=== PATIENT | female | born 1985 | race African-American/Black ===

== ENCOUNTER 2020-05-23 19:38 | Emergency (ER) | payer OTHER ==
[~2020-05-23] VITALS: Ht 170.2 cm; Wt 79.8 kg
--- OUTSIDE RECORDS SUMMARY | 2020-05-23 20:00 | XMS REPORT | Clinical Summary ---
Author Author FRANKIE [facility]Kyrib[facility] Corporation[facility] Address Unknown Phone Unavailable Care Team Providers Care It Sales Consultant Name Role Phone Pamella Carrasco PCP Unavailab le Allergies Comments Active Allergy Reactions Severity Noted Date Itchiness, rashes Folic Acid High 02/22/2019 Iodine And Iodide Itching, Rash Low 12/18/2016 Containing Products Latex 05/08/2016 Pt with severe itching after injection 09/06/2019 Morphine Hives, 09/11/2015 Itching Xenia Anaphylaxis High 02/17/2019 Ketorolac Itching 09/11/2015 Medications End Date Status Medication Sig Dispensed Refills Start Date Active ibuprofen (ADVIL,MOTRIN) Take 800 mg 0 800 MG tablet by mouth every 6 (six) hours as needed for Pain. Active ondansetron (ZOFRAN-ODT) 1 po q 6 -8 20 tablet 0 1 4 MG disintegrating hours, prn 9 tablet nausea.. Active predniSONE (DELTASONE) 10 Take 30 mg by 0 /11 19/202 MG tablet mouth daily. 0 Active triamcinolone (KENALOG) Apply 1 0 0.1 % topical ointment application topically 2 (two) times daily as needed. Active omeprazole (PRILOSEC) 40 Take 40 mg by 0 02/06 / MG capsule mouth daily. 0 Active montelukast (SINGULAIR) Take 1 tablet 0 10 mg tablet by mouth 8 nightly. Active fluticasone propionate 1 puff by 0 02/10/2 02 (XHANCE) 93 mcg/actuation Nasal route 2 0 AerB (two) times daily. Active fluticasone propionate Inhale 1 puff 0 (FLOVENT HFA) 110 by mouth via mcg/actuation inhaler inhaler 2 (two) times daily. Active ferrous sulfate 325 (65 Take 325 mg 0 FE) MG tablet by mouth daily. Active betamethasone, augmented, 1 application 0 02/10 (DIPROLENE) 0.05 % 2 (two) times 0 ointment daily as needed. Active albuterol HFA (PROAIR Inhale 2 0 02/25/20 1 HFA) 90 mcg/actuation puffs by 7 inhaler mouth via inhaler every 4 (four) hours as needed. 09/06/2019 Discontinued albuterol (PROVENTIL) 2.5 Take 2.5 mg 0 mg /3 mL (0.083 %) by nebulizer solution nebulization every 6 (six) hours as needed for Wheezing. 09/06/2019 Discontinued FERROUS FUMARATE (IRON Take by 0 ORAL) mouth. 03/14/2020 Discontinued docusate sodium (COLACE) Take 1 0 08/12 100 MG capsule capsule by 9 mouth 2 (two) times daily as needed. 03/14/2020 Discontinued predniSONE (DELTASONE) 5 Take 1 tablet 0 07/27 MG tablet by mouth. 9 03/14/2020 Discontinued oxyCODONE-acetaminophen Take 1 tablet 0 (PERCOCET) 10-325 mg per by mouth tablet every 4 (four) hours as needed for Pain. 03/14/2020 Discontinued potassium chloride 2 po bid x 1 10 tablet 0 (KLOR-CON) 10 MEQ CR day, then 1 9 tablet po daily x 6 days. Re-check Potassium level in 1 week.. Active Problems Not on file Encounters Care Team Description Date Type Specialty Maurice Oh MD Pleuritic chest pain (Primary Dx); Chest pain, unspecified type 03/14/2020 Emergency Emergency Medicine 03/14/2020 Travel Minnie Hooper MD Lower abdominal pain (Primary Dx); Hypokalemia; Nausea; Status post ; Iron deficiency anemia, unspecified iron deficiency anemia type 09/06/2019 Emergency Emergency Medicine 09/06/2019 Travel after 05/23/2019 Family History Medical History Relation Name Comments Hypertension Father Hypertension Mother Relation Name Status Comments Father Mother Social History Date Tobacco Use Types Packs/Day Years Used Never Smoker Smokeless Tobacco: Never Used Alcohol Use Drinks/Week oz/Week Comments Yes socially Alcohol Habits Answer Date Recorded How often do you have a drink containing alcohol? Never 09/06/2019 How many drinks containing alcohol do you have on No t asked a typical day when you are drinking? How often do you have six or more drinks on one Not asked occasion? Sex Assigned at Date Recorded Not on file Industry Job Start Date Occupation Not on file Not on file Not on file Travel End Travel History Travel Start No recent travel history available. Last Filed Vital Signs Time Taken Vital Sign Reading 03/14/2020 10:20 PM CDT Blood Pressure 157/82 03/14/2020 10:20 PM CDT Pulse 71 03/14/2020 10:20 PM CDT Temperature 37.2 C (99 F) 03/14/2020 10:20 PM CDT Respiratory Rate 18 03/14/2020 10:20 PM CDT Oxygen Saturation 100% - Inhaled Oxygen - Concentration 03/14/2020 6:52 PM CDT Weight 79.8 kg (176 lb) 03/14/2020 6:52 PM CDT Height 168.9 cm (5' 6.5") 03/14/2020 6:52 PM CDT Body Mass Index 27.98 Plan of Treatment Not on file Procedures Comments Procedure Name Priority Date/Time Associated Diag nosis REPORT OF PROCEDURE - 03/17/2020 ENDOSCOPY SCAN 2:20 PM CDT XR CHEST 2 VIEWS STAT 03/14/2020 9:43 PM CDT SCREEN, URINE STAT 03/14/2020 8:06 PM CDT B-TYPE NATRIURETIC FACTOR STAT 03/14/2020 (BNP) 7:51 PM CDT CBC W/PLT COUNT & AUTO STAT 03/14/2020 DIFFERENTIAL 7:50 PM CDT D-DIMER STAT 03/14/2020 7:50 PM CDT RAPID TROPONIN I STAT 03/14/2020 7:50 PM CDT RAPID MYOGLOBIN STAT 03/14/2020 7:50 PM CDT RAPID CK-MB STAT 03/14/2020 7:50 PM CDT PT/APTT STAT 03/14/2020 7:50 PM CDT CBC W/PLT COUNT & AUTO STAT 03/14/2020 DIFFERENTIAL 7:50 PM CDT MAGNESIUM STAT 03/14/2020 7:50 PM CDT BASIC METABOLIC PANEL (7) STAT 03/14/2020 7:50 PM CDT ED ECG INTERPRETATION Routine 03/14/2020 7:26 PM CDT ECG 12-LEAD STAT 03/14/2020 6:[address] ABDOMEN/PELVIS WITHOUT STAT 09/06/2019 IV CONTRAST 9:16 AM [employer] URINALYSIS W/ REFLEX STAT 09/06/2019 URINE CULTURE 8:51 AM [employer] URINE CULTURE STAT 09/06/2019 8:51 AM [employer] CBC W/PLT COUNT & AUTO STAT 09/06/2019 DIFFERENTIAL 8:45 AM [employer]IST BASIC METABOLIC PANEL (7) STAT 09/06/2019 8:45 AM [employer] HEPATIC FUNCTION PANEL STAT 09/06/2019 8:45 AM [employer]IST CBC W/PLT COUNT & AUTO STAT 09/06/2019 DIFFERENTIAL 8:45 AM [employer]IST after 05/23/2019 Results * EKG-SCANNED (03/17/2020 2:20 PM CDT) Narrative Performed At This result has an attachment that is n ot available. * XR chest 2 views (03/14/2020 9:43 PM CDT) Specimen Narrative Performed At FINAL REPORT [facility] Exam: Chest radiograph Clinical History: Chest pain COMPARISON: December 18, 2016 Findings: The cardiomediastinal silhouette and leidy ngs are normal. The regional skeleton and soft tissue are unremarkab le.There is no evidence of pleural effusion or pneumothorax. Impression: No radiographic evidence of acute cardi opulmonary disease. Signed: Rahul Roldan MD Report Verified Date/Time: 0 21:49:09 Reading Location: [address] Transiti onal Reading Room Procedure Note Interface, External Ris In - 03/14/2020 9:51 PM CDT FINAL REPORT Exam: Chest radiograph Clinical History: Chest pain COMPARISON: December 18, 2016 Findings: The cardiomediastinal silhouette and lungs are normal. The regional skeleton and soft tissue are unremarkable. There is no evidence of pleural effusion or pneumothorax. Impression: No radiographic evidence of acute cardiopulmonary disease. Signed: Rahul Roldan MD Report Verified Date/Time: 03/14/2020 21:49:09 Reading Location: [facility] [id number] Transitional Reading Room Performing Organization Address City/[facility] Ph one Number GE RIS * screen, urine (03/14/2020 8:06 PM CDT) Preg Test, Ur Negative [facility], [facility], [facility] Specimen Urine Performing Organization Address [facility] Ph one Number [address] [address] [phone] [place] [address] [facility] [place] * B-type Natriuretic Factor (BNP) (03/14/2020 7:51 PM CDT) BNP 26 0 - 100 pg/mL [facility], [facility], [facility] [place] Specimen Blood Performing Organization Address [facility] Ph one Number [id number] [place] [address] [phone] [place] [address] LABORATORY * Rapid Myoglobin (03/14/2020 7:50 PM CDT) Rapid Myoglobin 22 <107 ng/mL [facility] Specimen Blood Performing Organization Address [facility] one Number FRANKIE HAWKINS [address] [place] [address] [facility], [facility], [facility] * Rapid Troponin I ([facility] Only) (03/14/2020 7:50 PM CDT) Rapid Troponin I <0.05 <0.05 ng/mL [facility] Specimen Blood Performing Organization Address [facility] Ph one Number FRANKIE HAWKINS [address] [place] [address] [facility] * Rapid CK-MB (03/14/2020 7:50 PM CDT) Rapid CKMB <1.0 0.0 - 4.3 ng/mL [facility] Specimen Blood Performing Organization Address [facility] Ph one Number FRANKIE HAWKINS [address] [place] [address] [facility], [facility], [facility] * PT/PTT (03/14/2020 7:50 PM CDT) Protime 10.6 9.8 - 12.0 seconds [facility] INR 1.0 <=5.9 [facility], [facility], [facility] PTT 25.0 (L) 25.8 - 34.5 seconds [facility] Specimen Blood Narrative Performed At RECOMMENDED COUMADIN/WARFARIN INR THERAPY RANGES [facility] STANDARD DOSE: 2.0 - 3.0 Includes: PROPHYLAXIS fo r venous thrombosis, [facility] systemic embolization; TREATMENT for ve nous thrombosis and/or pulmonary embolus. [facility] HIGH RISK: Target INR is 2.5-3.5 for patients with me chanical heart valves. [facility], [facility] Performing Organization Address City/State/Zipcode Ph one Number [facility] [address] [place], [place] [id number] [facility] * CBC with platelet count + automated diff (03/14/2020 7:50 PM CDT) Only the most recent of 2 results within the time period is included. WBC 12.0 (H) 4.0 - 10.0 K/L [facility], [facility] RBC 4.11 4.00 - 5.00 M/L [facility] Hemoglobin 11.0 (L) 12.0 - 15.0 GM/DL [facility] Hematocrit 33.7 (L) 36.0 - 45.0 % [facility] MCV 82.0 82.0 - 99.0 fL [facility] MCH 26.8 (L) 27.0 - 33.0 pg [facility] MCHC 32.7 32.0 - 36.0 GM/DL [facility] RDW 17.0 (H) 10.3 - 14.2 % [facility] Platelets 247 150 - 430 K/CU MM [facility] MPV 10.5 6.5 - 10.5 fL [facility] % Neutros 53 % [facility] % Lymphs 37 % [facility] % Monos 7 % [facility] % Eos 2 % [facility] [place] % Baso 1 % [facility], [facility], [facility] [place], [facility] # Neutros 6.38 1.80 - 8.00 K/L [facility], [facility], [facility] [place], [facility] # Lymphs 4.47 1.48 - 4.50 K/L [facility], [facility], [facility] [place] # Monos 0.85 0.00 - 1.30 K/L [facility], [facility], [facility] [place], [facility] # Eos 0.23 0.00 - 0.50 K/L [facility], [facility], [facility] [place] # Baso 0.11 0.00 - 0.20 K/L [facility], [facility], [facility] Specimen Blood Performing Organization Address [facility] Ph one Number [phone] [place] [address], [facility], [facility] [place] * D-dimer, quantitative (03/14/2020 7:50 PM CDT) D-Dimer, Quant 0.34 <0.50 MG/L FEU [facility], [facility], [facility] Specimen Blood Narrative Performed At REGARDING D-DIMER RESULTS: Results of this D-Dimer te st should always be [facility] interpreted in conjunction with the patient's medical history, clinical [facility] presentation and other findings. DVT clinical diagnos is should not be based on CENTER, COMMUNITY the results of [place] D-Dimer alone. [facility] [place], [facility] Performing Organization Address [facility] one Number [phone] [place] [address], [facility], [facility] * Magnesium (03/14/2020 7:50 PM CDT) Magnesium 1.9 1.5 - 3.0 mg/dL [facility] Specimen Blood Performing Organization Address City/[facility] Ph one Number [facility] [address] [place] [address] [facility] * Basic Metabolic Panel (03/14/2020 7:50 PM CDT) Only the most recent of 2 results within the time period is included. Sodium 138 135 - 148 meq/L [facility] Potassium 3.6 3.6 - 5.5 meq/L [facility] Chloride 105 98 - 106 meq/L [facility] CO2 27 24 - 32 meq/L [facility] BUN 10 10 - 26 mg/dL [facility] Creatinine 0.46 (L) 0.50 - 1.20 mg/dL [facility] Glucose 95 70 - 110 mg/dL [facility] Calcium 9.2 8.5 - 10.5 mg/dL [facility] EGFR 187Comment: ESTIMATED GFR IS mL/min/1.73 sq m [facility] NOT ACCURATE CREATININE [facility] CLEARANCE IN [facility] GLOMERULAR FILTRATION RATE. EMERGENCY CENTER, ESTIMATED GFR IS NOT [facility] APPLICABLE FOR DIALYSIS PATIENTS. Specimen Blood Performing Organization Address City/[facility] Ph one Number [facility] [address] [place] [address] [facility], [facility], [facility] * ECG/EKG Interpretation (03/14/2020 7:26 PM CDT) Narrative Performed At Maurice Oh MD 03/15/20 12:11 AM ECG/EKG Interpretation Date/Time: 03/14/2020 7:29 PM Performed by: Maurice Oh MD Authorized by: Maurice Oh MD The ECG was interpreted by ED physician . This ECG was not compared with previous ECG(s).The ECG is interpreted as sinus rhythm. Rate is normal rate. Conduction: conduction normal. ST segments normal. T waves normal. Other findings: no other findings. Clin ical Impression: non-specific ECGECG reviewed and does not meet STEMI criteria. * ECG 12 lead (03/14/2020 6:55 PM CDT) Specimen Narrative Performed At Ventricular Rate 75 BPM [facility] Atrial Rate 75 BPM P-R Interval 148 ms QRS Duration 84 ms Q-T Interval 394 ms QTC Calculation(Bazett) 439 ms P [place] 33 degrees R [place] 20 degrees T [place] 16 degrees Normal sinus rhythm Nonspecific T wave abnormality Abnormal ECG 14 DEC 2016 Fusion complexes no longer seen Questionable change in the QRS axis QT has shortened Confirmed by MD DEJESUS YOCHAI ([id number] ) on 03/15/2020 8:37:07 AM Procedure Note Interface, External Ris In - 03/15/2020 8:37 AM CDT Ventricular Rate 75 BPM Atrial Rate 75 BPM P-R Interval 148 ms QRS Duration 84 ms Q-T Interval 394 ms QTC Calculation(Bazett) 439 ms P [place] 33 degrees R [place] 20 degrees T [place] 16 degrees Normal sinus rhythm Nonspecific T wave abnormality Abnormal ECG 14 DEC 2016 Fusion complexes no longer seen Questionable change in the QRS axis QT has shortened Confirmed by MD DEJESUS YOCHAI ([id number]) on 03/15/2020 8:37:07 AM Performing Organization Address City/State/[facility] Ph one Number [facility] * CT abdomen/pelvis without iv contrast (09/06/2019 9:16 AM [employer]IST) Specimen Narrative Performed At FINAL REPORT [employer] TECHNIQUE: CT of the abdomen and pelvis WITHOUT intravenous contrast and WITHOUT oral contrast. Dose modulat ion, iterative reconstruction, and/or weight-based adjustment of the m A/kV was utilized to reduce the radiation dose to as low as reasona chiquita achievable. INDICATION: RLQ abdominal pain, appendi citis suspected (Age > 14y) recent and salpingectomy, 6 w eeks ago. COMPARISON: CT from 09/11/2015. FINDINGS: ABSENCE OF INTRAVENOUS CONTRAST DECREAS ES SENSITIVITY FOR DETECTION OF FOCAL LESIONS AND VASCULAR PATHOLOGY . LOWER THORAX: Unremarkable. HEPATOBILIARY: No focal hepatic lesions . Gallbladder is unremarkable. No biliary ductal dilatation. SPLEEN: No splenomegaly. PANCREAS: No focal masses or ductal dil atation. ADRENALS: No adrenal nodules. KIDNEYS/URETERS: No hydronephrosis, sto sigifredo, or exophytic masses. PELVIC ORGANS/BLADDER: Prominent, postp artum uterus. PERITONEUM/RETROPERITONEUM: No free air or fluid. LYMPH NODES: No lymphadenopathy. VESSELS: Unremarkable. GI TRACT: No distention or wall thicken ing. Small, sliding hiatal hernia. The appendix is normal. BONES AND SOFT TISSUES: Recent lower ab dominal incision. Transitional lumbar vertebra with a left L5-S1 pseud oarthrosis. Mild leftward convex curvature of the lumbar spine. IMPRESSION: No definite explanation for the right l ower quadrant abdominal pain. Specifically, the appendix is normal. Signed: Jose Guadalupe Bazzi MD Report Verified Date/Time: 9 09:31:36 Reading Location: [facility] Reading Room - [place] [id number] Procedure Note Interface, External Ris In - 09/06/2019 9:33 AM [employer] SPECIALIST FINAL REPORT TECHNIQUE: CT of the abdomen and pelvis WITHOUT intravenous contrast and WITHOUT oral contrast. Dose modulation, iterative reconstruction, and/or weight-based adjustment of the mA/kV was utilized to reduce the radiation dose to as low as reasonably achievable. INDICATION: RLQ abdominal pain, appendicitis suspected (Age > 14y) recent and salpingectomy, 6 weeks ago. COMPARISON: CT from 09/11/2015. FINDINGS: ABSENCE OF INTRAVENOUS CONTRAST DECREASES SENSITIVITY FOR DETECTION OF FOCAL LESIONS AND VASCULAR PATHOLOGY. LOWER THORAX: Unremarkable. HEPATOBILIARY: No focal hepatic lesions. Gallbladder is unremarkable. No biliary ductal dilatation. SPLEEN: No splenomegaly. PANCREAS: No focal masses or ductal dilatation. ADRENALS: No adrenal nodules. KIDNEYS/URETERS: No hydronephrosis, stones, or exophytic masses. PELVIC ORGANS/BLADDER: Prominent, uterus. PERITONEUM/RETROPERITONEUM: No free air or fluid. LYMPH NODES: No lymphadenopathy. VESSELS: Unremarkable. GI TRACT: No distention or wall thickening. Small, sliding hiatal hernia. The appendix is normal. BONES AND SOFT TISSUES: Recent lower abdominal incision. 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 Mild leftward convex curvature of the lumbar spine. IMPRESSION: No definite explanation for the right lower quadrant abdominal pain. Specifically, the appendix is normal. Signed: Jose Guadalupe Bazzi MD Report Verified Date/Time: 09/06/2019 09:31:36 Reading Location: [facility] Diagnostic Imaging Reading Room - [place] [id number] Performing Organization Address City/State/Zipcode Ph one Number GE RIS * Urinalysis w/Microscopic + Reflex to Culture (09/06/2019 8:51 AM [employer]IST) Color, UA Yellow [facility] Clarity, UA Cloudy [facility] Specific [place], UA 1.025 1.001 - 1.035 [facility] pH, UA 6.0 5.0 - 8.0 [facility] Protein, UA 30 mg/dL (A) Negative [facility] Glucose, UA Negative Negative [facility] Ketones, UA Negative Negative [facility] Bilirubin, UA Negative Negative [facility] Blood, UA Moderate (A) Negative [facility] Nitrite, UA Negative Negative [facility] Leukocytes, UA Small (A) Negative [facility] Urobilinogen, UA 0.2 0.2 - 1.0 mg/dL [facility], [facility], [facility] Bacteria, UA Moderate [facility], [facility], [facility] [place], [facility] Mucus Moderate [facility] RBC, UA 10-20 /HPF [facility] WBC, UA 20-50 /HPF [facility], [facility], [facility] SQUAMOUS EPITHELIAL 20-50 /HPF [facility], [facility], [facility] Specimen Source [facility], [facility], [facility] Specimen Urine Performing Organization Address City/[facility]/Zipcode Ph one Number [facility] [address] [place] [address] [facility], [facility], [facility] * Urine culture (09/06/2019 8:51 AM [employer]IST) Result 90-99,000 col/mL skin leonard [facility] Specimen Urine Performing Organization Address City/[facility]/Zipcode Ph one Number [facility] [address] [place] [address] [facility] * Hepatic function panel (09/06/2019 8:45 AM [employer]IST) Protein, Total 7.3 6.0 - 8.5 gm/dL [facility], [facility], [facility] Albumin 3.9 3.5 - 5.0 g/dL [facility], [facility], [facility] Total Bilirubin 0.3 0.1 - 1.2 mg/dL [facility], [facility], [facility] Bilirubin, Direct 0.1 0.0 - 0.4 mg/dL [facility], [facility], [facility] Alkaline Phosphatase 104 30 - 115 U/L [facility] AST 14 5 - 40 U/L [facility] ALT 15 5 - 50 U/L [facility], [facility], [facility] [place], [facility] Specimen Blood Performing Organization Address City/State/Zipcode Ph one Number [facility] [address] [place] [address] [facility], [facility], [facility] [place], [facility] after 05/23/2019 Insurance Payer Benefit Subscriber ID Type Phone Address Plan / Group MEDICAID - MEDICAID [place] MEDICAID xxxxxxxxx Medica id CARE COMM Contracted HEALTH CHOICE CIGNA - [place] CARE CIGNA xxxxxxxxxxx HMO/POS HMO/POS/OP EN ACCESS [phone]
--- OUTSIDE RECORDS SUMMARY | 2020-05-23 20:00 | XMS REPORT ---
Author Author Marya Sweet [facility] Organization [employer] Address Unknown Phone Unavailable Care Team Providers Care Electrical Checkout Mechanic Name Role Phone Melinda Sweet CP Unavailable Allergies, Adverse Reactions, Alerts Substance Reaction Event Type Morphine Sulfate Info Not Available Drug Allergy Ketorolac Tromethamine Info Not Available Drug Allergy Problems Problem Type Condition Code Onset Dates Condition Statu s Assessment Well adult exam Z00.00 Active Problem Moderate persistent asthma, uncomplicated J45.40 Active Problem Sickle cell anemia D57.1 Active Problem Vitamin D deficiency E55.9 Active Problem Hyperlipemia E78.5 Active Problem Umbilical hernia K42.9 Active Problem Encounter to discuss test results Z71.89 Active Problem Well adult exam Z00.00 Active Problem Asthma J45.909 Active Problem Other hyperlipidemia E78.4 Active Assessment BMI 28.0-28.9,adult Z68.28 Active Assessment Insomnia, unspecified type G47.00 A ctive Assessment Moderate persistent asthma, uncomplicated J45.40 Active Medications Medication Code System Code Instructions Start Date End Date Status Dosage Advair Diskus [facility] [address]-60 500-50 MCG/DOSE Inhalation Twice a day Sep 27, 2016 Active 1 puff Montelukast Sodium [facility] [address]-19 10 MG Orally Once a d ay for asthma control May 01, 2018 Active 1 tablet in the even ing Vitamin D3 [facility] [address]383 UNIT Orally once a week February 24 7 Active as directed Trazodone HCl [facility] [address]-74 150 MG Orally on ce a day at bedtime for insomnia May 02, 2018 Active 1 tablet at bedt myron ProAir HFA [facility] [address]-24 Active not def ined ProAir HFA [facility] [address]-24 108 (90 Base) MCG/ACT Inhal ation every 4 hrs February 24, 2017 Active 2 puffs as needed Results No Known Results Summary Purpose [employer] Submission
--- OUTSIDE RECORDS SUMMARY | 2020-05-23 20:00 | XMS REPORT ---
Author Author Marya Kincaid Organization [employer] Address Unknown Phone Unavailable Care Team Providers Care Laborer Shipyard Name Role Phone Faiza Kincaid CP Unavailable Allergies, Adverse Reactions, Alerts Substance Reaction Event Type Morphine Sulfate Info Not Available Drug Allergy Ketorolac Tromethamine Info Not Available Drug Allergy Problems Problem Type Condition Code Onset Dates Condition Statu s Assessment Vitamin D deficiency E55.9 Active Problem Moderate persistent asthma, uncomplicated J45.40 Active Problem Sickle cell anemia D57.1 Active Problem Vitamin D deficiency E55.9 Active Problem Hyperlipemia E78.5 Active Problem Umbilical hernia K42.9 Active Problem Encounter to discuss test results Z71.89 Active Problem Well adult exam Z00.00 Active Problem Asthma J45.909 Active Problem Other hyperlipidemia E78.4 Active Assessment Umbilical hernia K42.9 Active Assessment Moderate persistent asthma, uncomplicated J45.40 Active Assessment Asthma J45.909 Active Assessment Hyperlipemia E78.5 Active Medications Medication Code System Code Instructions Start Date End Date Status Dosage Advair Diskus [facility] [address]-28 500-50 MCG/DOSE Inhalation Twice a day Sep 27, 2016 Active 1 puff ProAir HFA [facility] [address]-04 Active not def ined Vitamin D3 [facility] [address] UNIT Orally once a week February 24 7 Active as directed ProAir HFA [facility] [address]-97 108 (90 Base) MCG/ACT Inhal ation every 4 hrs February 24, 2017 Active 2 puffs as needed Results No Known Results Summary Purpose [employer] Submission
--- OUTSIDE RECORDS SUMMARY | 2020-05-23 20:00 | XMS REPORT | Clinical Summary ---
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 Active ondansetron (ZOFRAN) 4 MG Take 4 mg by 0 tablet mouth every 8 (eight) hours as needed for nausea or vomiting. Active albuterol (PROAIR HFA) 90 Inhale 2 0 mcg/actuation inhaler puffs every 6 (six) hours as needed for wheezing. 08/29/2019 Discontinued promethazine (PHENERGAN) Insert 25 mg 0 25 MG suppository into the rectum every 6 (six) hours as needed for nausea or vomiting. 08/29/2019 Discontinued promethazine (PHENERGAN) Take 25 mg by 0 25 MG tablet mouth every 6 (six) hours as needed for nausea or vomiting. 08/29/2019 Discontinued doxylamine succinate/vit Take by 0 B6 (DICLEGIS ORAL) mouth. 08/29/2019 Discontinued meclizine (ANTIVERT) 12.5 Take 12.5 mg 0 mg tablet by mouth 3 (three) times a day as needed for dizziness. 11/24/2019 Discontinued (Therapy comple mark) ibuprofen (ADVIL) 800 MG 0 tablet 9 09/05/2019 acetaminophen-codeine Take 1-2 20 tablet 0 08/13 (TYLENOL WITH CODEINE #3) tablets by 9 300-30 mg per mouth every 6 tabletIndications: acute (six) hours pain as needed for moderate pain or severe pain for up to 20 doses .Acute Pain. 10/14/2019 Discontinued albuterol (PROAIR HFA) 90 as needed for 0 mcg/actuation inhaler ASTHMA 10/24/2019 Discontinued oxyCODone-acetaminophen EVERY 4 HOURS 0 (PERCOCET) 7.5-325 mg per NEEDED. as 9 tablet needed for PAIN 10/20/2019 Discontinued (Formulary bocanegra ) fluticasone Inhale 1 puff 14 each 0 propion-salmeterol 2 (two) times 0 (ADVAIR DISKUS) 100-50 a day. mcg/dose DISKUSIndications: Moderate persistent asthma without complication 12/09/2019 Discontinued (Med List Clean up) albuterol (PROAIR HFA) 90 Inhale 2 18 g 2 mcg/actuation puffs every 6 0 inhalerIndications: (six) hours Moderate persistent as needed for asthma without wheezing. complication 12/09/2019 Discontinued (Med List Clean up) triamcinolone (KENALOG) Apply 30 g 0 0.1 % topically 2 0 ointmentIndications: (two) times a Flexural eczema day. 11/11/2019 Discontinued ibuprofen (ADVIL) 600 MG Take 1 tablet 30 tablet 0 tablet (600 mg 0 total) by mouth every 6 (six) hours as needed for moderate pain for up to 30 days. 10/20/2019 traMADol (ULTRAM) 50 mg Take 1 tablet 20 tablet 0 tabletIndications: acute (50 mg total) 0 pain by mouth every 6 (six) hours as needed for moderate pain for up to 5 days .acute pain. 12/09/2019 Discontinued (Med List Clean up) ergocalciferol (VITAMIN Take 1 12 capsule 0 D2) 50,000 unit capsule 0 capsuleIndications: (50,000 Units Vitamin D deficiency total) by mouth once a week for 84 days. 10/24/2019 Discontinued fluticasone Inhale 1 puff 14 each 3 propion-salmeterol 2 (two) times 0 (ADVAIR DISKUS) 100-50 a day. mcg/dose DISKUSIndications: Moderate persistent asthma without complication 11/21/2019 Discontinued (Reorder) fluticasone propionate Inhale 1 puff 0 (FLOVENT HFA) 110 2 (two) times mcg/actuation inhaler a day. 10/25/2019 Discontinued (Therapy comple mark) ondansetron (ZOFRAN) 4 MG Take 1 tablet 15 tablet 0 tablet (4 mg total) 0 by mouth every 8 (eight) hours as needed for nausea or vomiting for up to 10 days. 11/12/2019 Discontinued (Stop Taking at Discharge) oxyCODone-acetaminophen Take 1 tablet 20 tablet 0 (PERCOCET) 5-325 mg per by mouth 0 tabletIndications: acute every 4 pain (four) hours as needed for moderate pain for up to 7 days .acute pain. Max Daily Amount: 6 tablets 12/09/2019 Discontinued (Med List Clean up) ondansetron (ZOFRAN) 4 MG Take 1 tablet 20 tablet 0 tablet (4 mg total) 0 by mouth every 8 (eight) hours as needed for nausea or vomiting for up to 30 days. 11/13/2019 Discontinued (Reorder) oxyCODone-acetaminophen Take 1 tablet 20 tablet 0 (PERCOCET) 7.5-325 mg per by mouth 0 tabletIndications: acute every 4 pain (four) hours as needed for moderate pain for up to 20 days .acute pain. Max Daily Amount: 6 tablets 12/03/2019 oxyCODone-acetaminophen Take 1 tablet 20 tablet 0 (PERCOCET) 7.5-325 mg per by mouth 0 tabletIndications: acute every 4 pain (four) hours as needed for moderate pain for up to 20 days .acute pain. Max Daily Amount: 6 tablets 11/24/2019 Discontinued (Therapy comple mark) methocarbamol (ROBAXIN) Take 1 tablet 20 tablet 0 500 MG tablet (500 mg 0 total) by mouth 2 (two) times a day for 10 days. 11/24/2019 Discontinued (Alternate ther apy) promethazine (PHENERGAN) Take 1 tablet 30 tablet 0 25 MG tablet (25 mg total) 0 by mouth every 6 (six) hours as needed for nausea or vomiting for up to 30 days. 12/09/2019 Discontinued (Med List Clean up) fluticasone propionate Inhale 1 puff 12 g 0 0 (FLOVENT HFA) 110 2 (two) times 0 mcg/actuation a day. inhalerIndications: Moderate persistent asthma without complication 12/09/2019 Discontinued cyclobenzaprine Take 1 tablet 20 tablet 0 12/06/19 2 (FLEXERIL) 10 mg tablet (10 mg total) 0 by mouth 2 (two) times a day as needed for muscle spasms for up to 10 days. 12/09/2019 Discontinued celecoxib (CeleBREX) 200 Take 1 60 capsule 0 0 MG capsule capsule (200 0 mg total) by mouth 2 (two) times a day for 30 days. 12/09/2019 Discontinued (Med List Clean up) tranexamic acid (Lysteda) Take 2 30 tablet 2 650 mg tablet tablet tablets 0 (1,300 mg total) by mouth 3 (three) times a day for 5 days. Days 1 through 5 of menstrual flow. 04/16/2020 Discontinued ergocalciferol (VITAMIN Take 50,000 0 D2) 50,000 unit capsule Units by mouth once a week. On Friday04/16/2020 Discontinued fluticasone propionate Inhale 1 puff 0 (FLOVENT HFA) 110 2 (two) times mcg/actuation inhaler a day. 04/16/2020 Discontinued tranexamic acid (LYSTEDA) Take 2 0 650 mg tablet tablet tablets (1300mg) by mouth three times daily x 5 days. On days 1-5 of menstruation cycle. Patient HAS NOT started taking medication; this was recently prescribed and she intends on starting when her next menstruation cycle starts 04/16/2020 Discontinued triamcinolone (KENALOG) Apply 0 0.1 % ointment topically 2 (two) times a day. 12/23/2019 gabapentin (NEURONTIN) Take 1 42 capsule 0 100 mg capsule capsule (100 0 mg total) by mouth 3 (three) times a day for 14 days. 12/26/2019 fluconazole (DIFLUCAN) ONE BY MOUTH 2 tablet 0 150 MG tablet NOW AND 0 REPEAT DOSE IN 72 HOURS IF NEEDED. 04/16/2020 Discontinued dicyclomine (BENTYL) 10 1 CAPSULE 0 MG capsule ORAL EVERY 6 0 HOURS NEEDED FOR ABDOMINAL PAIN/CRAMPING 03/17/2020 fluconazole (Diflucan) Take 1 tablet 2 tablet 0 0 150 MG tablet (150 mg 0 total) by mouth once for 1 dose. Take 2nd dose after 72 hours if symptoms persist. 04/27/2020 fluconazole (DIFLUCAN) Take 1 tablet 1 tablet 0 0 150 MG tablet (150 mg 0 total) by mouth once for 1 dose. Active Problems Problem Noted Date Incisional hernia without obstruction or gangrene Abnormal TSH 10/20/2019 Asthma 01/14/2016 Epilepsy 01/14/2016 Pain in extremity 01/14/2016 Episodic paroxysmal anxiety disorder 01/14/2016 Upper respiratory infection 01/14/2016 Resolved Problems Problem Noted Date Resolved Date Hyperemesis gravidarum 02/05/2019 10/17/2019 Encounters Care Team Description Date Type Specialty Marquita Chong LVN 04/27/2020 Refill Obstetrics and Gyne cology Kaleb Forrest MD Dysmenorrhea (Primary Dx) 04/16/2020 Emergency Emergency Medicine 04/16/2020 Travel Kelechi Almendarez MD Chest pain, unspecified type (Primary Dx ) 03/28/2020 Emergency Emergency Medicine - 03/29/2020 03/28/2020 Travel Karlene Park LVN 03/17/2020 Orders Only Obstetrics and Gyne cology Anthony Rosen MD 03/14/2020 Telephone Obstetrics and Gyne cologAnthony Rowland MD 02/29/2020 Telephone Obstetrics and Gyne cology Anthony Rosen MD Abnormal uterine bleeding (AUB) (Primary Dx); Chronic pain syndrome 02/08/2020 Office Visit Obstetrics and Gyne cology 02/07/2020 Travel Leyda Galvan NP RE: E-Visit Submission: Control 02/07/2020 E-Visit Family Medicine Leyda Galvan NP RE: E-Visit Submission: Control 02/07/2020 E-Visit Family Medicine Dasia Kunz MA 02/03/2020 Telephone Gynecologic Oncolog y Juanpablo Lizarraga Jr., MD Chronic abdominal pain (Primary Dx) 01/28/2020 Emergency Emergency Medicine 01/28/2020 Travel Sondra Yoon MA S/P hernia repair (Primary Dx); Postoperative right lower quadrant abdominal pain; Abdominal pain, epigastric 01/20/2020 Orders Only General Surgery Ajit Miller MD Umbilical hernia without obstruction and without gangrene (Primary Dx) 01/03/2020 Telemedicine General Surgery Valencia Eller MD RE: E-Visit Submission: Sprain/Strain 12/30/2019 E-Visit Family Medicine Valencia Eller MD RE: E-Visit Submission: Sprain/Strain 12/29/2019 E-Visit Family Medicine 12/29/2019 Travel Leonor Zamorano PA 12/29/2019 Telephone General Surgery 12/23/2019 Travel 12/21/2019 Travel Anthony Rosen MD 12/21/2019 Telephone Gynecologic Oncolog y Sánchez Cat MD Lower abdominal pain (Primary Dx) 12/17/2019 Emergency Emergency Medicine - 12/18/2019 Leonor Zamorano PA 12/16/2019 Telephone General Surgery Mayra Yousif MD Boyareddigari, Prasanth R., MD Abdominal pain, unspecified abdominal lo cation (Primary Dx) 12/09/2019 Emergency Emergency Medicine Anthony Rosen MD Abnormal uterine bleeding (AUB) (Primary Dx) 12/06/2019 Office Visit Obstetrics and Gyne cology Leonor Zamorano PA 12/06/2019 Telephone General Surgery Leonor Zamorano PA S/P hernia repair (Primary Dx) 11/24/2019 Office Visit General Surgery Vilma Montero MD Moderate persistent asthma without compl ication (Primary Dx) 11/21/2019 Orders Only Internal Medicine Anthony Gallo MD Generalized abdominal pain (Primary Dx); Nausea and vomiting, intractability of vomiting not specified, unspecified vomiting type 11/19/2019 Emergency Emergency Medicine - 11/20/2019 Nayla Hauser MD Godfrey, Benjamin Robert, DO Post-op pain (Primary Dx); Constipation, unspecified constipation type 11/15/2019 Emergency Emergency Medicine Mario Fisher MD Robles Garcia, Elsa, NP 11/11/2019 Anesthesia General Surgery Event Ajit Miller MD laparoscopic incisional hernia removal o f mesh with Laparoscopic incisional hernia repair with mesh 11/11/2019 Surgery General Surgery Ajit Miller MD Tariq, Nabil, MD Incisional hernia without obstruction or gangrene; Recurrent umbilical hernia 11/11/2019 Hospital General Surgery - Encounter 11/12/2019 Sondra Yoon MA 11/05/2019 Prep for General Surgery Surgery Ajit Miller MD Preop examination (Primary Dx); Incisional hernia without obstruction or gangrene; Bariatric surgery status 11/03/2019 Pre-Admit Pre-Admission Testi ng Testing Appointment Sondra Yoon MA Incisional hernia without obstruction or gangrene (Primary Dx) 11/02/2019 Prep for General Surgery Surgery Tomasa Henriquez MA 11/02/2019 Telephone Internal Medicine Kelechi Almendarez MD Hernia of abdominal wall (Primary Dx); Inguinal hernia, right 10/27/2019 Emergency Emergency Medicine Tomasa Henriquez MA 10/26/2019 Telephone Internal Medicine Ajit Miller MD Incisional hernia without obstruction or gangrene 10/25/2019 Office Visit General Surgery Sondra Yoon MA Incisional hernia without obstruction or gangrene (Primary Dx); Bariatric surgery status 10/25/2019 Orders Only General Surgery Anthony Rosen MD 10/25/2019 Telephone Obstetrics and Gyne cology Violetta David MD Colitis (Primary Dx); Dehydration 10/24/2019 Emergency Emergency Medicine Tomasa Henriquez MA Incisional hernia without obstruction or gangrene (Primary Dx) 10/21/2019 Orders Only Internal Medicine Vilma Montero MD Incisional hernia, without obstruction o r gangrene (Primary Dx) 10/21/2019 Orders Only Internal Medicine Vilma Montero MD Moderate persistent asthma without compl ication (Primary Dx) 10/20/2019 Orders Only Internal Medicine Vilma Montero MD Abnormal TSH (Primary Dx); Vitamin D deficiency 10/20/2019 Orders Only Internal Medicine Anthony Rosen MD Abnormal uterine bleeding (AUB) (Primary Dx) 10/18/2019 Office Visit Obstetrics and Gyne cology Vilma Montero MD 10/17/2019 Orders Only Internal Medicine Sánchez Cat MD Dysfunctional uterine bleeding (Primary Dx); Pelvic pain 10/15/2019 Emergency Emergency Medicine Vilma Montero MD Routine general medical examination at a health care facility (Primary Dx); Sickle cell trait (HCC); Moderate persistent asthma without complication; History of pancreatitis; Screening for breast cancer; Family history of breast cancer; Flexural eczema; Incisional hernia, without obstruction or gangrene; Acute blood loss anemia; Insomnia, unspecified type 10/14/2019 Office Visit Internal Medicine Corby Balbuena LVN 10/14/2019 Telephone Obstetrics and Gyne cology José Alegria MD Acute post-operative pain (Primary Dx) 08/29/2019 Emergency Emergency Medicine Sondra Dutta MD 06/22/2019 Telephone Obstetrics and Gyne cology after 05/23/2019 Family History Medical History Relation Name Comments No Known Problems Brother Asthma Father Eczema Father Hypertension Father Sickle cell trait Father COPD Maternal Grandfather Emphysema Maternal Grandfather Breast cancer Maternal Grandmother Hypertension Maternal Grandmother Hyperlipidemia Mother Hypertension Mother Sickle cell trait Mother Diabetes Paternal Grandmother Hyperlipidemia Paternal Grandmother Hypertension Paternal Grandmother Fibroids Sister Relation Name Status Comments Brother Father Alive Maternal Grandfather Maternal Grandmother Mother Alive Paternal Grandfather Alive Paternal Grandmother Sister Social History Date Tobacco Use Types Packs/Day Years Used Never Smoker Smokeless Tobacco: Never Used Tobacco Cessation: Counseling Given: Yes Drinks/Week oz/Week Comments Alcohol Use occassionally Yes Sex Assigned at Date Recorded Not on file Industry Job Start Date Occupation Not on file Not on file Not on file Travel End Travel History Travel Start No recent travel history available. Last Filed Vital Signs Reading Time Taken Comments Vital Sign 133/71 04/16/2020 4:27 AM CDT Blood Pressure 74 04/16/2020 4:27 AM CDT Pulse 36.6 C (97.8 F) 04/16/2020 4:27 AM CDT Temperature 18 04/16/2020 4:27 AM CDT Respiratory Rate 98% 04/16/2020 4:27 AM CDT Oxygen Saturation - - Inhaled Oxygen Concentration 81.2 kg (179 lb) 04/16/2020 3:17 AM CDT Weight 152.4 cm (5') 04/16/2020 3:17 AM CDT Height 34.96 04/16/2020 3:17 AM CDT Body Mass Index Plan of Treatment Health Maintenance Due Date Last Done Comments CERVICAL CANCER SCREENING 2005 INFLUENZA VACCINE 05/13/2020 12/28/2019 Implants Device Identifier Shelf Expiration Date Model / Serial / L ot Implanted Type Area Manufactur er 06/12/2021 [id number] / / [id number] Device Fxtn Absrbl Strp 5mm Surgical N/A: N/A ET [employer] US Securestrap - [id number] Implants; ET Implanted: 11/11/2019 at [facility] Expanders; HOSPITAL (Quantity not on file) Extenders; Surgical Wires 07/10/2021 [id number] / / [id number] Mesh Hrnia Rpr Ventralight St 4.5in Surgical N/A: N/A [employer] [place] [employer] [employer] - [id number] Mesh or Implanted: 11/11/2019 at [facility] Tissue HOSPITAL (Quantity not on file) Bar[employer] Products Procedures Comments Procedure Name Priority Date/Time Associated Diag nosis ESTIMATED GFR STAT 04/16/2020 3:55 AM CDT COMPREHENSIVE METABOLIC STAT 04/16/2020 PANEL 3:55 AM CDT HC COMPLETE BLD COUNT STAT 04/16/2020 W/AUTO DIFF 3:55 AM CDT ED REFERRAL TO WHEELER Routine 03/29/2020 HOLINESS PHYSICIAN 1:[address] ANGIOGRAM PE CHEST STAT 03/29/2020 1:17 AM CDT RETICULOCYTE COUNT STAT 03/28/2020 11:31 PM CDT ESTIMATED GFR STAT 03/28/2020 10:50 PM CDT HC COMPLETE BLD COUNT STAT 03/28/2020 W/AUTO DIFF 10:50 PM CDT B NATRIURETIC PEP, I-STAT STAT 03/28/2020 10:50 PM CDT TROPONIN, I-STAT STAT 03/28/2020 10:50 PM CDT COMPREHENSIVE METABOLIC STAT 03/28/2020 PANEL 10:50 PM CDT HCG QUALITATIVE, URINE STAT 03/28/2020 SCREEN 10:23 PM CDT ECG 12-LEAD Routine 03/28/2020 9:[address] ABDOMEN PELVIS WO STAT 01/28/2020 CONTRAST 9:05 PM CDT HCG QUALITATIVE, URINE STAT 01/28/2020 SCREEN 8:38 PM CDT URINALYSIS STAT 01/28/2020 8:38 PM CDT SMEAR REVIEW STAT 01/28/2020 8:15 PM CDT ESTIMATED GFR STAT 01/28/2020 8:15 PM CDT LIPASE LEVEL STAT 01/28/2020 8:15 PM CDT AMYLASE LEVEL STAT 01/28/2020 8:15 PM CDT LACTIC ACID, I-STAT STAT 01/28/2020 8:15 PM CDT COMPREHENSIVE METABOLIC STAT 01/28/2020 PANEL 8:15 PM CDT HC COMPLETE BLD COUNT STAT 01/28/2020 W/AUTO DIFF 8:[address] ABDOMEN PELVIS WO STAT 12/17/2019 CONTRAST 10:20 PM HEARING IMPAIRED ITINERANT TEACHER URINALYSIS STAT 12/17/2019 8:45 PM HEARING IMPAIRED ITINERANT TEACHER CT ABDOMEN PELVIS WO STAT 12/09/2019 CONTRAST 3:28 AM HEARING IMPAIRED ITINERANT TEACHER URINALYSIS STAT 12/09/2019 2:58 AM HEARING IMPAIRED ITINERANT TEACHER HCG QUALITATIVE, URINE STAT 12/09/2019 SCREEN 2:58 AM HEARING IMPAIRED ITINERANT TEACHER MANUAL DIFFERENTIAL STAT 12/09/2019 2:03 AM HEARING IMPAIRED ITINERANT TEACHER ESTIMATED GFR STAT 12/09/2019 2:03 AM HEARING IMPAIRED ITINERANT TEACHER LACTIC ACID LEVEL, SEPSIS STAT 12/09/2019 - NOW AND REPEAT 2X EVERY 2:03 AM HEARING IMPAIRED ITINERANT TEACHER 3 HOURS LIPASE LEVEL STAT 12/09/2019 2:03 AM HEARING IMPAIRED ITINERANT TEACHER COMPREHENSIVE METABOLIC STAT 12/09/2019 PANEL 2:03 AM HEARING IMPAIRED ITINERANT TEACHER CBC WITH PLATELET AND STAT 12/09/2019 DIFFERENTIAL 2:03 AM HEARING IMPAIRED ITINERANT TEACHER CT ABDOMEN PELVIS WO STAT 11/20/2019 CONTRAST 1:15 AM HEARING IMPAIRED ITINERANT TEACHER HCG QUALITATIVE, URINE STAT 11/20/2019 SCREEN 1:00 AM HEARING IMPAIRED ITINERANT TEACHER URINALYSIS STAT 11/20/2019 1:00 AM HEARING IMPAIRED ITINERANT TEACHER SMEAR REVIEW STAT 11/19/2019 10:57 PM HEARING IMPAIRED ITINERANT TEACHER ESTIMATED GFR STAT 11/19/2019 10:57 PM HEARING IMPAIRED ITINERANT TEACHER LIPASE LEVEL STAT 11/19/2019 10:57 PM HEARING IMPAIRED ITINERANT TEACHER COMPREHENSIVE METABOLIC STAT 11/19/2019 PANEL 10:57 PM HEARING IMPAIRED ITINERANT TEACHER HC COMPLETE BLD COUNT STAT 11/19/2019 W/AUTO DIFF 10:57 PM HEARING IMPAIRED ITINERANT TEACHER CT ABDOMEN PELVIS WO STAT 11/15/2019 CONTRAST 1:55 AM HEARING IMPAIRED ITINERANT TEACHER MANUAL DIFFERENTIAL STAT 11/15/2019 1:20 AM HEARING IMPAIRED ITINERANT TEACHER ESTIMATED GFR STAT 11/15/2019 1:20 AM HEARING IMPAIRED ITINERANT TEACHER AMYLASE LEVEL STAT 11/15/2019 1:20 AM HEARING IMPAIRED ITINERANT TEACHER LACTIC ACID, I-STAT STAT 11/15/2019 1:20 AM HEARING IMPAIRED ITINERANT TEACHER COMPREHENSIVE METABOLIC STAT 11/15/2019 PANEL 1:20 AM HEARING IMPAIRED ITINERANT TEACHER CBC WITH PLATELET AND STAT 11/15/2019 DIFFERENTIAL 1:20 AM HEARING IMPAIRED ITINERANT TEACHER SURGICAL PATHOLOGY Routine 11/11/2019 REQUEST 2:55 PM HEARING IMPAIRED ITINERANT TEACHER FL AN ELECTIVE Routine 11/11/2019 ENDOTRACHEAL AIRWAY 1:19 PM HEARING IMPAIRED ITINERANT TEACHER REPAIR, HERNIA, 11/11/2019 Recurrent umbilical UMBILICAL, LAPAROSCOPIC 12:54 PM HEARING IMPAIRED ITINERANT TEACHER hernia POC , URINE Routine 11/11/2019 10:03 AM HEARING IMPAIRED ITINERANT TEACHER ECG 12-LEAD Routine 11/03/2019 Incisional [place] without 5:37 PM HEARING IMPAIRED ITINERANT TEACHER obstruction or gangrene Bariatric surgery status PROTHROMBIN TIME WITH INR Routine 11/03/2019 Inci sional hernia without 5:06 PM HEARING IMPAIRED ITINERANT TEACHER obstruction or gangrene Bariatric surgery status PARTIAL THROMBOPLASTIN Routine 11/03/2019 Incisio nal hernia without TIME (PTT) 5:06 PM HEARING IMPAIRED ITINERANT TEACHER obstruction or gang lynn Bariatric surgery status ESTIMATED GFR Routine 11/03/2019 5:05 PM HEARING IMPAIRED ITINERANT TEACHER COMPREHENSIVE METABOLIC Routine 11/03/2019 Preop examination PANEL 5:05 PM HEARING IMPAIRED ITINERANT TEACHER HC COMPLETE BLD COUNT Routine 11/03/2019 Preop ex amination W/AUTO DIFF 5:05 PM HEARING IMPAIRED ITINERANT TEACHER CT RENAL STONE PROTOCOL STAT 10/24/2019 1:23 PM HEARING IMPAIRED ITINERANT TEACHER HCG QUALITATIVE, URINE STAT 10/24/2019 SCREEN 12:01 PM HEARING IMPAIRED ITINERANT TEACHER URINALYSIS STAT 10/24/2019 12:01 PM HEARING IMPAIRED ITINERANT TEACHER GRAM STAIN STAT 10/24/2019 12:00 PM HEARING IMPAIRED ITINERANT TEACHER URINE CULTURE STAT 10/24/2019 12:00 PM HEARING IMPAIRED ITINERANT TEACHER SMEAR REVIEW STAT 10/24/2019 11:34 AM HEARING IMPAIRED ITINERANT TEACHER ESTIMATED GFR STAT 10/24/2019 11:34 AM HEARING IMPAIRED ITINERANT TEACHER AMYLASE LEVEL STAT 10/24/2019 11:34 AM HEARING IMPAIRED ITINERANT TEACHER COMPREHENSIVE METABOLIC STAT 10/24/2019 PANEL 11:34 AM HEARING IMPAIRED ITINERANT TEACHER HC COMPLETE BLD COUNT STAT 10/24/2019 W/AUTO DIFF 11:34 AM HEARING IMPAIRED ITINERANT TEACHER FERRITIN LEVEL Routine 10/18/2019 Sickle cell tra it (HCC) 12:41 PM HEARING IMPAIRED ITINERANT TEACHER TOTAL IRON BINDING Routine 10/18/2019 Sickle cell trait (HCC) CAPACITY 12:41 PM HEARING IMPAIRED ITINERANT TEACHER LIPASE LEVEL Routine 10/18/2019 History of panc reatitis 12:41 PM HEARING IMPAIRED ITINERANT TEACHER URINALYSIS, COMPLETE, Routine 10/18/2019 Routine general medical WITH REFLEX TO CULTURE 12:41 PM HEARING IMPAIRED ITINERANT TEACHER examination at a [facility] facility VITAMIN D 25 HYDROXY Routine 10/18/2019 Routine g eneral medical LEVEL 12:41 PM HEARING IMPAIRED ITINERANT TEACHER examination at a [facility] THYROID STIMULATING Routine 10/18/2019 Routine ge neral medical HORMONE 12:41 PM HEARING IMPAIRED ITINERANT TEACHER examination at a [facility] LIPID PANEL Routine 10/18/2019 Routine general medical 12:41 PM HEARING IMPAIRED ITINERANT TEACHER examination at a [facility] T4, FREE Routine 10/18/2019 Routine general medical 12:41 PM HEARING IMPAIRED ITINERANT TEACHER examination at a [facility] HEMOGLOBIN A1C Routine 10/18/2019 Routine general medical 12:41 PM HEARING IMPAIRED ITINERANT TEACHER examination at a [facility] facility COMPREHENSIVE METABOLIC Routine 10/18/2019 Routin e general medical PANEL 12:41 PM HEARING IMPAIRED ITINERANT TEACHER examination at a [facility] CBC WITH PLATELET AND Routine 10/18/2019 Routine general medical DIFFERENTIAL 12:41 PM HEARING IMPAIRED ITINERANT TEACHER examination at a [facility] US PELVIC TRANSVAGINAL STAT 10/15/2019 1:53 AM HEARING IMPAIRED ITINERANT TEACHER US PELVIC TRANSABDOMINAL STAT 10/15/2019 1:53 AM HEARING IMPAIRED ITINERANT TEACHER ESTIMATED GFR STAT 10/15/2019 1:02 AM HEARING IMPAIRED ITINERANT TEACHER HC COMPLETE BLD COUNT STAT 10/15/2019 W/AUTO DIFF 1:02 AM HEARING IMPAIRED ITINERANT TEACHER COMPREHENSIVE METABOLIC STAT 10/15/2019 PANEL 1:02 AM HEARING IMPAIRED ITINERANT TEACHER after 05/23/2019 Results * Estimated GFR (04/16/2020 3:55 AM CDT) Only the most recent of 9 results within the time period is included. [facility] Estimated GFR >=90 mL/min/1.73 m2 [place] Comment: HOLINESS Catergory Units [facility] EMERGENCY CARE G1 >=90 CENTER Normal or high G2 60-89 Mildly decreased G3a 45-59 Mildly to moderately decreased G3b 30-44 Moderately to severely decreased G4 15-29 Severely decreased G5 <15 Kidney failure The eGFR was calculated using the Chronic Kidney Disease Epidemiology Collaboration (CKD-EPI) equation. Interpretation is based on recommendations of the National Kidney Foundation-Kidney Disease Outcomes Quality Initiative (NKF-KDOQI) published in 2014. Specimen Performing Organization Address City/State/[facility] Ph one Number DEPARTMENT OF [address] [place] [address] PATHOLOGY AND GENOMIC MEDICINE, [address] * CBC with platelet and differential (04/16/2020 3:55 AM CDT) Only the most recent of 10 results within the time period is included. [facility] WBC 8.34 4.50 - 11.00 k/uL ST. [facility] RBC 3.60 (L) 4.20 - 5.50 m/uL [facility] HGB 9.8 (L) 12.0 - 16.0 g/dL [facility] HCT 27.8 (L) 37.0 - 47.0 % [facility] MCV 77.2 (L) 82.0 - 100.[address] [facility] MCH 27.2 27.0 - 34.[address] [facility] [facility] MCHC 35.3 31.0 - 37.0 g/dL [facility] RDW - SD 43.0 37.0 - 55.[address] [facility] MPV 12.5 8.8 - 13.[address] [facility] Platelet count 275 150 - 400 k/uL [facility] Neutrophils 45.3 39.0 - 69.0 % [facility] Lymphocytes 32.6 25.0 - 45.0 % [facility] Monocytes 7.2 0.0 - 10.0 % [facility] Eosinophils 14.3 (H) 0.0 - 5.0 % [facility] Basophils 0.6 0.0 - 1.0 % [facility] Specimen Blood Performing Organization Address City/State/[facility] [place] Ph one Number DEPARTMENT OF [address] [place] [address] PATHOLOGY AND GENOMIC MEDICINE, [address] * Comprehensive metabolic panel (04/16/2020 3:55 AM CDT) Only the most recent of 10 results within the time period is included. Sodium 140 128 - 145 mEq/L [facility] Potassium 3.4 (L) 3.6 - 5.1 mEq/L [facility] CO2 26 18 - 33 mEq/L [facility] Chloride 107 98 - 108 mEq/L [facility] Glucose 106 73 - 118 mg/dL [facility] Calcium 9.2 8.0 - 10.3 mg/dL [facility] BUN 11 7 - 22 mg/dL [facility] Creatinine 0.3 (L) 0.5 - 0.9 mg/dL [facility] Alkaline 78 42 - 141 U/L [place] phosphatase [facility] ALT 15 10 - 47 U/L [facility] AST 20 11 - 38 U/L [facility] Total bilirubin 0.4 0.2 - 1.6 mg/dL [facility] Albumin 3.5 3.3 - 5.5 g/dL [facility] Protein 6.7 6.4 - 8.1 g/dL [facility] Anion gap 7@ANIO 7 - 15 mEq/L [facility] A/G ratio 1.1 0.7 - 3.8 [facility] Specimen Blood Performing Organization Address City/State/Zipcode Ph one Number DEPARTMENT OF [address] [place] [address] PATHOLOGY AND GENOMIC MEDICINE, [id number] [place] [address] * CT Angiogram Pe Chest (03/29/2020 1:17 AM CDT) Specimen Narrative Performed At EXAMINATION: RADIANT CT ANGIOGRAM PE CHEST CLINICAL HISTORY:34 years Female PE misha pected intermediate prob neg D-dimer TECHNIQUE: CT angiographic images of the chest were obtained during intravenous administration of iodinated contrast. Computerized reformatted images and 3-D MIP images were also obt ained and archived (CT pulmonary embolus protocol). CT imaging was performed with iterative reconstruction techniques and/or automated exposure control to reduce radiation dose. COMPARISON: CTA chest 05/16/2017 FINDINGS: CHEST: Pulmonary arteries: No evidence of acut e pulmonary embolism through the segmental level. The main pulmonary gael nk is within normal limits in caliber. Lungs and airways: No acute airspace di sease or suspicious pulmonary nodules. The central airways are patent. Pleura: No pleural effusion or pneumoth orax. Mediastinum and lymph nodes: No lymphad enopathy. Cardiovascular: The heart size is mahendra l. No pericardial effusion. The thoracic aorta is normal in caliber. Upper abdomen: No suspicious abnormalit ies. Bones: No suspicious osseous lesions. Other: None. IMPRESSION: 1.No acute pulmonary embolus through th e segmental level. 2.No acute intrathoracic abnormality. [facility]-[id number] Procedure Note Interface, Radiology Results Incoming - 03/29/2020 1:31 AM CDT EXAMINATION: CT ANGIOGRAM PE CHEST CLINICAL HISTORY:34 years Female PE suspected intermediate prob neg D-dimer TECHNIQUE: CT angiographic images of the chest were obtained during intravenous administration of iodinated contrast. Computerized reformatted images and 3-D MIP images were also obtained and archived (CT pulmonary embolus protocol). CT imaging was performed with iterative reconstruction techniques and/or automated exposure control to reduce radiation dose. COMPARISON: CTA chest 05/16/2017 FINDINGS: CHEST: Pulmonary arteries: No evidence of acute pulmonary embolism through the segmental level. The main pulmonary trunk is within normal limits in caliber. Lungs and airways: No acute airspace disease or suspicious pulmonary nodules. The central airways are patent. Pleura: No pleural effusion or pneumothorax. Mediastinum and lymph nodes: No lymphadenopathy. Cardiovascular: The heart size is normal. No pericardial effusion. The thoracic aorta is normal in caliber. Upper abdomen: No suspicious abnormalities. Bones: No suspicious osseous lesions. Other: None. IMPRESSION: 1.No acute pulmonary embolus through the segmental level. 2.No acute intrathoracic abnormality. [facility]-[id number] Performing Organization Address City/[facility] Ph one Number [facility] [address] [place] [address] * Reticulocyte count (03/28/2020 11:31 PM CDT) Pathologist [facility] Retic %, auto 1.3 0.5 - 2.1 % [facility] Retic absolute, 0.0506 0.0210 - 0.1155 m/uL [facility] Specimen Blood Performing Organization Address City/[facility] Ph one Number [facility] DEPARTMENT OF [address] [place] [address] PATHOLOGY AND GENOMIC MEDICINE [address] * Troponin, I-Stat (03/28/2020 10:50 PM CDT) Pathologist [facility] Troponin, 0.00 0.00 - 0.08 ng/mL [place] I-Stat Comment: [place] 0.09 - 1.49 ng/ml [place] May indicate increased risk EMERGENCY CARE of acute CENTER coronary syndrome. >=1.5 ng/ml Consistent with acute myocardial infarction. The diagnostic value of a single normal or non-diagnostic result is questionable. Serial samples at 2-6 hour intervals are required to rule out acute myocardial injury. Specimen Blood Performing Organization Address City/[facility] Ph one Number DEPARTMENT OF [address] [place] [phone] PATHOLOGY AND GENOMIC MEDICINE, [address] * B natriuretic pep, I-Stat (03/28/2020 10:50 PM CDT) [facility] BNP, I-Stat <20 0 - 100 pg/mL [facility] Specimen Blood Performing Organization Address [facility] [place] [address] PATHOLOGY AND GENOMIC MEDICINE[address] * hCG qualitative, urine screen (03/28/2020 10:23 PM CDT) Only the most recent of 5 results within the time period is included. [facility] hCG Negative [place] qualitative, Comment: [place] urine Sensitivity of HCG test: 25 [place] mIU/mL EMERGENCY CARE Negative test results in CENTER patients suspected to be should be retested with a sample obtained 48-72 hours later, or by performing a quantitative assay. Specimen Urine Performing Organization Address [facility] [place] [address] PATHOLOGY AND GENOMIC MEDICINE[address] * ECG 12 lead (03/28/2020 9:29 PM CDT) Only the most recent of 2 results within the time period is included. [facility] Ventricular 90 [facility] MUSE rate Atrial rate 90 [facility] M[facility] FL interval 160 [facility] QRSD interval 78 [facility] QT interval 382 [facility] QTC interval 467 [facility] P axis 1 44 [facility] QRS axis 1 44 [facility] M[facility] T wave axis 37 [facility] EKG impression Normal sinus [facility] MUSE rhythm-Nonspecific T wave abnormality-Prolonged QT-Abnormal ECG-In automated comparison with ECG of 03-NOV-2019 17:37,-QT has lengthened- Specimen Narrative Performed At This result has an attachment that is n ot available. Performing Organization Address [facility] one Number [facility] [address] [place] [address] * CT Abdomen Pelvis Wo Contrast (01/28/2020 9:05 PM CDT) Only the most recent of 5 results within the time period is included. Specimen Narrative Performed At EXAMINATION: CT ABDOMEN PELVIS WO CONTRAST HM RADI ANT CLINICAL HISTORY:34 years Female abdomi nal pain TECHNIQUE: Multiple axial images of t he abdomen and pelvis were obtained without intravenous administration of i odinated contrast. Sagittal and coronal computerized reformatted images were al so obtained. The lack of intravenous contrast reduces the sensitivity of detecting solid organ di sease. CT imaging was performed with iterative reconstruction techniques and /or automated exposure control to reduce radiation dose. COMPARISON: Multiple prior CT abdomen pelvis examinations, most recently on 12/17/2019 IMPRESSION: LUNG BASES: The lung bases are free of acute diseas e. ABDOMEN: Liver: Mildly enlarged measuring up to 8.6 cm. No focal hepatic lesion although evaluation is limited due to lack of in travenous contrast. Gallbladder/Biliary: The gallbladder is normal. There is no evidence of intra or extrahepatic biliary ductal dilatation. Spleen: The spleen is not enlarged. Pancreas: The pancreas is unremarkable. Adrenal Glands: The adrenal glands are unremarkable. Kidneys: The kidneys are unremarkable. No mass, hydronephrosis or calculi. Vascular: The abdominal aorta is nonane urysmal. Nodes: No enlarged retroperitoneal or m esenteric lymphadenopathy. Bowel: No bowel obstruction or inflamma tory changes. The appendix appears normal. Small sliding hiatal hernia. Peritoneum: No free intraperitoneal air . Changes of umbilical hernia repair is redemonstrated with progressed decrease in size with trace fluid near the umbilicus (301B: 41) suggestive of a re solving seroma/hematoma. Changes of prior section noted. PELVIS: Urinary bladder is partially decompress ed without focal wall thickening or intraluminal stone. Uterus is mildly en larged. Ovaries are grossly normal. A tampon is noted within the vagina. MUSCULOSKELETAL: No suspicious osseous lesions. SUMMARY: 1.No acute intra-abdominal or pelvic ab normality. 2.Progressed decrease in size of perium bilical free fluid, now trace and likely representing resolving postsurgical ser sandip/hematoma. 3.Other findings as described above. [facility]-[id number] Procedure Note Interface, Radiology Results Incoming - 01/28/2020 9:25 PM CDT EXAMINATION: CT ABDOMEN PELVIS WO CONTRAST CLINICAL HISTORY:34 years Female abdominal pain TECHNIQUE: Multiple axial images of the abdomen and pelvis were obtained without intravenous administration of iodinated contrast. Sagittal and coronal computerized reformatted images were also obtained. The lack of intravenous contrast reduces the sensitivity of detecting solid organ disease. CT imaging was performed with iterative reconstruction techniques and/or automated exposure control to reduce radiation dose. COMPARISON: Multiple prior CT abdomen pelvis examinations, most recently on 12/17/2019 IMPRESSION: LUNG BASES: The lung bases are free of acute disease. ABDOMEN: Liver: Mildly enlarged measuring up to 8.6 cm. No focal hepatic lesion although evaluation is limited due to lack of intravenous contrast. Gallbladder/Biliary: The gallbladder is normal. There is no evidence of intra or extrahepatic biliary ductal dilatation. Spleen: The spleen is not enlarged. Pancreas: The pancreas is unremarkable. Adrenal Glands: The adrenal glands are unremarkable. Kidneys: The kidneys are unremarkable. No mass, hydronephrosis or calculi. Vascular: The abdominal aorta is nonaneurysmal. Nodes: No enlarged retroperitoneal or mesenteric lymphadenopathy. Bowel: No bowel obstruction or inflammatory changes. The appendix appears normal. Small sliding hiatal hernia. Peritoneum: No free intraperitoneal air. Changes of umbilical hernia repair is redemonstrated with progressed decrease in size with trace fluid near the umbilicus (301B: 41) suggestive of a resolving seroma/hematoma. Changes of prior section noted. PELVIS: Urinary bladder is partially decompressed without focal wall thickening or intraluminal stone. Uterus is mildly enlarged. Ovaries are grossly normal. A tampon is noted within the vagina. MUSCULOSKELETAL: No suspicious osseous lesions. SUMMARY: 1.No acute intra-abdominal or pelvic abn ormality. 2.Progressed decrease in size of periumb ilical free fluid, now trace and likely representing resolving postsurgical seroma/hematoma. 3.Other findings as described above. [facility]-[id number] Performing Organization Address City/State/[facility] Ph one Number [facility] [address] [place] [address] * Urinalysis (01/28/2020 8:38 PM CDT) Only the most recent of 5 results within the time period is included. Glucose, UA Negative Negative [facility] Bilirubin, UA Negative Negative [facility] Ketones, UA Negative Negative [facility] Specific 1.025 1.001 - 1.035 [place] gravity, UA [facility] Blood, UA Small (A) Negative [facility] pH, UA 7.0 5.0 - 8.5 [facility] Protein, UA Negative Negative [facility] Urobilinogen, <2.0 <2.0 [facility] Nitrite, UA Negative Negative [facility] Leukocyte Negative Negative [place] esterase, UA [facility] Color, UA Yellow [facility] Appearance, UA Sl Cloudy [facility] Specimen Urine Performing Organization Address City/[facility] [place] [address] PATHOLOGY AND GENOMIC MEDICINE, [address] * Smear review (01/28/2020 8:15 PM CDT) Only the most recent of 3 results within the time period is included. Platelet slide Cor[place] adequate [facility] Specimen Performing Organization Address [facility] one Number [facility] DEPARTMENT OF [address] [place] [address] PATHOLOGY AND GENOMIC MEDICINE [address] * Lactic acid, I-Stat (01/28/2020 8:15 PM CDT) Only the most recent of 2 results within the time period is included. Lactic acid, 1.1 0.5 - 2.2 mmol/L [place] I-Stat [facility] Specimen Blood Performing Organization Address City/[facility] Ph one Number DEPARTMENT OF [address] [place] [address] PATHOLOGY AND GENOMIC MEDICINE, [address] * Lipase level (01/28/2020 8:15 PM CDT) Only the most recent of 4 results within the time period is included. Lipase 49 13 - 60 U/L [facility] Specimen Blood Performing Organization Address City/[facility] Ph one Number [facility] DEPARTMENT OF [address] [place] [address] PATHOLOGY AND GENOMIC MEDICINE [address] * Amylase level (01/28/2020 8:15 PM CDT) Only the most recent of 3 results within the time period is included. Amylase 56 14 - 97 U/L [facility] Specimen Blood Performing Organization Address City/[facility] Ph one Number DEPARTMENT [id number] [place] [phone] PATHOLOGY AND GENOMIC MEDICINE, [facility] [address] [place], [place] [id number] [place] [address] * Lactic acid level, SEPSIS - Now and repeat 2x every 3 hours (12/09/2019 2:03 AM HEARING IMPAIRED ITINERANT TEACHER) [facility] Lactic acid 1.4 0.5 - 2.2 mmol/L [facility] Specimen Blood Performing Organization Address [facility] Ph one Number DEPARTMENT OF [address] [place] [address] PATHOLOGY AND GENOMIC [address] [facility] [address] [place] [address] EMERGENCY CARE CENTER * Manual differential (12/09/2019 2:03 AM HEARING IMPAIRED ITINERANT TEACHER) Only the most recent of 2 results within the time period is included. Pathologist [facility] Manual PERFORMED [place] differential [facility] Neutrophils 32.0 (L) 39.0 - 69.0 % [facility] Lymphocytes 37.0 25.0 - 45.0 % [facility] Monocytes 12.0 (H) 0.0 - 10.0 % [facility] Eosinophils 18.0 (H) 0.0 - 5.0 % [facility] Basophils 1.0 0.0 - 1.0 % [facility] Metamyelocytes 0 % [facility] Promyelocytes 0 % [facility] Platelet slide [place] adequate [facility] Anisocytosis Moderate [facility] Target cells Moderate (A) [facility] Ovalocytes Moderate [facility] Enlarged Moderate (A) [place] platelets [facility] Giant platelets Occasional [facility] Specimen Performing Organization Address City/[facility] Ph one Number [facility] DEPARTMENT OF [address] [place] [address] PATHOLOGY AND GENOMIC MEDICINE [address] * Surgical pathology request (11/11/2019 2:55 PM HEARING IMPAIRED ITINERANT TEACHER) [facility] DEPARTMENT OF PATHOLOGY AND GENOMIC MEDICINE Surgical See link below for PDF Lab [facility] DEPART [facility] pathology Report OF PATHOLOGY report AND GENOMIC MEDICINE Result status This is Final Report for [facility] DEPARTME NT [id number] OF PATHOLOGY AND GENOMIC MEDICINE Specimen Performing Organization Address City/State/Zipcode Ph one Number [facility] DEPARTMENT OF [address] [place] [address] PATHOLOGY AND GENOMIC MEDICINE * Airway (11/11/2019 1:19 PM HEARING IMPAIRED ITINERANT TEACHER) Narrative Performed At Deisi Donovan CRNA 1:21 PM Airway Date/Time: 11/11/2019 1:04 PM Performed by: Deisi Donovan CRNA Authorized by: Mario Fisher MD Location: OR Urgency: Elective Difficult Airway: No Anesthesiologist: Mario Fisher M D Resident/CONTINUOUS IMPROVEMENT MANAGER/AA: Manuel Donovan CRNA Performed by: resident/CONTINUOUS IMPROVEMENT MANAGER/AA Preoxygenated with 100% O2: Yes (x 2 mi ns in reverse trendelenburg ) C-spine Precautions Maintained Througho ut: Yes Mask Ventilation: Easy mask Final Airway Type: Endotracheal airwa y Final Endotracheal Airway: ETT Cuffed: Yes Technique Used: Direct laryngoscopy Insertion Site: Oral Blade Type: Pedroza Laryngoscope Blade/Videolaryngoscope Bl keely Size: 2 ETT Size (mm): 7.0 Cuff at minimum occlusion pressure: Yes Measured from: Teeth ETT to Teeth (cm): 21 Placement Verified by: CO2 detection, d irect visualization and equal breath sounds Laryngoscopic view: Grade I - full vi ew of glottis Rapid Sequence Induction (RSI): No Modified RSI: No Number of Attempts at Approach: 1 Eyes taped at LOC and prior to any airw ay manipulation. Cords clear, ETT passed easily. Lips and teeth intact as per pre-op, no changes. * POC , urine (11/11/2019 10:03 AM HEARING IMPAIRED ITINERANT TEACHER) [facility] test Negative urine, POC Internal QC QC acceptable Specimen Urine * Partial thromboplastin time, activated (11/03/2019 5:06 PM HEARING IMPAIRED ITINERANT TEACHER) [facility] PTT 26.6 23.0 - 36.0 sec [place] Comment: [place] PTT therapeutic range for HOSPITAL unfractionated heparin is 61.0-112.0 seconds which corresponds to Anti-Xa 0.3-0.7 U/ml. Specimen Blood Performing Organization Address City/[facility] Ph one Number [facility] DEPARTMENT OF [address] [place] [address] PATHOLOGY AND GENOMIC MEDICINE [address] * Prothrombin time with INR (11/03/2019 5:06 PM HEARING IMPAIRED ITINERANT TEACHER) Prothrombin 13.8 11.5 - 14.5 sec [facility] INR 1.1 [place] Comment: [place] The International Normalized HOSPITAL Ratio (INR) is a therapeutic monitoring tool for patients who are stable on oral anticoagulant therapy. An INR of 2.0-3.0 is suggested for deep vein thrombosis/pulmonary embolism. Specimen Blood Performing Organization Address [facility] one Number [facility] DEPARTMENT OF [address] [place] [address] PATHOLOGY AND GENOMIC MEDICINE [address] * CT Renal Stone Protocol (10/24/2019 1:23 PM HEARING IMPAIRED ITINERANT TEACHER) Specimen Narrative Performed At Examination: CT RENAL STONE PROTOCOL [facility] Clinical history: "abd flank pain" Comparison: 12/22/2017 Technique: Multiple axial CT images o f the abdomen and pelvis were obtained without the intravenous administration of iodinated contrast. Sagittal and coronal computerized, reformatted image s were obtained and archived. The lack of intravenous contrast reduces the sensitivity of det ecting solid organ and vascular disease. CT imaging was performed with iterati ve reconstruction technique and/or automated exposure control to reduce ra diation dose. IMPRESSION: CT ABDOMEN: Heart size is within normal limits. Lung bases are unremarkable. Moderate -sized hiatal hernia seen. Liver, gallbladder, pancreas, adrenals, and spleen, are within normal limits. Evaluation of the kidneys demonstrates an unremarkable appearance without evidence of calculi or cyst hydronephro sis. . CT PELVIS: Appendix is within normal limits. Bladd er shows no stones. No enlarged pelvic lymph node or mass is seen. A suspicious osseous lesion is not seen . [facility]-[id number] Procedure Note Interface, Radiology Results Incoming - 10/24/2019 1:30 PM HEARING IMPAIRED ITINERANT TEACHER Examination: CT RENAL STONE PROTOCOL Clinical history: "abd flank pain" Comparison: 12/22/2017 Technique: Multiple axial CT images of the abdomen and pelvis were obtained without the intravenous administration of iodinated contrast. Sagittal and coronal computerized, reformatted images were obtained and archived. The lack of intravenous contrast reduces the sensitivity of detecting solid organ and vascular disease. CT imaging was performed with iterative reconstruction technique and/or automated exposure control to reduce radiation dose. IMPRESSION: CT ABDOMEN: Heart size is within normal limits. Lung bases are unremarkable. Moderate-sized hiatal hernia seen. Liver, gallbladder, pancreas, adrenals, and spleen, are within normal limits. Evaluation of the kidneys demonstrates an unremarkable appearance without evidence of calculi or cyst hydronephrosis. . CT PELVIS: Appendix is within normal limits. Bladder shows no stones. No enlarged pelvic lymph node or mass is seen. A suspicious osseous lesion is not seen. [facility]-[id number] Performing Organization Address [facility] one Number [facility] [address] [place] [address] * Gram stain (10/24/2019 12:00 PM HEARING IMPAIRED ITINERANT TEACHER) [facility] Gram stain No WBC's [place] result Moderate Gram positive rods [place] Comment: HOSPITAL Specimen Information Specimen Source: Urine Specimen Site: Urine, clean catch Specimen Urine - Urine, clean catch Performing Organization Address [facility] one Number [facility] [facility] DEPARTMENT OF [address] [place] [address] PATHOLOGY AND GENOMIC MEDICINE [place] [address] HOSPITAL * Urine culture (10/24/2019 12:00 PM HEARING IMPAIRED ITINERANT TEACHER) [facility] Urine culture Mixed leonard <=10-3 col/cc [place] isolate Comment: [facility]OL[facility] Specimen Information HOSPITAL Specimen Source: Urine Specimen Site: Urine, clean catch Specimen Urine - Urine, clean catch Performing Organization Address [facility] one Number [facility] DEPARTMENT OF [address] [place] [address] PATHOLOGY AND GENOMIC MEDICINE [address] * URINALYSIS, COMPLETE, WITH REFLEX TO CULTURE (10/18/2019 12:41 PM HEARING IMPAIRED ITINERANT TEACHER) Color, UA YELLOW YELLOW [facility] [place] Appearance CLEAR CLEAR [facility] [place] Specific 1.008 1.001 - 1.035 [facility] gravity, urine DIAGNOSTICS [place] pH, urine 6.0 5.0 - 8.0 [facility] [place] Glucose, urine NEGATIVE NEGATIVE [facility] [place] Bilirubin, UA NEGATIVE NEGATIVE [facility] [place] Ketones, UA NEGATIVE NEGATIVE [facility] [place] Occult blood, NEGATIVE NEGATIVE [facility] urine [facility] [place] Protein, UA NEGATIVE NEGATIVE [facility] [place] Nitrite, UA NEGATIVE NEGATIVE [facility] [place] Leukocyte NEGATIVE NEGATIVE [facility] esterase, UA [facility] [place] WBC, UA NONE SEEN < OR = 5 /HPF [facility] [place] RBC, UA NONE SEEN < OR = 2 /HPF [facility] [place] Squamous NONE SEEN < OR = 5 /HPF [facility] epithelial DIAGNOSTICS cells, UA [place] Bacteria, UA NONE SEEN NONE SEEN /HPF [facility] [place] Hyaline casts, NONE SEEN NONE SEEN /LPF [facility] UA [facility] [place] Reflex NO CULTURE INDICATED [facility] [place] Specimen Narrative Performed At FASTING:NO [facility] FASTING: NO Resulting Agency Comment Performing Organization Information: Site ID: RGA Name: [facility] Address: [address] [place] [phone] Director: Kofi Lombardi Performing Organization Address [facility] one Number [facility] [employer] [place] [phone] * Total iron binding capacity (10/18/2019 12:41 PM HEARING IMPAIRED ITINERANT TEACHER) [facility] Iron level 36 (L) 40 - 190 mcg/dL [facility] [place] Iron binding 391 250 - 450 mcg/dL [facility] capacity (calc) [facility] [place] Iron saturation 9 (L) 16 - 45 % (calc) [facility] [place] Specimen Blood Narrative Performed At FASTING:NO [facility] FASTING: NO Resulting Agency Comment Performing Organization Information: Site ID: RGA Name: [facility] Address: [address] [place] [phone] Director: Kofi Lombardi Performing Organization Address [facility] one Number [employer] [place] [phone] * Vitamin D 25 hydroxy level (10/18/2019 12:41 PM HEARING IMPAIRED ITINERANT TEACHER) Pathologist [facility] Vitamin D, 7 (L) 30 - 100 ng/mL [facility] 25-hydroxy Comment: DIAGNOSTICS Vitamin D Status [place] 25-OH Vitamin D: Deficiency: <20 ng/mL Insufficiency: 20 - 29 ng/mL Optimal: > or = 30 ng/mL For 25-OH Vitamin D testing on patients on D2-supplementation and patients for whom quantitation of D2 and D3 fractions is required, the QuestAssureD(TM) 25-OH VIT D, (D2,D3), LC/MS/MS is recommended: order code 18780 (patients >2yrs). For more information on this test, go to: http://education.[employer]oc[employer].com.[employer]/faq/BFS584 (This link is being provided for informational/educational purposes only.) Specimen Blood Narrative Performed At FASTING:NO [facility] FASTING: NO Resulting Agency Comment Performing Organization Information: Site ID: A Name: [facility] Address: [address] [place] [phone] Director: Kofi Lombardi Performing Organization Address [facility] one Number [employer] [place] [phone] * Thyroid stimulating hormone (10/18/2019 12:41 PM HEARING IMPAIRED ITINERANT TEACHER) TSH 0.26 (L) mIU/L [facility] Comment: DIAGNOSTICS Reference Range [place] > or = 20 Years 0.40-4.50 Ranges First trimester 0.26-2.66 Second trimester 0.55-2.73 Third trimester 0.43-2.91 Specimen Blood Narrative Performed At FASTING:NO [facility] FASTING: NO Resulting Agency Comment Performing Organization Information: Site ID: A Name: [facility] Address: [address] [place] [phone] Director: Kofi Lombardi Performing Organization Address [facility] one Number [employer] [place] [phone] * T4, free (10/18/2019 12:41 PM HEARING 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 Ph one Number [employer] [address] [phone] * Hemoglobin A1c (10/18/2019 12:41 PM HEARING IMPAIRED ITINERANT TEACHER) Hemoglobin A1C 5.0 <5.7 % of total Hgb [facility] Comment: DIAGNOSTICS For the purpose of screening [place] for the presence of diabetes: <5.7% Consistent with the absence of diabetes 5.7-6.4% Consistent with increased risk for diabetes (prediabetes) > or =6.5% Consistent with diabetes This assay result is consistent with a decreased risk of diabetes. Currently, no consensus exists regarding use of hemoglobin A1c for diagnosis of diabetes in children. According to [place] Diabetes Association (ADA) guidelines, hemoglobin A1c <7.0% represents optimal control in non- diabetic patients. Different metrics may apply to specific patient populations. Standards of Medical Care in Diabetes(ADA). Specimen Blood Narrative Performed At FASTING:NO [facility] FASTING: NO Resulting Agency Comment Performing Organization Information: Site ID: RGA Name: [facility] Address: [address] [place] [phone] Director: Kofi Lombardi Performing Organization Address [facility] one Number [employer] [place] [phone] * Ferritin level (10/18/2019 12:41 PM HEARING IMPAIRED ITINERANT TEACHER) Ferritin level 32 16 - 154 ng/mL [employer] [place] Specimen Blood Narrative Performed At FASTING:NO [facility] FASTING: NO Resulting Agency Comment Performing Organization Information: Site ID: RGA Name: [facility] Address: [address] [place] [phone] Director: Kofi Lombardi Performing Organization Address [facility] Ph one Number [employer] [address] [phone] * Lipid panel (10/18/2019 12:41 PM HEARING IMPAIRED ITINERANT TEACHER) Cholesterol, 189 <200 mg/dL [facility] total [employer] [place] HDL cholesterol 73 >50 mg/dL [facility] [employer] [place] Triglycerides 76 <150 mg/dL [employer] [place] LDL cholesterol 99 mg/dL (calc) [facility] calculated Comment: DIAGNOSTICS Reference range: <100 [place] Desirable range <100 mg/dL for primary prevention; <70 mg/dL for patients with CHD or diabetic patients with > or = 2 CHD risk factors. LDL-C is now calculated using the Son calculation, which is a validated novel method providing better accuracy than the Friedewald equation in the estimation of LDL-C. Jose J DANIEL et al. ELIZABETH. 2013;310(19): 8840-7628 (http://education.[employer]/faq/NDU054) Cholesterol/HDL 2.6 <5.0 (calc) [facility] ratio DIAGNOSTICS [place] Non-HDL 116 <130 mg/dL (calc) [facility] cholesterol Comment: DIAGNOSTICS For patients with diabetes [place] plus 1 major ASCVD risk factor, treating to a non-HDL-C goal of <100 mg/dL (LDL-C of <70 mg/dL) is considered a therapeutic option. Specimen Blood Narrative Performed At FASTING:NO [facility] FASTING: NO Resulting Agency Comment Performing Organization Information: Site ID: RGA Name: [facility] Address: [address] [place] [phone] Director: Kofi Lombardi Performing Organization Address City/State/Zipcode Ph one Number [employer] [address] [phone] * US Pelvic Transabdominal (10/15/2019 1:53 AM HEARING IMPAIRED ITINERANT TEACHER) Specimen Narrative Performed At EXAMINATION: US PELVIC TRANSABDOMINAL, US PELVIC TR ANSVAGINAL [facility] CLINICAL HISTORY: Endometriosis COMPARISON: None. TECHNIQUE:Transabdominal and endovagina l sonographic images of the pelvis were obtained. Grayscale, color Doppler, and spectral waveform analysis of the ovarian vessels was performed. FINDINGS: The uterus is mildly enlarged and heter ogeneous without focal lesion, measures 10.2 x 5.5 x 6.4 cm. Mild asymmetric th ickening of anterior myometrium. No uterine masses. Cervix with nabothian c ysts, otherwise unremarkable. Endometrium is normal; endometrial stripe measures 0.4 cm. The right ovary is not visualized. The left ovary measures 3.5 x 1.7 x 2.6 cm. Normal Doppler flow was present. No adnexal masses. No visualized free pelvic fluid. IMPRESSION: 1. Enlarged heterogeneous uterus may be related to adenomyosis or multiparous state. 2. Nonvisualization of right ovary. [facility]-[id number] Procedure Note Interface, Radiology Results Incoming - 10/15/2019 2:00 AM HEARING IMPAIRED ITINERANT TEACHER EXAMINATION: US PELVIC TRANSABDOMINAL, US PELVIC TRANSVAGINAL CLINICAL HISTORY: Endometriosis COMPARISON: None. TECHNIQUE:Transabdominal and endovaginal sonographic images of the pelvis were obtained. Grayscale, color Doppler, and spectral waveform analysis of the ovarian vessels was performed. FINDINGS: The uterus is mildly enlarged and heterogeneous without focal lesion, measures 10.2 x 5.5 x 6.4 cm. Mild asymmetric thickening of anterior myometrium. No uterine masses. Cervix with nabothian cysts, otherwise unremarkable. Endometrium is normal; endometrial stripe measures 0.4 cm. The right ovary is not visualized. The left ovary measures 3.5 x 1.7 x 2.6 cm. Normal Doppler flow was present. No adnexal masses. No visualized free pelvic fluid. IMPRESSION: 1. Enlarged heterogeneous uterus may be related to adenomyosis or multiparous state. 2. Nonvisualization of right ovary. [facility]-[id number] Performing Organization Address City/State/[facility] Ph one Number [facility] [address] [place] [address] * US Pelvic Transvaginal (10/15/2019 1:53 AM HEARING IMPAIRED ITINERANT TEACHER) Specimen Narrative Performed At EXAMINATION: US PELVIC TRANSABDOMINAL, US PELVIC TR ANSVAGINAL [facility] CLINICAL HISTORY: Endometriosis COMPARISON: None. TECHNIQUE:Transabdominal and endovagina l sonographic images of the pelvis were obtained. Grayscale, color Doppler, and spectral waveform analysis of the ovarian vessels was performed. FINDINGS: The uterus is mildly enlarged and heter ogeneous without focal lesion, measures 10.2 x 5.5 x 6.4 cm. Mild asymmetric th ickening of anterior myometrium. No uterine masses. Cervix with nabothian c ysts, otherwise unremarkable. Endometrium is normal; endometrial stripe measures 0.4 cm. The right ovary is not visualized. The left ovary measures 3.5 x 1.7 x 2.6 cm. Normal Doppler flow was present. No adnexal masses. No visualized free pelvic fluid. IMPRESSION: 1. Enlarged heterogeneous uterus may be related to adenomyosis or multiparous state. 2. Nonvisualization of right ovary. [facility]-[id number] Procedure Note Hm Interface, Radiology Results Incoming - 10/15/2019 2:00 AM HEARING IMPAIRED ITINERANT TEACHER EXAMINATION: US PELVIC TRANSABDOMINAL, US PELVIC TRANSVAGINAL CLINICAL HISTORY: Endometriosis COMPARISON: None. TECHNIQUE:Transabdominal and endovaginal sonographic images of the pelvis were obtained. Grayscale, color Doppler, and spectral waveform analysis of the ovarian vessels was performed. FINDINGS: The uterus is mildly enlarged and heterogeneous without focal lesion, measures 10.2 x 5.5 x 6.4 cm. Mild asymmetric thickening of anterior myometrium. No uterine masses. Cervix with nabothian cysts, otherwise unremarkable. Endometrium is normal; endometrial stripe measures 0.4 cm. The right ovary is not visualized. The left ovary measures 3.5 x 1.7 x 2.6 cm. Normal Doppler flow was present. No adnexal masses. No visualized free pelvic fluid. IMPRESSION: 1. Enlarged heterogeneous uterus may be related to adenomyosis or multiparous state. 2. Nonvisualization of right ovary. 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
[2020-05-23] MEDS ORDERED: SODIUM CHLORIDE 0.9% 1000ML 1,000 ML IV STA (20:01)
[2020-05-23] MEDS ORDERED: ONDANSETRON HCL INJ 2MG/ML 2ML 2 MG/ML VIAL IV STA (20:01)
--- NOTE | 2020-05-23 20:01 | Emergency Department Note ---
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 Her hgb usually runs 6 to 9 . Historian: Patient Arrival Mode: Car [employer] Required: No Onset (how long ago): hour(s) Radiation: Reports non-radiation Severity: moderate Onset quality: gradual Duration (how long): day(s) Progression: unchanged Relieving factors: none Exacerbating factors: none Associated symptoms: Reports denies other symptoms Treatments prior to arrival: none Past Medical/Family History Physician Review I have reviewed the patient's past medical and family history. Any updates have been documented here. Past Medical History Recent Fever: No Clinical Suspicion of Infectio: No New/Unexplained Change in Ment: No Other Medical History: sickle Social History Smoking Cessation: Never Smoker Counseling Performed: No Alcohol Use: None Any Illegal Drug Use: No Other Any Pre-Existing Lines (PICC,: No Review of Systems Review of Systems Constitutional: Reports no symptoms EENTM: Reports no symptoms Cardiovascular: Reports as per HPI Respiratory: Reports no symptoms Gastrointestinal: Reports no symptoms Genitourinary: Reports no symptoms Musculoskeletal: Reports no symptoms Integumentary: Reports no symptoms Neurological: Reports no symptoms Psychological: Reports no symptoms Endocrine: Reports no symptoms Hematological/Lymphatic: Reports no symptoms Physical Exam Related Data Allergies: Coded Allergies: Iodinated Contrast Media (Verified Allergy, Unknown, 05/23/20) Iodine and Iodide Containing Produc (Verified Allergy, Unknown, 05/23/20) ketorolac (Verified Allergy, Unknown, 05/23/20) latex (Verified Allergy, Unknown, 05/23/20) Triage Vital Signs Vital Signs Date Time Temp Pulse Resp B/P (MAP) Pulse Ox O2 Delivery O2 Flow Rate FiO2 05/23/20 19:42 98.0 87 18 130/75 100 Room Air Physical Exam CONSTITUTIONAL Constitutional: Present well-developed, Present well-nourished, Present other (no acute distress) HENT HENT: Present normocephalic, Present atraumatic, Present oropharynx clear/moist, Present nose normal HENT L/R: Present left ext ear normal, Present right ext ear normal EYES Eyes: Reports PERRL, Reports conjunctivae normal NECK Neck: Present ROM normal PULMONARY Pulmonary: Present effort normal, Present breath sounds normal CARDIOVASCULAR Cardiovascular: Present regular rhythm, Present heart sounds normal, Present capillary refill normal, Present normal rate GASTROINTESTINAL Abdominal: Present soft, Present nontender, Present bowel sounds normal GENITOURINARY Genitourinary: Present exam deferred SKIN Skin: Present warm, Present dry MUSCULOSKELETAL Musculoskeletal: Present ROM normal NEUROLOGICAL Neurological: Present alert, Present oriented x 3, Present no gross motor or sensory deficits PSYCHOLOGICAL Psychological: Present mood/affect normal, Present judgement normal Results Laboratory Lab results reviewed: Yes Imaging Imaging results reviewed: Yes Procedures 12 Lead ECG Interpretation ECG Interpretation : ECG: ECG 1 [employer]ian Jail Officer: Interpreted by ED physician Date: May 23, 2020 Time: 19:45 Prior ECG tracings: reviewed Rhythm: sinus rhythm Rate: normal BPM: 82 QRS axis: normal T waves flattening: II Clinical Impression: abnormal ECG Assessment & Plan Medical Decision Making MDM sickle cell pain, not in crisis Reassessment Reassessment time: 21:03 Reassessment Patient looks comfortable, in NAD, declines oral Tramadol and oral norco, asking for IV narcotic. Her request declines as IV narcotic is not justifiable and carries more risk than benefit. Assessment & Plan Final Impression: (1) Chest pain Depart Disposition: HOME, SELF-CARE Last Vital Signs Date Time Temp Pulse Resp B/P (MAP) Pulse Ox O2 Delivery O2 Flow Rate FiO2 05/23/20 19:42 98.0 87 18 130/75 100 Room Air Medications in the ED IV phenargan, IV fluid Physician Attestation Provider Attestation patient has Tyl#3 fill 05/10/20 LILLIANA UGARTE MD May 23, 2020 20:01
--- OUTSIDE RECORDS SUMMARY | 2020-05-23 20:02 | XMS REPORT | Continuity of Care Document ---
Author Author [facility] t Organization [facility] [place], [place] Address [address] [place] [address] Phone Unavailable Care Team Providers Care Insurance Sales Associate Name Role Phone UNKNOWN, REFFERING PCP Unavailable Arlette PERRY, Marquita Attphys Unavailable Lon HERNANDEZ, Faisal Manuel Attphys Sara Godfrey MD Attphys [place] LVN Attphys Unavailable Adriano HERNANDEZ, Shane Richards Attphys SHANE [place] Attphys Unavailable Silas HERNANDEZ, Anthony Attphys Cole JAEN, Falguni Crabtree Attphys Joaquina PIKE, Dasia Attphys Unavailable Samantha HERNANDEZ, Kathrine Geronimo Attphys Car PIKE, Sondra Attphys Unavailable Paul HERNANDEZ, Ajit Attphys Bishop HERNANDEZ, Sara Birmingham Attphys Hayder Charles Attphys Emory HERNANDEZ, João Pozo Attphys [phone] Nica HERNANDEZ, Falguni Nunez Attphys Emelina HERNANDEZ, Brooke Harris Attphys [phone] Kylah HERNANDEZ, Vilma Attphys Sabino HERNANDEZ, Js Cruz Attphys [phone] Analisa HERNANDEZ, Nayla Attphys Juan NUNN, Kofi Thomson Attphys [phone] Pietro HERNANDEZ, Gayatri Attphys Phillip HERNANDEZ, Mario Attphys Mykel Julian OPERATIONAL RISK MANAGER, Dacia Attphys Florence PIKE, Tomasa Attphys Unavailable Joann HERNANDEZ, Reji Shipley Attphys Corby Balbuena LVN Attphys Unavailable ANNELIESE, DOV Attphys Unavailable Anneliese HERNANDEZ, Carlos Hartman Attphys Raji HERNANDEZ, Nash Kumar Attphys [phone] Luzmaria HERNANDEZ, Alireza Amaro Attphys DR NISHANT RYAN Attphys Unavailable RUBÉN, DR LEWIS Attphys Unavailable SASCHA, DR GRAJEDA Attphys Unavailable LILLIANA, DR Berto DAVILA Attphys Unavailable FE, DR SADLER Attphys Unavailable NANDO LOWRY Attphys Unavailable VIRAL ADEN Attphys Unavailable StaceySam Attphys BERKLEY CHOI Admphys Unavailable PIETRO, GAYATRI Admphys Unavailable SHELBY, DR DILLARD Admphys Unavailable BA, DR LEWIS Admphys Unavailable SASCHA, DR GRAJEDA Admphys Unavailable LILLIANA, DR Berto DAVILA Admphys Unavailable FE, DR SADLER Admphys Unavailable Payers Payer Name Policy Type Policy Number Effective Date Expiration Date Madeleine DAUGHERTY CIGNA HMOxxxxxxxxxxx2019-PresentHMO xxxxxxxxxxx 2020 00:00:00 Adarsh Ashby MEDICAID - [place] [facility] CHOIC[place]xxxxxxxxMedicaid Contracted xxxxxxxxx [facility] CIGNA - [place] [employer] HMO/POS/OPEN ACCESSxxxxxxxxxxxHMO/POS xxxxxxxxxxx [facility] Problems Condition Name Condition Details Condition Category Status Onset Date Resolution Date Last Treatment Date Treating Clinician Comments Source Incisional hernia without obstruction or gangrene Inci sional hernia without obstruction or gangrene Disease Active 2019-11-11 00:00:00 Adarsh Ashby Abnormal TSH Abnormal TSH Disease Active 2019-10-20 00:00:00 Adarsh Ashby Asthma Asthma Disease Active 2016-01-14 00:00:00 Adarsh Ashby Epilepsy Epilepsy Disease Active 2016-01-14 00:00:00 Adarsh Ashby Pain in extremity Pain in extremity Disease Active 2016-01-14 00:00:00 Adarsh Ashby Episodic paroxysmal anxiety disorder Episodic paroxysmal anx iety disorder Disease Active 2016-01-14 00:00:00 Adarsh Ashby Upper respiratory infection Upper respiratory infection Disease Active 2016-01-14 00:00:00 Adarsh Ashby ABSCESS ABSC ESS Active 12/03/2015 [facility] Diagnosis Active 2015-12-03 00:00:00 2015-12-09 06:43:00 [facility] Vitamin D deficiency Vitamin D deficiency Problem Active [facility] Moderate persistent asthma, uncomplicated Moderate per sistent asthma, uncomplicated Diagnosis Active [facility] Sickle cell anemia Sickle cell anemia Problem Active [facility] Hyperlipemia Hyperlipemia Problem Active [facility] Umbilical hernia Umbilical hernia Problem Active [facility] Encounter to discuss test results Encounter to discuss test resu lts Problem Active 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) Resolved Problem 12/06/2015 [facility] Problem Resolved 2015-12-06 01:39:58 Alexa Combs Sickle cell trait (disorder) S ickle cell trait (disorder) Resolved Problem 12/06/2015 [facility] Problem Resolved 2015-12-06 01:39:58 Mani Combs Umbilical hernia (disorder) Um bilical hernia (disorder) Resolved Problem 12/06/2015 [facility] Problem Resolved 2015-12-06 01:39:58 Mani Combs History of Past Illness Condition Name Condition Details Condition Category Status Onset Date Resolution Date Last Treatment Date Treating Clinician Comments Source Hyperemesis gravidarum Hyperemesis gravidarum Disease Resolved 2019-02-05 00:00:00 2019-10-17 00:00:00 2019-10-17 12:35:40 H wes Ashby Allergies, Adverse Reactions, Alerts Allergy Name Allergy Type Status Severity Reaction(s) Onset Date Inacti ve Date Treating Clinician Comments Source Morphine Propensity to adverse reactions to drug Active Itching, Other (See Comments) 2019-08-29 00:00:00 Body feels like its o n fire Adarsh Ashby folic acid DA Active SV 2019-08-26 00:00:00 [facility] latex DA Active SV 2019-08-26 00:00:00 [facility] folic acid DA Active CO 2019-08-10 00:00:00 [facility] Iodinated Contrast- Oral and IV Dye DA Active CO 8 00:00:00 [facility] Iodine and Iodide Containing Produc FA Active DC 8 00:00:00 [facility] Latex, Natural Rubber DA Active MO 2019-07-20 00:00:00 [facility] iodine DA Active CO 2019-07-20 00:00:00 [facility] folic acid DA Active SV 2019-07-20 00:00:00 [facility] morphine DA Active MO 2019-07-20 00:00:00 [facility] ketorolac DA Active MO 2019-07-20 00:00:00 [facility] latex DA Active MO 2019-06-16 00:00:00 [facility] iodine DA Active MO 2019-06-16 00:00:00 [facility] morphine DA Active MO 2019-06-16 00:00:00 [facility] ketorolac DA Active MO 2019-06-16 00:00:00 [facility] Iodine and Iodide Containing Produc FA Active U 2019-04-12 00:00:00 [facility] Iodine and Iodide Containing Produc DA Active U 2019-04-12 1 00:00:00 [facility] folic acid DA Active SV 2019-04-22 00:00:00 [facility] morphine DA Active U 2019-04-22 00:00:00 [facility] ketorolac DA Active U 2019-04-22 00:00:00 [facility] Latex, Natural Rubber DA Active MO 2019-04-06 00:00:00 [facility] morphine DA Active MO 2019-04-06 00:00:00 [facility] Folic Acid Propensity to adverse reactions Active Severe 2019-02-22 00:00:00 Itchiness, rashes [facility] Folic Acid Propensity to adverse reactions to drug Active Severe 2019-02-22 00:00:00 Itchiness, rashes [facility] [place] Propensity to adverse reactions Active Anaphyla xis 2019-02-17 00:00:[address] [facility] [place] Propensity to adverse reactions to drug Active 2019-02-17 00:00:00 [facility] iodine DA Active CO 2019-01-05 00:00:00 [facility] morphine DA Active CO 2019-01-05 00:00:00 [facility] ketorolac DA Active CO 2019-01-05 00:00:00 [facility] iodine DA Active CO 2019-01-01 00:00:00 [facility] morphine DA Active CO 2019-01-01 00:00:00 [facility] ketorolac DA Active CO 2019-01-01 00:00:00 [facility] Iodinated Contrast- Oral and IV Dye DA Active CO 2018-01-12 8 00:00:00 [facility] iodine DA Active CO 2018-02-07 00:00:00 [facility] morphine DA Active CO 2018-02-07 00:00:00 [facility] ketorolac DA Active CO 2018-02-07 00:00:00 [facility] Iodine and Iodide Containing Produc DA Active U 6 00:00:00 [facility] morphine DA Active U 2017-06-18 00:00:00 [facility] ketorolac DA Active U 2017-06-18 00:00:00 [facility] iodine DA Active SV 2017-02-03 00:00:00 [facility] ketorolac DA Active MO 2017-02-03 00:00:00 [facility] Iodine And Iodide Containing Products Propensity to adverse reactio ns Active Itching, Rash 2016-12-18 00:00:00 [facility] Iodine And Iodide Containing Products Propensity to adverse reactions to drug Active Itching, Rash 2016-12-18 00:00:00 Adarsh Ashby Latex Propensity to adverse reactions Active 2016-05-08 00 :00:00 [facility] Morphine Drug Allergy Active Hives, Itching 2015-09-11 00:00:00 Pt with severe itching after injection 09/06/2019 [facility] Ketorolac Drug Allergy Active Itching 2015-09-11 00:00:00 [facility] Ketorolac Propensity to adverse reactions to drug Active Itching, Rash, Other (See Comments) 2015-09-11 00:00:00 Body feels like its on file [facility] Latex Propensity to adverse reactions to drug Active 2015-05-10 00:00:00 Adarsh Ashby Morphine Sulfate Adverse Reaction Active Info Not Available [facility] Ketorolac Tromethamine Adverse Reaction Active Info Not Available [facility] contrast media (iodine-based) contrast media (iodine-based) Active [facility] Family Member Diagnosis Comments Start Date Stop Date Source Natural father Hypertension [facility] Natural father Asthma [facility] Natural father Eczema [facility] Natural father Hypertension [facility] Natural father Sickle cell trait Christina gerardo [facility] Natural mother Hypertension [facility] Natural mother Hyperlipidemia [place] [facility] Natural mother Hypertension [place] [facility] Natural mother Sickle cell trait [facility] Natural brother No Known Problems [place] [facility] Maternal grandfather COPD [place] [facility] Maternal grandfather Emphysema [place] [facility] Maternal grandmother Breast cancer [place] [facility] Maternal grandmother Hypertension [place] [facility] Paternal grandmother Diabetes [place] [facility] Paternal grandmother Hyperlipidemia [place] [facility] Paternal grandmother Hypertension [place] [facility] Natural sister Fibroids [facility] Social History Social Habit Start Date Stop Date Quantity Comments Source History SDOH Alcohol Std Drinks [facility] History SDOH Alcohol Binge [facility] Sex Assigned At Christina Ashby Alcohol intake 2020-04-16 00:00:00 2020-04-16 00:00:00 Current drinker of alcohol (finding) Adarsh Ashby Alcohol Comment 2019-10-24 00:00:00 2019-10-24 00:00:00 occassionally Adarsh Ashby History SDOH Alcohol Frequency 2019-09-06 00:00:00 2019-09-06 00:00:0 0 1 [facility] Smoking Status Start Date Stop Date Source Never smoker Adarsh rodas Medications Ordered Medication Name Filled Medication Name Start Date Stop Da te Current Medication? Ordering Clinician Indication Dosage Frequency Signature (SIG) Comments Components Source fluconazole (DIFLUCAN) 150 MG tablet 2020-04-27 00:00: 00 2020-04-27 23:59:00 No 150mg Take 1 tablet (150 mg total) by mouth on ce for 1 dose. Adarsh Ashby triamcinolone (KENALOG) 0.1 % ointment 5 03:20:27 2020-04-16 00:00:00 No Q.5D Apply topically 2 (two) times a day. Adarsh Ashby ferrous sulfate 325 (65 FE) MG tablet 2020-04-16 03:20:23 Yes 325mg Q.[id number] Take 325 mg by mouth 3 (three) times a day. Adarsh Ashby albuterol (PROAIR HFA) 90 mcg/actuation inhaler 2020-04-16 03:20 :23 Yes 2{puff} Q6H Inhale 2 puffs every 6 (six) hours as needed for wheez ing. Adarsh Ashby tranexamic acid (LYSTEDA) 650 mg tablet tablet 2 03:20:18 2020-04-16 00:00:00 No Take 2 tablets (1300mg) by mouth three times daily x 5 days. On days 1-5 of menstruation cycle. Patient HAS NOT started taking medication; this was recently prescribed and she intends on starting when her next menstruation cycle starts Adarsh noriega fluticasone propionate (FLOVENT HFA) 110 mcg/actuation inhal er 2020-04-16 03:20:03 2020-04-16 00:00:00 No 1{puff} Q.5D Inhale 1 puff 2 (two) times a day. Adarsh Ashby ergocalciferol (VITAMIN D2) 50,000 unit capsule 2020-04-16 03:19:51 2020-04-16 00:00:00 No 67252X Q7D Take 50,000 Units by mouth once a week. On Friday Adarsh Ashby fluconazole (Diflucan) 150 MG tablet 2020-03-17 00:00: 00 2020-03-17 23:59:00 No 150mg Take 1 tablet ( 150 mg total) by mouth once for 1 dose. Take 2nd dose after 72 hours if symptoms persist. Adarsh Ashby fluticasone propionate (FLOVENT HFA) 110 mcg/actuation inhal er 2020-03-14 19:10:21 Yes 1{puff} Q.5D Inhale 1 p uff by mouth via inhaler 2 (two) times daily. [facility] ferrous sulfate 325 (65 FE) MG tablet 2020-03-14 19:10:21 Y es 325mg QD Take 325 mg by mouth daily. [facility] triamcinolone (KENALOG) 0.1 % topical ointment 2020-03-14 19:10: 20 Yes 1{application} Apply 1 application topically 2 (two) times pedro y as needed. [facility] oxyCODONE-acetaminophen (PERCOCET) 10-325 mg per tablet 2020-03-14 19:10:20 2020-03-14 00:00:00 No 1{tbl} Take 1 tablet by mouth every 4 (four) hours as needed for Pain. [facility] predniSONE (DELTASONE) 10 MG tablet 2020-03-08 00:00:00 Yes 30mg QD Take 30 mg by mouth daily. [facility] betamethasone, augmented, (DIPROLENE) 0.05 % ointment 2020-02-29 00:00:00 Yes 1{application} 1 application 2 (two) times daily as needed. [facility] fluticasone propionate (XHANCE) 93 mcg/actuation AerB 2020-02-11 00:00:00 Yes 1{puff} Q.5D 1 puff by Nasal route 2 (two) times pedro y. [facility] omeprazole (PRILOSEC) 40 MG capsule 2020-02-07 00:00:00 Yes 40mg QD Take 40 mg by mouth daily. [facility] fluconazole (DIFLUCAN) 150 MG tablet 2019-12-22 00:00: 00 2019-12-26 23:59:00 No ONE BY MOUTH NOW AND REPEAT DOSE IN 72 H OURS IF NEEDED. Adarsh Ashby ondansetron (ZOFRAN) 4 MG tablet 2019-12-09 11:44:31 Yes 4mg Q8H Take 4 mg by mouth every 8 (eight) hours as needed for nausea or vomiting. Adarsh Ashby gabapentin (NEURONTIN) 100 mg capsule 2019-12-09 00:00 :00 2019-12-23 23:59:00 No 100mg Q.[id number] Take 1 capsule (100 mg total) by mouth 3 (three) times a day for 14 days. Adarsh Ashby cyclobenzaprine (FLEXERIL) 10 mg tablet 00:00:00 2019-12-09 00:00:00 No 10mg Q.5D Take 1 tablet (10 mg total) by mouth 2 (two) times a day as needed for muscle spasms for up to 10 days. Adarsh Ashby celecoxib (CeleBREX) 200 MG capsule 2019-12-06 00:00:0 0 2019-12-09 00:00:00 No 200mg Q.5D Take 1 capsule (200 mg total) by mouth 2 (two) times a day for 30 days. Adarsh Ashby tranexamic acid (Lysteda) 650 mg tablet tablet 2 00:00:00 2019-12-09 00:00:00 No 1300mg Q.[id number] Ta ke 2 tablets (1,300 mg total) by mouth 3 (three) times a day for 5 days. Days 1 through 5 of menstrual flow. Adarsh Ashby fluticasone propionate (FLOVENT HFA) 110 mcg/actuation inhal er 2019-11-21 15:16:36 2019-11-21 00:00:00 No 1{puff} Q.5D Inhale 1 puff 2 (two) times a day. Adarsh Ashby fluticasone propionate (FLOVENT HFA) 110 mcg/actuation inhal er 2019-11-21 00:00:00 2019-12-09 00:00:00 No Moderate per sistent asthma without complication 1{puff} Q.5D Inhale 1 puff 2 (two) times a day. Adarsh Ashby promethazine (PHENERGAN) 25 MG tablet 2019-11-20 00:00 :00 2019-11-24 00:00:00 No 25mg Q6H Take 1 tablet ( 25 mg total) by mouth every 6 (six) hours as needed for nausea or vomiting for up to 30 days. Adarsh Ashby methocarbamol (ROBAXIN) 500 MG tablet 2019-11-15 00:00 :00 2019-11-24 00:00:00 No 500mg Q.5D Take 1 tablet ( 500 mg total) by mouth 2 (two) times a day for 10 days. Adarsh Ashby oxyCODone-acetaminophen (PERCOCET) 7.5-325 mg per tablet 2019-11-13 00:00:00 2019-12-03 23:59:00 No acute pain 1{tbl} Q4H Take 1 tablet by mouth every 4 (four) hours as needed for moderate pain for up to 20 days .acute pain. Max Daily Amount: 6 tablets Adarsh rodas oxyCODone-acetaminophen (PERCOCET) 7.5-325 mg per tablet 2019-11-12 00:00:00 2019-11-13 00:00:00 No acute pain 1{tbl} Q4H Take 1 tablet by mouth every 4 (four) hours as needed for moderate pain for up to 20 days .acute pain. Max Daily Amount: 6 tablets Adarsh rodas ondansetron (ZOFRAN) 4 MG tablet 2019-11-11 00:00:00 2019-11 00:00:00 No 4mg Q8H Take 1 tablet (4 mg total) by mouth every 8 (eight) hours as needed for nausea or vomiting for up to 30 days. Jesús Ashby oxyCODone-acetaminophen (PERCOCET) 5-325 mg per tablet 2019-11-11 00:00:00 2019-11-12 00:00:00 No acute pain 1{tbl} Q4H Take 1 tablet by mouth every 4 (four) hours as needed for moderate pain for up to 7 days .acute pain. Max Daily Amount: 6 tablets Adarsh Ashby dicyclomine (BENTYL) 10 MG capsule 2019-11-05 00:00:00 202 007-05 00:00:00 No 1 CAPSULE ORAL EVERY 6 HOURS NEEDED F OR ABDOMINAL PAIN/CRAMPING Adarsh Ashby ondansetron (ZOFRAN) 4 MG tablet 2019-10-24 00:00:00 2019-10 00:00:00 No 4mg Q8H Take 1 tablet (4 mg total) by mouth every 8 (eight) hours as needed for nausea or vomiting for up to 10 days. Jesús Ashby ergocalciferol (VITAMIN D2) 50,000 unit capsule 2019-10-20 00:00:00 2019-12-09 00:00:00 No Vitamin D deficiency [id number] Q7D Take 1 capsule (50,000 Units total) by mouth once a week for 84 days. Adarsh Ashby fluticasone propion-salmeterol (ADVAIR DISKUS) 100-50 mcg/do se DISKUS 2019-10-20 00:00:00 2019-10-24 00:00:00 No Moderate persistent asthma without complication 1{puff} Q.5D Inhale 1 puff 2 (two) times a day. Adarsh Ashby ibuprofen (ADVIL) 600 MG tablet 2019-10-15 00:00:00 00:00:00 No 600mg Q6H Take 1 tablet (600 m g total) by mouth every 6 (six) hours as needed for moderate pain for up to 30 days. Christina Ashby traMADol (ULTRAM) 50 mg tablet 2019-10-15 00:00:00 8 23:59:00 No acute pain 50mg Q6H Take 1 tablet (50 mg total) by mouth every 6 (six) hours as needed for moderate pain for up to 5 days .acute pain. Adarsh Ashby albuterol (PROAIR HFA) 90 mcg/actuation inhaler 2019-10-14 16:43:34 2019-10-14 00:00:00 No as needed for ASTHMA Adarsh Ashby albuterol (PROAIR HFA) 90 mcg/actuation inhaler 2019-10-14 00:00:00 2019-12-09 00:00:00 No Moderate persistent asthma without complication 2{puff} Q6H Inhale 2 puffs every 6 (six) hours as needed for wheezing. Adarsh Ashby triamcinolone (KENALOG) 0.1 % ointment 2 00:00:00 2019-12-09 00:00:00 No Flexural eczema Q.5D Apply topically 2 (two) times a day. Adarsh Ashby fluticasone propion-salmeterol (ADVAIR DISKUS) 100-50 mcg/do se DISKUS 2019-10-14 00:00:00 2019-10-20 00:00:00 No Moderate persistent asthma without complication 1{puff} Q.5D Inhale 1 puff 2 (two) times a day. Adarsh Ashby oxyCODone-acetaminophen (PERCOCET) 7.5-325 mg per tablet 2019-09-21 00:00:00 2019-10-24 00:00:00 No EVERY 4 HOURS NEE DED. as needed for PAIN Adarsh Ashby albuterol (PROVENTIL) 2.5 mg /3 mL (0.083 %) nebulizer solut ion 2019-09-06 07:43:05 2019-09-06 00:00:00 No 2.5mg Take 2.5 mg by nebulization every 6 (six) hours as needed for Wheezing. [facility] FERROUS FUMARATE (IRON ORAL) 2019-09-06 07:42:49 2019-09-06 00:0 0:00 No Take by mouth. [facility] ondansetron (ZOFRAN-ODT) 4 MG disintegrating tablet 2018-10 00:00:00 Yes 1 po q 6 -8 hours, prn nausea.. [facility] potassium chloride (KLOR-CON) 10 MEQ CR tablet 2 00:00:00 2020-03-14 00:00:00 No 2 po bid x 1 d ay, then 1 po daily x 6 days. Re-check Potassium level in 1 week.. [facility] promethazine (PHENERGAN) 25 MG tablet 2019-08-29 03:08 :29 2019-08-29 00:00:00 No 25mg Q6H Take 25 mg by m outh every 6 (six) hours as needed for nausea or vomiting. Adarsh Ashby promethazine (PHENERGAN) 25 MG suppository 08-29 03:08:23 2019-08-29 00:00:00 No 25mg Q6H Insert 25 mg i nto the rectum every 6 (six) hours as needed for nausea or vomiting. Adarsh Santiago ethodi meclizine (ANTIVERT) 12.5 mg tablet 2019-08-29 03:08:1 7 2019-08-29 00:00:00 No 12.5mg Q.[id number] Take 12.5 mg by mouth 3 (three) times a day as needed for dizziness. Adarsh Ashby doxylamine succinate/vit B6 (DICLEGIS ORAL) 2018 03:08:11 2019-08-29 00:00:00 No Take by mouth. Adarsh Ashby acetaminophen-codeine (TYLENOL WITH CODEINE #3) 300-30 mg pe r tablet 2019-08-29 00:00:00 2019-09-05 23:59:00 No acute pain 1{tbl} Q6H Take 1-2 tablets by mouth every 6 (six) hours as needed for moderate pain or severe pain for up to 20 doses .Acute Pain. [facility] ibuprofen (ADVIL) 800 MG tablet 2019-08-27 00:00:00 00:00:00 No [facility] docusate sodium (COLACE) 100 MG capsule 00:00:00 2020-03-14 00:00:00 No 1{capsule} Take 1 capsule by mouth 2 (two) times daily as needed. [facility] predniSONE (DELTASONE) 5 MG tablet 2019-07-27 00:00:00 202 00:00:00 No 1{tbl} Take 1 tablet by mouth. [facility] Trazodone HCl Trazodone HCl 2018-05-02 00:00:00 Yes Melinda EnriquezRojas 1 tablet at bedtime [facility] Montelukast Sodium Montelukast Sodium 2018-05-01 00:00:00 Yes Melinda EnriquezRojas 1 tablet in the evening [facility] montelukast (SINGULAIR) 10 mg tablet 2018-05-01 00:00:00 Ye s 1{tbl} QD Take 1 tablet by mouth nightly. [facility] ProAir HFA ProAir HFA 2017-02-24 00:00:00 Yes Melinda EnriquezR ojas 2 puffs as needed [facility] Vitamin D3 Vitamin D3 2017-02-24 00:00:00 Yes Melinda EnriquezR ojas as directed [facility] albuterol HFA (PROAIR HFA) 90 mcg/actuation inhaler 02-24 00:00:00 Yes 2{puff} Inhale 2 puffs b y mouth via inhaler every 4 (four) hours as needed. [facility] Advair Diskus Advair Diskus 2016-09-27 00:00:00 Yes Melinda EnriquezRojas [address] [facility] Benadryl 2015-12-03 09:55:00 No 25 mg, Route: IVP, ONCE, Dosing Weight 70.909, kg, Priority: STAT, Start date: 12/03/15 3:55:00, Stop date: 12/03/15 3:55:00 [facility] Benadryl 2015-12-03 09:55:00 No 25 mg, Route: IVP, ONCE, Dosing Weight 70.909, kg, Priority: STAT, Start date: 12/03/15 3:55:00, Stop date: 12/03/15 3:55:00 [facility] Benadryl 2015-12-03 09:32:00 No 25 mg, Route: IVP, ONCE, Dosing Weight 70.909, kg, Priority: STAT, Start date: 12/03/15 3:32:00, Stop date: 12/03/15 3:32:00 [facility] Benadryl 2015-12-03 09:32:00 No 25 mg, Route: IVP, ONCE, Dosing Weight 70.909, kg, Priority: STAT, Start date: 12/03/15 3:32:00, Stop date: 12/03/15 3:32:00 [facility] Morphine 2015-12-03 08:09:00 No Not es: (Same as:MORPhine Sulfate) [facility] Ondansetron 2015-12-03 08:09:00 No Notes: (Same as: Andreas) MEDICATION WASTE Product Size: 4 mg Product Wasted: ___ mg [facility] Sodium Chloride 0.154 MEQ/ML Injectable Solution 2015-12-03 08:0 9:00 No 1,000 mL, 1,000 ml/hr, Infus e Over: 1 hr, Route: IV, 1,000, Drug form: INJ, ONCE, Priority: STAT, Dosing Weight 70.909 kg, Start date: 12/03/15 2:09:00, Duration: 1 doses or times, Stop date: 12/03/15 2:09:00 [facility] [place] Morphine 2015-12-03 08:09:00 No Not es: (Same as:MORPhine Sulfate) [facility] Ondansetron 2015-12-03 08:09:00 No Notes: (Same as: Zofrnabila) MEDICATION WASTE Product Size: 4 mg Product Wasted: ___ mg [facility] [place] Sodium Chloride 0.154 MEQ/ML Injectable Solution 2015-12-03 08:0 9:00 No 1,000 mL, 1,000 ml/hr, Infus e Over: 1 hr, Route: IV, 1,000, Drug form: INJ, ONCE, Priority: STAT, Dosing Weight 70.909 kg, Start date: 12/03/15 2:09:00, Duration: 1 doses or times, Stop date: 12/03/15 2:09:00 [facility] ibuprofen (ADVIL,MOTRIN) 800 MG tablet 2015-09-11 18:40:18 Yes 800mg Take 800 mg by mouth every 6 (six) hours as needed for Pain. [facility] Vital Signs Vital Name Observation Time Observation Value Comments Source Systolic blood pressure 2020-04-16 04:27:00 133 mm[Hg] [facility] Diastolic blood pressure 2020-04-16 04:27:00 71 mm[Hg] [facility] Heart rate 2020-04-16 04:27:00 74 /min [facility] Body temperature 2020-04-16 04:27:00 36.56 Shavonne [facility] ton Y[facility]dan[facility] Respiratory rate 2020-04-16 04:27:00 18 /min [facility] Oxygen saturation in Arterial blood by Pulse oximetry 04-16 04:27:00 98 /min [facility] Body height 2020-04-16 03:17:[address] [facility] Body weight 2020-04-16 03:17:[address] [facility] BMI 2020-04-16 03:17:00 34.96 kg/m2 [facility] Systolic blood pressure 2020-03-14 22:20:00 157 mm[Hg] [facility] Diastolic blood pressure 2020-03-14 22:20:00 82 mm[Hg] [facility] Heart rate 2020-03-14 22:20:00 71 /min [facility] Body temperature 2020-03-14 22:20:00 37.22 Shavonne [facility] Respiratory rate 2020-03-14 22:20:00 18 /min [facility] Oxygen saturation in Arterial blood by Pulse oximetry 03-14 22:20:00 100 /[facility] 2020-03-14 18:52:00 168.9 cm [facility] Body weight Measured 2020-03-14 18:52:00 79.833 kg [facility] BMI 2020-03-14 18:52:00 27.98 kg/m2 [facility] Systolic (mm Hg) 2015-12-03 07:48:00 Hawk Combs Diastolic (mm Hg) 2015-12-03 07:48:00 Yany Combs Heart Rate 2015-12-03 07:48:00 [facility] [place] Respitory Rate 2015-12-03 07:48:00 [facility] [place] Height 2015-12-03 07:48:00 [facility] Calculated 2015-12-03 07:48:00 Yanyori al [facility] Temperature Oral (F) 2015-12-03 07:48:00 98.3 F Mani Combs Weight 2015-12-03 07:48:00 [facility] Procedures Procedure Date / Time Performed Performing Clinician Sour e HC COMPLETE BLD COUNT W/AUTO DIFF 2020-04-16 03:55:00 TuKaleb COMPREHENSIVE METABOLIC PANEL 2020-04-16 03:55:00 Tu, Kaleb Chr istian Adarsh Ashby ESTIMATED GFR 2020-04-16 03:55:00 Kaleb Forrest ED REFERRAL TO ADARSH HAMEEDIST PHYSICIAN ORGANIZATION 2019 01:39:[address] ANGIOGRAM PE CHEST 2020-03-29 01:17:44 Kelechi Godfrey RETICULOCYTE COUNT 2020-03-28 23:31:00 Kelechi Godfrey on Yazdanism COMPREHENSIVE METABOLIC PANEL 2020-03-28 22:50:00 EricksonNathan bell TROPONIN, I-STAT 2020-03-28 22:50:00 EricksonKelechi bell B NATRIURETIC PEP, I-STAT 2020-03-28 22:50:00 EricksonKelechi gomez HC COMPLETE BLD COUNT W/AUTO DIFF 2020-03-28 22:50:00 EricksonDomi gomez ESTIMATED GFR 2020-03-28 22:50:00 EricksonKelechi gomez HCG QUALITATIVE, URINE SCREEN 2020-03-28 22:23:00 Nathan Godfrey ECG 12-LEAD 2020-03-28 21:29:46 Kaleb Forrest REPORT OF PROCEDURE - ENDOSCOPY SCAN 2020-03-17 14:20:22 Pro vider, Default Scanning [facility] XR CHEST 2 VIEWS 2020-03-14 21:43:00 Maurice Oh [facility] SCREEN, URINE 2020-03-14 20:06:00 Maurice Oh [facility] B-TYPE NATRIURETIC FACTOR (BNP) 2020-03-14 19:51:00 Danelle Oh [facility] BASIC METABOLIC PANEL (7) 2020-03-14 19:50:00 Maurice Oh [facility] MAGNESIUM 2020-03-14 19:50:00 Maurice Oh [facility] PT/APTT 2020-03-14 19:50:00 Maurice Oh [facility] RAPID CK-MB 2020-03-14 19:50:00 Maurice Oh [facility] RAPID MYOGLOBIN 2020-03-14 19:50:00 Maurice Oh [facility] RAPID TROPONIN I 2020-03-14 19:50:00 Maurice Oh [facility] D-DIMER 2020-03-14 19:50:00 Maurice Oh [facility] CBC W/PLT COUNT & AUTO DIFFERENTIAL 2020-03-14 19:50:00 Fawn Ohderob [facility] ED ECG INTERPRETATION 2020-03-14 19:26:39 Maurice Oh [facility] ECG 12-LEAD 2020-03-14 18:55:07 Maurice Oh [facility] CT ABDOMEN PELVIS WO CONTRAST 2020-01-28 21:05:30 Raegan Lizarraga URINALYSIS 2020-01-28 20:38:00 Juanpablo Lizarraga Adarsh Yazdanism HCG QUALITATIVE, URINE SCREEN 2020-01-28 20:38:00 Raegan Lizarraga Adarsh Yazdanism HC COMPLETE BLD COUNT W/AUTO DIFF 2020-01-28 20:15:00 Juanpablo Hou Adarsh Ashby COMPREHENSIVE METABOLIC PANEL 2020-01-28 20:15:00 Raegan Lizarraga Adarsh Ashby LACTIC ACID, I-STAT 2020-01-28 20:15:00 Juanpablo Lizarragaeka Adarsh Ashby AMYLASE LEVEL 2020-01-28 20:15:00 Juanpablo Lizarraga Reymundokimo lucila Ashby LIPASE LEVEL 2020-01-28 20:15:00 Juanpablo Lizarraga lucila [facility] ESTIMATED GFR 2020-01-28 20:15:00 Juanpablo Lizarraga lucila Ashby SMEAR REVIEW 2020-01-28 20:15:00 Juanpablo Lizarraga lucila [facility] CT ABDOMEN PELVIS WO CONTRAST 2019-12-17 22:20:11 Tarik Cat João Adarsh Yazdanism URINALYSIS 2019-12-17 20:45:00 Sánchez Cat João Christina carrillo Yaz[facility] CT ABDOMEN PELVIS WO CONTRAST 2019-12-09 03:28:59 Iban Yousif HCG QUALITATIVE, URINE SCREEN 2019-12-09 02:58:00 Iban Yousif URINALYSIS 2019-12-09 02:58:00 Viral Yousif CBC WITH PLATELET AND DIFFERENTIAL 2019-12-09 02:03:00 Vivian Yousif COMPREHENSIVE METABOLIC PANEL 2019-12-09 02:03:00 Iban Yousif LIPASE LEVEL 2019-12-09 02:03:00 Viral Yousif LACTIC ACID LEVEL, SEPSIS - NOW AND REPEAT 2X EVERY 3 HOURS 2019-12-09 02:03:00 Viral Yousif Yazdanism ESTIMATED GFR 2019-12-09 02:03:00 Viral Yousif Yazdanism MANUAL DIFFERENTIAL 2019-12-09 02:03:[address] ABDOMEN PELVIS WO CONTRAST 2019-11-20 01:15:02 Anthony Elliott Y[facility]ism URINALYSIS 2019-11-20 01:00:00 Anthony Elliott on Yazdanism HCG QUALITATIVE, URINE SCREEN 2019-11-20 01:00:00 Anthony Elliott Yazdanism HC COMPLETE BLD COUNT W/AUTO DIFF 2019-11-19 22:57:00 Briana Elliott se COMPREHENSIVE METABOLIC PANEL 2019-11-19 22:57:00 Anthony Elliott LIPASE LEVEL 2019-11-19 22:57:00 Anthony Elliott on Yazdanism ESTIMATED GFR 2019-11-19 22:57:00 Anthony Elliott on [facility] SMEAR REVIEW 2019-11-19 22:57:00 Anthony Elliott on Yazdanism CT ABDOMEN PELVIS WO CONTRAST 2019-11-15 01:55:32 Nayla Hauser CBC WITH PLATELET AND DIFFERENTIAL 2019-11-15 01:20:00 Dewayne Hauser COMPREHENSIVE METABOLIC PANEL 2019-11-15 01:20:00 Nayla Hauser LACTIC ACID, I-STAT 2019-11-15 01:20:00 Nayla Hauser AMYLASE LEVEL 2019-11-15 01:20:00 Nayla Hauser Meth odist ESTIMATED GFR 2019-11-15 01:20:00 Nayla Hauser Meth odist MANUAL DIFFERENTIAL 2019-11-15 01:20:00 Nayla Hauser SURGICAL PATHOLOGY REQUEST 2019-11-11 14:55:00 Ajit Menchaca NV AN ELECTIVE ENDOTRACHEAL AIRWAY 2019-11-11 13:19:34 Evan er, Deisi Ashby REPAIR, HERNIA, UMBILICAL, LAPAROSCOPIC 2019-11-11 12:54:00 Ajit Sen POC , URINE 2019-11-11 10:03:00 Damari Mcdaniel ECG 12-LEAD 2019-11-03 17:37:18 Ajit Menchaca Meth odhari PARTIAL THROMBOPLASTIN TIME (PTT) 2019-11-03 17:06:00 Nicola Menchaca PROTHROMBIN TIME WITH INR 2019-11-03 17:06:00 Ajit Menchaca usjose Ashby HC COMPLETE BLD COUNT W/AUTO DIFF 2019-11-03 17:05:00 Dacia Solano cia COMPREHENSIVE METABOLIC PANEL 2019-11-03 17:05:00 Dacia Sommer ESTIMATED GFR 2019-11-03 17:05:[address] RENAL STONE PROTOCOL 2019-10-24 13:23:07 Violteta David URINALYSIS 2019-10-24 12:01:00 Violetta David HCG QUALITATIVE, URINE SCREEN 2019-10-24 12:01:00 Violetta David URINE CULTURE 2019-10-24 12:00:00 Violetta David GRAM STAIN 2019-10-24 12:00:00 Violetta David HC COMPLETE BLD COUNT W/AUTO DIFF 2019-10-24 11:34:00 Peace David COMPREHENSIVE METABOLIC PANEL 2019-10-24 11:34:00 Violetta David AMYLASE LEVEL 2019-10-24 11:34:00 Violetta David ESTIMATED GFR 2019-10-24 11:34:00 Violetta David SMEAR REVIEW 2019-10-24 11:34:00 Violetta David CBC WITH PLATELET AND DIFFERENTIAL 2019-10-18 12:41:00 Vilma Montero COMPREHENSIVE METABOLIC PANEL 2019-10-18 12:41:00 Candy Montero HEMOGLOBIN A1C 2019-10-18 12:41:00 KylahVilma barrow Sd thodist T4, FREE 2019-10-18 12:41:00 Vilma Montero Me thodist LIPID PANEL 2019-10-18 12:41:00 Vilma Montero Sd thodist THYROID STIMULATING HORMONE 2019-10-18 12:41:00 KylahLuis barrow Yazdanism VITAMIN D 25 HYDROXY LEVEL 2019-10-18 12:41:00 KylahVilma barrow Y[facility]ism URINALYSIS, COMPLETE, WITH REFLEX TO CULTURE 2019-10-18 12:4 1:00 KylahVilma barrow Y[facility]danism LIPASE LEVEL 2019-10-18 12:41:00 KylahVilma barrow Me thodist TOTAL IRON BINDING CAPACITY 2019-10-18 12:41:00 KylahLuis barrow Yazdanism FERRITIN LEVEL 2019-10-18 12:41:00 KylahVilma barrow Sd thodist US PELVIC TRANSABDOMINAL 2019-10-15 01:53:41 Sánchez Cat US PELVIC TRANSVAGINAL 2019-10-15 01:53:41 Sánchez Cati nna Adarsh Ashby COMPREHENSIVE METABOLIC PANEL 2019-10-15 01:02:00 Tarik Cat HC COMPLETE BLD COUNT W/AUTO DIFF 2019-10-15 01:02:00 Domingo Cat ESTIMATED GFR 2019-10-15 01:02:00 Sánchez Cat Christina storosaura Ashby CT ABDOMEN/PELVIS WITHOUT IV CONTRAST 2019-09-06 09:16:00 Dov Ng [facility] URINE CULTURE 2019-09-06 08:51:00 Dov Hooper [facility] URINALYSIS W/ REFLEX URINE CULTURE 2019-09-06 08:51:00 Dov Hooper [facility] HEPATIC FUNCTION PANEL 2019-09-06 08:45:00 Dov Hooper [facility] BASIC METABOLIC PANEL (7) 2019-09-06 08:45:00 Dov Hooper [facility] CBC W/PLT COUNT & AUTO DIFFERENTIAL 2019-09-06 08:45:00 Dov Hooper [facility] Hernia repair [facility] Plan of Care Planned Activity Planned Date Details Comments Source Future Scheduled Test 2020-05-13 00:00:00 INFLUENZA VACCINE [code = INFLUENZA VACCINE] [facility] Future Scheduled Test 2005 00:00:00 Screening for kristen gnant neoplasm of cervix (procedure) [code = 105897541] [facility] Encounters Start Date/Time End Date/Time Encounter Type [facility] Type [facility] Care Department Encounter ID Source 2020-04-16 00:00:00 2020-04-16 00:00:00 Emergency KALEB FORREST [place] [id number] [facility] 2020-03-28 00:00:00 2020-03-29 00:00:00 Emergency NATHAN GODFREY [place] [address] [id number] [facility] 2020-02-08 00:00:00 2020-02-08 00:00:00 Outpatient CRISTOBAL LOPEZ [facility] [id number] [facility] [facility] 2020-01-28 00:00:00 2020-01-28 00:00:00 Emergency SAMANTHA, ERN PATRICIA [place] [address] [id number] [facility] 2020-01-03 00:00:00 2020-01-03 00:00:00 Outpatient MENCHACAMARCELINO [facility] [id number] [facility] 2019-12-17 00:00:00 2019-12-18 00:00:00 Emergency TARIK CAT JOSE [place] [address] [id number] [facility] 2019-12-09 00:00:00 2019-12-09 00:00:00 Emergency KAUSHIK YOUSIF [place] [address] [id number] [facility] 2019-11-19 00:00:00 2019-11-20 00:00:00 Emergency ANTHONY ELLIOTT [facility] [id number] [facility] 2019-11-15 00:00:00 2019-11-15 00:00:00 Emergency JOESPH CHOI [place] [address] [id number] [facility] 2019-11-11 00:00:00 2019-11-12 00:00:00 Outpatient MARCELINO MENCHACA [facility] [id number] [facility] 2019-10-27 00:00:00 2019-10-27 00:00:00 Emergency NATHAN GODFREY [facility] [id number] [facility] 2019-10-24 00:00:00 2019-10-24 00:00:00 Emergency VIOLETTA DAVID [facility] [id number] [facility] 2019-10-15 00:00:00 2019-10-15 00:00:00 Emergency TARIK CAT [facility] [id number] [facility] 2019-08-29 00:00:00 2019-08-29 00:00:00 Emergency ABHILASH RODRIGES ALISHA [place] [id number] [facility] 2018-05-01 08:20:00 2018-05-01 08:20:00 Outpatient [facility] [id number] [facility] 2018-01-08 22:24:00 2018-01-10 14:48:00 Outpatient NISHANT LEO [facility] [id number] [facility] 2017-12-10 14:20:00 2017-12-10 14:20:00 Outpatient [facility] [id number] [facility] 2017-11-21 00:48:00 2017-11-21 00:48:00 Emergency E [facility] [id number] [facility] 2017-11-09 19:23:00 2017-11-09 22:10:00 Emergency E DEBBIE MONTANA [facility] E[facility] [id number] [facility] 2016-10-28 07:30:00 2016-10-28 07:30:00 Outpatient NISHANT FREEMAN [facility] WWACU [id number] [facility] 2015-12-03 01:40:00 2015-12-03 07:23:00 Outpatient Chrissy Ibarra [facility] [id number] 2015-12-03 01:40:00 2015-12-03 07:23:00 Outpatient Chrissy Ibarra [facility] [id number] Results Test Description Test Time Test Comments Results Result Comments Source Comprehensive metabolic panel 2020-04-16 04:08:21 Test Item Sodium (test code = 2951-2) 140 128- 145 mEq/L Potassium (test code = 2823-3) 3.4 3.6- 5.1 mEq/L L CO2 (test code = 8-9) 26 18- 33 mEq/L Chloride (test code = 2075-0) 107 98- 108 mEq/L Glucose (test code = 2345-7) 106 mg/dL 73-118 Calcium (test code = 49003-9) 9.2 mg/dL 8-10.3 BUN (test code = 3094-0) 11 mg/dL 7-22 Creatinine (test code = 2160-0) 0.3 mg/dL 0.5-0.9 L Alkaline phosphatase (test code = 6768-6) 78 U/L 42-141 ALT (test code = 1742-6) 15 U/L 10-47 AST (test code = 1920-8) 20 U/L 11-38 Total bilirubin (test code = 1974-2) 0.4 mg/dL 0.2-1.6 Albumin (test code = 1751-7) 3.5 g/dL 3.3-5.5 Protein (test code = 2885-2) 6.7 g/dL 6.4-8.1 Anion gap (test code = 62436-1) 7@ANIO 7- 15 mEq/L A/G ratio (test code = 1759-0) 1.1 0.7-3.8 Lab Interpretation (test code = 27618-0) Abnormal [facility] [id number] 04:08:21* Test Item Value Reference Range Interpretation Comments Estimated GFR (test code = 5488) >=90 mL/min/1.73 m2 Catergory Units InterpretationG1 >=90 Normal or highG2 60-89 Mildly bihpsrfxmT8z 45-59 Mildly to moderately mcwifpckjT7x 30-44 Moderately to severely decreasedG4 15-29 Severely decreasedG5 <15 Kidney failureThe eGFR was calculated using the Chronic Kidney Disease Epidemiology Collaboration (CKD-EPI) equation. Interpretation is based on recommendations of the National Kidney Foundation-Kidney Disease Outcomes Quality Initiative (NKF-KDOQI) published in 2014. [facility] with platelet and [id number] 03:58:45* Test Item Value Reference Range Interpretation Comments WBC (test code = 96124-2) 8.34 4.50- 11.00 k/uL RBC (test code = 21402-8) 3.60 m/uL 4.2-5.5 L HGB (test code = 718-7) 9.8 g/dL 12-16 L HCT (test code = 4544-3) 27.8 % 37-47 L MCV (test code = 787-2) 77.2 fL 82-100 L MCH (test code = 785-6) 27.2 pg 27-34 MCHC (test code = 786-4) 35.3 g/dL 31-37 RDW - SD (test code = 52206-8) 43.0 fL 37-55 MPV (test code = 53365-2) 12.5 fL 8.8-13.2 Platelet count (test code = 27299-2) 275 150- 400 k/uL Neutrophils (test code = 62865-0) 45.3 % 39-69 Lymphocytes (test code = 04268-3) 32.6 % 25-45 Monocytes (test code = 55954-8) 7.2 % 0-10 Eosinophils (test code = 76829-3) 14.3 % 0-5 H Basophils (test code = 56586-3) 0.6 % 0-1 Lab Interpretation (test code = 63635-9) Abnormal [facility] 12 [id number] 18:57:43* Test Item Value Reference Range Interpretation Comments Ventricular rate (test code = 253) 90 Atrial rate (test code = 255) 90 NV interval (test code = 266) 160 QRSD interval (test code = 260) 78 QT interval (test code = 264) 382 QTC interval (test code = 265) 467 P axis 1 (test code = 267) 44 QRS axis 1 (test code = 268) 44 T wave axis (test code = 270) 37 EKG impression (test code = 273) Normal sinus rhythm-N onspecific T wave abnormality-Prolonged QT-Abnormal ECG-In automated comparison with ECG of 03-NOV-2019 17:37,-QT has lengthened- [facility] MethodistReticulocyte [id number] 01:50:19* Test Item Value Reference Range Interpretation Comments Retic %, auto (test code = 50366-9) 1.3 % 0.5-2.1 Retic absolute, auto (test code = 87751-3) 0.0506 m/uL 0.021-0.115 5 [facility]CT Angiogram Pe [id number] 01:28:02Hm Interface, Radiology Results - 03/29/2020 1:31 AM CDTEXAMINATION:CT ANGIOGRAM PE CHESTCLINICAL HISTORY:34 years Female PE suspected intermediate prob neg D- dimerTECHNIQUE: CT angiographic images of the chest were obtained during intravenous administration of iodinated contrast. Computerized reformatted images and 3-D MIP images were also obtained and archived (CT pulmonary embolus protocol). CT imaging was performed with iterative reconstruction techniques and /or automated exposure control to reduce radiation dose. COMPARISON:CTA chest 05/16/2017FINDINGS:CHEST:Pulmonary arteries: No evidence of acute pulmonary embolism through the segmental level. The main pulmonary trunk is within normal limits in caliber.Lungs and airways: No acute airspace disease or suspicious pulmonary n odules. The central airways are patent.Pleura: No pleural effusion or pneumothor ax.Mediastinum and lymph nodes: No lymphadenopathy. Cardiovascular: The heart si ze is normal. No pericardial effusion. The thoracic aorta is normal in caliber. Upper abdomen: No suspicious abnormalities.Bones: No suspicious osseous lesions. Other: None.IMPRESSION:1.No acute pulmonary embolus through the segmental level .2.No acute intrathoracic abnormality.[facility]-[id number] MethodistB natriuretic pep, [id number] 23:29:28* Test Item Value Reference Range Interpretation Comments BNP, I-Stat (test code = 37513-6) <20 0-100 [place] MethodistTroponin, [id number] 23:29:28* Test Item Value Reference Range Interpretation Comments Troponin, I-Stat (test code = 2359) 0.00 ng/mL 0-0.08 0.09 - 1.49 ng/ml May indicate increased risk of acute coronary syndrome. >=1.5 ng/ml Consistent with acute myocardial infarction. The diagnostic value of a single normal or non-diagnostic result is questionable. Serial samples at 2-6 hour intervalsare required to rule out acute myocardial injury. Adarsh Stein qualitative, urine [id number] 22:30:54* Test Item Value Reference Range Interpretation Comments hCG qualitative, urine (test code = 2106-3) Negative Sensitivity of HCG test: 25 mIU/mLNegative test results in patients suspected to be should be retested with a sample obtained 48-72 hours later, or by performing a quantitative assay. Adarsh MethodistECG 12 [id number] 08:37:11Interface, External Ris In - 03/15/2020 8:37 AM CDTVentricular Rate 75 BPMAtrial Rate 75 BPMP-R Interval 148 msQRS Duration 84 msQ-T Interval 394 msQTC Calculation(Bazett) 439 msP [place] 33 degreesR [place] 20 degreesT [place] 16 degreesNormal sinus rhythmNonspecific T wave abnormalityAbnormal ECG04 DEC 2016Fusion complexes no longer seenQuestionable change in the QRS axisQT has shortenedConfirmed by MD OLEG, SUZIE ([id number]) on 03/15/2020 8:37:07 [facility] 2 [id number] 21:49:00Reason for exam:->CHEST PAINIs the patient ?->NoShould this be performed at the bedside?->NoFINAL REPORT Exam: Chest radiograph Clinical History: Chest pain COMPARISON: December 18, 2016 Findings: The cardiomediastinal silhouette and lungs are normal. The regional skeleton and soft tissue are unremarkable. There is no evidence of pleural effusion or pneumothorax. Impression: No radiographic evidence of acute cardiopulmonary disease. Signed: Rahul Roldan MDReport Verified Date/Time: 03/14/2020 21:49:09 Reading Location: [address] Transitional Reading Room chest 2 [id number] 21:49:00Interface, External Ris In - 03/14/2020 9:51 PM CDTFINAL REPORT Exam: Chest radiograph Clinical History: Chest pain COMPARISON: December 18, 2016 Findings: The cardiomediastinal silhouette and lungs are normal. The regional skeleton and soft tissue are unremarkable. There is no evidence of pleural effusion or pneumothorax. Impression: No radiographic evidence of acute cardiopulmonary disease. Signed: Rahul Roldan MDReport Verified Date/Time: 03/14/2020 21:49:09 Reading Location: [address] Transitional Reading Room [facility], [id number] 20:53:00* Test Item Value Reference Range Interpretation Comments D-Dimer, Quant (test code = 31596-9) 0.34 <0.50 MG/L FEU CHERELLE (test code = CHERELLE) REGARDING D-DIMER RESULTS: R esults of this D-Dimer test should always be interpreted in conjunction with the patient's medical history, clinical presentation and other findings. DVT clinical diagnosis should not be based on the results of INNOVANCE D-Dimer alone. Lab Interpretation (test code = 77271-9) Normal [id number] 20:53:00* Test Item Value Reference Range Interpretation Comments D-DIMER QUANTITATIVE (BEAKER) (test code = 671) 0.34 MG/L FEU <0.50 REGARDING D-DIMER RESULTS: Results of this D-Dimer test should always be interpr eted in conjunction with the patient's medical history, clinical presentation an d other findings. DVT clinical diagnosis should not be based on the results of I NNOVANCE D-Dimer alone.CBC with platelet count + automated [id number] 20:28:00* Test Item Value Reference Range Interpretation Comments WBC (test code = 6690-2) 12.0 4.0- 10.0 K/L H RBC (test code = 789-8) 4.11 4.00- 5.00 M/L MCHC (test code = 786-4) 32.7 32.0- 36.0 GM/DL L Hematocrit (test code = 4544-3) 33.7 % 36-45 L MCV (test code = 787-2) 82.0 fL 82-99 MCH (test code = 785-6) 26.8 pg 27-33 L RDW (test code = 788-0) 17.0 % 10.3-14.2 H Platelets (test code = 777-3) 247 150- 430 K/CU MM MPV (test code = 74706-1) 10.5 fL 6.5-10.5 % Neutros (test code = 429) 53 % % Lymphs (test code = 430) 37 % % Monos (test code = 431) 7 % % Eos (test code = 432) 2 % % Baso (test code = 437) 1 % # Neutros (test code = 670) 6.38 1.80- 8.00 K/L # Lymphs (test code = 414) 4.47 1.48- 4.50 K/L # Monos (test code = 415) 0.85 0.00- 1.30 K/L # Eos (test code = 416) 0.23 0.00- 0.50 K/L # Baso (test code = 417) 0.11 0.00- 0.20 K/L Lab Interpretation (test code = 40052-5) Abnormal [facility] W/PLT COUNT & AUTO [id number] 20:28:00* Test Item Value Reference Range Interpretation Comments WHITE BLOOD CELL COUNT (BEAKER) (test code = 775) 12.0 K/ L 4.0- 10.0 H RED BLOOD CELL COUNT (BEAKER) (test code = 761) 4.11 M/ L 4.00-5 .00 HEMOGLOBIN (BEAKER) (test code = 410) 11.0 GM/DL 12.0-15.0 L HEMATOCRIT (BEAKER) (test code = 411) 33.7 % 36.0-45.0 L MEAN CORPUSCULAR VOLUME (BEAKER) (test code = 753) 82.0 fL 82. 0-99.0 MEAN CORPUSCULAR HEMOGLOBIN (BEAKER) (test code = 751) 26.8 pg 27.0-33.0 L MEAN CORPUSCULAR HEMOGLOBIN CONC (BEAKER) (test code = 752) 32.7 GM/DL 32.0-36.0 RED CELL DISTRIBUTION WIDTH (BEAKER) (test code = 412) 17.0 % 10.3-14.2 H PLATELET COUNT (BEAKER) (test code = 756) 247 K/CU MM 150-430 MEAN PLATELET VOLUME (BEAKER) (test code = 754) 10.5 fL 6.5-10 .5 NEUTROPHILS RELATIVE PERCENT (BEAKER) (test code = 429) 53 % LYMPHOCYTES RELATIVE PERCENT (BEAKER) (test code = 430) 37 % MONOCYTES RELATIVE PERCENT (BEAKER) (test code = 431) 7 % EOSINOPHILS RELATIVE PERCENT (BEAKER) (test code = 432) 2 % BASOPHILS RELATIVE PERCENT (BEAKER) (test code = 437) 1 % NEUTROPHILS ABSOLUTE COUNT (BEAKER) (test code = 670) 6.38 K/ L 1.80-8.00 LYMPHOCYTES ABSOLUTE COUNT (BEAKER) (test code = 414) 4.47 K/ L 1.48-4.50 MONOCYTES ABSOLUTE COUNT (BEAKER) (test code = 415) 0.85 K/ L 0. 00-1.30 EOSINOPHILS ABSOLUTE COUNT (BEAKER) (test code = 416) 0.23 K/ L 0.00-0.50 BASOPHILS ABSOLUTE COUNT (BEAKER) (test code = 417) 0.11 K/ L 0. 00-0.20 Rapid [id number] 20:23:00* Test Item Value Reference Range Interpretation Comments Rapid CKMB (test code = 1482) <1.0 0-4.3 Lab Interpretation (test code = 46449-1) [facility] 20:23:00* Test Item Value Reference Range Interpretation Comments Rapid Myoglobin (test code = 2237) 22 ng/mL <107 Lab Interpretation (test code = 13500-9) Normal [facility] [id number] 20:23:00* Test Item Value Reference Range Interpretation Comments RAPID CKMB (BEAKER) (test code = 1482) < ng/mL 0.0-4.3 RAPID [id number] 20:23:00* Test Item Value Reference Range Interpretation Comments RAPID MYOGLOBIN (BEAKER) (test code = 2237) 22 ng/mL <107 Rapid Troponin I ([facility] Only)2020-03-14 20:22:00* Test Item Value Reference Range Interpretation Comments Rapid Troponin I (test code = 1483) <0.05 <0.05 ng/mL Lab Interpretation (test code = 96521-5) Normal [facility] CampusRAPID TROPONIN [id number] 20:22:00* Test Item Value Reference Range Interpretation Comments RAPID TROPONIN I (BEAKER) (test code = 1483) < ng/mL <0.05 B-type Natriuretic Factor (BNP)2020-03-14 20:16:00* Test Item Value Reference Range Interpretation Comments BNP (test code = 38765-3) 26 pg/mL 0-100 Lab Interpretation (test code = 18672-6) Normal [facility]B-TYPE NATRIURETIC FACTOR (BNP)2020-03-14 20:16:00 * Test Item Value Reference Range Interpretation Comments B-TYPE NATRIURETIC PEPTIDE (BEAKER) (test code = 700) 26 pg/mL 0-100 PT/[id number] 20:15:00* Test Item Value Reference Range Interpretation Comments Protime (test code = 5902-2) 10.6 9.8- 12.0 seconds INR (test code = 6301-6) 1.0 <=5.9 PTT (test code = 51905-5) 25.0 25.8- 34.5 seconds L CHERELLE (test code = CHERELLE) RECOMMENDED COUMADIN/WARFARI N INR THERAPY RANGESSTANDARD DOSE: 2.0 - 3.0 Includes: PROPHYLAXIS for venous thrombosis, systemic embolization; TREATMENT for venous thrombosis and/or pulmonary embolus.HIGH RISK: Target INR is 2.5-3.5 for patients with mechanical heart valves. Lab Interpretation (test code = 39014-4) Abnormal [facility] CampusPT/[id number] 20:15:00* Test Item Value Reference Range Interpretation Comments PROTIME (BEAKER) (test code = 759) 10.6 seconds 9.8-12.0 INR (BEAKER) (test code = 370) 1.0 <=5.9 PARTIAL THROMBOPLASTIN TIME (BEAKER) (test code = 760) 25.0 seconds 25.8-34.5 L RECOMMENDED COUMADIN/WARFARIN INR THERAPY RANGESSTANDARD DOSE: 2.0 - 3.0 Inclu brandon: PROPHYLAXIS for venous thrombosis, systemic embolization; TREATMENT for elizabeth ous thrombosis and/or pulmonary embolus.HIGH RISK: Target INR is 2.5-3.5 for pat ients with mechanical heart valves. screen, [id number] 20:14:00* Test Item Value Reference Range Interpretation Comments Preg Test, Ur (test code = 2112-1) Negative [facility] CampusPREGNANCY SCREEN, [id number] 20:14:00* Test Item Value Reference Range Interpretation Comments TEST URINE (BEAKER) (test code = 583) Negative Basic Metabolic [id number] 20:11:00* Test Item Value Reference Range Interpretation Comments Sodium (test code = 2951-2) 138 meq/L 135-148 Potassium (test code = 2823-3) 3.6 meq/L 3.6-5.5 Chloride (test code = 2075-0) 105 meq/L 98-106 CO2 (test code = 8-9) 27 meq/L 24-32 BUN (test code = 3094-0) 10 mg/dL 10-26 Creatinine (test code = 2160-0) 0.46 mg/dL 0.5-1.2 L Glucose (test code = 2345-7) 95 mg/dL 70-110 Calcium (test code = 59646-1) 9.2 mg/dL 8.5-10.5 EGFR (test code = 87925-2) 187 mL/min/1.73 sq m ESTIMATED GFR IS NOT ACCURATE CREATININE CLEARANCE IN PREDICTING GLOMERULAR FILTRATION RATE. ESTIMATED GFR IS NOT APPLICABLE FOR DIALYSIS PATIENTS. Lab Interpretation (test code = 26353-2) Abnormal [facility] CampusMagnesium2020-06-02 20:11:00* Test Item Value Reference Range Interpretation Comments Magnesium (test code = 19750-6) 1.9 mg/dL 1.5-3 Lab Interpretation (test code = 06832-4) Normal [facility] CampusBASIC METABOLIC [id number] 20:11:00* Test Item Value Reference Range Interpretation Comments SODIUM (BEAKER) (test code = 381) 138 meq/L 135-148 POTASSIUM (BEAKER) (test code = 379) 3.6 meq/L 3.6-5.5 CHLORIDE (BEAKER) (test code = 382) 105 meq/L 98-106 CO2 (BEAKER) (test code = 355) 27 meq/L 24-32 BLOOD UREA NITROGEN (BEAKER) (test code = 354) 10 mg/dL 10-26 CREATININE (BEAKER) (test code = 358) 0.46 mg/dL 0.50-1.20 L GLUCOSE RANDOM (BEAKER) (test code = 652) 95 mg/dL 70-110 CALCIUM (BEAKER) (test code = 697) 9.2 mg/dL 8.5-10.5 EGFR (BEAKER) (test code = 1092) 187 mL/min/1.73 sq m ESTIMATED GFR IS NOT ACCURATE CREATININE CLEARANCE IN PREDICTING GLOMERULAR FILTRATION RATE. ESTIMATED GFR IS NOT APPLICABLE FOR DIALYSIS PATIENTS. [id number] 20:11:00* Test Item Value Reference Range Interpretation Comments MAGNESIUM (BEAKER) (test code = 627) 1.9 mg/dL 1.5-3.0 ECG/EKG Cfsqudeeiqysci0454-49-43 19:26:39Maurice Oh MD 03/15/2020 12:11 AMECG/EKG InterpretationDate/Time: 03/14/2020 7:29 PMPerformed by: Maurice Oh MDAuthorized by: Maurice Oh MD The ECG was interpreted by ED physician. This ECG was not compared with previous ECG(s).The ECG is interpreted as sinus rhythm. Rate is normal rate. Conduction: conduction normal. ST segments normal. T waves normal. Other findings: no other findings. Clinical Impression: non-specific ECGECG reviewed and does not meet STEMI criteria. [facility] yqeaju2146-47-51 01:29:06* Test Item Value Reference Range Interpretation Comments Platelet slide review (test code = 22160-8) Corby adequate [facility]Lipase pnakr4105-27-15 23:31:48* Test Item Value Reference Range Interpretation Comments Lipase (test code = 3040-3) 49 U/L 13-60 [facility] MethodistCT Abdomen Pelvis Wo Vpmqiryf1540-49-01 21:21:50 Interface, Radiology Results Incoming - 01/28/2020 9:25 PM CDTEXAMINATION: CT ABDOMEN PELVIS WO CONTRASTCLINICAL HISTORY:34 years Female abdominal painTECHNIQUE: Multiple axial images of the abdomen and pelvis were obtained without in travenous administration of iodinated contrast. Sagittal and coronal computerize d reformatted images were also obtained. The lack of intravenous contrast reduce s the sensitivity of detecting solid organ disease. CT imaging was performed wit h iterative reconstruction techniques and/or automated exposure control to reduc e radiation dose. COMPARISON: Multiple prior CT abdomen pelvis examinations, mo st recently on 12/17/2019IMPRESSION:LUNG BASES:The lung bases are free of acute di sease.ABDOMEN:Liver: Mildly enlarged measuring up to 8.6 cm. No focal hepatic le calista although evaluation is limited due to lack of intravenous contrast.Gallblad dave/Biliary: The gallbladder is normal. There is no evidence of intra or extrahe patic biliary ductal dilatation.Spleen: The spleen is not enlarged.Pancreas: The pancreas is unremarkable.Adrenal Glands: The adrenal glands are unremarkable.Ki dneys: The kidneys are unremarkable. No mass, hydronephrosis or calculi.Vascular : The abdominal aorta is nonaneurysmal.Nodes: No enlarged retroperitoneal or mes enteric lymphadenopathy.Bowel: No bowel obstruction or inflammatory changes. The appendix appears normal. Small sliding hiatal hernia.Peritoneum: No free intrap eritoneal air. Changes of umbilical hernia repair is redemonstrated with progres sed decrease in size with trace fluid near the umbilicus (301B: 41) suggestive o f a resolving seroma/hematoma. Changes of prior section noted.PELVIS:Ur inary bladder is partially decompressed without focal wall thickening or intralu aguila stone. Uterus is mildly enlarged. Ovaries are grossly normal. A tampon is noted within the vagina. MUSCULOSKELETAL: No suspicious osseous lesions. SUMMARY :1.No acute intra-abdominal or pelvic abnormality.2.Progressed decrease in size of periumbilical free fluid, now trace and likely representing resolving postsur gical seroma/hematoma.3.Other findings as described above.[facility]-[id number] ApwyyrfvdXcipupnonp9056-31-16 20:41:34* Test Item Value Reference Range Interpretation Comments Glucose, UA (test code = 94092-7) Negative Negative Bilirubin, UA (test code = 5770-3) Negative Negative Ketones, UA (test code = 2514-8) Negative Negative Specific gravity, UA (test code = 5811-5) 1.025 1.001-1.035 Blood, UA (test code = 5794-3) Small Negative A pH, UA (test code = 5803-2) 7.0 5.0-8.5 Protein, UA (test code = 46145-6) Negative Negative Urobilinogen, UA (test code = 38292-2) <2.0 <2.0 Nitrite, UA (test code = 5802-4) Negative Negative Leukocyte esterase, UA (test code = 5799-2) Negative Negative Color, UA (test code = 5778-6) Yellow Appearance, UA (test code = 5767-9) Sl Cloudy Lab Interpretation (test code = 51110-2) Abnormal [facility] MethodistAmylase gciyc5002-28-22 20:30:06* Test Item Value Reference Range Interpretation Comments Amylase (test code = 1798-8) 56 U/L 14-97 [facility] MethodistLactic acid, E-Gdhh8566-18Wbwm0898-96-10 20:27:33* Test Item Value Reference Range Interpretation Comments Lactic acid, I-Stat (test code = 05072-8) 1.1 mmol/L 0.5-2.2 [facility] ABD PELVIS W/[id number] 04:41:00 Name: EDWARD ESPANA [facility] : 1985 Age/S: 34 / F [address] [place] Unit #: [id number] Loc: [place] [address] Phys: Jami Caicedo MD Acct: [id number] Di s Date: Status: REG ER PHONE #: Exam Date: 12/11/2019 0428 FAX #: Reason: sp surgical hernia repair distended diffuse ttp EXAMS: CPT: [id number] CT ABD PELVIS W/CONT 16395 CT ABDOMEN AND PELVIS ( with intravenous contrast ) Location Code: B2 CLINIC AL INDICATIONS: Status post surgical hernia repair 12/02/2019, diffusely te nder to palpation. TECHNIQUE: Volumetric acquisition of abdomen fr om the level of the domes of the diaphragm through the symphysis pubis usi ng 5 mm collimation after the administration of intravenous and oral contr ast. Axial and coronal images were interpreted. Dose loweri ng technique with automatic exposure control utilized. COMPARISON: 11/05/2019. FINDINGS: Visualized lung bases demonstrate no consolidations or effusions. Liver, spleen, pancreas, adrenals and both kidneys are unremarkable. There is no evidence of intrahepatic bilia ry duct dilatation. No hydronephrosis seen. Small hiatal he rnia. Visualized loops of small bowel are within normal limits. Appendix i s not identified. Scattered calcific densities within the cecum noted. Lar ge bowel loops are otherwise within normal limits. There is induration within the ventral abdominal wall with a small umbilical hernia present. There is mild fluid along the abdominal wall musculature perhaps related to surgery. No rim-enhancing collections are seen. Tiny focus of free air within the left lower abdomen may be surgical. Aort a tapers normally without aneurysmal dilatation. No lymphadenopathy CT Pelvis: The urinary bladder is unremarkable. Uterus is within n ormal limits. Visualized osseous structures demonstrate no signifi cant abnormality. IMPRESSION: PAGE 1 Signed Report (CONTINUED) Name: LES ESPANA ALONSO [facility] : 1985 Age/S: 34 / F [id number] [place] Unit #: [id number] Loc: [place] [address] Phys: Kathy Caicedo MD Acct: [id number] Dis Date: Status: REG ER PHONE #: [phone] Exam Date: 12/11/2019 0428 FAX #: Reason: sp surgical hernia repair distended diffuse ttp EXAMS: CPT: [id number] CT ABD PELVIS W/CONT 70559 <Continued> 1. Induration within the ventral abdominal wall along with mild fluid/seroma along the abdominal wall musculature appears to be related to recent surgery. No rim-enhancing fluid collections to suggest an abscess seen. 2. No bowel obstruction or incarcerated bowel loops evident. 3. Small hiatal hernia. at 0441 Reported and signed by: Jg Diaz M.D. CC: Kathy Caicedo MD; Vilma Montero MD Technologist:Nishant Singleton RT(R)(CT) CTDI: DLP: Trnscb Date/Time: 12/11/2019 (0441) YelenaRK5 Orig Print D/T: S: 12/11/2019 (4) PAGE 2 Signed Report HCG SERUM [id number] 04:08:00 * Test Item Value Reference Range Interpretation Comments HCG SERUM QUAL (test code = HCGQL) SERUM NEGATIVE SCREEN NEGATIVE BASIC METABOLIC [id number] 02:53:00* Test Item Value Reference Range Interpretation Comments SODIUM (test code = NA) 136 mmol/L 134-147 N POTASSIUM (test code = K) 4.0 mmol/L 3.4-5.0 N CHLORIDE (test code = CL) 106 mmol/L 100-108 N CARBON DIOXIDE (test code = CO2) 26 mmol/L 21-32 N ANION GAP (test code = GAP) 4.0 GAP calc 4.0-15.0 N GLUCOSE (test code = GLU) 87 MG/DL 70-110 N BLOOD UREA NITROGEN (test code = BUN) 12 MG/DL 7-18 N GLOMERULAR FILTRATION RATE (test code = GFR) >=60 max estimate estG FR >60 CREATININE (test code = CREAT) 0.6 MG/DL 0.6-1.0 N CALCIUM (test code = CA) 8.9 MG/DL 8.5-10.1 N HEPATIC FUNCTION [id number] 02:53:00* Test Item Value Reference Range Interpretation Comments TOTAL PROTEIN (test code = PROT) 8.3 G/DL 6.4-8.2 H ALBUMIN (test code = ALB) 3.7 G/DL 3.4-5.0 N BILIRUBIN TOTAL (test code = BILT) 0.20 MG/DL 0.2-1.2 N BILIRUBIN DIRECT (test code = BILD) < 0.10 MG/DL 0.00-0.30 N BILIRUBIN INDIRECT (test code = BILIND) 0.10 MG/DL 0.2-1.2 L SGOT/AST (test code = AST) 22 Unit/L 15-37 N SGPT/ALT (test code = ALT) 16 Unit/L 12-78 N ALKALINE PHOSPHATASE TOTAL (test code = ALKP) 108 Unit/L 45-117 N [id number] 02:53:00* Test Item Value Reference Range Interpretation Comments LIPASE (test code = LIP) 170 Unit/L 114-286 N BASIC METABOLIC [id number] 02:48:00* Test Item Value Reference Range Interpretation Comments SODIUM (test code = NA) 136 mmol/L 134-147 N POTASSIUM (test code = K) 4.0 mmol/L 3.4-5.0 N CHLORIDE (test code = CL) 106 mmol/L 100-108 N CARBON DIOXIDE (test code = CO2) 26 mmol/L 21-32 N ANION GAP (test code = GAP) 4.0 GAP calc 4.0-15.0 N GLUCOSE (test code = GLU) 87 MG/DL 70-110 N BLOOD UREA NITROGEN (test code = BUN) 12 MG/DL 7-18 N GLOMERULAR FILTRATION RATE (test code = GFR) estGFR >60 CREATININE (test code = CREAT) MG/DL 0.6-1.0 CALCIUM (test code = CA) 8.9 MG/DL 8.5-10.1 N HEPATIC FUNCTION [id number] 02:48:00* Test Item Value Reference Range Interpretation Comments TOTAL PROTEIN (test code = PROT) G/DL 6.4-8.2 ALBUMIN (test code = ALB) G/DL 3.4-5.0 BILIRUBIN TOTAL (test code = BILT) MG/DL 0.2-1.2 BILIRUBIN DIRECT (test code = BILD) MG/DL 0.00-0.30 BILIRUBIN INDIRECT (test code = BILIND) MG/DL 0.2-1.2 SGOT/AST (test code = AST) Unit/L 15-37 SGPT/ALT (test code = ALT) Unit/L 12-78 ALKALINE PHOSPHATASE TOTAL (test code = ALKP) Unit/L 45-117 [id number] 02:48:00* Test Item Value Reference Range Interpretation Comments LIPASE (test code = LIP) 170 Unit/L 114-286 N CBC W/AUTO [id number] 02:35:00* Test Item Value Reference Range Interpretation Comments WHITE BLOOD CELL (test code = WBC) 7.3 K/mm3 3.5-11.0 N RED BLOOD CELL (test code = RBC) 4.03 M/mm3 4.70-6.10 L HEMOGLOBIN (test code = HGB) 10.7 G/DL 10.4-14.9 N HEMATOCRIT (test code = HCT) 30.3 % 31.5-44.1 L MEAN CELL VOLUME (test code = MCV) 75.2 Fl 84.5-98.6 L MEAN CELL HGB (test code = MCH) 26.6 pg 27.0-34.2 L MEAN CELL HGB CONCETRATION (test code = MCHC) 35.3 G/DL 31.5-34. 0 H RED CELL DISTRIBUTION WIDTH (test code = RDW) 17.7 SD 11.5-14. 5 H PLATELET COUNT (test code = PLT) 310.0 K/mm3 150-450 N MEAN PLATELET VOLUME (test code = MPV) 11.40 fL 7.0-10.5 H NEUTROPHIL % (test code = NT%) 41.3 % 40-76 N LYMPHOCYTE % (test code = LY%) 36.1 % 20.5-51.1 N MONOCYTE % (test code = MO%) 6.2 % 1.7-9.3 N EOSINOPHIL % (test code = EO%) 16.0 % 0.0-6.0 H BASOPHIL % (test code = BA%) 0.4 % 0.0-2.0 N NEUTROPHIL # (test code = NT#) 3.02 K/mm3 1.8-7.6 N LYMPHOCYTE # (test code = LY#) 2.6 K/mm3 0.6-3.2 N MONOCYTE # (test code = MO#) 0.5 K/mm3 0.3-1.1 N EOSINOPHIL # (test code = EO#) 1.2 K/mm3 0.0-0.4 H BASOPHIL # (test code = BA#) 0.0 K/mm3 0.0-0.1 N MANUAL DIFF REQUIRED (test code = MDIFF) NO DIFF/SCN CRITERIA Manual [id number] 14:27:23* Test Item Value Reference Range Interpretation Comments Manual differential (test code = 63737-5) PERFORMED Neutrophils (test code = 72590-2) 32.0 % 39-69 L Lymphocytes (test code = 36123-1) 37.0 % 25-45 Monocytes (test code = 51889-9) 12.0 % 0-10 H Eosinophils (test code = 97373-5) 18.0 % 0-5 H Basophils (test code = 79816-4) 1.0 % 0-1 Metamyelocytes (test code = 740-1) 0 % Promyelocytes (test code = 783-1) 0 % Platelet slide review (test code = 92481-3) Corby adequate Anisocytosis (test code = 702-1) Moderate Target cells (test code = 37044-8) Moderate A Ovalocytes (test code = 774-0) Moderate Enlarged platelets (test code = 54390-6) Moderate A Giant platelets (test code = 5908-9) Occasional Lab Interpretation (test code = 52938-3) Abnormal [facility] MethodistLactic acid level, SEPSIS - Now and repeat 2x every 3 hours 2019-12-09 02:37:01* Test Item Value Reference Range Interpretation Comments Lactic acid (test code = 44164-2) 1.4 mmol/L 0.5-2.2 [facility] MethodistSurgical pathology [id number] 18:07:12* Test Item Value Reference Range Interpretation Comments Case number (test code = 8285325) [id number] Surgical pathology report (test code = 2255) See link below for PDF Lab Report Result status (test code = 3719765) This is Final Report for [id number] [facility] OlbewxuqtPshcca2021-05-34 13:19:34Deisi Donovan CRNA 11/11/2019 1:21 PMAirwayDate/Time: 11/11/2019 1:04 PMPerformed by: Deisi Donovan CRNAAuthorized by: Mario Richard MD Location: ORUrgency: ElectiveDifficult Airway: No Anesthesiologist: Mario Richard MDResibernardot/MAGALY/AA: Deisi Donovan CRNAPerformed by: resident/MAGALY/AAPreoxygenated with 100% O2: Yes (x 2 mins in reverse trend [place] ) C-spine Precautions Maintained Throughout: Yes Mask Ventilation: E asy maskFinal Airway Type: Endotracheal airwayFinal Endotracheal Airway: ETTCu ffed: Yes Technique Used: Direct laryngoscopyInsertion Site: OralBlade Type: MillerLaryngoscope Blade/Videolaryngoscope Blade Size: 2ETT Size (mm): 7.0Cuff at minimum occlusion pressure: Yes Measured from: TeethETT to Teeth (cm): 2 1Placement Verified by: CO2 detection, direct visualization and equal breath francisco nds Laryngoscopic view: Grade I - full view of glottisRapid Sequence Induction (RSI): No Modified RSI: No Number of Attempts at Approach: 1 Eyes taped at L OC and prior to any airway manipulation. Cords clear, ETT passed easily. Lips and teeth intact as per pre-op, no changes.[facility] , urine 2019-11-11 10:03:00* Test Item Value Reference Range Interpretation Comments test urine, POC (test code = 1585966) Negative Internal QC (test code = 257) QC acceptable [facility]- CT ABD PELVIS W/[id number] 05:35:00 Name: EDWARD ESPANA [facility] : 1985 Age/S: 34 / F [address] [place] Unit #: [id number] Loc: [place] [address] Phys: Mitch Causey MD Acct: [id number] Di s Date: Status: REG ER PHONE #: Exam Date: 11/05/2019 0517 FAX #: Reason: diffuse abdominal pain, vomiting EXAMS: CPT: [id number] CT ABD PELVIS W/CONT 09223 EXAM: CT ABDOMEN AND PELV IS WITH IV CONTRAST DICTATION LOCATION: H48 HISTORY : Female, 34 years of age with diffuse abdominal pain, vomiting TECHNIQUE: Contrast: Nonionic IV contrast was given. No GI contrast was given. Portal venous phase: Abdomen and pelvis Delayed phase: None Reconstructions: Coronal and sagittal One or more of t he following dose reduction techniques were used: Automated exposure contr ol; adjustment of the mA and/or kV according to the patient size; and/or u se of iterative reconstruction technique. COMPARISON: Previous CT abdomen and pelvis with contrast 09/19/19: Right upper quadrant ultrasound 09/20/2019 FINDINGS: Statements: Exam quality is acceptable. Lower thorax: Unremarkable. Hepatobiliary: The liver is normal without focal lesion. The gallbladder is normal. No biliary dil ation. Pancreas: Normal. Spleen: Normal. Adrenals: Normal. Genitourinary: No solid renal mass, signifi cant cortical thinning, obvious renal stone or hydronephrosis. Ureters are unremarkable. Urinary bladder is unremarkable. The visualized reproductive organs are unremarkable. Gastrointestinal: No bowel wall thickening, bowel obstruction or perienteric inflammation. The appendix is not visualized but there are no pericecal inflammatory changes of appendi citis. There is a small retrocardiac hiatal hernia. Vascular : No aortic aneurysm or dissection. IVC is unremarkable. PAGE 1 Signed Report (CONTINUED) Name: SAEED ESPANA : 1985 Age/S: 34 / F [address] [place] Unit #: [id number] Loc: [place] [address] Phys: Parker Causey MD Acct: [id number] Dis Date: atus: REG ER PHONE #: [phone] Exam Martínez e: 11/05/2019 0517 FAX #: Reason: diffuse abdominal pain, vomiting EXAMS: CPT: [id number] CT ABD PELVIS W/CONT 21030 <Continued> Portal vein is patent. Lymphatics: No enlarged lymph nodes by CT size criteria. Bones/Soft Tissues: No acute osseous findings. Postoperative changes are seen in the anterior abdominal wall. No ventral hernias. Peritoneum/Other: No free intraperitoneal air. No free intraperitoneal fluid. IMPRESSION: 1. No acute findings in abdomen or pelvis. 2. Small retrocardiac hiatal hernia. at 0535 Reported and signed by: Obdulia Marie MD CC: Pamella Carrasco MD Technologist:Nishant Singleton, RT(R)(CT) CTDI: DLP: Trnscb Date/Time: 11/05/2019 (0535) t.SDR.CLW Orig Print D/T: S: 11/05/2019 (0539) PAGE 2 Signed Report UA RFLX MICR CULT IF [id number] 03:37:00* Test Item Value Reference Range Interpretation Comments UA COLOR (test code = COLU) YELLOW discript YEL/STRAW UA APPEARANCE (test code = APPU) CLEAR discript CLEAR UA GLUCOSE DIPSTICK (test code = DGLUU) NEGATIVE mg/dL NEG UA BILIRUBIN DIPSTICK (test code = BILU) NEGATIVE mg/dL NEG UA KETONE DIPSTICK (test code = KETU) NEGATIVE mg/dL NEG UA SPECIFIC GRAVITY (test code = SGU) <=1.005 SG 1.005-1.030 UA BLOOD DIPSTICK (test code = CALEB) TRACE mg/DL NEG A UA PH DIPSTICK (test code = VARGAS) 6.0 pH UNITS 5.0-7.0 UA PROTEIN DIPSTICK (test code = PROU) NEGATIVE mg/dL NEG UA UROBILINIOGEN DIPSTICK (test code = URO) 0.2 mg/dL <2.0 UA NITRITE DIPSTICK (test code = MARBIN) NEGATIVE SCREEN NEG UA LEUKOCYTE ESTERASE DIPSTICK (test code = LEUU) NEGATIVE Leuk/mcL NEGATIVE UA WBC (test code = WBCU) 1-3 #WBC/HPF 0-3 UA RBC (test code = RBCU) 3-5 #RBC/HPF 0-3 A UA BACTERIA (test code = BACU) 3+ /HPF NONE-TRACE A UA SQUAMOUS CELLS (test code = SQU) 3+ /HPF NONE A UA CULTURE NEEDED? (test code = UACULT) NO, WBC<10 Criteria Culture CHK SOURCE OF URINE: CLEAN CATCHIndication for culture: Suprapubic PainUA RFLX MICR CULT IF [id number] 03:18:00* Test Item Value Reference Range Interpretation Comments UA COLOR (test code = COLU) YELLOW discript YEL/STRAW UA APPEARANCE (test code = APPU) CLEAR discript CLEAR UA GLUCOSE DIPSTICK (test code = DGLUU) NEGATIVE mg/dL NEG UA BILIRUBIN DIPSTICK (test code = BILU) NEGATIVE mg/dL NEG UA KETONE DIPSTICK (test code = KETU) NEGATIVE mg/dL NEG UA SPECIFIC GRAVITY (test code = SGU) <=1.005 SG 1.005-1.030 UA BLOOD DIPSTICK (test code = CALEB) TRACE mg/DL NEG A UA PH DIPSTICK (test code = VARGAS) 6.0 pH UNITS 5.0-7.0 UA PROTEIN DIPSTICK (test code = PROU) NEGATIVE mg/dL NEG UA UROBILINIOGEN DIPSTICK (test code = URO) 0.2 mg/dL <2.0 UA NITRITE DIPSTICK (test code = MARBIN) NEGATIVE SCREEN NEG UA LEUKOCYTE ESTERASE DIPSTICK (test code = LEUU) NEGATIVE Leuk/mcL NEGATIVE UA CULTURE NEEDED? (test code = UACULT) Criteria Culture CHK SOURCE OF URINE: CLEAN CATCHIndication for culture: Suprapubic PainBASIC METABOLIC [id number] 03:01:00* Test Item Value Reference Range Interpretation Comments SODIUM (test code = NA) 139 mmol/L 134-147 N POTASSIUM (test code = K) 3.5 mmol/L 3.4-5.0 N CHLORIDE (test code = CL) 106 mmol/L 100-108 N CARBON DIOXIDE (test code = CO2) 26 mmol/L 21-32 N ANION GAP (test code = GAP) 7.0 GAP calc 4.0-15.0 N GLUCOSE (test code = GLU) 77 MG/DL 70-110 N BLOOD UREA NITROGEN (test code = BUN) 10 MG/DL 7-18 N GLOMERULAR FILTRATION RATE (test code = GFR) >=60 max estimate estG FR >60 CREATININE (test code = CREAT) 0.8 MG/DL 0.6-1.0 N CALCIUM (test code = CA) 8.8 MG/DL 8.5-10.1 N HEPATIC FUNCTION [id number] 03:01:00* Test Item Value Reference Range Interpretation Comments TOTAL PROTEIN (test code = PROT) 8.0 G/DL 6.4-8.2 N ALBUMIN (test code = ALB) 3.6 G/DL 3.4-5.0 N BILIRUBIN TOTAL (test code = BILT) 0.30 MG/DL 0.2-1.2 N BILIRUBIN DIRECT (test code = BILD) < 0.10 MG/DL 0.00-0.30 N BILIRUBIN INDIRECT (test code = BILIND) 0.20 MG/DL 0.2-1.2 N SGOT/AST (test code = AST) 10 Unit/L 15-37 L SGPT/ALT (test code = ALT) 16 Unit/L 12-78 N ALKALINE PHOSPHATASE TOTAL (test code = ALKP) 101 Unit/L 45-117 N [id number] 03:01:00* Test Item Value Reference Range Interpretation Comments LIPASE (test code = LIP) 206 Unit/L 114-286 N BASIC METABOLIC [id number] 02:55:00* Test Item Value Reference Range Interpretation Comments SODIUM (test code = NA) 139 mmol/L 134-147 N POTASSIUM (test code = K) 3.5 mmol/L 3.4-5.0 N CHLORIDE (test code = CL) 106 mmol/L 100-108 N CARBON DIOXIDE (test code = CO2) 26 mmol/L 21-32 N ANION GAP (test code = GAP) 7.0 GAP calc 4.0-15.0 N GLUCOSE (test code = GLU) 77 MG/DL 70-110 N BLOOD UREA NITROGEN (test code = BUN) 10 MG/DL 7-18 N GLOMERULAR FILTRATION RATE (test code = GFR) estGFR >60 CREATININE (test code = CREAT) MG/DL 0.6-1.0 CALCIUM (test code = CA) 8.8 MG/DL 8.5-10.1 N HEPATIC FUNCTION [id number] 02:55:00* Test Item Value Reference Range Interpretation Comments TOTAL PROTEIN (test code = PROT) G/DL 6.4-8.2 ALBUMIN (test code = ALB) G/DL 3.4-5.0 BILIRUBIN TOTAL (test code = BILT) MG/DL 0.2-1.2 BILIRUBIN DIRECT (test code = BILD) MG/DL 0.00-0.30 BILIRUBIN INDIRECT (test code = BILIND) MG/DL 0.2-1.2 SGOT/AST (test code = AST) Unit/L 15-37 SGPT/ALT (test code = ALT) Unit/L 12-78 ALKALINE PHOSPHATASE TOTAL (test code = ALKP) Unit/L 45-117 [id number] 02:55:00* Test Item Value Reference Range Interpretation Comments LIPASE (test code = LIP) 206 Unit/L 114-286 N CBC W/AUTO [id number] 02:41:00* Test Item Value Reference Range Interpretation Comments WHITE BLOOD CELL (test code = WBC) 8.2 K/mm3 3.5-11.0 N RED BLOOD CELL (test code = RBC) 4.08 M/mm3 4.70-6.10 L HEMOGLOBIN (test code = HGB) 11.5 G/DL 10.4-14.9 N HEMATOCRIT (test code = HCT) 31.7 % 31.5-44.1 N MEAN CELL VOLUME (test code = MCV) 77.7 Fl 84.5-98.6 L MEAN CELL HGB (test code = MCH) 28.2 pg 27.0-34.2 N MEAN CELL HGB CONCETRATION (test code = MCHC) 36.3 G/DL 31.5-34. 0 H RED CELL DISTRIBUTION WIDTH (test code = RDW) 18.7 SD 11.5-14. 5 H PLATELET COUNT (test code = PLT) 323.0 K/mm3 150-450 N MEAN PLATELET VOLUME (test code = MPV) 11.50 fL 7.0-10.5 H NEUTROPHIL % (test code = NT%) 44.3 % 40-76 N LYMPHOCYTE % (test code = LY%) 40.1 % 20.5-51.1 N MONOCYTE % (test code = MO%) 6.9 % 1.7-9.3 N EOSINOPHIL % (test code = EO%) 8.2 % 0.0-6.0 H BASOPHIL % (test code = BA%) 0.5 % 0.0-2.0 N NEUTROPHIL # (test code = NT#) 3.61 K/mm3 1.8-7.6 N LYMPHOCYTE # (test code = LY#) 3.3 K/mm3 0.6-3.2 H MONOCYTE # (test code = MO#) 0.6 K/mm3 0.3-1.1 N EOSINOPHIL # (test code = EO#) 0.7 K/mm3 0.0-0.4 H BASOPHIL # (test code = BA#) 0.0 K/mm3 0.0-0.1 N MANUAL DIFF REQUIRED (test code = MDIFF) NO DIFF/SCN CRITERIA Partial thromboplastin time, [id number] 18:34:13* Test Item Value Reference Range Interpretation Comments PTT (test code = 47927-9) 26.6 23.0- 36.0 sec PTT therapeutic range for unfractionated heparin is61.0-112.0 seconds which corresponds to Anti-Xa0.3-0.7 U/ml. Adarsh HameedistProthrombin time with [id number] 18:34:07* Test Item Value Reference Range Interpretation Comments Prothrombin time (test code = 5902-2) 13.8 11.5- 14.5 sec INR (test code = 42352-3) 1.1 Th e International Normalized Ratio (INR) is a therapeutic monitoring tool for patients who are stable on oral anticoagulant therapy. An INR of 2.0-3.0 is suggested for deep vein thrombosis/pulmonary embolism. Adarsh MethodistUrine [id number] 16:50:01* Test Item Value Reference Range Interpretation Comments Urine culture isolate (test code = 54445-1) Mixed leonard <=10-3 col/ cc Specimen InformationSpecimen Source: UrineSpecimen Site: Urine, clean catch [facility] [id number] 16:50:01Gram stain resultNo WBC'sModerate Gram positive rods Comment: Specimen InformationSpecimen Source: UrineSpecimen Site: Urine, clean catch [facility] MethodistCT Renal Stone [id number] 13:27:44Hm Interface, Radiology Results - 10/24/2019 1:30 PM CSTExamination: CT RENAL STONE PROTOCOLClinical history: "abd flank pain" Comparison: 12/22/2017Technique: Multiple axial CT images of the abdomen and pelvis were obtained without the intravenous administration of iodinated contrast. Sagittal and coronal computerized, reformatted images were obtained and archived. The lack of intravenous contrast reduces the sensitivity of detecting solid organ and vascular disease. CT imaging was performed with iterative reconstruction technique and/or automated exposure control to reduce radiation dose.IMPRESSION:CT ABDOMEN: Heart size is within normal limits.Lung bases are unremarkable. Moderate-sized hiatal hernia seen.Liver, gallbladder, pancreas, adrenals, and spleen, are within normal limits. Evaluation of the kidneys demonstrates an unremarkable appearance without evidence of calculi or cyst hydronephrosis. .CT PELVIS: Appendix is within normal limits. Bladder shows no stones. No enlarged pelvic lymph node or mass is seen.A suspicious osseous lesion is not seen. [facility]-[id number] MethodistLipid [id number] 16:33:00* Test Item Value Reference Range Interpretation Comments Cholesterol, total (test code = 2093-3) 189 mg/dL <200 HDL cholesterol (test code = 2085-9) 73 mg/dL >50 Triglycerides (test code = 2571-8) 76 mg/dL <150 LDL cholesterol calculated (test code = 52868-0) 99 mg/dL (calc) Reference range: <100 Desirable range <100 mg/dL for primary prevention; <70 mg/dL for patients with CHD or diabetic patients with > or = 2 CHD risk factors. LDL-C is now calculated using the Jose J-Madsen calculation, which is a validated novel method providing better accuracy than the Friedewald equation in the estimation of LDL-C. Jose J SS et al. ELIZABETH. 2013;310(19): 5360-7514 (http:/ /education.Nanalysis.Bijk.com/faq/EBS078) Cholesterol/HDL ratio (test code = 9830-1) 2.6 <5.0 (calc) Non-HDL cholesterol (test code = 46209-9) 116 <130 mg/dL ( calc) For patients with diabetes plus 1 major ASCVD risk factor, treating to a non-HDL-C goal of <100 mg/dL (LDL-C of <70 mg/dL) is considered a therapeutic option. CHERELLE (test code = CHERELLE) FASTING:NOFASTING: NO RAC (test code = RAC) Performing Organization Info rmation: Site ID: RGA Name: [facility] Address: [address] [place] [address] Director: Kofi Lombardi [facility] MethodistFerritin [id number] 16:33:00* Test Item Value Reference Range Interpretation Comments Ferritin level (test code = 2276-4) 32 ng/mL 16-154 CHERELLE (test code = CHERELLE) FASTING:NOFASTING: NO RAC (test code = RAC) Performing Organization Info rmation: Site ID: RGA Name: [facility] Address: [address] [place] [address] Director: Kofi Valleenridge [facility] MethodistHemoglobin [id number] 16:33:00* Test Item Value Reference Range Interpretation Comments Hemoglobin A1C (test code = 4548-4) 5.0 <5.7 % of total Hg b For the purpose of screening for the presence ofdiabetes: <5.7% Consistent with the absence of diabetes5.7-6.4% Consistent with increased risk for diabetes (prediabetes)> or =6.5% Consistent with diabetes This assay result is consistent with a decreased riskof diabetes. Currently, no consensus exists regarding use ofhemoglobin A1c for diagnosis of diabetes in children. According to [place] [employer] (ADA)guidelines, hemoglobin A1c <7.0% represents optimalcontrol in non- diabetic patients. Differentmetrics may apply to specific patient populations. Standards of Medical Care in Diabetes(ADA). CHERELLE (test code = CHERELLE) FASTING:NOFASTING: NO RAC (test code = RAC) Performing Organization Info rmation: Site ID: VINHA Name: [facility] Address: [address] [place] [address] Director: Kofi Lombardi [facility] ZariistT4, [id number] 16:33:00* Test Item Value Reference Range Interpretation Comments T4, free (test code = 3024-7) 1.3 ng/dL 0.8-1.8 CHERELLE (test code = CHERELLE) FASTING:NOFASTING: NO RAC (test code = RAC) Performing Organization Info rmation: Site ID: VINHA Name: [facility] Address: [address] [place] [phone] Director: Kofi Lombardi [facility] ZariistThyroid stimulating [id number] 16:33:00* Test Item Value Reference Range Interpretation Comments TSH (test code = 3016-3) 0.26 mIU/L L Reference Range > or = 20 Years 0.40-4.50 Ranges First trimester 0.26-2.66 Second trimester 0.55-2.73 Third trimester 0.43-2.91 CHERELLE (test code = CHERELLE) FASTING:NOFASTING: NO RAC (test code = RAC) Performing Organization Info rmation: Site ID: VINHA Name: [facility] Address: [address] [place] [address] Director: Kofi Lombardi Lab Interpretation (test code = 66759-4) Abnormal [facility] MethodistVitamin D 25 hydroxy [id number] 16:33:00* Test Item Value Reference Range Interpretation Comments Vitamin D, 25-hydroxy (test code = 1989-3) 7 ng/mL 30-100 L Vitamin D Status 25-OH Vitamin D: Deficiency: <20 ng/mLInsufficiency: 20 - 29 ng/mLOptimal: > or = 30 ng/mL For 25-OH Vitamin D testing on patients on D2-supplementation and patients for whom quantitation of D2 and D3 fractions is required, the QuestAssureD(TM)25-OH VIT D, (D2,D3), LC/MS/MS is recommended: order code 17686 (patients >2yrs). For more information on this test, go to:http://education.Lignol/faq/PBU111(This link is being provided for informational/educational purposes only.) CHERELLE (test code = CHERELLE) FASTING:NOFASTING: NO RAC (test code = RAC) Performing Organization Info rmation: Site ID: PIPPA Name: [facility] Address: [address] [place] [phone] Director: Kofi Lombardi Lab Interpretation (test code = 63766-2) Abnormal [facility] MethodistTotal iron binding [id number] 16:33:00* Test Item Value Reference Range Interpretation Comments Iron level (test code = 2498-4) 36 40- 190 mcg/dL L Iron binding capacity (test code = 2500-7) 391 250- 450 mc g/dL (calc) Iron saturation (test code = 2502-3) 9 16- 45 % (calc) L CHERELLE (test code = CHERELLE) FASTING:NOFASTING: NO RAC (test code = RAC) Performing Organization Info rmation: Site ID: PIPPA Name: [facility] Address: [address] [place] [phone] Director: Kofi Lombardi Lab Interpretation (test code = 12672-3) Abnormal [facility] MethodistURINALYSIS, COMPLETE, WITH REFLEX TO [id number] 16:33:00 * Test Item Value Reference Range Interpretation Comments Color, UA (test code = 5778-6) YELLOW YELLOW Appearance (test code = 5767-9) CLEAR CLEAR Specific gravity, urine (test code = 5811-5) 1.008 1.001-1.0 35 pH, urine (test code = 5803-2) 6.0 5.0-8.0 Glucose, urine (test code = 78002-2) NEGATIVE NEGATIVE Bilirubin, UA (test code = 5770-3) NEGATIVE NEGATIVE Ketones, UA (test code = 2514-8) NEGATIVE NEGATIVE Occult blood, urine (test code = 5794-3) NEGATIVE NEGATIVE Protein, UA (test code = 73311-6) NEGATIVE NEGATIVE Nitrite, UA (test code = 5802-4) NEGATIVE NEGATIVE Leukocyte esterase, UA (test code = 5799-2) NEGATIVE NEGATIVE WBC, UA (test code = 5821-4) NONE SEEN < OR = 5 /HPF RBC, UA (test code = 29061-9) NONE SEEN < OR = 2 /HPF Squamous epithelial cells, UA (test code = 08109-6) NONE SEEN < OR = 5 /HPF Bacteria, UA (test code = 5769-5) NONE SEEN NONE SEEN /HPF Hyaline casts, UA (test code = 5796-8) NONE SEEN NONE SEEN /LPF Reflex (test code = 630-4) NO CULTURE INDICATED CHERELLE (test code = CHERELLE) FASTING:NOFASTING: NO RAC (test code = RAC) Performing Organization Info rmation: Site ID: RGA Name: [facility] Address: [address] [place] [phone] Director: Kofi Lombardi [facility] MethodistTriviaPad Pelvic [id number] 01:57:26Hm Interface, Radiology Results Incoming - 10/15/2019 2:00 AM CSTEXAMINATION: US PELVIC TRANSABDOMINAL, US PELVIC TRANSVAGINALCLINICAL HISTORY: Endometriosis COMPARISON: None.TECHNIQUE:Transabdominal and endovaginal sonographic images of the pelvis were obtained. Grayscale, color Doppler, and spectral waveform anderson sis of the ovarian vessels was performed.FINDINGS:The uterus is mildly enlarged and heterogeneous without focal lesion, measures 10.2 x 5.5 x 6.4 cm. Mild asymm etric thickening of anterior myometrium. No uterine masses. Cervix with nabothia n cysts, otherwise unremarkable. Endometrium is normal; endometrial stripe measu res 0.4 cm. The right ovary is not visualized.The left ovary measures 3.5 x 1.7 x 2.6 cm. Normal Doppler flow was present.No adnexal masses.No visualized free p elvic fluid. IMPRESSION:1. Enlarged heterogeneous uterus may be related to adeno myosis or multiparous state.2. Nonvisualization of right ovary. [id number] [facility] MethodistUS Pelvic [id number] 01:57:26Hm Interface, Radiology Results Incoming - 10/15/2019 2:00 AM CSTEXAMINATION: US PELVIC TRANSABDOMINAL, US PELVIC TRANSVAGINALCLINICAL HISTORY: Endometriosis COMPARISON: None.TECHNIQUE:Transabdominal and endovaginal sonographic images of the pelvis were obtained. Grayscale, color Doppler, and spectral waveform anderson sis of the ovarian vessels was performed.FINDINGS:The uterus is mildly enlarged and heterogeneous without focal lesion, measures 10.2 x 5.5 x 6.4 cm. Mild asymm etric thickening of anterior myometrium. No uterine masses. Cervix with nabothia n cysts, otherwise unremarkable. Endometrium is normal; endometrial stripe measu res 0.4 cm. The right ovary is not visualized.The left ovary measures 3.5 x 1.7 x 2.6 cm. Normal Doppler flow was present.No adnexal masses.No visualized free p elvic fluid. IMPRESSION:1. Enlarged heterogeneous uterus may be related to adeno myosis or multiparous state.2. Nonvisualization of right ovary. [facility]-[id number] [facility] W/AUTO [id number] 10:44:00* Test Item Value Reference Range Interpretation Comments WHITE BLOOD CELL (test code = WBC) 7.7 K/mm3 3.5-11.0 N RED BLOOD CELL (test code = RBC) 3.91 M/mm3 4.70-6.10 L HEMOGLOBIN (test code = HGB) 10.0 G/DL 10.4-14.9 L HEMATOCRIT (test code = HCT) 29.0 % 31.5-44.1 L MEAN CELL VOLUME (test code = MCV) 74.2 Fl 84.5-98.6 L MEAN CELL HGB (test code = MCH) 25.6 pg 27.0-34.2 L MEAN CELL HGB CONCETRATION (test code = MCHC) 34.5 G/DL 31.5-34. 0 H RED CELL DISTRIBUTION WIDTH (test code = RDW) 20.7 SD 11.5-14. 5 H PLATELET COUNT (test code = PLT) 328.0 K/mm3 150-450 N NEUTROPHIL % (test code = NT%) 51.1 % 40-76 N LYMPHOCYTE % (test code = LY%) 32.6 % 20.5-51.1 N MONOCYTE % (test code = MO%) 6.4 % 1.7-9.3 N EOSINOPHIL % (test code = EO%) 9.6 % 0.0-6.0 H BASOPHIL % (test code = BA%) 0.3 % 0.0-2.0 N NEUTROPHIL # (test code = NT#) 3.93 K/mm3 1.8-7.6 N LYMPHOCYTE # (test code = LY#) 2.5 K/mm3 0.6-3.2 N MONOCYTE # (test code = MO#) 0.5 K/mm3 0.3-1.1 N EOSINOPHIL # (test code = EO#) 0.7 K/mm3 0.0-0.4 H BASOPHIL # (test code = BA#) 0.0 K/mm3 0.0-0.1 N MANUAL DIFF REQUIRED (test code = MDIFF) NO DIFF/SCN CRITERIA SLIDE REVIEW CONSISTANT WITH AUTO DIFFERENTIAL. CBC W/AUTO [id number] 10:44:00* Test Item Value Reference Range Interpretation Comments WHITE BLOOD CELL (test code = WBC) 7.7 K/mm3 3.5-11.0 N RED BLOOD CELL (test code = RBC) 3.91 M/mm3 4.70-6.10 L HEMOGLOBIN (test code = HGB) 10.0 G/DL 10.4-14.9 L HEMATOCRIT (test code = HCT) 29.0 % 31.5-44.1 L MEAN CELL VOLUME (test code = MCV) 74.2 Fl 84.5-98.6 L MEAN CELL HGB (test code = MCH) 25.6 pg 27.0-34.2 L MEAN CELL HGB CONCETRATION (test code = MCHC) 34.5 G/DL 31.5-34. 0 H RED CELL DISTRIBUTION WIDTH (test code = RDW) 20.7 SD 11.5-14. 5 H PLATELET COUNT (test code = PLT) 328.0 K/mm3 150-450 N NEUTROPHIL % (test code = NT%) 51.1 % 40-76 N LYMPHOCYTE % (test code = LY%) 32.6 % 20.5-51.1 N MONOCYTE % (test code = MO%) 6.4 % 1.7-9.3 N EOSINOPHIL % (test code = EO%) 9.6 % 0.0-6.0 H BASOPHIL % (test code = BA%) 0.3 % 0.0-2.0 N NEUTROPHIL # (test code = NT#) 3.93 K/mm3 1.8-7.6 N LYMPHOCYTE # (test code = LY#) 2.5 K/mm3 0.6-3.2 N MONOCYTE # (test code = MO#) 0.5 K/mm3 0.3-1.1 N EOSINOPHIL # (test code = EO#) 0.7 K/mm3 0.0-0.4 H BASOPHIL # (test code = BA#) 0.0 K/mm3 0.0-0.1 N MANUAL DIFF REQUIRED (test code = MDIFF) NO DIFF/SCN CRITERIA SLIDE REVIEW CONSISTANT WITH AUTO DIFFERENTIAL. RBC [id number] 10:44:00* Test Item Value Reference Range Interpretation Comments PLATELET ESTIMATE (test code = PLTEST) ADEQUATE THOUSAND ADEQUATE FEW LARGE PLATELETS PLATELET MORPHOLOGY (test code = PLTMORPH) NORMAL CBC W/AUTO [id number] 10:44:00* Test Item Value Reference Range Interpretation Comments WHITE BLOOD CELL (test code = WBC) 7.7 K/mm3 3.5-11.0 N RED BLOOD CELL (test code = RBC) 3.91 M/mm3 4.70-6.10 L HEMOGLOBIN (test code = HGB) 10.0 G/DL 10.4-14.9 L HEMATOCRIT (test code = HCT) 29.0 % 31.5-44.1 L MEAN CELL VOLUME (test code = MCV) 74.2 Fl 84.5-98.6 L MEAN CELL HGB (test code = MCH) 25.6 pg 27.0-34.2 L MEAN CELL HGB CONCETRATION (test code = MCHC) 34.5 G/DL 31.5-34. 0 H RED CELL DISTRIBUTION WIDTH (test code = RDW) 20.7 SD 11.5-14. 5 H PLATELET COUNT (test code = PLT) 328.0 K/mm3 150-450 N NEUTROPHIL % (test code = NT%) 51.1 % 40-76 N LYMPHOCYTE % (test code = LY%) 32.6 % 20.5-51.1 N MONOCYTE % (test code = MO%) 6.4 % 1.7-9.3 N EOSINOPHIL % (test code = EO%) 9.6 % 0.0-6.0 H BASOPHIL % (test code = BA%) 0.3 % 0.0-2.0 N NEUTROPHIL # (test code = NT#) 3.93 K/mm3 1.8-7.6 N LYMPHOCYTE # (test code = LY#) 2.5 K/mm3 0.6-3.2 N MONOCYTE # (test code = MO#) 0.5 K/mm3 0.3-1.1 N EOSINOPHIL # (test code = EO#) 0.7 K/mm3 0.0-0.4 H BASOPHIL # (test code = BA#) 0.0 K/mm3 0.0-0.1 N MANUAL DIFF REQUIRED (test code = MDIFF) NO DIFF/SCN CRITERIA SLIDE REVIEW CONSISTANT WITH AUTO DIFFERENTIAL. COMPREHENSIVE METABOLIC [id number] 08:32:00* Test Item Value Reference Range Interpretation Comments SODIUM (test code = NA) 139 mmol/L 134-147 N POTASSIUM (test code = K) 3.3 mmol/L 3.4-5.0 L CHLORIDE (test code = CL) 104 mmol/L 100-108 N CARBON DIOXIDE (test code = CO2) 31 mmol/L 21-32 N ANION GAP (test code = GAP) 4.0 GAP calc 4.0-15.0 N GLUCOSE (test code = GLU) 85 MG/DL 70-110 N BLOOD UREA NITROGEN (test code = BUN) 3 MG/DL 7-18 L GLOMERULAR FILTRATION RATE (test code = GFR) >=60 max estimate estG FR >60 CREATININE (test code = CREAT) 0.6 MG/DL 0.6-1.0 N TOTAL PROTEIN (test code = PROT) 7.2 G/DL 6.4-8.2 N ALBUMIN (test code = ALB) 3.2 G/DL 3.4-5.0 L GLOBULIN (test code = GLOB) 4.0 GM/dL ALBUMIN/GLOBULIN RATIO (test code = A/G) 0.8 RATIO 1.2-2.2 L CALCIUM (test code = CA) 8.8 MG/DL 8.5-10.1 N BILIRUBIN TOTAL (test code = BILT) 0.20 MG/DL 0.2-1.2 N SGOT/AST (test code = AST) 13 Unit/L 15-37 L SGPT/ALT (test code = ALT) 11 Unit/L 12-78 L ALKALINE PHOSPHATASE TOTAL (test code = ALKP) 116 Unit/L 45-117 N [id number] 08:32:00* Test Item Value Reference Range Interpretation Comments LIPASE (test code = LIP) 131 Unit/L 114-286 N CBC W/AUTO [id number] 08:20:00* Test Item Value Reference Range Interpretation Comments WHITE BLOOD CELL (test code = WBC) 7.7 K/mm3 3.5-11.0 N RED BLOOD CELL (test code = RBC) 3.91 M/mm3 4.70-6.10 L HEMOGLOBIN (test code = HGB) 10.0 G/DL 10.4-14.9 L HEMATOCRIT (test code = HCT) 29.0 % 31.5-44.1 L MEAN CELL VOLUME (test code = MCV) 74.2 Fl 84.5-98.6 L MEAN CELL HGB (test code = MCH) 25.6 pg 27.0-34.2 L MEAN CELL HGB CONCETRATION (test code = MCHC) 34.5 G/DL 31.5-34. 0 H RED CELL DISTRIBUTION WIDTH (test code = RDW) 20.7 SD 11.5-14. 5 H PLATELET COUNT (test code = PLT) 328.0 K/mm3 150-450 N NEUTROPHIL % (test code = NT%) % 40-76 N LYMPHOCYTE % (test code = LY%) % 20.5-51.1 N MONOCYTE % (test code = MO%) % 1.7-9.3 N EOSINOPHIL % (test code = EO%) % 0.0-6.0 H BASOPHIL % (test code = BA%) % 0.0-2.0 N NEUTROPHIL # (test code = NT#) K/mm3 1.8-7.6 N LYMPHOCYTE # (test code = LY#) K/mm3 0.6-3.2 N MONOCYTE # (test code = MO#) K/mm3 0.3-1.1 N EOSINOPHIL # (test code = EO#) K/mm3 0.0-0.4 H BASOPHIL # (test code = BA#) K/mm3 0.0-0.1 N MANUAL DIFF REQUIRED (test code = MDIFF) DIFF/SCN CRITERIA LIPID PROFILE (CORONARY RISK)2019-09-21 12:27:00* Test Item Value Reference Range Interpretation Comments TRIGLYCERIDES (test code = TRIG) 131 MG/DL 0-150 N CHOLESTEROL (test code = CHOL) 144 MG/DL 133-200 N CHOLESTEROL/HDL RATIO (test code = CHOLHDL) 2.77 RATIO >0 HDL CHOLESTEROL (test code = HDL) 52 MG/DL 40-59 N NON-HDL CHOLESTEROL (test code = NHDL) 92 mg/dL <130 LIPOPROTEIN LDL (test code = LDL) 67 MG/DL 0-129 N LDL/HDL (test code = LDL/HDL) 1.28 Ratio 1.48-3.22 Avg L CBC W/AUTO [id number] 10:11:00* Test Item Value Reference Range Interpretation Comments WHITE BLOOD CELL (test code = WBC) 7.3 K/mm3 3.5-11.0 N RED BLOOD CELL (test code = RBC) 3.88 M/mm3 4.70-6.10 L HEMOGLOBIN (test code = HGB) 10.0 G/DL 10.4-14.9 L HEMATOCRIT (test code = HCT) 29.0 % 31.5-44.1 L MEAN CELL VOLUME (test code = MCV) 74.7 Fl 84.5-98.6 L MEAN CELL HGB (test code = MCH) 25.8 pg 27.0-34.2 L MEAN CELL HGB CONCETRATION (test code = MCHC) 34.5 G/DL 31.5-34. 0 H RED CELL DISTRIBUTION WIDTH (test code = RDW) 20.8 SD 11.5-14. 5 H PLATELET COUNT (test code = PLT) 310.0 K/mm3 150-450 N MEAN PLATELET VOLUME (test code = MPV) 11.20 fL 7.0-10.5 H NEUTROPHIL % (test code = NT%) 51.5 % 40-76 LYMPHOCYTE % (test code = LY%) 34.6 % 20.5-51.1 N MONOCYTE % (test code = MO%) 7.0 % 1.7-9.3 N EOSINOPHIL % (test code = EO%) 6.8 % 0.0-6.0 H BASOPHIL % (test code = BA%) 0.1 % 0.0-2.0 N NEUTROPHIL # (test code = NT#) 3.77 K/mm3 1.8-7.6 N LYMPHOCYTE # (test code = LY#) 2.5 K/mm3 0.6-3.2 N MONOCYTE # (test code = MO#) 0.5 K/mm3 0.3-1.1 N EOSINOPHIL # (test code = EO#) 0.5 K/mm3 0.0-0.4 H BASOPHIL # (test code = BA#) 0.0 K/mm3 0.0-0.1 N MANUAL DIFF REQUIRED (test code = MDIFF) NO DIFF/SCN CRITERIA SLIDE REVIEW CONSISTANT WITH AUTO DIFFERENTIAL. RBC [id number] 10:11:00* Test Item Value Reference Range Interpretation Comments PLATELET ESTIMATE (test code = PLTEST) ADEQUATE THOUSAND ADEQUATE PLATELET COUNT REVIEWED AND VERIFIED. PLATELET MORPHOLOGY (test code = PLTMORPH) NORMAL FEW LARGE PLATELETS SEEN CBC W/AUTO [id number] 10:10:00* Test Item Value Reference Range Interpretation Comments WHITE BLOOD CELL (test code = WBC) 7.3 K/mm3 3.5-11.0 N RED BLOOD CELL (test code = RBC) 3.88 M/mm3 4.70-6.10 L HEMOGLOBIN (test code = HGB) 10.0 G/DL 10.4-14.9 L HEMATOCRIT (test code = HCT) 29.0 % 31.5-44.1 L MEAN CELL VOLUME (test code = MCV) 74.7 Fl 84.5-98.6 L MEAN CELL HGB (test code = MCH) 25.8 pg 27.0-34.2 L MEAN CELL HGB CONCETRATION (test code = MCHC) 34.5 G/DL 31.5-34. 0 H RED CELL DISTRIBUTION WIDTH (test code = RDW) 20.8 SD 11.5-14. 5 H PLATELET COUNT (test code = PLT) 310.0 K/mm3 150-450 N MEAN PLATELET VOLUME (test code = MPV) 11.20 fL 7.0-10.5 H NEUTROPHIL % (test code = NT%) 51.5 % 40-76 LYMPHOCYTE % (test code = LY%) 34.6 % 20.5-51.1 N MONOCYTE % (test code = MO%) 7.0 % 1.7-9.3 N EOSINOPHIL % (test code = EO%) 6.8 % 0.0-6.0 H BASOPHIL % (test code = BA%) 0.1 % 0.0-2.0 N NEUTROPHIL # (test code = NT#) 3.77 K/mm3 1.8-7.6 N LYMPHOCYTE # (test code = LY#) 2.5 K/mm3 0.6-3.2 N MONOCYTE # (test code = MO#) 0.5 K/mm3 0.3-1.1 N EOSINOPHIL # (test code = EO#) 0.5 K/mm3 0.0-0.4 H BASOPHIL # (test code = BA#) 0.0 K/mm3 0.0-0.1 N MANUAL DIFF REQUIRED (test code = MDIFF) NO DIFF/SCN CRITERIA SLIDE REVIEW CONSISTANT WITH AUTO DIFFERENTIAL. CBC W/AUTO [id number] 10:10:00* Test Item Value Reference Range Interpretation Comments WHITE BLOOD CELL (test code = WBC) 7.3 K/mm3 3.5-11.0 N RED BLOOD CELL (test code = RBC) 3.88 M/mm3 4.70-6.10 L HEMOGLOBIN (test code = HGB) 10.0 G/DL 10.4-14.9 L HEMATOCRIT (test code = HCT) 29.0 % 31.5-44.1 L MEAN CELL VOLUME (test code = MCV) 74.7 Fl 84.5-98.6 L MEAN CELL HGB (test code = MCH) 25.8 pg 27.0-34.2 L MEAN CELL HGB CONCETRATION (test code = MCHC) 34.5 G/DL 31.5-34. 0 H RED CELL DISTRIBUTION WIDTH (test code = RDW) 20.8 SD 11.5-14. 5 H PLATELET COUNT (test code = PLT) 310.0 K/mm3 150-450 N MEAN PLATELET VOLUME (test code = MPV) 11.20 fL 7.0-10.5 H NEUTROPHIL % (test code = NT%) 51.5 % 40-76 LYMPHOCYTE % (test code = LY%) 34.6 % 20.5-51.1 N MONOCYTE % (test code = MO%) 7.0 % 1.7-9.3 N EOSINOPHIL % (test code = EO%) 6.8 % 0.0-6.0 H BASOPHIL % (test code = BA%) 0.1 % 0.0-2.0 N NEUTROPHIL # (test code = NT#) 3.77 K/mm3 1.8-7.6 N LYMPHOCYTE # (test code = LY#) 2.5 K/mm3 0.6-3.2 N MONOCYTE # (test code = MO#) 0.5 K/mm3 0.3-1.1 N EOSINOPHIL # (test code = EO#) 0.5 K/mm3 0.0-0.4 H BASOPHIL # (test code = BA#) 0.0 K/mm3 0.0-0.1 N MANUAL DIFF REQUIRED (test code = MDIFF) NO DIFF/SCN CRITERIA SLIDE REVIEW CONSISTANT WITH AUTO DIFFERENTIAL. BASIC METABOLIC [id number] 08:12:00* Test Item Value Reference Range Interpretation Comments SODIUM (test code = NA) 139 mmol/L 134-147 N POTASSIUM (test code = K) 3.1 mmol/L 3.4-5.0 L CHLORIDE (test code = CL) 106 mmol/L 100-108 N CARBON DIOXIDE (test code = CO2) 29 mmol/L 21-32 N ANION GAP (test code = GAP) 4.0 GAP calc 4.0-15.0 N GLUCOSE (test code = GLU) 74 MG/DL 70-110 N BLOOD UREA NITROGEN (test code = BUN) 2 MG/DL 7-18 L GLOMERULAR FILTRATION RATE (test code = GFR) >=60 max estimate estG FR >60 CREATININE (test code = CREAT) 0.5 MG/DL 0.6-1.0 L CALCIUM (test code = CA) 8.4 MG/DL 8.5-10.1 L [id number] 08:12:00* Test Item Value Reference Range Interpretation Comments LIPASE (test code = LIP) 159 Unit/L 114-286 N CBC W/AUTO [id number] 07:53:00* Test Item Value Reference Range Interpretation Comments WHITE BLOOD CELL (test code = WBC) 7.3 K/mm3 3.5-11.0 N RED BLOOD CELL (test code = RBC) 3.88 M/mm3 4.70-6.10 L HEMOGLOBIN (test code = HGB) 10.0 G/DL 10.4-14.9 L HEMATOCRIT (test code = HCT) 29.0 % 31.5-44.1 L MEAN CELL VOLUME (test code = MCV) 74.7 Fl 84.5-98.6 L MEAN CELL HGB (test code = MCH) 25.8 pg 27.0-34.2 L MEAN CELL HGB CONCETRATION (test code = MCHC) 34.5 G/DL 31.5-34. 0 H RED CELL DISTRIBUTION WIDTH (test code = RDW) 20.8 SD 11.5-14. 5 H PLATELET COUNT (test code = PLT) 310.0 K/mm3 150-450 N MEAN PLATELET VOLUME (test code = MPV) 11.20 fL 7.0-10.5 H NEUTROPHIL % (test code = NT%) % 40-76 LYMPHOCYTE % (test code = LY%) % 20.5-51.1 N MONOCYTE % (test code = MO%) % 1.7-9.3 N EOSINOPHIL % (test code = EO%) % 0.0-6.0 H BASOPHIL % (test code = BA%) % 0.0-2.0 N NEUTROPHIL # (test code = NT#) K/mm3 1.8-7.6 N LYMPHOCYTE # (test code = LY#) K/mm3 0.6-3.2 N MONOCYTE # (test code = MO#) K/mm3 0.3-1.1 N EOSINOPHIL # (test code = EO#) K/mm3 0.0-0.4 H BASOPHIL # (test code = BA#) K/mm3 0.0-0.1 N MANUAL DIFF REQUIRED (test code = MDIFF) DIFF/SCN CRITERIA - US ABDOMEN [id number] 13:30:00 Name: EDWARD ESPANA [facility] : 1985 Age/S: 33 / F [address] [address] [place] Unit #: [id number] Loc: [place] [address] Phys: Kanwal Lopez MD Acct: [id number] Dis Date: Status: ADM IN PHONE #: [phone] Exam Date: 09/20/2019 1250 FAX #: Reason: abd pain EXAMS: CPT: [id number] US ABDOMEN [facility] [id number] Examination: Right upper quadrant ultrasound Location code: S17 Comparison: Abdomen and pelvic CT September 19, 2019 Discussion: Clinical history is remarkable for abdominal pain. Grayscale and color Doppler evaluation of the right upper quadrant of the abdomen is performed. The aorta and inferior vena cava are normal. The pancreatic head and body are normal. Liver is enlarged measuring 18 cm, appropriate echotexture. Common bile duct measures 4 mm. Gallbladder is free of calculus, wall thickening, no obvious pericholecystic fluid though there is a small amount of fluid near the proximal gallbladder. Right kidney is 11.4 cm x 3.9 cm x 4.8 cm, sonographically normal. Main portal vein is patent. Impression: 1. Hepatomegaly. 2. Small amount of fluid is noted close to the christina hepatis adjacent to the gallbladder. at 1330 Reported and signed by: Zhen Sanchez M.D. CC: Pamella Carrasco MD; Kanwal Lopez MD Technologist: Arielle Veliz, RT(R),RDMS(AB) Trnscb Date/Time: 09/20/2019 (1330) [id number] PAGE 1 Signed Report Name: EDWARD ESPANA : 1985 Age/S: 33 / F [address] [address] [place] Unit #: [id number] Loc: [place] [address] Phys: Kanwal Lopez MD Acct: [id number] Dis Date: Status: ADM IN PHONE #: [phone] Exam Date: 09/20/2019 1255 FAX #: Reason: abd pain EXAMS: CPT: [id number] ABDOMEN LTD [address] < Continued> Orig Print D/T: S: 09/20/2019 (4871) Probe: PAGE 2 Signed Report COMPREHENSIVE METABOLIC [id number] 11:51:00* Test Item Value Reference Range Interpretation Comments SODIUM (test code = NA) 140 mmol/L 134-147 N POTASSIUM (test code = K) 3.1 mmol/L 3.4-5.0 L CHLORIDE (test code = CL) 109 mmol/L 100-108 H CARBON DIOXIDE (test code = CO2) 25 mmol/L 21-32 N ANION GAP (test code = GAP) 6.0 GAP calc 4.0-15.0 N GLUCOSE (test code = GLU) 83 MG/DL 70-110 N BLOOD UREA NITROGEN (test code = BUN) 4 MG/DL 7-18 L GLOMERULAR FILTRATION RATE (test code = GFR) >=60 max estimate estG FR >60 CREATININE (test code = CREAT) 0.5 MG/DL 0.6-1.0 L TOTAL PROTEIN (test code = PROT) 6.4 G/DL 6.4-8.2 ALBUMIN (test code = ALB) 2.8 G/DL 3.4-5.0 L GLOBULIN (test code = GLOB) 3.6 GM/dL ALBUMIN/GLOBULIN RATIO (test code = A/G) 0.8 RATIO 1.2-2.2 L CALCIUM (test code = CA) 8.1 MG/DL 8.5-10.1 L BILIRUBIN TOTAL (test code = BILT) 0.30 MG/DL 0.2-1.2 N SGOT/AST (test code = AST) 10 Unit/L 15-37 L SGPT/ALT (test code = ALT) 11 Unit/L 12-78 L ALKALINE PHOSPHATASE TOTAL (test code = ALKP) 105 Unit/L 45-117 N [id number] 11:51:00* Test Item Value Reference Range Interpretation Comments TRIGLYCERIDES (test code = TRIG) 122 MG/DL 0-150 N [id number] 11:51:00* Test Item Value Reference Range Interpretation Comments LIPASE (test code = LIP) 280 Unit/L 114-286 N COMPREHENSIVE METABOLIC [id number] 11:36:00* Test Item Value Reference Range Interpretation Comments SODIUM (test code = NA) 138 mmol/L 134-147 N POTASSIUM (test code = K) 5.9 mmol/L 3.4-5.0 HH CHLORIDE (test code = CL) 106 mmol/L 100-108 N CARBON DIOXIDE (test code = CO2) 24 mmol/L 21-32 N ANION GAP (test code = GAP) 8.0 GAP calc 4.0-15.0 N GLUCOSE (test code = GLU) 71 MG/DL 70-110 N BLOOD UREA NITROGEN (test code = BUN) 5 MG/DL 7-18 L GLOMERULAR FILTRATION RATE (test code = GFR) >=60 max estimate estG FR >60 CREATININE (test code = CREAT) 0.6 MG/DL 0.6-1.0 N TOTAL PROTEIN (test code = PROT) 8.4 G/DL 6.4-8.2 H ALBUMIN (test code = ALB) 3.8 G/DL 3.4-5.0 N GLOBULIN (test code = GLOB) 4.6 GM/dL ALBUMIN/GLOBULIN RATIO (test code = A/G) 0.8 RATIO 1.2-2.2 L CALCIUM (test code = CA) TEST NOT PERFORMED MG/DL 8.5-10.1 BILIRUBIN TOTAL (test code = BILT) 0.40 MG/DL 0.2-1.2 N SGOT/AST (test code = AST) 17 Unit/L 15-37 N SGPT/ALT (test code = ALT) 14 Unit/L 12-78 N ALKALINE PHOSPHATASE TOTAL (test code = ALKP) 129 Unit/L 45-117 H [id number] 11:36:00* Test Item Value Reference Range Interpretation Comments TRIGLYCERIDES (test code = TRIG) 120 MG/DL 0-150 N [id number] 11:36:00* Test Item Value Reference Range Interpretation Comments LIPASE (test code = LIP) 543 Unit/L 114-286 H CBC W/AUTO [id number] 06:15:00* Test Item Value Reference Range Interpretation Comments WHITE BLOOD CELL (test code = WBC) 10.2 K/mm3 3.5-11.0 N RED BLOOD CELL (test code = RBC) 4.64 M/mm3 4.70-6.10 L HEMOGLOBIN (test code = HGB) 12.1 G/DL 10.4-14.9 N HEMATOCRIT (test code = HCT) 35.3 % 31.5-44.1 N MEAN CELL VOLUME (test code = MCV) 76.1 Fl 84.5-98.6 L MEAN CELL HGB (test code = MCH) 26.1 pg 27.0-34.2 L MEAN CELL HGB CONCETRATION (test code = MCHC) 34.3 G/DL 31.5-34. 0 H RED CELL DISTRIBUTION WIDTH (test code = RDW) 21.7 SD 11.5-14. 5 H PLATELET COUNT (test code = PLT) 280.0 K/mm3 150-450 N NEUTROPHIL % (test code = NT%) 65.9 % 40-76 LYMPHOCYTE % (test code = LY%) 25.5 % 20.5-51.1 N MONOCYTE % (test code = MO%) 4.6 % 1.7-9.3 N EOSINOPHIL % (test code = EO%) 3.8 % 0.0-6.0 N BASOPHIL % (test code = BA%) 0.2 % 0.0-2.0 N NEUTROPHIL # (test code = NT#) 6.70 K/mm3 1.8-7.6 N LYMPHOCYTE # (test code = LY#) 2.6 K/mm3 0.6-3.2 N MONOCYTE # (test code = MO#) 0.5 K/mm3 0.3-1.1 N EOSINOPHIL # (test code = EO#) 0.4 K/mm3 0.0-0.4 N BASOPHIL # (test code = BA#) 0.0 K/mm3 0.0-0.1 N MANUAL DIFF REQUIRED (test code = MDIFF) NO DIFF/SCN CRITERIA CBC W/AUTO [id number] 06:15:00* Test Item Value Reference Range Interpretation Comments WHITE BLOOD CELL (test code = WBC) 10.2 K/mm3 3.5-11.0 N RED BLOOD CELL (test code = RBC) 4.64 M/mm3 4.70-6.10 L HEMOGLOBIN (test code = HGB) 12.1 G/DL 10.4-14.9 N HEMATOCRIT (test code = HCT) 35.3 % 31.5-44.1 N MEAN CELL VOLUME (test code = MCV) 76.1 Fl 84.5-98.6 L MEAN CELL HGB (test code = MCH) 26.1 pg 27.0-34.2 L MEAN CELL HGB CONCETRATION (test code = MCHC) 34.3 G/DL 31.5-34. 0 H RED CELL DISTRIBUTION WIDTH (test code = RDW) 21.7 SD 11.5-14. 5 H PLATELET COUNT (test code = PLT) 280.0 K/mm3 150-450 N NEUTROPHIL % (test code = NT%) 65.9 % 40-76 LYMPHOCYTE % (test code = LY%) 25.5 % 20.5-51.1 N MONOCYTE % (test code = MO%) 4.6 % 1.7-9.3 N EOSINOPHIL % (test code = EO%) 3.8 % 0.0-6.0 N BASOPHIL % (test code = BA%) 0.2 % 0.0-2.0 N NEUTROPHIL # (test code = NT#) 6.70 K/mm3 1.8-7.6 N LYMPHOCYTE # (test code = LY#) 2.6 K/mm3 0.6-3.2 N MONOCYTE # (test code = MO#) 0.5 K/mm3 0.3-1.1 N EOSINOPHIL # (test code = EO#) 0.4 K/mm3 0.0-0.4 N BASOPHIL # (test code = BA#) 0.0 K/mm3 0.0-0.1 N MANUAL DIFF REQUIRED (test code = MDIFF) NO DIFF/SCN CRITERIA RBC [id number] 06:15:00* Test Item Value Reference Range Interpretation Comments PLATELET ESTIMATE (test code = PLTEST) ADEQUATE THOUSAND ADEQUATE PLATELET MORPHOLOGY (test code = PLTMORPH) NORMAL CBC W/AUTO [id number] 06:15:00* Test Item Value Reference Range Interpretation Comments WHITE BLOOD CELL (test code = WBC) 10.2 K/mm3 3.5-11.0 N RED BLOOD CELL (test code = RBC) 4.64 M/mm3 4.70-6.10 L HEMOGLOBIN (test code = HGB) 12.1 G/DL 10.4-14.9 N HEMATOCRIT (test code = HCT) 35.3 % 31.5-44.1 N MEAN CELL VOLUME (test code = MCV) 76.1 Fl 84.5-98.6 L MEAN CELL HGB (test code = MCH) 26.1 pg 27.0-34.2 L MEAN CELL HGB CONCETRATION (test code = MCHC) 34.3 G/DL 31.5-34. 0 H RED CELL DISTRIBUTION WIDTH (test code = RDW) 21.7 SD 11.5-14. 5 H PLATELET COUNT (test code = PLT) 280.0 K/mm3 150-450 N NEUTROPHIL % (test code = NT%) 65.9 % 40-76 LYMPHOCYTE % (test code = LY%) 25.5 % 20.5-51.1 N MONOCYTE % (test code = MO%) 4.6 % 1.7-9.3 N EOSINOPHIL % (test code = EO%) 3.8 % 0.0-6.0 N BASOPHIL % (test code = BA%) 0.2 % 0.0-2.0 N NEUTROPHIL # (test code = NT#) 6.70 K/mm3 1.8-7.6 N LYMPHOCYTE # (test code = LY#) 2.6 K/mm3 0.6-3.2 N MONOCYTE # (test code = MO#) 0.5 K/mm3 0.3-1.1 N EOSINOPHIL # (test code = EO#) 0.4 K/mm3 0.0-0.4 N BASOPHIL # (test code = BA#) 0.0 K/mm3 0.0-0.1 N MANUAL DIFF REQUIRED (test code = MDIFF) NO DIFF/SCN CRITERIA COMPREHENSIVE METABOLIC [id number] 06:13:00* Test Item Value Reference Range Interpretation Comments SODIUM (test code = NA) 138 mmol/L 134-147 N POTASSIUM (test code = K) 5.9 mmol/L 3.4-5.0 HH CHLORIDE (test code = CL) 106 mmol/L 100-108 N CARBON DIOXIDE (test code = CO2) 24 mmol/L 21-32 N ANION GAP (test code = GAP) 8.0 GAP calc 4.0-15.0 N GLUCOSE (test code = GLU) 71 MG/DL 70-110 N BLOOD UREA NITROGEN (test code = BUN) 5 MG/DL 7-18 L GLOMERULAR FILTRATION RATE (test code = GFR) >=60 max estimate estG FR >60 CREATININE (test code = CREAT) 0.6 MG/DL 0.6-1.0 N TOTAL PROTEIN (test code = PROT) 8.4 G/DL 6.4-8.2 H ALBUMIN (test code = ALB) 3.8 G/DL 3.4-5.0 N GLOBULIN (test code = GLOB) 4.6 GM/dL ALBUMIN/GLOBULIN RATIO (test code = A/G) 0.8 RATIO 1.2-2.2 L CALCIUM (test code = CA) MG/DL 8.5-10.1 BILIRUBIN TOTAL (test code = BILT) 0.40 MG/DL 0.2-1.2 N SGOT/AST (test code = AST) 17 Unit/L 15-37 N SGPT/ALT (test code = ALT) 14 Unit/L 12-78 N ALKALINE PHOSPHATASE TOTAL (test code = ALKP) 129 Unit/L 45-117 H [id number] 06:13:00* Test Item Value Reference Range Interpretation Comments TRIGLYCERIDES (test code = TRIG) 120 MG/DL 0-150 N [id number] 06:13:00* Test Item Value Reference Range Interpretation Comments LIPASE (test code = LIP) 543 Unit/L 114-286 H CBC W/AUTO [id number] 05:47:00* Test Item Value Reference Range Interpretation Comments WHITE BLOOD CELL (test code = WBC) 10.2 K/mm3 3.5-11.0 N RED BLOOD CELL (test code = RBC) 4.64 M/mm3 4.70-6.10 L HEMOGLOBIN (test code = HGB) 12.1 G/DL 10.4-14.9 N HEMATOCRIT (test code = HCT) 35.3 % 31.5-44.1 N MEAN CELL VOLUME (test code = MCV) 76.1 Fl 84.5-98.6 L MEAN CELL HGB (test code = MCH) 26.1 pg 27.0-34.2 L MEAN CELL HGB CONCETRATION (test code = MCHC) 34.3 G/DL 31.5-34. 0 H RED CELL DISTRIBUTION WIDTH (test code = RDW) 21.7 SD 11.5-14. 5 H PLATELET COUNT (test code = PLT) 280.0 K/mm3 150-450 N NEUTROPHIL % (test code = NT%) % 40-76 LYMPHOCYTE % (test code = LY%) % 20.5-51.1 N MONOCYTE % (test code = MO%) % 1.7-9.3 N EOSINOPHIL % (test code = EO%) % 0.0-6.0 N BASOPHIL % (test code = BA%) % 0.0-2.0 N NEUTROPHIL # (test code = NT#) K/mm3 1.8-7.6 N LYMPHOCYTE # (test code = LY#) K/mm3 0.6-3.2 N MONOCYTE # (test code = MO#) K/mm3 0.3-1.1 N EOSINOPHIL # (test code = EO#) K/mm3 0.0-0.4 N BASOPHIL # (test code = BA#) K/mm3 0.0-0.1 N MANUAL DIFF REQUIRED (test code = MDIFF) DIFF/SCN CRITERIA UA RFLX MICR CULT IF [id number] 19:33:00* Test Item Value Reference Range Interpretation Comments UA COLOR (test code = COLU) YELLOW discript YEL/STRAW UA APPEARANCE (test code = APPU) CLEAR discript CLEAR UA GLUCOSE DIPSTICK (test code = DGLUU) NEGATIVE mg/dL NEG UA BILIRUBIN DIPSTICK (test code = BILU) NEGATIVE mg/dL NEG UA KETONE DIPSTICK (test code = KETU) NEGATIVE mg/dL NEG UA SPECIFIC GRAVITY (test code = SGU) <=1.005 SG 1.005-1.030 UA BLOOD DIPSTICK (test code = CALEB) NEGATIVE mg/DL NEG UA PH DIPSTICK (test code = VARGAS) 6.5 pH UNITS 5.0-7.0 UA PROTEIN DIPSTICK (test code = PROU) NEGATIVE mg/dL NEG UA UROBILINIOGEN DIPSTICK (test code = URO) 0.2 mg/dL <2.0 UA NITRITE DIPSTICK (test code = MARBIN) NEGATIVE SCREEN NEG UA LEUKOCYTE ESTERASE DIPSTICK (test code = LEUU) NEGATIVE Leuk/mcL NEGATIVE UA CULTURE NEEDED? (test code = UACULT) Criteria Culture CHK SOURCE OF URINE: CLEAN CATCHIndication for culture: Suprapubic PainUA RFLX MICR CULT IF [id number] 19:33:00* Test Item Value Reference Range Interpretation Comments UA COLOR (test code = COLU) YELLOW discript YEL/STRAW UA APPEARANCE (test code = APPU) CLEAR discript CLEAR UA GLUCOSE DIPSTICK (test code = DGLUU) NEGATIVE mg/dL NEG UA BILIRUBIN DIPSTICK (test code = BILU) NEGATIVE mg/dL NEG UA KETONE DIPSTICK (test code = KETU) NEGATIVE mg/dL NEG UA SPECIFIC GRAVITY (test code = SGU) <=1.005 SG 1.005-1.030 UA BLOOD DIPSTICK (test code = CALEB) NEGATIVE mg/DL NEG UA PH DIPSTICK (test code = VARGAS) 6.5 pH UNITS 5.0-7.0 UA PROTEIN DIPSTICK (test code = PROU) NEGATIVE mg/dL NEG UA UROBILINIOGEN DIPSTICK (test code = URO) 0.2 mg/dL <2.0 UA NITRITE DIPSTICK (test code = MARBIN) NEGATIVE SCREEN NEG UA LEUKOCYTE ESTERASE DIPSTICK (test code = LEUU) NEGATIVE Leuk/mcL NEGATIVE SOURCE OF URINE: CLEAN CATCHIndication for culture: Suprapubic Pain- US PELVIC [id number] 18:56:00 Name: EDWARD ESPANA : 1985 Age/S: 33 / F [address] [address] [place] Unit #: [id number] Loc: [place] [address] Phys: Philippe Worthy MD Acct: [id number] Dis Date: Status: REG ER PHONE #: [phone] Exam Date: 09/19/20191834 FAX #: Reason: pelvic pain EXAMS: CPT: [id number] US PELVIC COMPLETE [id number] EXAM: Transabdominal pelvic ultrasound LOCATION: C3 HISTORY: pelvic pain COMPARISON: None TECHNIQUE: Transabdominal scan was performed. Spectral Doppler and color Doppler sonographic analysis of the adnexa was performed. FINDINGS: The uterus measures 4.5 x 6.2 x 7.9 cm. Endometrial stripe measures 1.3 cm. No myometrial masses are seen. The right ovary measures 4.4 x 2.4 x 4.2 cm. The left ovary measures 4.6 x 3.6 x 5.1 cm. Bilateral ovarian blood flow is documented by pulse wave Doppler. 4.2 x 3.6 x 3.5 cm simple left ovarian cyst noted. Small amount free pelvic fluid is present. IMPRESSION: No acute findings. 4.2 cm simple left ovarian cyst. Small amount of free pelvic fluid is likely physiologic. at 1856 Reported and signed by: GIA FOSTER M.D. CC: Philippe Worthy MD; Cindy GASTON; Pamella Carrasco MD Technologist: Babita Townsend Trnscb Date/Time: 09/19/2019 (1855) [email or web address] PAGE 1 Signed Report Name: SARA ESPANAALIS DIEGO [place] : 1 12/02/1984 Age/S: 33 / F [address] [facility] Unit #: [id number] Loc: [place] [address] Phys: Philippe Worthy MD Acct: [id number] Dis D ate: Status: REG ER PHONE #: [phone] Exam Date: 09/19/2019 183 FAX #: Reason: pelvic pain EXAMS: CPT: [id number] US PELVIC COMPLETE [id number] <Continued> Orig Print D/T: S: 09/19/2019 (185) Probe: PAGE 2 Signed Report - CT ABD PELVIS [id number] 17:28:00 Name: EDWARD ESPANA [facility] : 1985 Age/S: 33 / F [address] [address] Unit #: [id number] Loc: [place] [address] Phys: Philippe Worthy MD Acct: [id number] Dis Date: Status: REG ER PHONE #: [phone] Exam Date: 09/19/20191714 FAX #: Reason: RLQ pain EXAMS: CPT: [id number] CT ABD PELVIS W/CONT 95186 C3 TIME OF STUDY: 09/19/2019 3:01 PM REASON FOR EXAM: RLQ pain COMPARISON: August 21, 2019 TECHNIQUE: Helical post contrast enhanced images were obtained through the abdomen and pelvis. Sagittal and coronal reformats were obtained and reviewed. One or more of the following radiation dose reduction techniques was used: automated exposure control, adjustment of mA and/or KV according to patient size, and/or utilization of iterative reconstruction technique. FINDINGS: CT Abdomen: The included lung bases are clear. There is a moderate hiatal hernia. No radiopaque calculi are seen in the gallbladder. The liver, pancreas, kidneys, adrenal glands and spleen all have normal appearance. There is no mesenteric or retroperitoneal adenopathy. The bowel loops are nondilated. A normal appendix is v isualized. There is no free fluid or free air. The osseous structures ar e age-appropriate. CT Pelvis: The ureters and bladder are grossly normal. There is subcutaneous fat stranding in the lower abdomen. There is a 3.5 cm cystic structure in the left adnexa, likely ovarian. Small a mount of free fluid is present in the pelvis. IMPRESSION: 1. Subcutaneous fat stranding in the lower abdomen. Correla te with recent surgery. 2. 3.5 cm cystic structure in the left a dnexa, likely ovarian. Recommend further evaluation with a pelvic ultra sound. 3. Small amount of free fluid is present in the pelvis which may be due to ruptured cyst or follicle. PAGE 1 Signed Report (CONTINUED) Name: EDWARD ESPANA : 1985 Age/S: 33 / F [place] Unit #: [id number] Loc: [place] [address] Phys: Philippe Worthy MD Acct: [id number] Dis Date: Status: REG ER PHONE #: [phone] Exam Date: 019 1715 FAX #: Reason: RLQ pain EXAMS: CPT: [id number] CT ABD PELVIS W/CONT 50620 <Continued> at 1728 Reported and signed by: Rony Cheema M.D. CC: Philippe Worthy MD; Cindy GASTON; Pamella Carrasco MD Technologist:Va Neely, RT(R)(CT) CTDI: DLP: Trnscb Date/Time: 09/19/2019 (1728) [email or web address] Orig Print D/T: S: 09/19/2019 (3482) PAGE 2 Signed Report BASIC METABOLIC [id number] 16:58:00* Test Item Value Reference Range Interpretation Comments SODIUM (test code = NA) 140 mmol/L 134-147 N POTASSIUM (test code = K) 4.1 mmol/L 3.4-5.0 N CHLORIDE (test code = CL) 107 mmol/L 100-108 N CARBON DIOXIDE (test code = CO2) 24 mmol/L 21-32 N ANION GAP (test code = GAP) 9.0 GAP calc 4.0-15.0 N GLUCOSE (test code = GLU) 98 MG/DL 70-110 N BLOOD UREA NITROGEN (test code = BUN) 9 MG/DL 7-18 N GLOMERULAR FILTRATION RATE (test code = GFR) >=60 max estimate estG FR >60 CREATININE (test code = CREAT) 0.5 MG/DL 0.6-1.0 L CALCIUM (test code = CA) 8.9 MG/DL 8.5-10.1 N HEPATIC FUNCTION [id number] 16:58:00* Test Item Value Reference Range Interpretation Comments TOTAL PROTEIN (test code = PROT) 7.3 G/DL 6.4-8.2 N ALBUMIN (test code = ALB) 3.6 G/DL 3.4-5.0 N BILIRUBIN TOTAL (test code = BILT) 0.30 MG/DL 0.2-1.2 N BILIRUBIN DIRECT (test code = BILD) 0.10 MG/DL 0.00-0.30 N BILIRUBIN INDIRECT (test code = BILIND) 0.20 MG/DL 0.2-1.2 N SGOT/AST (test code = AST) 12 Unit/L 15-37 L SGPT/ALT (test code = ALT) 11 Unit/L 12-78 L ALKALINE PHOSPHATASE TOTAL (test code = ALKP) 115 Unit/L 45-117 N [id number] 16:58:00* Test Item Value Reference Range Interpretation Comments LIPASE (test code = LIP) 1837 Unit/L 114-286 H HCG [id number] 16:36:00* Test Item Value Reference Range Interpretation Comments HCG POC (test code = HCGPOC) <5 IU/L <5.0 N <5.0 IU/L NEGATIVE5.0 - 25.0 IU/L INDETERMINATE>25.0 POSITIVE Detection of low levels of hCG does not rule out .Because hCG values double approximately every 48 hours in anormal , patients with low levels of hCG should beresampled and retested after 48 hours CBC W/AUTO [id number] 16:24:00* Test Item Value Reference Range Interpretation Comments WHITE BLOOD CELL (test code = WBC) 18.2 K/mm3 3.5-11.0 H RED BLOOD CELL (test code = RBC) 4.52 M/mm3 4.70-6.10 L HEMOGLOBIN (test code = HGB) 11.6 G/DL 10.4-14.9 N HEMATOCRIT (test code = HCT) 33.9 % 31.5-44.1 N MEAN CELL VOLUME (test code = MCV) 75.0 Fl 84.5-98.6 L MEAN CELL HGB (test code = MCH) 25.7 pg 27.0-34.2 L MEAN CELL HGB CONCETRATION (test code = MCHC) 34.2 G/DL 31.5-34. 0 H RED CELL DISTRIBUTION WIDTH (test code = RDW) 21.3 SD 11.5-14. 5 H PLATELET COUNT (test code = PLT) 324.0 K/mm3 150-450 N NEUTROPHIL % (test code = NT%) 82.6 % 40-76 H LYMPHOCYTE % (test code = LY%) 11.9 % 20.5-51.1 L MONOCYTE % (test code = MO%) 4.8 % 1.7-9.3 N EOSINOPHIL % (test code = EO%) 0.5 % 0.0-6.0 N BASOPHIL % (test code = BA%) 0.2 % 0.0-2.0 N NEUTROPHIL # (test code = NT#) 15.05 K/mm3 1.8-7.6 H LYMPHOCYTE # (test code = LY#) 2.2 K/mm3 0.6-3.2 N MONOCYTE # (test code = MO#) 0.9 K/mm3 0.3-1.1 N EOSINOPHIL # (test code = EO#) 0.1 K/mm3 0.0-0.4 N BASOPHIL # (test code = BA#) 0.0 K/mm3 0.0-0.1 N MANUAL DIFF REQUIRED (test code = MDIFF) NO DIFF/SCN CRITERIA Urine [id number] 07:54:00* Test Item Value Reference Range Interpretation Comments Result (test code = 6463-4) 90-99,000 col/mL [facility] [id number] 09:31:00FINAL REPORT TECHNIQUE: CT of the abdomen and pelvis WITHOUT intravenous contrast and WITHOUT oral contrast. Dose modulation, iterative reconstruction, and/or weight-based adjustment of the mA/kV was utilized to reduce the radiation dose to as low as reasonably achievable. INDICATION: RLQ abdominal pain, appendicitis suspected (Age > 14y)recent and salpingectomy, 6 weeks ago. COMPARISON: CT from 09/11/2015. FINDINGS: ABSENCE OF INTRAVENOUS CONTRAST DECREASES SENSITIVITY FOR DETECTION OF FOCAL LESIONS AND VASCULAR PATHOLOGY. LOWER THORAX: Unremarkable. HEPATOBILIARY: No focal hepatic lesions. Gallbladder is unremarkable. No biliary ductal dilatation.SPLEEN: No splenomegaly.PANCREAS: No focal masses or ductal dilatation. ADRENALS: No adrenal nodules.KIDNEYS/URETERS: No hydronephrosis, stones, or exophytic masses.PELVIC ORGANS/BLADDER: Prominent, uterus. PERITONEUM/RETROPERITONEUM: No free air or fluid.LYMPH NODES: No lymphadenopathy.VESSELS: Unremarkable. GI TRACT: No distention or wall thickening. Small, sliding hiatal hernia. The appendix is normal. BONES AND SOFT TISSUES: Recent lower abdominal incision. 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 Mild leftward convex curvature of the lumbar spine. IMPRESSION: No definite explanation for the right lower quadrant abdominal pain. Specifically, the appendix is normal. Signed: Jose Guadalupe Gunn MDReport Verified Date/Time: 09/06/2019 09:31:36 Reading Location: [facility] Diagnostic Imaging Reading Room - [place] [id number] Electroni zuri signed by: JOSE GUADALUPE GUNN MD on 09/06/2019 09:[address] abdomen/pelvis without iv [id number] 09:31:00Interface, External Ris In - 09/06/2019 9:33 AM CSTFINAL REPORT TECHNIQUE: CT of the abdomen and pelvis WITHOUT intravenous contrast and WITHOUT oral contrast. Dose modulation, iterative reconstruction, and/or weight-based adjustment of the mA/kV was utilized to reduce the radiation dose to as low as reasonably achievable. INDICATION: RLQ abdominal pain, appendicitis suspected (Age > 14y)recent c- section and salpingectomy, 6 weeks ago. COMPARISON: CT from 09/11/2015. FINDINGS: ABSENCE OF INTRAVENOUS CONTRAST DECREASES SENSITIVITY FOR DETECTION OF FOCAL LESIONS AND VASCULAR PATHOLOGY. LOWER THORAX: Unremarkable. HEPATOBILIARY: No focal hepatic lesions. Gallbladder is unremarkable. No biliary ductal dilatation.SPLEEN: No splenomegaly.PANCREAS: No focal masses or ductal dilatat ion. ADRENALS: No adrenal nodules.KIDNEYS/URETERS: No hydronephrosis, stones, or exophytic masses.PELVIC ORGANS/BLADDER: Prominent, uterus. PERITONEU M/RETROPERITONEUM: No free air or fluid.LYMPH NODES: No lymphadenopathy.VESSELS: Unremarkable. GI TRACT: No distention or wall thickening. Small, sliding hiatal hernia. The appendix is normal. BONES AND SOFT TISSUES: Recent lower abdominal incision. 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 Mild l eftward convex curvature of the lumbar spine. IMPRESSION: No definite explanati on for the right lower quadrant abdominal pain. Specifically, the appendix is no rmal. Signed: Jose Guadalupe Gunn MDReport Verified Date/Time: 09/06/2019 09:31:36 Readi ng Location: [facility] Diagnostic Imaging Reading Room - [place] [address] 1129 Electroni zuri signed by: JOSE GUADALUPE GUNN MD on 09/06/2019 09:31 AM [facility]sc[facility] + Reflex to [id number] 09:17:00* Test Item Value Reference Range Interpretation Comments Color, UA (test code = 5778-6) Yellow Clarity, UA (test code = 5767-9) Cloudy Specific [place], UA (test code = 5811-5) 1.025 1.001-1.035 pH, UA (test code = 5803-2) 6.0 5.0-8.0 Protein, UA (test code = 20898-4) 30 mg/dL Negative A Glucose, UA (test code = 365) Negative Negative Ketones, UA (test code = 2514-8) Negative Negative Bilirubin, UA (test code = 34277-6) Negative Negative Blood, UA (test code = 73396-3) Moderate Negative A Nitrite, UA (test code = 5802-4) Negative Negative Leukocytes, UA (test code = 5799-2) Small Negative A Urobilinogen, UA (test code = 06709-1) 0.2 mg/dL 0.2-1 Bacteria, UA (test code = 49988-2) Moderate Mucus (test code = 8247-9) Moderate RBC, UA (test code = 799-7) 10-20 /HPF WBC, UA (test code = 40217-6) 20-50 /HPF SQUAMOUS EPITHELIAL (test code = 52558-0) 20-50 /HPF Specimen Source (test code = 2795) Lab Interpretation (test code = 30034-5) [facility] UR[facility] [id number] 09:17:00* Test Item Value Reference Range Interpretation Comments COLOR (BEAKER) (test code = 470) Yellow CLARITY (BEAKER) (test code = 469) Cloudy SPECIFIC GRAVITY UA (BEAKER) (test code = 468) 1.025 1.001-1 .035 PH UA (BEAKER) (test code = 467) 6.0 5.0-8.0 PROTEIN UA (BEAKER) (test code = 464) 30 mg/dL Negative A GLUCOSE UA (BEAKER) (test code = 365) Negative Negative KETONES UA (BEAKER) (test code = 371) Negative Negative BILIRUBIN UA (BEAKER) (test code = 462) Negative Negative BLOOD UA (BEAKER) (test code = 461) Moderate Negative A NITRITE UA (BEAKER) (test code = 465) Negative Negative LEUKOCYTE ESTERASE UA (BEAKER) (test code = 466) Small Negat silviano A UROBILINOGEN UA (BEAKER) (test code = 463) 0.2 mg/dL 0.2-1.0 BACTERIA (BEAKER) (test code = 517) Moderate MUCUS (BEAKER) (test code = 1574) Moderate RBC UA-MANUAL (BEAKER) (test code = 1659) 10-20 /HPF WBC UA-MANUAL (BEAKER) (test code = 1661) 20-50 /HPF SQUAMOUS EPITHELIAL MANUAL (BEAKER) (test code = 1663) 20-50 /HPF SOURCE(BEAKER) (test code = 2795) Hepatic function [id number] 09:05:00* Test Item Value Reference Range Interpretation Comments Protein, Total (test code = 2885-2) 7.3 6.0- 8.5 gm/dL Albumin (test code = 30099-5) 3.9 g/dL 3.5-5 Total Bilirubin (test code = 1975-2) 0.3 mg/dL 0.1-1.2 Bilirubin, Direct (test code = 1968-7) 0.1 mg/dL 0-0.4 Alkaline Phosphatase (test code = 6768-6) 104 U/L 30-115 AST (test code = 1920-8) 14 U/L 5-40 ALT (test code = 1742-6) 15 U/L 5-50 Lab Interpretation (test code = 09185-0) Normal [facility]AT[facility] FUNCTION [id number] 09:05:00* Test Item Value Reference Range Interpretation Comments TOTAL PROTEIN (BEAKER) (test code = 770) 7.3 gm/dL 6.0-8.5 ALBUMIN (BEAKER) (test code = 1145) 3.9 g/dL 3.5-5.0 BILIRUBIN TOTAL (BEAKER) (test code = 377) 0.3 mg/dL 0.1-1.2 BILIRUBIN DIRECT (BEAKER) (test code = 706) 0.1 mg/dL 0.0-0.4 ALKALINE PHOSPHATASE (BEAKER) (test code = 346) 104 U/L 30-115 AST (SGOT) (BEAKER) (test code = 353) 14 U/L 5-40 ALT (SGPT) (BEAKER) (test code = 347) 15 U/L 5-50 BASIC METABOLIC [id number] 09:04:00* Test Item Value Reference Range Interpretation Comments SODIUM (BEAKER) (test code = 381) 140 meq/L 135-148 POTASSIUM (BEAKER) (test code = 379) 3.1 meq/L 3.6-5.5 L CHLORIDE (BEAKER) (test code = 382) 105 meq/L 98-106 CO2 (BEAKER) (test code = 355) 25 meq/L 24-32 BLOOD UREA NITROGEN (BEAKER) (test code = 354) 4 mg/dL 10-26 L CREATININE (BEAKER) (test code = 358) 0.45 mg/dL 0.50-1.20 L GLUCOSE RANDOM (BEAKER) (test code = 652) 112 mg/dL 70-110 H CALCIUM (BEAKER) (test code = 697) 8.9 mg/dL 8.5-10.5 EGFR (BEAKER) (test code = 1092) 193 mL/min/1.73 sq m ESTIMATED GFR IS NOT ACCURATE CREATININE CLEARANCE IN PREDICTING GLOMERULAR FILTRATION RATE. ESTIMATED GFR IS NOT APPLICABLE FOR DIALYSIS PATIENTS. CBC W/PLT COUNT & AUTO [id number] 09:00:00* Test Item Value Reference Range Interpretation Comments WHITE BLOOD CELL COUNT (BEAKER) (test code = 775) 9.9 K/ L 4.0- 10.0 RED BLOOD CELL COUNT (BEAKER) (test code = 761) 4.03 M/ L 4.00-5 .00 HEMOGLOBIN (BEAKER) (test code = 410) 10.4 GM/DL 12.0-15.0 L HEMATOCRIT (BEAKER) (test code = 411) 32.1 % 36.0-45.0 L MEAN CORPUSCULAR VOLUME (BEAKER) (test code = 753) 79.8 fL 82. 0-99.0 L MEAN CORPUSCULAR HEMOGLOBIN (BEAKER) (test code = 751) 25.9 pg 27.0-33.0 L MEAN CORPUSCULAR HEMOGLOBIN CONC (BEAKER) (test code = 752) 32.5 GM/DL 32.0-36.0 RED CELL DISTRIBUTION WIDTH (BEAKER) (test code = 412) 20.0 % 10.3-14.2 H PLATELET COUNT (BEAKER) (test code = 756) 268 K/CU MM 150-430 MEAN PLATELET VOLUME (BEAKER) (test code = 754) 10.4 fL 6.5-10 .5 NEUTROPHILS RELATIVE PERCENT (BEAKER) (test code = 429) 52 % LYMPHOCYTES RELATIVE PERCENT (BEAKER) (test code = 430) 33 % MONOCYTES RELATIVE PERCENT (BEAKER) (test code = 431) 8 % EOSINOPHILS RELATIVE PERCENT (BEAKER) (test code = 432) 7 % BASOPHILS RELATIVE PERCENT (BEAKER) (test code = 437) 1 % NEUTROPHILS ABSOLUTE COUNT (BEAKER) (test code = 670) 5.19 K/ L 1.80-8.00 LYMPHOCYTES ABSOLUTE COUNT (BEAKER) (test code = 414) 3.23 K/ L 1.48-4.50 MONOCYTES ABSOLUTE COUNT (BEAKER) (test code = 415) 0.79 K/ L 0. 00-1.30 EOSINOPHILS ABSOLUTE COUNT (BEAKER) (test code = 416) 0.68 K/ L 0.00-0.50 H BASOPHILS ABSOLUTE COUNT (BEAKER) (test code = 417) 0.05 K/ L 0. 00-0.20 UA RFLX MICR CULT IF [id number] 23:17:00* Test Item Value Reference Range Interpretation Comments UA COLOR (test code = COLU) YELLOW YELLOW UA APPEARANCE (test code = APPU) HAZY CLEAR UA GLUCOSE DIPSTICK (test code = DGLUU) NEGATIVE NEGATIVE UA BILIRUBIN DIPSTICK (test code = BILU) NEGATIVE NEGATIVE UA KETONE DIPSTICK (test code = KETU) NEGATIVE NEGATIVE UA SPECIFIC GRAVITY (test code = SGU) 1.010 1.001-1.035 N UA BLOOD DIPSTICK (test code = CALEB) 3+ NEGATIVE A UA PH DIPSTICK (test code = VARGAS) 7.0 5-9 UA PROTEIN DIPSTICK (test code = PROU) TRACE NEGATIVE A UA UROBILINIOGEN DIPSTICK (test code = URO) 0.2 EU/dL <=1.0 UA NITRITE DIPSTICK (test code = MARBIN) NEGATIVE NEGATIVE UA LEUKOCYTE ESTERASE DIPSTICK (test code = LEUU) 1+ NEGA TIVE A UA WBC (test code = WBCU) 5-10 #/hpf NONE SEEN A UA RBC (test code = RBCU) 5-10 #/hpf NONE SEEN A UA EPITHELIAL CELLS (test code = EPIU) FEW #/hpf NONE SEEN UA BACTERIA (test code = BACU) FEW #/hpf NONE SEEN A Indication for culture: Dysuria/Frequency- CT ABD PELVIS [id number] 22:50:00 Patient Name: EDWARD ESPANA Unit No: [id number] EXAMS: CPT CODE: [id number] CT ABD PELVIS W/CONT 79915 CT SCAN OF THE ABDOMEN AND PELVIS WITH CONTRAST: HISTORY: Acute pelvic pain with urinary retention. Recent on 08/10/2019. COMPARISON EXAM(S): None available TECHNIQUE: Axial images were obtained of the abdomen and pelvis from the domes of the diaphragm to the symphysis pubis following intravenous injection of 100 ml's Isovue and oral administration of 10 ml's Gastrografin diluted with water. Coronal and sagittal reconstructions were generated. DOSE: CT imaging performed at this location utilizes radiation dose optimization technique which includes one or more of the followin) Automated exposure control; 2) Adjustment of the mA and/or kV according to patient's size; 3) Use of iterative reconstruction techniques. DLP (mGy-cm): 284 FINDINGS: Expected postoperative changes of are identified with edema in the inferior anterior suprapubic abdominal wall. No abnormal subcutaneous or intramuscular fluid collections identified to suggest hematoma or abscess. There is expected, residual uterine enlargement. No abnormal pelvic fluid collections identified. The urinary bladder has a normal appearance. The lung bases and pleural spaces are clear. The liver, spleen, adrenal glands, pancreas and kidneys have a normal appearance. No nephrolithiasis or hydronephrosis. The gallbladder is normal in size. The bowel pattern is within normal limits without dominant inflammatory changes identified in either lower quadrant. There is no evidence of free fluid or free air. The appendix is well seen and normal. SKELETAL: Bone windows show no suspicious blastic or lytic lesions. No acute bony abnormalities. IM PRESSION: 1. Postoperative changes of recent with expected posts urgical changes in the suprapubic abdominal wall. 2. No abnormal fluid collec tions in the pelvis. [facility] Rad[facility] Department PHYS: JOMAR - Vinod Dempsey [address] : 1985 AGE: 33 SEX: F [place], [place] [address] LOC: LarryERS PHONE #: [phone] EXAM DATE: 08/26/2019 STATUS: REG ER FAX #: [phone] RAD NO: Page 1 Signed Report 1 Patient Name: LES ESPANA Unit No: [id number] EXAMS: CPT CODE: [id number] CT ABD PELVIS W/CONT 07319 <Continued> 3. Expected, residual uterine enlargement. 4. Normal bladder without evidence of bladder distention. 5. Normal appendix. SL:01 at 2250 Reported and signed by: Jordy Kennedy MD CC: Nayeli Mijares MD Technologist: RT Maria Fernanda CTDI: DLP: Trnscrbd D/ ([id number]) PollyJ [facility] NAME[facility] Rad[facility] Department PHYS: JOMAR - Vinod Richter [address] : 1985 AGE: 33 SEX: F [place] [address] LOC: LarryERS PHONE #: [phone] EXAM DATE: 08/26/2019 STATUS: REG ER FAX #: [phone] RAD NO: Page 2 Signed Report 1 Patient Name: EDWARD ESPANA Unit No: [id number] EXAMS: CPT CODE: [id number] CT ABD PELVIS W/CONT 81050 <Continued> Orig Print D/T: S: 08/26/2019 (929) [facility] NAME: [facility] Rad[facility] Department PHYS: NITINIsaiah - Vinod Richter [address] : 1985 AGE: 33 SEX: F [place] [address] LOC: LarryERS PHONE #: [phone] EXAM DATE: 08/26/2019 STATUS: REG ER FAX #: [phone] RAD NO: Page 3 Si gned Report 1 CBC W/AUTO [id number] 21:15:00* Test Item Value Reference Range Interpretation Comments WHITE BLOOD CELL (test code = WBC) 8.1 K/mm3 6.6-12.1 N RED BLOOD CELL (test code = RBC) 4.28 M/mm3 3.45-5.01 N HEMOGLOBIN (test code = HGB) 11.0 g/dL 10.7-13.9 N HEMATOCRIT (test code = HCT) 33.5 % 32.1-42.1 N MEAN CELL VOLUME (test code = MCV) 78 fL 84.1-94.8 L MEAN CELL HGB (test code = MCH) 25.7 pg 27-35 L MEAN CELL HGB CONCETRATION (test code = MCHC) 32.8 gm/dL 32.2-34. 1 N RED CELL DISTRIBUTION WIDTH (test code = RDW) 21.9 % 12.4-16. 5 H PLATELET COUNT (test code = PLT) 233 K/mm3 133-385 N IMMATURE PLATELET FRACTION (test code = IPF) 9.2 % 0.0-10.8 N NEUTROPHIL % (test code = NT%) 60.3 % 56.5-79.4 N LYMPHOCYTE % (test code = LY%) 27.0 % 14.3-34.3 N MONOCYTE % (test code = MO%) 6.1 % 5.1-10.4 N EOSINOPHIL % (test code = EO%) 5.7 % 0.1-3.0 H BASOPHIL % (test code = BA%) 0.7 % 0.1-1.0 N NEUTROPHIL # (test code = NT#) 4.9 K/mm3 LYMPHOCYTE # (test code = LY#) 2.2 K/mm3 MONOCYTE # (test code = MO#) 0.5 K/mm3 EOSINOPHIL # (test code = EO#) 0.46 K/mm3 BASOPHIL # (test code = BA#) 0.1 K/mm3 RBC MORPHOLOGY REQUIRED (test code = RBCM) ABNORMAL NORMAL 1+ ANISO PLATELET MORPHOLOGY REQUIRED (test code = PLTMR) NORMAL MAHENDRA L COMPREHENSIVE METABOLIC [id number] 20:58:00* Test Item Value Reference Range Interpretation Comments SODIUM (test code = NA) 140 mEq/L 135-145 N POTASSIUM (test code = K) 3.8 mEq/L 3.5-5.0 N CHLORIDE (test code = CL) 103 mEq/L 100-115 N CARBON DIOXIDE (test code = CO2) 27 mEq/L 22-31 N ANION GAP (test code = GAP) 13.80 10-20 N GLUCOSE (test code = GLU) 68 mg/dL 65-110 N BLOOD UREA NITROGEN (test code = BUN) 8 mg/dL 7-18 N GLOMERULAR FILTRATION RATE (test code = GFR) 158 ml/min >60 N CREATININE (test code = CREAT) 0.5 mg/dL 0.5-1.0 N TOTAL PROTEIN (test code = PROT) 7.7 gm/dL 6.3-8.2 N ALBUMIN (test code = ALB) 3.3 gm/dL 3.4-4.8 L CALCIUM (test code = CA) 8.8 mg/dL 8.4-10.2 N BILIRUBIN TOTAL (test code = BILT) 0.4 mg/dL 0.2-1.0 N SGOT/AST (test code = AST) 29 units/L 15-37 N SGPT/ALT (test code = ALT) 20 units/L 12-78 N ALKALINE PHOSPHATASE TOTAL (test code = ALKP) 146 units/L 46-116 H [id number] 20:58:00* Test Item Value Reference Range Interpretation Comments LIPASE (test code = LIP) 213 units/L 73-393 N CBC W/AUTO [id number] 20:38:00* Test Item Value Reference Range Interpretation Comments WHITE BLOOD CELL (test code = WBC) 8.1 K/mm3 6.6-12.1 N RED BLOOD CELL (test code = RBC) 4.28 M/mm3 3.45-5.01 N HEMOGLOBIN (test code = HGB) 11.0 g/dL 10.7-13.9 N HEMATOCRIT (test code = HCT) 33.5 % 32.1-42.1 N MEAN CELL VOLUME (test code = MCV) 78 fL 84.1-94.8 L MEAN CELL HGB (test code = MCH) 25.7 pg 27-35 L MEAN CELL HGB CONCETRATION (test code = MCHC) 32.8 gm/dL 32.2-34. 1 N RED CELL DISTRIBUTION WIDTH (test code = RDW) 21.9 % 12.4-16. 5 H PLATELET COUNT (test code = PLT) 233 K/mm3 133-385 N IMMATURE PLATELET FRACTION (test code = IPF) 9.2 % 0.0-10.8 N NEUTROPHIL % (test code = NT%) 60.3 % 56.5-79.4 N LYMPHOCYTE % (test code = LY%) 27.0 % 14.3-34.3 N MONOCYTE % (test code = MO%) 6.1 % 5.1-10.4 N EOSINOPHIL % (test code = EO%) 5.7 % 0.1-3.0 H BASOPHIL % (test code = BA%) 0.7 % 0.1-1.0 N NEUTROPHIL # (test code = NT#) 4.9 K/mm3 LYMPHOCYTE # (test code = LY#) 2.2 K/mm3 MONOCYTE # (test code = MO#) 0.5 K/mm3 EOSINOPHIL # (test code = EO#) 0.46 K/mm3 BASOPHIL # (test code = BA#) 0.1 K/mm3 RBC MORPHOLOGY REQUIRED (test code = RBCM) NORMAL PLATELET MORPHOLOGY REQUIRED (test code = PLTMR) MAHENDRA L COMPREHENSIVE METABOLIC [id number] 15:46:00* Test Item Value Reference Range Interpretation Comments SODIUM (test code = NA) 140 mmol/L 134-147 N POTASSIUM (test code = K) 4.1 mmol/L 3.4-5.0 N CHLORIDE (test code = CL) 109 mmol/L 100-108 H CARBON DIOXIDE (test code = CO2) 25 mmol/L 21-32 N ANION GAP (test code = GAP) 6.0 GAP calc 4.0-15.0 N GLUCOSE (test code = GLU) 86 MG/DL 70-110 N BLOOD UREA NITROGEN (test code = BUN) 13 MG/DL 7-18 N GLOMERULAR FILTRATION RATE (test code = GFR) >=60 max estimate estG FR >60 CREATININE (test code = CREAT) 0.4 MG/DL 0.6-1.0 L TOTAL PROTEIN (test code = PROT) 6.7 G/DL 6.4-8.2 N ALBUMIN (test code = ALB) 2.9 G/DL 3.4-5.0 L GLOBULIN (test code = GLOB) 3.8 GM/dL ALBUMIN/GLOBULIN RATIO (test code = A/G) 0.8 RATIO 1.2-2.2 L CALCIUM (test code = CA) 8.2 MG/DL 8.5-10.1 L BILIRUBIN TOTAL (test code = BILT) 0.20 MG/DL 0.2-1.2 N SGOT/AST (test code = AST) 24 Unit/L 15-37 N SGPT/ALT (test code = ALT) 16 Unit/L 12-78 N ALKALINE PHOSPHATASE TOTAL (test code = ALKP) 127 Unit/L 45-117 H CBC W/AUTO [id number] 15:45:00* Test Item Value Reference Range Interpretation Comments WHITE BLOOD CELL (test code = WBC) 5.9 K/mm3 3.5-11.0 N RED BLOOD CELL (test code = RBC) 3.97 M/mm3 4.70-6.10 L HEMOGLOBIN (test code = HGB) 10.4 G/DL 10.4-14.9 N HEMATOCRIT (test code = HCT) 30.5 % 31.5-44.1 L MEAN CELL VOLUME (test code = MCV) 76.8 Fl 84.5-98.6 L MEAN CELL HGB (test code = MCH) 26.2 pg 27.0-34.2 L MEAN CELL HGB CONCETRATION (test code = MCHC) 34.1 G/DL 31.5-34. 0 H RED CELL DISTRIBUTION WIDTH (test code = RDW) 22.8 SD 11.5-14. 5 H PLATELET COUNT (test code = PLT) 305.0 K/mm3 150-450 N MEAN PLATELET VOLUME (test code = MPV) 10.30 fL 7.0-10.5 N NEUTROPHIL % (test code = NT%) 56.1 % 40-76 N LYMPHOCYTE % (test code = LY%) 27.7 % 20.5-51.1 N MONOCYTE % (test code = MO%) 12.0 % 1.7-9.3 H EOSINOPHIL % (test code = EO%) 3.9 % 0.0-6.0 N BASOPHIL % (test code = BA%) 0.3 % 0.0-2.0 N NEUTROPHIL # (test code = NT#) 3.32 K/mm3 1.8-7.6 N LYMPHOCYTE # (test code = LY#) 1.6 K/mm3 0.6-3.2 N MONOCYTE # (test code = MO#) 0.7 K/mm3 0.3-1.1 N EOSINOPHIL # (test code = EO#) 0.2 K/mm3 0.0-0.4 N BASOPHIL # (test code = BA#) 0.0 K/mm3 0.0-0.1 N MANUAL DIFF REQUIRED (test code = MDIFF) NO DIFF/SCN CRITERIA CBC W/AUTO [id number] 15:45:00* Test Item Value Reference Range Interpretation Comments WHITE BLOOD CELL (test code = WBC) 5.9 K/mm3 3.5-11.0 N RED BLOOD CELL (test code = RBC) 3.97 M/mm3 4.70-6.10 L HEMOGLOBIN (test code = HGB) 10.4 G/DL 10.4-14.9 N HEMATOCRIT (test code = HCT) 30.5 % 31.5-44.1 L MEAN CELL VOLUME (test code = MCV) 76.8 Fl 84.5-98.6 L MEAN CELL HGB (test code = MCH) 26.2 pg 27.0-34.2 L MEAN CELL HGB CONCETRATION (test code = MCHC) 34.1 G/DL 31.5-34. 0 H RED CELL DISTRIBUTION WIDTH (test code = RDW) 22.8 SD 11.5-14. 5 H PLATELET COUNT (test code = PLT) 305.0 K/mm3 150-450 N MEAN PLATELET VOLUME (test code = MPV) 10.30 fL 7.0-10.5 N NEUTROPHIL % (test code = NT%) 56.1 % 40-76 N LYMPHOCYTE % (test code = LY%) 27.7 % 20.5-51.1 N MONOCYTE % (test code = MO%) 12.0 % 1.7-9.3 H EOSINOPHIL % (test code = EO%) 3.9 % 0.0-6.0 N BASOPHIL % (test code = BA%) 0.3 % 0.0-2.0 N NEUTROPHIL # (test code = NT#) 3.32 K/mm3 1.8-7.6 N LYMPHOCYTE # (test code = LY#) 1.6 K/mm3 0.6-3.2 N MONOCYTE # (test code = MO#) 0.7 K/mm3 0.3-1.1 N EOSINOPHIL # (test code = EO#) 0.2 K/mm3 0.0-0.4 N BASOPHIL # (test code = BA#) 0.0 K/mm3 0.0-0.1 N MANUAL DIFF REQUIRED (test code = MDIFF) NO DIFF/SCN CRITERIA RBC [id number] 15:45:00* Test Item Value Reference Range Interpretation Comments ANISOCYTOSIS (test code = ANISO) 1+ NONE CBC W/AUTO [id number] 15:45:00* Test Item Value Reference Range Interpretation Comments WHITE BLOOD CELL (test code = WBC) 5.9 K/mm3 3.5-11.0 N RED BLOOD CELL (test code = RBC) 3.97 M/mm3 4.70-6.10 L HEMOGLOBIN (test code = HGB) 10.4 G/DL 10.4-14.9 N HEMATOCRIT (test code = HCT) 30.5 % 31.5-44.1 L MEAN CELL VOLUME (test code = MCV) 76.8 Fl 84.5-98.6 L MEAN CELL HGB (test code = MCH) 26.2 pg 27.0-34.2 L MEAN CELL HGB CONCETRATION (test code = MCHC) 34.1 G/DL 31.5-34. 0 H RED CELL DISTRIBUTION WIDTH (test code = RDW) 22.8 SD 11.5-14. 5 H PLATELET COUNT (test code = PLT) 305.0 K/mm3 150-450 N MEAN PLATELET VOLUME (test code = MPV) 10.30 fL 7.0-10.5 N NEUTROPHIL % (test code = NT%) 56.1 % 40-76 N LYMPHOCYTE % (test code = LY%) 27.7 % 20.5-51.1 N MONOCYTE % (test code = MO%) 12.0 % 1.7-9.3 H EOSINOPHIL % (test code = EO%) 3.9 % 0.0-6.0 N BASOPHIL % (test code = BA%) 0.3 % 0.0-2.0 N NEUTROPHIL # (test code = NT#) 3.32 K/mm3 1.8-7.6 N LYMPHOCYTE # (test code = LY#) 1.6 K/mm3 0.6-3.2 N MONOCYTE # (test code = MO#) 0.7 K/mm3 0.3-1.1 N EOSINOPHIL # (test code = EO#) 0.2 K/mm3 0.0-0.4 N BASOPHIL # (test code = BA#) 0.0 K/mm3 0.0-0.1 N MANUAL DIFF REQUIRED (test code = MDIFF) NO DIFF/SCN CRITERIA CBC W/AUTO [id number] 15:26:00* Test Item Value Reference Range Interpretation Comments WHITE BLOOD CELL (test code = WBC) 5.9 K/mm3 3.5-11.0 N RED BLOOD CELL (test code = RBC) 3.97 M/mm3 4.70-6.10 L HEMOGLOBIN (test code = HGB) 10.4 G/DL 10.4-14.9 N HEMATOCRIT (test code = HCT) 30.5 % 31.5-44.1 L MEAN CELL VOLUME (test code = MCV) 76.8 Fl 84.5-98.6 L MEAN CELL HGB (test code = MCH) 26.2 pg 27.0-34.2 L MEAN CELL HGB CONCETRATION (test code = MCHC) 34.1 G/DL 31.5-34. 0 H RED CELL DISTRIBUTION WIDTH (test code = RDW) 22.8 SD 11.5-14. 5 H PLATELET COUNT (test code = PLT) 305.0 K/mm3 150-450 N MEAN PLATELET VOLUME (test code = MPV) 10.30 fL 7.0-10.5 N NEUTROPHIL % (test code = NT%) % 40-76 N LYMPHOCYTE % (test code = LY%) % 20.5-51.1 N MONOCYTE % (test code = MO%) % 1.7-9.3 H EOSINOPHIL % (test code = EO%) % 0.0-6.0 N BASOPHIL % (test code = BA%) % 0.0-2.0 N NEUTROPHIL # (test code = NT#) K/mm3 1.8-7.6 N LYMPHOCYTE # (test code = LY#) K/mm3 0.6-3.2 N MONOCYTE # (test code = MO#) K/mm3 0.3-1.1 N EOSINOPHIL # (test code = EO#) K/mm3 0.0-0.4 N BASOPHIL # (test code = BA#) K/mm3 0.0-0.1 N MANUAL DIFF REQUIRED (test code = MDIFF) DIFF/SCN CRITERIA - CT ABD PELVIS W/O [id number] 14:37:00 Name: [facility] Ryan : 1985 Age/S: 33 / F [address] [address] [place] Unit #: [id number] Loc: [place] [address] Phys: Darrick Mosqueda MD Acct: [id number] Dis Date: Status: REG ER PHONE #: [phone] Exam Date: 08/21/2019 1420 FAX #: Reason: abdominal pain post c section 11 days prior EXAMS: CPT: [id number] CT ABD PELVIS W/O CONT [id number] EXAM: CT ABDOMEN AND PELVIS WITHOUT CONTRAST. INDICATION: Abdominal pain, status post COMPARISON: None available TECHNIQUE: Axial CT imaging of the abdomen and pelvis was obtained without administration of intravenous contrast. Coronal and sagittal reformatted images were submitted for review. IV contrast: None DLP: 488.58 mGy-cm FINDINGS: The heart size is normal. The lung bases are clear. No pericardial or pleural effusion is identified. There is a small hiatal hernia. The noncontrast appearance of the liver, spleen, gallbladder, pancreas, and adrenal glands is unremarkable. No focal liver lesions are identified. No intrahepatic biliary duct dilatation. The kidneys are normal in size and appearance. No hydronephrosis or nephrolithiasis is identified. The urinary bladder is normal. The stomach, small bowel, large bowel, and appendix are normal in appearance. No bowel obst ruction is identified. No lymphadenopathy is identified in the abd omen or pelvis. No free fluid or free air. The IVC is normal. The abdom inal aorta is normal in course and caliber. The uterus is en larged consistent with state. There are postsurgical changes o f prior section. No uterine dehiscence is identified. No intra- abdominal abscess or fluid collections are identified. No adnexal mass is identified. No acute osseous abnormality is identified. IMPRESSION: No acute abnormality in the abdomen or pelvis. Enlarged uterus consistent with state. There are postsur gical changes of prior section. No uterine dehiscence is ident ified. No intra-abdominal abscess or fluid collections are identified. LOCATION: B2 PAGE 1 Signed Report (CONTINUED) Name: EDWARD ESPANA [facility] ehsan : 1985 Age/S: 33 / F [id number] [address] [place] Unit #: [id number] Loc: [place] [address] Phys: Darrick Mosqueda MD Acct: [id number] Dis Date: Status: REG ER PHONE #: [phone] Exam Date: 08/21/2019 1425 FAX #: Reason: abdominal pain post c section 11 days prior EXAMS: CPT: [id number] CT ABD PELVIS W/O CONT [id number] < Continued> This CT exam was performed according to our departmental dose optimization program, which includes automated exposure control, adjustment of the mA and or kV according to patient size and/or use of iterative reconstruction technique. at 1437 Reported and signed by: Christelle Ta M.D. CC: Darrick Mosqueda MD Technologist:Patrick Teresa RT(R)(CT) CTDI: DLP: Trnscb Date/Time: 08/21/2019 (9068) [email or web address] Orig Print D/T: S: 08/21/2019 (0001) PAGE 2 Signed Report PLACENTA THIRD [id number] 15:44:00 RUN DATE: 08/16/19 [facility] PAGE 1 RUN TIME: 713 Specimen Inqui ry RUN USER: INTERFACE PATIENT: EDWARD ESPANA ACCT #: [id number] LOC: SE[facility]STIAN U #: [id number] AGE/SX: 33/F ROOM: [facility] RE08/10/19REG DR: Nayeli Mijares MD : [id number] BED: A DIS: 08/14/19 STATUS: DIS IN TLOC: SPEC #: [id number] RECD: 08/10/19 STATUS: TRINA SHABAZZ #: [id number] JESSIKA: 08/10/19- SUBM DR: Nayeli Mijares MD ENTERED: 08/11/19 SP TYPE: PLACIII OTHR DR: ORDERED: LEVEL V SURGICA/3 CODES: [id number] - FALLOPIAN TUBE [id number] - PLACENTA, NOS PROCEDURES: LEVEL V SURGICA (Incomplete) TISSUES: TERESA CENTA, NOS - PLACENTA FALLOPIAN TUBE, NOS - BILATERAL FALLOPIAN TUBES CLINICAL HISTORY 33 year old, IUP @ 37.3 weeks, [id number], repeat Cesa rean section, gestational diabetes - insulin (wpd) FINAL DIAGNOSIS Right fallopian tube, salpingectomy: - fallopian tube with complete surg ical transection, no pathologic alteration Left fallopian tube, salpingect ursula: - fallopian tube with complete surgical transection, no pathologic a lteration Placenta, section: - placenta with 3rd trimester morphology (430 gm), mean placental weight at 37 weeks - 478 gm - intervillous fibrin thrombus, central, occupying less than 5% of the total placental parenchyma - accelerated villous maturation with multif ocal increase in the syncytial knots, suggestive of hypoperfusion - trivascular umbilical cord and membranes - free of inflammation COMMENT: The presence of accelerated villous maturation and multifocal increas e in the syncytial knots are nonspecific findings, but together suggest a comp onent of maternal vascular malperfusion. Pathologic features of uteropl acental malperfusion can be seen in maternal conditions with a component of va scular disease (preeclampsia, hypertension, diabetes mellitus, and autoimmunit y). There can be an increased risk for recurrence in future pregnancies. CPT code(s): 08888 x2, 59078 CONTINUED ON N EXT PAGE RUN DATE: 08/16/19 [facility] PAGE 2 RUN TIME: 713 micheline Inquiry RUN USER: INTERFACE SPEC #: [id number] PATIENT: Noemi JACKEDWARD #[id number] (Continued) CONSUELO SALAZAR DIAGNOSIS (Continued) sybil/diane dt: 08/13/19 GROSS DESCRIPTI ON ANATOMIC SOURCE OF TISSUE (per Requisition): Bilateral fallopian tubes ( 2 containers) Placenta Each specimen is labeled with the patient's name and medical record number. Specimen #1 is designated "right fallopian tube " and consists of a 7.0 cm in length and 0.8 cm in diameter fimbriated fallop ruth ann tubes. The serosa is pink-purple and hyperemic segment of fallopian tube. The lumen is pinpoint. Animated Cartoons Painter sections are submitted labeled A1. Specimen #2 is designated "left fallopian tube" and consists of a 7.5 cm in length and 0.8 cm in diameter fimbriated fallopian tube. The serosa is pink-p urple and hyperemic segment of fallopian tube. The lumen is pinpoint. Repres entative sections are submitted labeled B1. Specimen #3 was received in a container, labeled with the patient's name, unit number and designated "plac enta". The following attributes are observed: Cord insertion: 5 cm from margin Cord length: 50 cm Number of vessels: 3 Cord color: Flynn-yellow Oth er cord findings: Edematous and Less than 12 twists/10 cm surface findings: Steel blue, wrinkled, glistening with focal subchorionic fibrin deposition Vasculature: Displays unremarkable blood vasculature Membranes rupture si te: Marginal Membrane color: Flynn Other membran e findings: Thickened The trimmed placental weight: 430 gm Di sk measurement: 16.0 x 15.0 x 3.5 cm in greatest dimension Ac cessory lobes: None Maternal surface: Lobul ated and intact Parenchyma: Red, beefy, and spongy with peripheral fibrosis Parenchyma lesions: There is a 0.6 cm flynn- yellow, firm, central focus, which grossly involves less than 5% of the placental pare [facility] Cassettes: C1 through C4 carlin/diane 08/11/19 @ 113 6 CONTINUED ON NEXT PAGE RU N DATE: 08/16/19 [facility] PAGE 3 RUN TIME: 713 Specimen Inquiry RUN USER: INTERFACE SPEC #: [id number] PATIENT: EDWARD ESPANA #[id number] (Continued) MICROSCOPIC DESCRIPTION Speci men #1 - the fallopian tube architecture is intact. The lumen is not dilated. A completely transected segment of fallopian tube is present. Specimen #2 - the fallopian tube architecture is intact. The lumen is not dilated. A completely transected segment of fallopian tube is present. Specimen #3 - the placenta is composed of small vascular villi, which are smaller and more mature than expected for the given gestation age. A central intervillous fibr in thrombus is present, which occupies less than 5% of the total placental par enchyma. Multifocal increase in the syncytial knots is present. The trivascula r umbilical cord and membranes are free of inflammation. jovana dt: Signed Amber James 08/13/19 1544 END OF REPORT CBC W/AUTO [id number] 06:50:00* Test Item Value Reference Range Interpretation Comments WHITE BLOOD CELL (test code = WBC) 19.4 K/mm3 6.6-12.1 H Results verified by repeat analysis RED BLOOD CELL (test code = RBC) 3.38 M/mm3 3.45-5.01 L HEMOGLOBIN (test code = HGB) 8.8 g/dL 10.7-13.9 L HEMATOCRIT (test code = HCT) 26.0 % 32.1-42.1 L MEAN CELL VOLUME (test code = MCV) 77 fL 84.1-94.8 L MEAN CELL HGB (test code = MCH) 26.0 pg 27-35 L MEAN CELL HGB CONCETRATION (test code = MCHC) 33.8 gm/dL 32.2-34. 1 N RED CELL DISTRIBUTION WIDTH (test code = RDW) 22.2 % 12.4-16. 5 H PLATELET COUNT (test code = PLT) 227 K/mm3 133-385 N IMMATURE PLATELET FRACTION (test code = IPF) 0.0 % 0.0-10.8 N MEAN PLATELET VOLUME (test code = MPV) 11.7 fl 9.1-12.7 N NEUTROPHIL % (test code = NT%) 91.5 % 56.5-79.4 H LYMPHOCYTE % (test code = LY%) 6.6 % 14.3-34.3 L MONOCYTE % (test code = MO%) 1.1 % 5.1-10.4 L EOSINOPHIL % (test code = EO%) 0.0 % 0.1-3.0 L BASOPHIL % (test code = BA%) 0.1 % 0.1-1.0 N NEUTROPHIL # (test code = NT#) 17.8 K/mm3 LYMPHOCYTE # (test code = LY#) 1.3 K/mm3 MONOCYTE # (test code = MO#) 0.2 K/mm3 EOSINOPHIL # (test code = EO#) 0 K/mm3 BASOPHIL # (test code = BA#) 0.0 K/mm3 RBC MORPHOLOGY REQUIRED (test code = RBCM) NORMAL NORMAL PLATELET MORPHOLOGY REQUIRED (test code = PLTMR) ABNORMAL MAHENDRA L VARIABLE PLATLET SIZE COMPREHENSIVE METABOLIC [id number] 06:16:00* Test Item Value Reference Range Interpretation Comments SODIUM (test code = NA) 136 mEq/L 135-145 N POTASSIUM (test code = K) 3.9 mEq/L 3.5-5.0 N CHLORIDE (test code = CL) 101 mEq/L 100-115 N CARBON DIOXIDE (test code = CO2) 23 mEq/L 22-31 N ANION GAP (test code = GAP) 15.90 10-20 N GLUCOSE (test code = GLU) 129 mg/dL 65-110 H BLOOD UREA NITROGEN (test code = BUN) 5 mg/dL 7-18 L GLOMERULAR FILTRATION RATE (test code = GFR) 158 ml/min >60 N CREATININE (test code = CREAT) 0.5 mg/dL 0.5-1.0 N TOTAL PROTEIN (test code = PROT) 5.6 gm/dL 6.3-8.2 L ALBUMIN (test code = ALB) 2.4 gm/dL 3.4-4.8 L CALCIUM (test code = CA) 8.4 mg/dL 8.4-10.2 N BILIRUBIN TOTAL (test code = BILT) 0.3 mg/dL 0.2-1.0 N SGOT/AST (test code = AST) 26 units/L 15-37 N SGPT/ALT (test code = ALT) 16 units/L 12-78 N ALKALINE PHOSPHATASE TOTAL (test code = ALKP) 160 units/L 46-116 H CBC W/AUTO [id number] 05:55:00* Test Item Value Reference Range Interpretation Comments WHITE BLOOD CELL (test code = WBC) 19.4 K/mm3 6.6-12.1 H Results verified by repeat analysis RED BLOOD CELL (test code = RBC) 3.38 M/mm3 3.45-5.01 L HEMOGLOBIN (test code = HGB) 8.8 g/dL 10.7-13.9 L HEMATOCRIT (test code = HCT) 26.0 % 32.1-42.1 L MEAN CELL VOLUME (test code = MCV) 77 fL 84.1-94.8 L MEAN CELL HGB (test code = MCH) 26.0 pg 27-35 L MEAN CELL HGB CONCETRATION (test code = MCHC) 33.8 gm/dL 32.2-34. 1 N RED CELL DISTRIBUTION WIDTH (test code = RDW) 22.2 % 12.4-16. 5 H PLATELET COUNT (test code = PLT) 227 K/mm3 133-385 N IMMATURE PLATELET FRACTION (test code = IPF) 0.0 % 0.0-10.8 N MEAN PLATELET VOLUME (test code = MPV) 11.7 fl 9.1-12.7 N NEUTROPHIL % (test code = NT%) 91.5 % 56.5-79.4 H LYMPHOCYTE % (test code = LY%) 6.6 % 14.3-34.3 L MONOCYTE % (test code = MO%) 1.1 % 5.1-10.4 L EOSINOPHIL % (test code = EO%) 0.0 % 0.1-3.0 L BASOPHIL % (test code = BA%) 0.1 % 0.1-1.0 N NEUTROPHIL # (test code = NT#) 17.8 K/mm3 LYMPHOCYTE # (test code = LY#) 1.3 K/mm3 MONOCYTE # (test code = MO#) 0.2 K/mm3 EOSINOPHIL # (test code = EO#) 0 K/mm3 BASOPHIL # (test code = BA#) 0.0 K/mm3 RBC MORPHOLOGY REQUIRED (test code = RBCM) NORMAL PLATELET MORPHOLOGY REQUIRED (test code = PLTMR) MAHENDRA L [id number] 14:09:00* Test Item Value Reference Range Interpretation Comments GLUBED (test code = GLUBED) 72 mg/dL 65-110 N [id number] 11:18:00* Test Item Value Reference Range Interpretation Comments GLUCOSE (test code = GLU) 83 mg/dL 65-110 N CBC W/AUTO [id number] 11:13:00* Test Item Value Reference Range Interpretation Comments WHITE BLOOD CELL (test code = WBC) 9.3 K/mm3 6.6-12.1 N RED BLOOD CELL (test code = RBC) 3.88 M/mm3 3.45-5.01 N HEMOGLOBIN (test code = HGB) 10.0 g/dL 10.7-13.9 L HEMATOCRIT (test code = HCT) 30.4 % 32.1-42.1 L MEAN CELL VOLUME (test code = MCV) 78 fL 84.1-94.8 L MEAN CELL HGB (test code = MCH) 25.8 pg 27-35 L MEAN CELL HGB CONCETRATION (test code = MCHC) 32.9 gm/dL 32.2-34. 1 N RED CELL DISTRIBUTION WIDTH (test code = RDW) 22.4 % 12.4-16. 5 H PLATELET COUNT (test code = PLT) 196 K/mm3 133-385 N IMMATURE PLATELET FRACTION (test code = IPF) 0.0 % 0.0-10.8 N MEAN PLATELET VOLUME (test code = MPV) 11.2 fl 9.1-12.7 N NEUTROPHIL % (test code = NT%) 67.4 % 56.5-79.4 N LYMPHOCYTE % (test code = LY%) 22.6 % 14.3-34.3 N MONOCYTE % (test code = MO%) 6.4 % 5.1-10.4 N EOSINOPHIL % (test code = EO%) 2.9 % 0.1-3.0 N BASOPHIL % (test code = BA%) 0.3 % 0.1-1.0 N NEUTROPHIL # (test code = NT#) 6.3 K/mm3 LYMPHOCYTE # (test code = LY#) 2.1 K/mm3 MONOCYTE # (test code = MO#) 0.6 K/mm3 EOSINOPHIL # (test code = EO#) 0.27 K/mm3 BASOPHIL # (test code = BA#) 0.0 K/mm3 RBC MORPHOLOGY REQUIRED (test code = RBCM) ABNORMAL NORMAL ANISO=1+ PLATELET MORPHOLOGY REQUIRED (test code = PLTMR) NORMAL MAHENDRA L AG HEPATITIS B [id number] 13:50:00* Test Item Value Reference Range Interpretation Comments AG HEPATITIS B SURFACE (test code = HBSAG) NONREACTIVE NONREACTIVE : *IS CONSENT FORM SIGNED FOR HIV TESTING? B HEPATITIS C [id number] 13:50:00* Test Item Value Reference Range Interpretation Comments AB HEPATITIS C (test code = HCVAB) NONREACTIVE NONREACTIVE SIGNAL TO CUTOFF (test code = CUTOFF) 0.10 <0.80 N : *IS CONSENT FORM SIGNED FOR HIV TESTING? YAB [id number] 13:50:00* Test Item Value Reference Range Interpretation Comments AB TREPONEMA (test code = TREPAB) NONREACTIVE NONREACTIVE : *IS CONSENT FORM SIGNED FOR HIV TESTING? B HIV 1 13:50:00* Test Item Value Reference Range Interpretation Comments AB HIV 1 2 (test code = OYL70UP) NONREACTIVE NONREACTIVE Done by [employer] HIV Ag/Ab Combo Screen : *IS CONSENT FORM SIGNED FOR HIV TESTING? YAG HEPATITIS B [id number] 13:25:00* Test Item Value Reference Range Interpretation Comments AG HEPATITIS B SURFACE (test code = HBSAG) NONREACTIVE NONREACTIVE : *IS CONSENT FORM SIGNED FOR HIV TESTING? YAB HEPATITIS C [id number] 13:25:00* Test Item Value Reference Range Interpretation Comments AB HEPATITIS C (test code = HCVAB) NONREACTIVE SIGNAL TO CUTOFF (test code = CUTOFF) <0.80 : *IS CONSENT FORM SIGNED FOR HIV TESTING? YAB [id number] 13:25:00* Test Item Value Reference Range Interpretation Comments AB TREPONEMA (test code = TREPAB) NONREACTIVE NONREACTIVE : *IS CONSENT FORM SIGNED FOR HIV TESTING? YAB HIV 1 13:25:00* Test Item Value Reference Range Interpretation Comments AB HIV 1 2 (test code = ZOQ10AC) NONREACTIVE : *IS CONSENT FORM SIGNED FOR HIV TESTING? YCBC W/AUTO [id number] 12:31:00* Test Item Value Reference Range Interpretation Comments WHITE BLOOD CELL (test code = WBC) 9.1 K/mm3 6.6-12.1 N RED BLOOD CELL (test code = RBC) 3.95 M/mm3 3.45-5.01 N HEMOGLOBIN (test code = HGB) 10.3 g/dL 10.7-13.9 L HEMATOCRIT (test code = HCT) 31.4 % 32.1-42.1 L MEAN CELL VOLUME (test code = MCV) 80 fL 84.1-94.8 L MEAN CELL HGB (test code = MCH) 26.1 pg 27-35 L MEAN CELL HGB CONCETRATION (test code = MCHC) 32.8 gm/dL 32.2-34. 1 N RED CELL DISTRIBUTION WIDTH (test code = RDW) 22.5 % 12.4-16. 5 H PLATELET COUNT (test code = PLT) 218 K/mm3 133-385 N IMMATURE PLATELET FRACTION (test code = IPF) 8.9 % 0.0-10.8 N MEAN PLATELET VOLUME (test code = MPV) 11.3 fl 9.1-12.7 N NEUTROPHIL % (test code = NT%) 67.0 % 56.5-79.4 N LYMPHOCYTE % (test code = LY%) 25.4 % 14.3-34.3 N MONOCYTE % (test code = MO%) 4.0 % 5.1-10.4 L EOSINOPHIL % (test code = EO%) 3.0 % 0.1-3.0 N BASOPHIL % (test code = BA%) 0.2 % 0.1-1.0 N NEUTROPHIL # (test code = NT#) 6.1 K/mm3 LYMPHOCYTE # (test code = LY#) 2.3 K/mm3 MONOCYTE # (test code = MO#) 0.4 K/mm3 EOSINOPHIL # (test code = EO#) 0.27 K/mm3 BASOPHIL # (test code = BA#) 0.0 K/mm3 RBC MORPHOLOGY REQUIRED (test code = RBCM) ABNORMAL NORMAL ANISO=1+ PLATELET MORPHOLOGY REQUIRED (test code = PLTMR) NORMAL MAHENDRA L [id number] 08:42:00* Test Item Value Reference Range Interpretation Comments GLUBED (test code = GLUBED) 105 mg/dL 65-110 N AG HEPATITIS B [id number] 08:18:00* Test Item Value Reference Range Interpretation Comments AG HEPATITIS B SURFACE (test code = HBSAG) NONREACTIVE NONREACTIVE AB HEPATITIS C [id number] 08:18:00* Test Item Value Reference Range Interpretation Comments AB HEPATITIS C (test code = HCVAB) NONREACTIVE NONREACTIVE SIGNAL TO CUTOFF (test code = CUTOFF) 0.14 <0.80 N AB [id number] 08:18:00* Test Item Value Reference Range Interpretation Comments AB TREPONEMA (test code = TREPAB) NONREACTIVE NONREACTIVE AG HEPATITIS B [id number] 07:49:00* Test Item Value Reference Range Interpretation Comments AG HEPATITIS B SURFACE (test code = HBSAG) NONREACTIVE NONREACTIVE AB HEPATITIS C [id number] 07:49:00* Test Item Value Reference Range Interpretation Comments AB HEPATITIS C (test code = HCVAB) NONREACTIVE SIGNAL TO CUTOFF (test code = CUTOFF) <0.80 AB [id number] 07:49:00* Test Item Value Reference Range Interpretation Comments AB TREPONEMA (test code = TREPAB) NONREACTIVE NONREACTIVE [id number] 04:56:00* Test Item Value Reference Range Interpretation Comments GLUBED (test code = GLUBED) 113 mg/dL 65-110 H [id number] 02:07:00* Test Item Value Reference Range Interpretation Comments GLUBED (test code = GLUBED) 82 mg/dL 65-110 N [id number] 01:17:00* Test Item Value Reference Range Interpretation Comments GLUCOSE (test code = GLU) 83 mg/dL 65-110 N CBC W/AUTO [id number] 00:45:00* Test Item Value Reference Range Interpretation Comments WHITE BLOOD CELL (test code = WBC) 13.5 K/mm3 6.6-12.1 H RED BLOOD CELL (test code = RBC) 4.07 M/mm3 3.45-5.01 N HEMOGLOBIN (test code = HGB) 10.3 g/dL 10.7-13.9 L HEMATOCRIT (test code = HCT) 31.5 % 32.1-42.1 L Results verified by repeat analysisResults verified by repeat analysis MEAN CELL VOLUME (test code = MCV) 77 fL 84.1-94.8 L MEAN CELL HGB (test code = MCH) 25.3 pg 27-35 L MEAN CELL HGB CONCETRATION (test code = MCHC) 32.7 gm/dL 32.2-34. 1 N RED CELL DISTRIBUTION WIDTH (test code = RDW) 21.7 % 12.4-16. 5 H PLATELET COUNT (test code = PLT) 252 K/mm3 133-385 N IMMATURE PLATELET FRACTION (test code = IPF) 6.9 % 0.0-10.8 N MEAN PLATELET VOLUME (test code = MPV) 11.1 fl 9.1-12.7 N NEUTROPHIL % (test code = NT%) 74.9 % 56.5-79.4 N LYMPHOCYTE % (test code = LY%) 15.1 % 14.3-34.3 N MONOCYTE % (test code = MO%) 6.9 % 5.1-10.4 N EOSINOPHIL % (test code = EO%) 1.8 % 0.1-3.0 N BASOPHIL % (test code = BA%) 0.1 % 0.1-1.0 N NEUTROPHIL # (test code = NT#) 10.2 K/mm3 LYMPHOCYTE # (test code = LY#) 2.0 K/mm3 MONOCYTE # (test code = MO#) 0.9 K/mm3 EOSINOPHIL # (test code = EO#) 0.24 K/mm3 BASOPHIL # (test code = BA#) 0.0 K/mm3 RBC MORPHOLOGY REQUIRED (test code = RBCM) NORMAL NORMAL 1+ ANISOCYTOSIS PLATELET MORPHOLOGY REQUIRED (test code = PLTMR) NORMAL MAHENDRA L CBC W/AUTO [id number] 23:44:00* Test Item Value Reference Range Interpretation Comments WHITE BLOOD CELL (test code = WBC) 13.5 K/mm3 6.6-12.1 H RED BLOOD CELL (test code = RBC) 4.07 M/mm3 3.45-5.01 N HEMOGLOBIN (test code = HGB) 10.3 g/dL 10.7-13.9 L HEMATOCRIT (test code = HCT) 31.5 % 32.1-42.1 L Results verified by repeat analysisResults verified by repeat analysis MEAN CELL VOLUME (test code = MCV) 77 fL 84.1-94.8 L MEAN CELL HGB (test code = MCH) 25.3 pg 27-35 L MEAN CELL HGB CONCETRATION (test code = MCHC) 32.7 gm/dL 32.2-34. 1 N RED CELL DISTRIBUTION WIDTH (test code = RDW) 21.7 % 12.4-16. 5 H PLATELET COUNT (test code = PLT) 252 K/mm3 133-385 N IMMATURE PLATELET FRACTION (test code = IPF) 6.9 % 0.0-10.8 N MEAN PLATELET VOLUME (test code = MPV) 11.1 fl 9.1-12.7 N NEUTROPHIL % (test code = NT%) 74.9 % 56.5-79.4 N LYMPHOCYTE % (test code = LY%) 15.1 % 14.3-34.3 N MONOCYTE % (test code = MO%) 6.9 % 5.1-10.4 N EOSINOPHIL % (test code = EO%) 1.8 % 0.1-3.0 N BASOPHIL % (test code = BA%) 0.1 % 0.1-1.0 N NEUTROPHIL # (test code = NT#) 10.2 K/mm3 LYMPHOCYTE # (test code = LY#) 2.0 K/mm3 MONOCYTE # (test code = MO#) 0.9 K/mm3 EOSINOPHIL # (test code = EO#) 0.24 K/mm3 BASOPHIL # (test code = BA#) 0.0 K/mm3 RBC MORPHOLOGY REQUIRED (test code = RBCM) NORMAL PLATELET MORPHOLOGY REQUIRED (test code = PLTMR) MAHENDRA L [id number] 14:59:00* Test Item Value Reference Range Interpretation Comments GLUBED (test code = GLUBED) 93 mg/dL 65-110 N [id number] 10:59:00* Test Item Value Reference Range Interpretation Comments GLUBED (test code = GLUBED) 95 mg/dL 65-110 N [id number] 09:04:00* Test Item Value Reference Range Interpretation Comments SGOT/AST (test code = AST) 21 units/L 15-37 N [id number] 09:04:00* Test Item Value Reference Range Interpretation Comments SGPT/ALT (test code = ALT) 16 units/L 12-78 N CBC W/AUTO [id number] 08:41:00* Test Item Value Reference Range Interpretation Comments WHITE BLOOD CELL (test code = WBC) 16.0 K/mm3 6.6-12.1 H RED BLOOD CELL (test code = RBC) 3.33 M/mm3 3.45-5.01 L HEMOGLOBIN (test code = HGB) 8.4 g/dL 10.7-13.9 L HEMATOCRIT (test code = HCT) 25.2 % 32.1-42.1 L MEAN CELL VOLUME (test code = MCV) 76 fL 84.1-94.8 L MEAN CELL HGB (test code = MCH) 25.2 pg 27-35 L MEAN CELL HGB CONCETRATION (test code = MCHC) 33.3 gm/dL 32.2-34. 1 N RED CELL DISTRIBUTION WIDTH (test code = RDW) 20.3 % 12.4-16. 5 H PLATELET COUNT (test code = PLT) 230 K/mm3 133-385 N IMMATURE PLATELET FRACTION (test code = IPF) 0.0 % 0.0-10.8 N MEAN PLATELET VOLUME (test code = MPV) 11.3 fl 9.1-12.7 N NEUTROPHIL % (test code = NT%) 77.5 % 56.5-79.4 N LYMPHOCYTE % (test code = LY%) 12.5 % 14.3-34.3 L MONOCYTE % (test code = MO%) 7.8 % 5.1-10.4 N EOSINOPHIL % (test code = EO%) 0.1 % 0.1-3.0 N BASOPHIL % (test code = BA%) 0.1 % 0.1-1.0 N NEUTROPHIL # (test code = NT#) 12.4 K/mm3 LYMPHOCYTE # (test code = LY#) 2.0 K/mm3 MONOCYTE # (test code = MO#) 1.2 K/mm3 EOSINOPHIL # (test code = EO#) 0.01 K/mm3 BASOPHIL # (test code = BA#) 0.0 K/mm3 RBC MORPHOLOGY REQUIRED (test code = RBCM) ABNORMAL NORMAL ANISO=1+ PLATELET MORPHOLOGY REQUIRED (test code = PLTMR) NORMAL MAHENDRA L [id number] 05:48:00* Test Item Value Reference Range Interpretation Comments GLUBED (test code = GLUBED) 114 mg/dL 65-110 H [id number] 00:23:00* Test Item Value Reference Range Interpretation Comments GLUBED (test code = GLUBED) 113 mg/dL 65-110 H [id number] 18:13:00* Test Item Value Reference Range Interpretation Comments GLUBED (test code = GLUBED) 97 mg/dL 65-110 N - US PREG UT [id number] 17:46:00 Patient Name: SARA ESPANAQUELINE Unit No: [id number] EXAMS: CPT CODE: [id number] US PREG UT TRANSVAGINAL [address] [facility] [address] [address] BIOPHYSICAL PROFILE ULTRASOUND REPORT Pat. Name: MALORIELUIS CARLOS. No: [id number] Study Date: 07/23/2019 5:02pm , Age: 11, 33 Pregnancies: 6, Para 2 LMP: 11/21/2018 GA by LM P: 34w6d GA by 1st: 34w6d GA Selected: 34w6d (From First S) FINA: 08/28/2019 Referring MD: Nayeli Mijares Sales And Production Manager: Annmarie Stevenson RDMS CPT4: USPRUTTRVG Hist/Ind: SCAN 2 NON-REACTIVE NST Cervical Length: 3.7 cm Heart Rate: 140 bpm Amniotic Fluid Index: 17.8cm (07.9- 24.9) Q1: 7.6cm Q2: 4.9cm Q3: 3.1cm Q4: 2.3cm Biophysical Profile: 05/20 Breathin Tone: 2 Movement: 2 AFV: 2 CLINICAL SUMMARY Type of Gesta tion: Roach Intrauterine in vertex presentation. motio n and organs seen: heart motion seen body and limb movem ents observed tone noted breathing movements observed Placental location: Anterior Placental maturity : Grade 2 - 3 There is no evidence of placenta previa. Amniotic fluid volume is normal. Uterus and adnexa: No significant abnormality is seen. Biophysical Profile Movement score is 2. Breathing score is 2. Tone score is 2. Amniotic Fluid score is 2. Total Scores 8/8. Thank you for allowing us to participate in the care of this patient. Breanne Apple M.D. Electronic Signature 05:46pm [facility] NAME: PUNEET ESPANA Radiology Department PHYS: Jose Yuan MD [address] : 1985 AGE: 33 SEX: [place] [address] LOC: Aravind8 A PHONE #: [phone] EXAM DATE: 07/23/2019 STATUS: DIS IN FAX #: [phone] RAD NO: [id number] Page 1 Signed Report (CONTINUED) Patient Name: EDWARD ESPANA Unit No: [id number] EXAMS: CPT CODE: [id number] US PREG UT TRANSVAGINAL 85425 <Continued> at 1746 Reported and signed by: Breanne Apple MD CC: Nayeli Mijares MD Technologist: Annmarie Stevenson, [facility] Probe: [id number] Trnscrbd D/ (4876) t.SDR.WSC Orig Print D/T: S: 07/26/2019 (1401) [facility] NAME: MALORIEEDWARD Radiology Department PHYS: Nayeli Yuan MD [address] : 1985 AGE: 33 SEX: [place] [address] LOC: Aravind8 A PHONE #: [phone] EXAM DATE: 07/23/2019 STATUS: DIS IN FAX #: [phone] RAD NO: [id number] Page 2 Signed Report Patient Name: EDWARD ESPANA Unit No: [id number] EXAMS: CPT CODE: [id number] US PREG UT TRANSVAGINAL 32927 <Continued> [facility] NAME: MALORIEEDWARD Radiology Department PHYS: Nayeli Yuan MD [address] : 1985 AGE: 33 SEX: [place] [address] LOC: Golden.3028 A PHONE #: [phone] EXAM DATE: 07/23/2019 STATUS: DIS IN FAX #: [phone] RAD NO: [id number] Page 3 Signed Report - US FET BIO PH NV W/O [id number] 17:46:00 Patient Name: EDWARD ESPANA Unit No: [id number] EXAMS: CPT CODE: [id number] US FET BIO PH NV W/O NST [address]69[address] [facility] [address], [place] [address] BIOPHYSICAL PROFILE ULTRASOUND REPORT Pat. Name: LUIS CARLOS ESPANA Pat. No: [id number] Study Date: 07/23/2019 5:02pm , Age: 11, 33 Pregnancies: 6, Para 2 LMP: 11/21/2018 GA by LM P: 34w6d GA by 1st: 34w6d GA Selected: 34w6d (From First S) FINA: 08/28/2019 Referring MD: Nayeli Mijares MD Sales And Production Manager: Kwaku Reyes CPT4: [id number] Hist/Ind: SCAN 2 NON-REACTIVE NST Cer vical Length: 3.7 cm Heart Rate: 140 bpm Amniotic Fluid Index: 17.8cm ( 07.9-24.9) Q1: 7.6cm Q2: 4.9cm Q3: 3.1cm Q4: 2.3cm Biophysical Profile: Breathin Tone: 2 Movement: 2 AFV: 2 CLINICAL SUMMARY Type of Ge station: [place] Intrauterine in vertex presentation. mo tion and organs seen: heart motion seen body and limb mo vements observed tone noted breathing movements observed Placental location: Anterior Placental maturity : Grade 2 - 3 Th ere is no evidence of placenta previa. Amniotic fluid volume is normal. Ut erus and adnexa: No significant abnormality is seen. Biophysical Profil e Movement score is 2. Breathing score is 2. Tone score is 2. Amniotic Fluid score is 2. Total Scores 8/8. Thank you for allowing us to participate in the care of this patient . Breanne Apple M.D. Electronic Signature 07/23/2019 05:46pm [facility] NAME: Shane ESPANA Radiology Department PHYS: Nayeli Yuan MD [address] : 1985 AGE: 33 SEX: F [place] [address] LOC: Larry3028 A PHONE #: [phone] EXAM DATE: 07/23/2019 STATUS: ADM IN FAX #: [phone] RAD NO: [id number] Page 1 Signed Report (CONTINUED) Patient Name: EDWARD ESPANA Unit No: [id number] EXAMS: CPT CODE: [id number] US FET BIO PH NV W/O NST 59527 <Continued> at 1746 Reported and signed by: Breanne Apple MD CC: Nayeli Mijares MD Technologist: Annmarie Stevenson RDMS Probe: Trnscrbd D/ (1745) t.KARYN Orig Print D/T: S: 07/23/2019 (1745) [facility] NAME: EDWARD ESPANA Radiology Department PHYS: Nayeli Yuan MD [address] : 1985 AGE: 33 SEX: [place], [place] [address] LOC: Larry3028 A PHONE #: [phone] EXAM DATE: 07/23/2019 STATUS: ADM IN FAX #: [phone] RAD NO: [id number] Page 2 Signed Report Patient Name: EDWARD ESPANA Unit No: [id number] EXAMS: CPT CODE: [id number] US FET BIO PH NV W/O NST 96266 <Continued> [facility] NAME: EDWARD ESPANA Radiology Department PHYS: Nayeli Yuan MD [address] : 1985 AGE: 33 SEX: F [place], [place] [address] LOC: F.3028 A PHONE #: [phone] EXAM DATE: 07/23/2019 STATUS: ADM IN FAX #: [phone] RAD NO: [id number] Page 3 Signed Report CBC W/AUTO [id number] 10:17:00* Test Item Value Reference Range Interpretation Comments WHITE BLOOD CELL (test code = WBC) 16.6 K/mm3 6.6-12.1 H RED BLOOD CELL (test code = RBC) 3.11 M/mm3 3.45-5.01 L HEMOGLOBIN (test code = HGB) 7.9 g/dL 10.7-13.9 L HEMATOCRIT (test code = HCT) 23.5 % 32.1-42.1 L MEAN CELL VOLUME (test code = MCV) 76 fL 84.1-94.8 L MEAN CELL HGB (test code = MCH) 25.4 pg 27-35 L MEAN CELL HGB CONCETRATION (test code = MCHC) 33.6 gm/dL 32.2-34. 1 N RED CELL DISTRIBUTION WIDTH (test code = RDW) 19.6 % 12.4-16. 5 H PLATELET COUNT (test code = PLT) 219 K/mm3 133-385 N IMMATURE PLATELET FRACTION (test code = IPF) 0.0 % 0.0-10.8 N MEAN PLATELET VOLUME (test code = MPV) 11.9 fl 9.1-12.7 N NEUTROPHIL % (test code = NT%) 84.5 % 56.5-79.4 H LYMPHOCYTE % (test code = LY%) 8.3 % 14.3-34.3 L MONOCYTE % (test code = MO%) 4.6 % 5.1-10.4 L EOSINOPHIL % (test code = EO%) 0.0 % 0.1-3.0 L BASOPHIL % (test code = BA%) 0.1 % 0.1-1.0 N NEUTROPHIL # (test code = NT#) 14.0 K/mm3 LYMPHOCYTE # (test code = LY#) 1.4 K/mm3 MONOCYTE # (test code = MO#) 0.8 K/mm3 EOSINOPHIL # (test code = EO#) 0 K/mm3 BASOPHIL # (test code = BA#) 0.0 K/mm3 RBC MORPHOLOGY REQUIRED (test code = RBCM) NORMAL NORMAL PLATELET MORPHOLOGY REQUIRED (test code = PLTMR) NORMAL MAHENDRA L [id number] 09:58:00* Test Item Value Reference Range Interpretation Comments GLUBED (test code = GLUBED) 133 mg/dL 65-110 H [id number] 06:35:00* Test Item Value Reference Range Interpretation Comments GLUBED (test code = GLUBED) 111 mg/dL 65-110 H [id number] 22:42:00* Test Item Value Reference Range Interpretation Comments GLUBED (test code = GLUBED) 117 mg/dL 65-110 H CBC W/AUTO [id number] 14:27:00* Test Item Value Reference Range Interpretation Comments WHITE BLOOD CELL (test code = WBC) 18.7 K/mm3 6.6-12.1 H RED BLOOD CELL (test code = RBC) 2.75 M/mm3 3.45-5.01 L HEMOGLOBIN (test code = HGB) 6.6 g/dL 10.7-13.9 LL RESULTS CALLED TO sumit.READ BACK & CONFIRMED? y.BY FRadhaLAB.[facility] 07/22/19 3257. HEMATOCRIT (test code = HCT) 20.0 % 32.1-42.1 L MEAN CELL VOLUME (test code = MCV) 73 fL 84.1-94.8 L MEAN CELL HGB (test code = MCH) 24.0 pg 27-35 L MEAN CELL HGB CONCETRATION (test code = MCHC) 33.0 gm/dL 32.2-34. 1 N RED CELL DISTRIBUTION WIDTH (test code = RDW) 19.5 % 12.4-16. 5 H PLATELET COUNT (test code = PLT) 214 K/mm3 133-385 N IMMATURE PLATELET FRACTION (test code = IPF) 0.0 % 0.0-10.8 N MEAN PLATELET VOLUME (test code = MPV) 10.6 fl 9.1-12.7 N NEUTROPHIL % (test code = NT%) 85.7 % 56.5-79.4 H LYMPHOCYTE % (test code = LY%) 7.8 % 14.3-34.3 L MONOCYTE % (test code = MO%) 4.2 % 5.1-10.4 L EOSINOPHIL % (test code = EO%) 0.0 % 0.1-3.0 L BASOPHIL % (test code = BA%) 0.1 % 0.1-1.0 N NEUTROPHIL # (test code = NT#) 16.0 K/mm3 LYMPHOCYTE # (test code = LY#) 1.5 K/mm3 MONOCYTE # (test code = MO#) 0.8 K/mm3 EOSINOPHIL # (test code = EO#) 0 K/mm3 BASOPHIL # (test code = BA#) 0.0 K/mm3 RBC MORPHOLOGY REQUIRED (test code = RBCM) NORMAL NORMAL PLATELET MORPHOLOGY REQUIRED (test code = PLTMR) NORMAL MAHENDRA L [id number] 13:03:00* Test Item Value Reference Range Interpretation Comments GLUBED (test code = GLUBED) 140 mg/dL 65-110 H CBC W/AUTO [id number] 07:20:00* Test Item Value Reference Range Interpretation Comments WHITE BLOOD CELL (test code = WBC) 19.7 K/mm3 6.6-12.1 H Results verified by repeat analysis RED BLOOD CELL (test code = RBC) 2.68 M/mm3 3.45-5.01 L HEMOGLOBIN (test code = HGB) 6.6 g/dL 10.7-13.9 LL RESULTS CALLED TO NANDO MCCRAYREAD BACK & CONFIRMED? YES.BY F.LAB. 07/22/197[address].Results verified by repeat analysis HEMATOCRIT (test code = HCT) 19.4 % 32.1-42.1 LL RESULTS CALLED TO .READ BACK & CONFIRMED? .BY F.LAB. 07/22/197[address].Results verified by repeat analysis MEAN CELL VOLUME (test code = MCV) 72 fL 84.1-94.8 L MEAN CELL HGB (test code = MCH) 24.6 pg 27-35 L MEAN CELL HGB CONCETRATION (test code = MCHC) 34.0 gm/dL 32.2-34. 1 N RED CELL DISTRIBUTION WIDTH (test code = RDW) 19.7 % 12.4-16. 5 H PLATELET COUNT (test code = PLT) 218 K/mm3 133-385 N IMMATURE PLATELET FRACTION (test code = IPF) 6.9 % 0.0-10.8 N MEAN PLATELET VOLUME (test code = MPV) 11.8 fl 9.1-12.7 N NEUTROPHIL % (test code = NT%) 87.9 % 56.5-79.4 H LYMPHOCYTE % (test code = LY%) 6.1 % 14.3-34.3 L MONOCYTE % (test code = MO%) 3.9 % 5.1-10.4 L EOSINOPHIL % (test code = EO%) 0.0 % 0.1-3.0 L BASOPHIL % (test code = BA%) 0.1 % 0.1-1.0 N NEUTROPHIL # (test code = NT#) 17.3 K/mm3 LYMPHOCYTE # (test code = LY#) 1.2 K/mm3 MONOCYTE # (test code = MO#) 0.8 K/mm3 EOSINOPHIL # (test code = EO#) 0 K/mm3 BASOPHIL # (test code = BA#) 0.0 K/mm3 RBC MORPHOLOGY REQUIRED (test code = RBCM) NORMAL NORMAL PLATELET MORPHOLOGY REQUIRED (test code = PLTMR) NORMAL MAHENDRA L PATIENT HARD STICK PER RN [id number] 06:58:00* Test Item Value Reference Range Interpretation Comments GLUBED (test code = GLUBED) 130 mg/dL 65-110 H [id number] 20:55:00* Test Item Value Reference Range Interpretation Comments GLUBED (test code = GLUBED) 125 mg/dL 65-110 H [id number] 10:28:00* Test Item Value Reference Range Interpretation Comments GLUBED (test code = GLUBED) 164 mg/dL 65-110 H [id number] 06:18:00* Test Item Value Reference Range Interpretation Comments GLUBED (test code = GLUBED) 129 mg/dL 65-110 H [id number] 22:03:00* Test Item Value Reference Range Interpretation Comments GLUBED (test code = GLUBED) 145 mg/dL 65-110 H [id number] 13:47:00* Test Item Value Reference Range Interpretation Comments GLUBED (test code = GLUBED) 146 mg/dL 65-110 H [id number] 12:27:00* Test Item Value Reference Range Interpretation Comments GLUBED (test code = GLUBED) 158 mg/dL 65-110 H [id number] 08:05:00* Test Item Value Reference Range Interpretation Comments GLUBED (test code = GLUBED) 167 mg/dL 65-110 H PROCALCITONIN (PCT)2019-07-20 04:12:00* Test Item Value Reference Range Interpretation Comments PROCALCITONIN (PCT) (test code = PROCAL) <0.05 ng/mL 0.00-0.05 N PROCALCITONIN (PCT) NORMAL RANGE (ADULT):<0.05 NG/ML.RISK ASSESSMENT:PCT < 0.5 ng/mL represents a low risk of severe sepsis and/or septic shock.PCT > 2 ng/mL represents a high risk of severe sepsisand/or septic shock.CAUTION: Concentrations < 0.5 ng/mL do not exclude an infection.Use PCT results in conjunction with the patient's otherfindings. INFLUENZA A B [id number] 04:08:00* Test Item Value Reference Range Interpretation Comments INFLUENZA A PCR (test code = FLUAPCR) NEGATIVE NEGATIVE INFLUENZA B PCR (test code = FLUBPCR) NEGATIVE NEGATIVE COMPREHENSIVE METABOLIC [id number] 03:57:00* Test Item Value Reference Range Interpretation Comments SODIUM (test code = NA) 137 mEq/L 135-145 N POTASSIUM (test code = K) 3.2 mEq/L 3.5-5.0 L CHLORIDE (test code = CL) 104 mEq/L 100-115 N CARBON DIOXIDE (test code = CO2) 24 mEq/L 22-31 N ANION GAP (test code = GAP) 12.10 10-20 N GLUCOSE (test code = GLU) 121 mg/dL 65-110 H BLOOD UREA NITROGEN (test code = BUN) 8 mg/dL 7-18 N GLOMERULAR FILTRATION RATE (test code = GFR) 158 ml/min >60 N CREATININE (test code = CREAT) 0.5 mg/dL 0.5-1.0 N TOTAL PROTEIN (test code = PROT) 6.7 gm/dL 6.3-8.2 N ALBUMIN (test code = ALB) 2.6 gm/dL 3.4-4.8 L CALCIUM (test code = CA) 8.2 mg/dL 8.4-10.2 L BILIRUBIN TOTAL (test code = BILT) 0.2 mg/dL 0.2-1.0 N SGOT/AST (test code = AST) 18 units/L 15-37 N SGPT/ALT (test code = ALT) 9 units/L 12-78 L ALKALINE PHOSPHATASE TOTAL (test code = ALKP) 167 units/L 46-116 H - XR CHEST 2 [id number] 03:51:00 Patient Name: EDWARD ESPANA Unit No: [id number] EXAMS: CPT CODE: [id number] XR CHEST 2 V 95680 EXAM: CR, XR chest 2 views: 07/20/2019, 0333 hours HISTORY: shortness of breath TECHNIQUE: Frontal and lateral chest radiographs are submitted COMPARISON: 05/19/2019. FINDINGS: Trachea is in midline. Heart is normal in size. Pulmonary vascularity is not congested. No airspace consolidation, pneumothorax or pleural effusion is seen. Osseous structures are unremarkable. IMPRESSION: No acute cardiopulmonary disease seen. SL:[JSYED-H] at 0351 Reported and signed by: Ambrocio Huston M.D. CC: Nayeli Mijares MD; Prosper Richard MD Technologist: RT Jaleesa Trnscrbd D/ (0351) [email or web address] Orig Print D/T: S: 07/20/2019 (0354) [facility] NAME: MALORIEEDWARD Radiology Department PHYS: Prosper Marie MD [address] : 1985 AGE: 33 SEX: F [place], [place] [address] LOC: LarryERS PHONE #: [phone] EXAM DATE: 07/20/2019 STATUS: REG ER FAX #: [phone] RAD NO: [id number] Page 1 Signed Report CBC W/AUTO [id number] 03:11:00* Test Item Value Reference Range Interpretation Comments WHITE BLOOD CELL (test code = WBC) 13.6 K/mm3 6.6-12.1 H RED BLOOD CELL (test code = RBC) 3.24 M/mm3 3.45-5.01 L HEMOGLOBIN (test code = HGB) 7.9 g/dL 10.7-13.9 L HEMATOCRIT (test code = HCT) 24.0 % 32.1-42.1 L MEAN CELL VOLUME (test code = MCV) 74 fL 84.1-94.8 L MEAN CELL HGB (test code = MCH) 24.4 pg 27-35 L MEAN CELL HGB CONCETRATION (test code = MCHC) 32.9 gm/dL 32.2-34. 1 N RED CELL DISTRIBUTION WIDTH (test code = RDW) 19.5 % 12.4-16. 5 H PLATELET COUNT (test code = PLT) 231 K/mm3 133-385 N IMMATURE PLATELET FRACTION (test code = IPF) 0.0 % 0.0-10.8 N NEUTROPHIL % (test code = NT%) 73.7 % 56.5-79.4 N LYMPHOCYTE % (test code = LY%) 13.3 % 14.3-34.3 L MONOCYTE % (test code = MO%) 9.0 % 5.1-10.4 N EOSINOPHIL % (test code = EO%) 3.2 % 0.1-3.0 H BASOPHIL % (test code = BA%) 0.4 % 0.1-1.0 N NEUTROPHIL # (test code = NT#) 10.0 K/mm3 LYMPHOCYTE # (test code = LY#) 1.8 K/mm3 MONOCYTE # (test code = MO#) 1.2 K/mm3 EOSINOPHIL # (test code = EO#) 0.43 K/mm3 BASOPHIL # (test code = BA#) 0.1 K/mm3 MANUAL DIFF REQUIRED (test code = MDIFF) NO RBC MORPHOLOGY REQUIRED (test code = RBCM) NORMAL NORMAL PLATELET MORPHOLOGY REQUIRED (test code = PLTMR) NORMAL MAHENDRA L DRUGS OF ABUSE [id number] 00:11:00* Test Item Value Reference Range Interpretation Comments UR COCAINE (test code = COCAU) NEGATIVE NEGATIVE DETECTION CUT OFF: 150 ng/mL UR CANNABINOIDS (test code = CANU) NEGATIVE NEGATIVE DETECTION CUT OFF: 50 ng/mL UR AMPHETAMINE (test code = AMPHU) NEGATIVE NEGATIVE DETECTION CUT OFF: 500 ng/mL UR BARBITURATE QUAL (test code = BARBQLU) NEGATIVE NEGATIVE DETECTION CUT OFF: 200 ng/mL UR BENZODIAZEPINE (test code = BENZU) NEGATIVE NEGATIVE DETECTION CUT OFF: 150 ng/mL UR OPIATES QUAL (test code = OPIAQLU) NEGATIVE NEGATIVE DETECTION CUT OFF: 100 ng/mL UR PHENCYCLIDINE (PCP) (test code = PHENCU) NEGATIVE NEGATIVE DETECTION CUT OFF: 25 ng/mL UA RFLX MICR CULT IF [id number] 23:30:00* Test Item Value Reference Range Interpretation Comments UA COLOR (test code = COLU) YELLOW YELLOW UA APPEARANCE (test code = APPU) CLEAR CLEAR UA GLUCOSE DIPSTICK (test code = DGLUU) NEGATIVE NEGATIVE UA BILIRUBIN DIPSTICK (test code = BILU) NEGATIVE NEGATIVE UA KETONE DIPSTICK (test code = KETU) NEGATIVE NEGATIVE UA SPECIFIC GRAVITY (test code = SGU) 1.020 1.001-1.035 N UA BLOOD DIPSTICK (test code = CALEB) NEG NEGATIVE UA PH DIPSTICK (test code = VARGAS) 6.5 5-9 UA PROTEIN DIPSTICK (test code = PROU) 1+ NEGATIVE UA UROBILINIOGEN DIPSTICK (test code = URO) 0.2 EU/dL <=1.0 UA NITRITE DIPSTICK (test code = MARBIN) NEGATIVE NEGATIVE UA LEUKOCYTE ESTERASE DIPSTICK (test code = LEUU) NEG NEGA TIVE UA WBC (test code = WBCU) 0-2 #/hpf NONE SEEN UA RBC (test code = RBCU) 0-2 #/hpf NONE SEEN UA EPITHELIAL CELLS (test code = EPIU) MODERATE #/hpf NONE SEEN A UA BACTERIA (test code = BACU) MODERATE #/hpf NONE SEEN A UA MUCUS (test code = MUCU) 1+ NONE SEEN Indication for culture: Dysuria/FrequencyCHEMISTRY 7 [id number] 22:34:00* Test Item Value Reference Range Interpretation Comments SODIUM (test code = NA) 138 mEq/L 135-145 N POTASSIUM (test code = K) 3.3 mEq/L 3.5-5.0 L CHLORIDE (test code = CL) 106 mEq/L 100-115 N CARBON DIOXIDE (test code = CO2) 26 mEq/L 22-31 N ANION GAP (test code = GAP) 8.90 10-20 L GLUCOSE (test code = GLU) 92 mg/dL 65-110 N BLOOD UREA NITROGEN (test code = BUN) 8 mg/dL 7-18 N GLOMERULAR FILTRATION RATE (test code = GFR) 205 ml/min >60 N CREATININE (test code = CREAT) 0.4 mg/dL 0.5-1.0 L CALCIUM (test code = CA) 8.4 mg/dL 8.4-10.2 N CBC W/AUTO [id number] 21:58:00* Test Item Value Reference Range Interpretation Comments WHITE BLOOD CELL (test code = WBC) 11.3 K/mm3 6.6-12.1 N RED BLOOD CELL (test code = RBC) 3.44 M/mm3 3.45-5.01 L HEMOGLOBIN (test code = HGB) 8.7 g/dL 10.7-13.9 L HEMATOCRIT (test code = HCT) 26.1 % 32.1-42.1 L MEAN CELL VOLUME (test code = MCV) 76 fL 84.1-94.8 L MEAN CELL HGB (test code = MCH) 25.3 pg 27-35 L MEAN CELL HGB CONCETRATION (test code = MCHC) 33.3 gm/dL 32.2-34. 1 N RED CELL DISTRIBUTION WIDTH (test code = RDW) 19.2 % 12.4-16. 5 H PLATELET COUNT (test code = PLT) 269 K/mm3 133-385 N IMMATURE PLATELET FRACTION (test code = IPF) 0.0 % 0.0-10.8 N MEAN PLATELET VOLUME (test code = MPV) 11.7 fl 9.1-12.7 N NEUTROPHIL % (test code = NT%) 68.0 % 56.5-79.4 N LYMPHOCYTE % (test code = LY%) 16.8 % 14.3-34.3 N MONOCYTE % (test code = MO%) 6.4 % 5.1-10.4 N EOSINOPHIL % (test code = EO%) 8.0 % 0.1-3.0 H BASOPHIL % (test code = BA%) 0.4 % 0.1-1.0 N NEUTROPHIL # (test code = NT#) 7.7 K/mm3 LYMPHOCYTE # (test code = LY#) 1.9 K/mm3 MONOCYTE # (test code = MO#) 0.7 K/mm3 EOSINOPHIL # (test code = EO#) 0.91 K/mm3 BASOPHIL # (test code = BA#) 0.1 K/mm3 RBC MORPHOLOGY REQUIRED (test code = RBCM) NORMAL NORMAL PLATELET MORPHOLOGY REQUIRED (test code = PLTMR) NORMAL MAHENDRA L BILE ACIDS [id number] 08:43:00* Test Item Value Reference Range Interpretation Comments BILE ACIDS TOTAL (test code = BILEACT) 5.0 umol/L 0.0-10.0 Please note reference interval changePerformed At: [facility] [id number] Sanjai MD Ph:[phone] - NM PULM PERF [id number] 20:51:00 Patient Name: BJ ESPANALINE Unit No: [id number] EXAMS: CPT CODE: [id number] NM PULM PERF PARTIC 15078 Pulmonary ventilation and perfusion scan. Indication: 25 weeks with acute chest pains. Comparison: Today's chest radiograph. Technique: No inhalation images obtained due to state. Following the intravenous administration of 3.7 mCi of Tc-99m MAA via the left arm IV, multiprojectional scintiphotos of the lungs were obtained. Findings: Perfusion study shows a small perfusion defect in the posterior left upper lung and possibly posterior right lower lung. No segmental perfusion defects are seen otherwise. Impression: Low probability for acute pulmonary embolus. SL: SG-H at 2050 Reported and signed by: Steven White MD CC: Kathy Caicedo MD; Nayeli Mijares MD Technologist: Azam Day Trnscrbd D/ (2050) [id number] Orig Print D/T: S: 05/19/2019 (2053) [facility] NAME: EDWARD ESPANA Radiology Department PHYS: CANAL.Glen - Kathy Caicedo MD [address] : 1985 AGE: 33 SEX: F [place], [place] [address] [facility] [id number] LOC: ROSA PHONE #: [phone] EXAM DATE: 05/19/2019 STATUS: GI ER FAX #: [phone] [facility] NO: [id number] Page 1 Signed Report B-TYPE NATRIURETIC [id number] 18:26:00* Test Item Value Reference Range Interpretation Comments B-TYPE NATRIURETIC PEPTIDE (test code = BNP) 1.73 pg/mL 0-100 N CHEMISTRY 7 [id number] 18:02:00* Test Item Value Reference Range Interpretation Comments SODIUM (test code = NA) 136 mEq/L 135-145 N POTASSIUM (test code = K) 3.7 mEq/L 3.5-5.0 N CHLORIDE (test code = CL) 102 mEq/L 100-115 N CARBON DIOXIDE (test code = CO2) 24 mEq/L 22-31 N ANION GAP (test code = GAP) 14.10 10-20 N GLUCOSE (test code = GLU) 76 mg/dL 65-110 N BLOOD UREA NITROGEN (test code = BUN) 10 mg/dL 7-18 N GLOMERULAR FILTRATION RATE (test code = GFR) 205 ml/min >60 N CREATININE (test code = CREAT) 0.4 mg/dL 0.5-1.0 L CALCIUM (test code = CA) 9.1 mg/dL 8.4-10.2 N CREATINE KINASE (CK)2019-05-19 18:02:00* Test Item Value Reference Range Interpretation Comments CREATINE KINASE (CK) (test code = CK) 38 Units/L 26-192 N [id number] 18:02:00* Test Item Value Reference Range Interpretation Comments TROPONIN-I (test code = TROPI) <0.017 ng/mL <0.056 N D-DIMER [id number] 17:58:00* Test Item Value Reference Range Interpretation Comments D-DIMER QUANT (test code = DDIMER) 604 ng/mLDDU <255 H Reference Range in : <570 ng/mlA positive test does not provide a definitive diagnosis ofDVT and indicates the need for follow up clinical studies. The predictive value of a negative test is 98% for rulingout DVT. CBC W/AUTO [id number] 17:43:00* Test Item Value Reference Range Interpretation Comments WHITE BLOOD CELL (test code = WBC) 13.1 K/mm3 6.6-12.1 H RED BLOOD CELL (test code = RBC) 3.51 M/mm3 3.45-5.01 N HEMOGLOBIN (test code = HGB) 8.8 g/dL 10.7-13.9 L HEMATOCRIT (test code = HCT) 26.7 % 32.1-42.1 L MEAN CELL VOLUME (test code = MCV) 76 fL 84.1-94.8 L MEAN CELL HGB (test code = MCH) 25.1 pg 27-35 L MEAN CELL HGB CONCETRATION (test code = MCHC) 33.0 gm/dL 32.2-34. 1 N RED CELL DISTRIBUTION WIDTH (test code = RDW) 19.0 % 12.4-16. 5 H PLATELET COUNT (test code = PLT) 161 K/mm3 133-385 N IMMATURE PLATELET FRACTION (test code = IPF) 10.6 % 0.0-10.8 N NEUTROPHIL % (test code = NT%) 72.3 % 56.5-79.4 N LYMPHOCYTE % (test code = LY%) 11.9 % 14.3-34.3 L MONOCYTE % (test code = MO%) 6.3 % 5.1-10.4 N EOSINOPHIL % (test code = EO%) 8.5 % 0.1-3.0 H BASOPHIL % (test code = BA%) 0.4 % 0.1-1.0 N NEUTROPHIL # (test code = NT#) 9.5 K/mm3 LYMPHOCYTE # (test code = LY#) 1.6 K/mm3 MONOCYTE # (test code = MO#) 0.8 K/mm3 EOSINOPHIL # (test code = EO#) 1.11 K/mm3 BASOPHIL # (test code = BA#) 0.1 K/mm3 RBC MORPHOLOGY REQUIRED (test code = RBCM) NORMAL NORMAL PLATELET MORPHOLOGY REQUIRED (test code = PLTMR) NORMAL MAHENDRA L - XR CHEST 1 [id number] 16:23:00 Patient Name: EDWARD ESPANA Unit No: [id number] EXAMS: CPT CODE: [id number] XR CHEST 1 V 57433 CLINICAL HISTORY:PICC line placement COMPARISON:May 13, 2019 at 1726. Frontal film of the chest performed at 1612 on May 19, 2019 demonstrates PICC line via left upper extremity approach with its tip in superior vena cava. Heart size is normal and lung sierra are clear. There is no evidence of pneumothorax or pleural effusion. at 1623 Reported and signed by: Kong Nichole MD CC: Kathy Caicedo MD; Nayeli Mijares MD Technologist: René Amezcua, Rt; Cindy Hedrick, RT Trnscrbd D/ (1622) [id number] Orig Print D/T: S: 05/19/2019 (1625) [facility] NAME: BJ ESPANALINE Radiology Department PHYS: CANALIsaiah Kathy Caicedo MD [address] : 1985 AGE: 33 SEX: F [place], [place] [address] LOC: ROSA PHONE #: [phone] EXAM DATE: 05/19/2019 STATUS: REG ER FAX #: [phone] RAD NO: [id number] Page 1 Signed Report COMPREHENSIVE METABOLIC [id number] 09:14:00* Test Item Value Reference Range Interpretation Comments SODIUM (test code = NA) 138 mEq/L 135-145 N POTASSIUM (test code = K) 3.7 mEq/L 3.5-5.0 N CHLORIDE (test code = CL) 105 mEq/L 100-115 N CARBON DIOXIDE (test code = CO2) 23 mEq/L 22-31 N ANION GAP (test code = GAP) 14.00 10-20 N GLUCOSE (test code = GLU) 122 mg/dL 65-110 H BLOOD UREA NITROGEN (test code = BUN) 7 mg/dL 7-18 N GLOMERULAR FILTRATION RATE (test code = GFR) 205 ml/min >60 N CREATININE (test code = CREAT) 0.4 mg/dL 0.5-1.0 L TOTAL PROTEIN (test code = PROT) 5.3 gm/dL 6.3-8.2 L ALBUMIN (test code = ALB) 2.1 gm/dL 3.4-4.8 L CALCIUM (test code = CA) 7.8 mg/dL 8.4-10.2 L BILIRUBIN TOTAL (test code = BILT) 0.1 mg/dL 0.2-1.0 L SGOT/AST (test code = AST) 14 units/L 15-37 L SGPT/ALT (test code = ALT) 10 units/L 12-78 L ALKALINE PHOSPHATASE TOTAL (test code = ALKP) 94 units/L 46-116 N CBC W/AUTO [id number] 08:55:00* Test Item Value Reference Range Interpretation Comments WHITE BLOOD CELL (test code = WBC) 11.3 K/mm3 6.6-12.1 N RED BLOOD CELL (test code = RBC) 2.98 M/mm3 3.45-5.01 L HEMOGLOBIN (test code = HGB) 7.5 g/dL 10.7-13.9 L HEMATOCRIT (test code = HCT) 22.4 % 32.1-42.1 L MEAN CELL VOLUME (test code = MCV) 75 fL 84.1-94.8 L MEAN CELL HGB (test code = MCH) 25.2 pg 27-35 L MEAN CELL HGB CONCETRATION (test code = MCHC) 33.5 gm/dL 32.2-34. 1 N RED CELL DISTRIBUTION WIDTH (test code = RDW) 18.6 % 12.4-16. 5 H PLATELET COUNT (test code = PLT) 174 K/mm3 133-385 N IMMATURE PLATELET FRACTION (test code = IPF) 0.0 % 0.0-10.8 N MEAN PLATELET VOLUME (test code = MPV) 13.3 fl 9.1-12.7 H NEUTROPHIL % (test code = NT%) 69.1 % 56.5-79.4 N LYMPHOCYTE % (test code = LY%) 14.6 % 14.3-34.3 N MONOCYTE % (test code = MO%) 6.8 % 5.1-10.4 N EOSINOPHIL % (test code = EO%) 8.4 % 0.1-3.0 H BASOPHIL % (test code = BA%) 0.3 % 0.1-1.0 N NEUTROPHIL # (test code = NT#) 7.8 K/mm3 LYMPHOCYTE # (test code = LY#) 1.7 K/mm3 MONOCYTE # (test code = MO#) 0.8 K/mm3 EOSINOPHIL # (test code = EO#) 0.95 K/mm3 BASOPHIL # (test code = BA#) 0.0 K/mm3 RBC MORPHOLOGY REQUIRED (test code = RBCM) NORMAL NORMAL PLATELET MORPHOLOGY REQUIRED (test code = PLTMR) NORMAL MAHENDRA L CBC W/AUTO [id number] 07:40:00* Test Item Value Reference Range Interpretation Comments WHITE BLOOD CELL (test code = WBC) 13.8 K/mm3 6.6-12.1 H RED BLOOD CELL (test code = RBC) 3.40 M/mm3 3.45-5.01 L HEMOGLOBIN (test code = HGB) 8.6 g/dL 10.7-13.9 L HEMATOCRIT (test code = HCT) 25.4 % 32.1-42.1 L MEAN CELL VOLUME (test code = MCV) 75 fL 84.1-94.8 L MEAN CELL HGB (test code = MCH) 25.3 pg 27-35 L MEAN CELL HGB CONCETRATION (test code = MCHC) 33.9 gm/dL 32.2-34. 1 N RED CELL DISTRIBUTION WIDTH (test code = RDW) 18.1 % 12.4-16. 5 H PLATELET COUNT (test code = PLT) 202 K/mm3 133-385 N IMMATURE PLATELET FRACTION (test code = IPF) 0.0 % 0.0-10.8 N MEAN PLATELET VOLUME (test code = MPV) 12.9 fl 9.1-12.7 H NEUTROPHIL % (test code = NT%) 68.2 % 56.5-79.4 N LYMPHOCYTE % (test code = LY%) 14.8 % 14.3-34.3 N MONOCYTE % (test code = MO%) 8.3 % 5.1-10.4 N EOSINOPHIL % (test code = EO%) 7.7 % 0.1-3.0 H BASOPHIL % (test code = BA%) 0.4 % 0.1-1.0 N NEUTROPHIL # (test code = NT#) 9.4 K/mm3 LYMPHOCYTE # (test code = LY#) 2.1 K/mm3 MONOCYTE # (test code = MO#) 1.2 K/mm3 EOSINOPHIL # (test code = EO#) 1.07 K/mm3 BASOPHIL # (test code = BA#) 0.1 K/mm3 RBC MORPHOLOGY REQUIRED (test code = RBCM) NORMAL NORMAL PLATELET MORPHOLOGY REQUIRED (test code = PLTMR) NORMAL MAHENDRA L COMPREHENSIVE METABOLIC [id number] 06:45:00* Test Item Value Reference Range Interpretation Comments SODIUM (test code = NA) 137 mEq/L 135-145 N POTASSIUM (test code = K) 4.0 mEq/L 3.5-5.0 N CHLORIDE (test code = CL) 103 mEq/L 100-115 N CARBON DIOXIDE (test code = CO2) 25 mEq/L 22-31 N ANION GAP (test code = GAP) 13.50 10-20 N GLUCOSE (test code = GLU) 88 mg/dL 65-110 N BLOOD UREA NITROGEN (test code = BUN) 6 mg/dL 7-18 L GLOMERULAR FILTRATION RATE (test code = GFR) 205 ml/min >60 N CREATININE (test code = CREAT) 0.4 mg/dL 0.5-1.0 L TOTAL PROTEIN (test code = PROT) 6.0 gm/dL 6.3-8.2 L ALBUMIN (test code = ALB) 2.5 gm/dL 3.4-4.8 L CALCIUM (test code = CA) 8.4 mg/dL 8.4-10.2 N BILIRUBIN TOTAL (test code = BILT) 0.2 mg/dL 0.2-1.0 N SGOT/AST (test code = AST) 14 units/L 15-37 L SGPT/ALT (test code = ALT) 10 units/L 12-78 L ALKALINE PHOSPHATASE TOTAL (test code = ALKP) 104 units/L 46-116 N CBC W/AUTO [id number] 07:06:00* Test Item Value Reference Range Interpretation Comments WHITE BLOOD CELL (test code = WBC) 13.1 K/mm3 6.6-12.1 H RED BLOOD CELL (test code = RBC) 3.27 M/mm3 3.45-5.01 L HEMOGLOBIN (test code = HGB) 8.3 g/dL 10.7-13.9 L HEMATOCRIT (test code = HCT) 24.3 % 32.1-42.1 L MEAN CELL VOLUME (test code = MCV) 74 fL 84.1-94.8 L MEAN CELL HGB (test code = MCH) 25.4 pg 27-35 L MEAN CELL HGB CONCETRATION (test code = MCHC) 34.2 gm/dL 32.2-34. 1 H RED CELL DISTRIBUTION WIDTH (test code = RDW) 17.4 % 12.4-16. 5 H PLATELET COUNT (test code = PLT) 216 K/mm3 133-385 N IMMATURE PLATELET FRACTION (test code = IPF) 0.0 % 0.0-10.8 N MEAN PLATELET VOLUME (test code = MPV) 12.8 fl 9.1-12.7 H NEUTROPHIL % (test code = NT%) 72.4 % 56.5-79.4 N LYMPHOCYTE % (test code = LY%) 14.0 % 14.3-34.3 L MONOCYTE % (test code = MO%) 7.4 % 5.1-10.4 N EOSINOPHIL % (test code = EO%) 5.5 % 0.1-3.0 H BASOPHIL % (test code = BA%) 0.2 % 0.1-1.0 N NEUTROPHIL # (test code = NT#) 9.5 K/mm3 LYMPHOCYTE # (test code = LY#) 1.8 K/mm3 MONOCYTE # (test code = MO#) 1.0 K/mm3 EOSINOPHIL # (test code = EO#) 0.72 K/mm3 BASOPHIL # (test code = BA#) 0.0 K/mm3 RBC MORPHOLOGY REQUIRED (test code = RBCM) NORMAL NORMAL PLATELET MORPHOLOGY REQUIRED (test code = PLTMR) NORMAL MAHENDRA L - XR CHEST 1 [id number] 17:43:00 Patient Name: EDWARD ESPANA Unit No: [id number] EXAMS: CPT CODE: [id number] XR CHEST 1 V 67945 EXAMINATION: Chest x-ray one view 05/13/2019. CLINICAL HISTORY: PICC line placement. COMPARISON: Chest x-ray 10/29/2018. FINDINGS: The left upper extremity PICC line terminates projected over the superior vena cava. The cardiac silhouette is within normal limits in size. The lungs are clear. There is minimal nonspecific elevation of the left hemidiaphragm which is stable from prior examination. The visualized osseous structures are within normal limits. IMPRESSION: Left upper extremity PICC line in place. at 1743 Reported and signed by: Breanne Apple MD CC: Nayeli Mijares MD Technologist: Unique Wetzel, RT; Юлия De La O RT Trnscrbd D/ (1743) Thelma Orig Print D/T: S: 05/13/2019 (1746) [facility] NAME: EDWARD ESPANA Radiology Department PHYS: Nayeli Yuan MD [address] : 1985 AGE: 33 SEX: F [place], [place] [address] LOC: F.3048 A PHONE #: [phone] EXAM DATE: 05/13/2019 STATUS: ADM IN FAX #: [phone] RAD NO: [id number] Page 1 Signed Report TOTAL IRON BINDING [id number] 11:36:00* Test Item Value Reference Range Interpretation Comments SERUM IRON (test code = IRON) 36 MCG/DL 37-170 L TOTAL IRON BINDING CAPACITY (test code = TIBC) 525 MCG/DL 265-497 H IRON SATURATION (test code = FESAT) 7 % 12-57 L (Hit ENTER to Con't) . PLEASE RECOLLECT;PROCESS ERROR(Hit ENTER to Con't) .(Hit ENTER to Con't) .FE W/TOTAL IRON BINDING CAP.2019-05-13 11:35:00* Test Item Value Reference Range Interpretation Comments SERUM IRON (test code = IRON) 36 MCG/DL 37-170 L TOTAL IRON BINDING CAPACITY (test code = TIBC) 525 MCG/DL 265-497 H IRON SATURATION (test code = FESAT) 7 % 12-57 L (Hit ENTER to Con't) .TOTAL IRON BINDING [id number] 11:33:00* Test Item Value Reference Range Interpretation Comments SERUM IRON (test code = IRON) 36 MCG/DL 37-170 L TOTAL IRON BINDING CAPACITY (test code = TIBC) IRON SATURATION (test code = FESAT) (Hit ENTER to Con't) . PLEASE RECOLLECT;PROCESS ERROR(Hit ENTER to Con't) .FE W/TOTAL IRON BINDING CAP.2019-05-13 11:32:00* Test Item Value Reference Range Interpretation Comments SERUM IRON (test code = IRON) 36 MCG/DL 37-170 L TOTAL IRON BINDING CAPACITY (test code = TIBC) MCG/DL 265-497 IRON SATURATION (test code = FESAT) % 12-57 (Hit ENTER to Con't) .COMPREHENSIVE METABOLIC [id number] 01:22:00* Test Item Value Reference Range Interpretation Comments SODIUM (test code = NA) 136 mEq/L 135-145 N POTASSIUM (test code = K) 4.1 mEq/L 3.5-5.0 N CHLORIDE (test code = CL) 102 mEq/L 100-115 N CARBON DIOXIDE (test code = CO2) 27 mEq/L 22-31 N ANION GAP (test code = GAP) 11.00 10-20 N GLUCOSE (test code = GLU) 91 mg/dL 65-110 N BLOOD UREA NITROGEN (test code = BUN) 8 mg/dL 7-18 N GLOMERULAR FILTRATION RATE (test code = GFR) 205 ml/min >60 N CREATININE (test code = CREAT) 0.4 mg/dL 0.5-1.0 L TOTAL PROTEIN (test code = PROT) 6.4 gm/dL 6.3-8.2 N ALBUMIN (test code = ALB) 2.7 gm/dL 3.4-4.8 L CALCIUM (test code = CA) 8.5 mg/dL 8.4-10.2 N BILIRUBIN TOTAL (test code = BILT) 0.2 mg/dL 0.2-1.0 N SGOT/AST (test code = AST) 13 units/L 15-37 L SGPT/ALT (test code = ALT) 10 units/L 12-78 L ALKALINE PHOSPHATASE TOTAL (test code = ALKP) 100 units/L 46-116 N CBC W/AUTO [id number] 01:03:00* Test Item Value Reference Range Interpretation Comments WHITE BLOOD CELL (test code = WBC) 13.0 K/mm3 6.6-12.1 H RED BLOOD CELL (test code = RBC) 3.05 M/mm3 3.45-5.01 L HEMOGLOBIN (test code = HGB) 7.4 g/dL 10.7-13.9 L HEMATOCRIT (test code = HCT) 22.6 % 32.1-42.1 L MEAN CELL VOLUME (test code = MCV) 74 fL 84.1-94.8 L MEAN CELL HGB (test code = MCH) 24.3 pg 27-35 L MEAN CELL HGB CONCETRATION (test code = MCHC) 32.7 gm/dL 32.2-34. 1 N RED CELL DISTRIBUTION WIDTH (test code = RDW) 16.9 % 12.4-16. 5 H PLATELET COUNT (test code = PLT) 247 K/mm3 133-385 N IMMATURE PLATELET FRACTION (test code = IPF) 9.7 % 0.0-10.8 N MEAN PLATELET VOLUME (test code = MPV) 13.1 fl 9.1-12.7 H NEUTROPHIL % (test code = NT%) 67.3 % 56.5-79.4 N LYMPHOCYTE % (test code = LY%) 18.2 % 14.3-34.3 N MONOCYTE % (test code = MO%) 7.6 % 5.1-10.4 N EOSINOPHIL % (test code = EO%) 5.9 % 0.1-3.0 H BASOPHIL % (test code = BA%) 0.5 % 0.1-1.0 N NEUTROPHIL # (test code = NT#) 8.7 K/mm3 LYMPHOCYTE # (test code = LY#) 2.4 K/mm3 MONOCYTE # (test code = MO#) 1.0 K/mm3 EOSINOPHIL # (test code = EO#) 0.76 K/mm3 BASOPHIL # (test code = BA#) 0.1 K/mm3 RBC MORPHOLOGY REQUIRED (test code = RBCM) NORMAL NORMAL PLATELET MORPHOLOGY REQUIRED (test code = PLTMR) NORMAL MAHENDRA L DRUGS OF ABUSE [id number] 00:36:00* Test Item Value Reference Range Interpretation Comments UR COCAINE (test code = COCAU) NEGATIVE NEGATIVE DETECTION CUT OFF: 150 ng/mL UR CANNABINOIDS (test code = CANU) NEGATIVE NEGATIVE DETECTION CUT OFF: 50 ng/mL UR AMPHETAMINE (test code = AMPHU) NEGATIVE NEGATIVE DETECTION CUT OFF: 500 ng/mL UR BARBITURATE QUAL (test code = BARBQLU) NEGATIVE NEGATIVE DETECTION CUT OFF: 200 ng/mL UR BENZODIAZEPINE (test code = BENZU) NEGATIVE NEGATIVE DETECTION CUT OFF: 150 ng/mL UR OPIATES QUAL (test code = OPIAQLU) NEGATIVE NEGATIVE DETECTION CUT OFF: 100 ng/mL UR PHENCYCLIDINE (PCP) (test code = PHENCU) NEGATIVE NEGATIVE DETECTION CUT OFF: 25 ng/mL URINALYSIS [id number] 00:36:00* Test Item Value Reference Range Interpretation Comments UA COLOR (test code = COLU) YELLOW YELLOW UA APPEARANCE (test code = APPU) CLEAR CLEAR UA GLUCOSE DIPSTICK (test code = DGLUU) NEGATIVE NEG UA BILIRUBIN DIPSTICK (test code = BILU) NEGATIVE NEG UA KETONE DIPSTICK (test code = KETU) NEGATIVE NEG UA SPECIFIC GRAVITY (test code = SGU) 1.024 1.001-1.035 N UA BLOOD DIPSTICK (test code = CALEB) NEG NEG UA PH DIPSTICK (test code = VARGAS) 6.0 5-9 UA PROTEIN DIPSTICK (test code = PROU) NEGATIVE NEG UA UROBILINIOGEN DIPSTICK (test code = URO) NEGATIVE mg/dL NEG UA NITRITE DIPSTICK (test code = MARBIN) NEG NEG UA LEUKOCYTE ESTERASE DIPSTICK (test code = LEUU) NEG NEG UA WBC (test code = WBCU) 3-5 #/hpf NONE SEEN A UA RBC (test code = RBCU) 0-2 #/hpf NONE SEEN UA EPITHELIAL CELLS (test code = EPIU) RARE #/HPF RARE-FEW UA BACTERIA (test code = BACU) FEW /HPF RARE-FEW UA MUCUS (test code = MUCU) 1+ NONE SEEN Specimen Comment: OMER CUELLAR SAMPLE: CLEAN CATCHUA RFLX MICR CULT IF INDICATED 2019-04-29 20:12:00* Test Item Value Reference Range Interpretation Comments UA COLOR (test code = COLU) YELLOW YELLOW UA APPEARANCE (test code = APPU) Slightly-Cloudy CLEAR UA GLUCOSE DIPSTICK (test code = DGLUU) NEGATIVE NEG UA BILIRUBIN DIPSTICK (test code = BILU) NEGATIVE NEG UA KETONE DIPSTICK (test code = KETU) NEGATIVE NEG UA SPECIFIC GRAVITY (test code = SGU) 1.030 1.001-1.035 N UA BLOOD DIPSTICK (test code = CALEB) NEG NEG UA PH DIPSTICK (test code = VARGAS) 5.0 5-9 UA PROTEIN DIPSTICK (test code = PROU) NEGATIVE NEG UA UROBILINIOGEN DIPSTICK (test code = URO) NEGATIVE mg/dL NEG UA NITRITE DIPSTICK (test code = MARBIN) NEG NEG UA LEUKOCYTE ESTERASE DIPSTICK (test code = LEUU) NEG NEG UA WBC (test code = WBCU) 0-2 #/hpf NONE SEEN UA RBC (test code = RBCU) NONE SEEN #/hpf NONE SEEN UA EPITHELIAL CELLS (test code = EPIU) FEW #/HPF RARE-FEW UA BACTERIA (test code = BACU) NEGATIVE /HPF RARE-FEW UA MUCUS (test code = MUCU) 1+ NONE SEEN Indication for culture: Suprapubic Pain- US PREG UT [id number] 19:01:00 Patient Name: EDWARD ESPANA Unit No: [id number] EXAMS: CPT CODE: [id number] US PREG UT TRANSVAGINAL [address] [facility] [address], [place] [address] LIMITED OBSTETRICAL ULTRASOUND REPORT Pat. Name: EDWARD ESPANA Pat. No: [id number] Study Date: 0 04/29/2019 6:25pm , Age: 11 1985, 33 Pregnancies: 6, Para 2 LMP: 11/21/2018 GA by LMP: 22w5d GA Selected: 22w5d (From Known E) FINA: 08/28/2019 Referring MD: Prosper Richard Sales And Production Manager: Skip Quispe RDMS, RVT CPT4: USPRUTTRVG Hist/Ind: S/P FALL SCAN 1 ---- Cervical Length: 4.1 cm Heart Rate: 154 bpm MATERNAL ANATOMY Ovaries LxHxW (cm) Right 3.0 x 2.0 x 3.2 Vol: 10.1cc Left 2.6 x 2.2 x 2.2 Vol: 6.6cc --------- CLINICAL SUMMARY Typ e of Gestation: Roach Intrauterine in breech presentation. F etal motion and organs seen: heart motion seen Placental location : Anterior Right lateral Placental maturity : Grade 1 There is no evidence of placenta previa. NO RETROPLACENTAL BLEED IS SEEN. Amniotic fluid volume is normal. Uterus and adnexa: No significant abnormality is seen. Thank you for allowing us to participate in the care of this pat ient. Eitan Ovalle M.D. Electronic Signature 04/29/2019 07:01pm Revised [facility] NAME: EDWARD ESPANA Radiology Department PHYS: SUKHDEV - Prosper Jane MD [address] : 1985 AGE: 33 SEX: F [place], [place] [address] LOC: LarryEMMA PHONE #: [phone] EXAM DATE: 04/29/2019 STATUS: DEP ER FAX #: [phone] RAD NO: [id number] Page 1 Signed Report (CONTINUED) Patient Name: EDWARD ESPANA Unit No: [id number] EXAMS: CPT CODE: [id number] US PREG UT TRANSVAGINAL [address] <Continued> " Manually signed by Eitan Ovalle MD Reported and signed by: Eitan Ovalle MD CC: Nayeli Mijares MD; Prosper Richard MD Technologist: Jackelyn Quispe RDMS, RVT Probe: [id number] Trnscrbd D/ (1901) [email or web address] Advanced To Signed Dt/Tm/User: 05/03/19 (1547) [email or web address] [facility] NAME: EDWARD ESPANA Radiology Department PHYS: Prosper Marie MD [address] : 1985 AGE: 33 SEX: F [place] [address] LOC: Golden.ERS PHONE #: [phone] EXAM DATE: 04/29/2019 STATUS: [facility] ER FAX #: [phone] RAD NO: [id number] Page 2 Signed Report Patient Name: EDWARD ESPANA Unit No: [id number] EXAMS: CPT CODE: [id number] US PREG UT TRANSVAGINAL 24182 <Continued> [facility] NAME: EDWARD ESPANA Radiology Department PHYS: Prosper Marie MD [address] : 1985 AGE: 33 SEX: F [place] [address] ACCT NO: [id number] LOC: Golden.ERS PHONE #: [phone] EXAM DATE: 04/12 STATUS: [facility] ER FAX #: [phone] RAD NO: [id number] P age 2 Signed Report - US [id number] 19:01:00 Patient Name: EDWARD ESPANA Unit No: [id number] EXAMS: CPT CODE: [id number] [place] LTD [address] [facility] [address], [place] [address] LIMITED OBSTETRICAL ULTRASOUND REPORT Alesia. Name: EDWARD ESPANA. No: [id number] Study Date: 04/29/2019 6:25pm , Age: 11 1985, 33 Pregnancies: 6, Para 2 LMP: 11/21/2018 GA by LMP: 22w5d GA Selected: 22w5d (From Known E) FINA: 08/28/2019 Referring MD: PROSPER RICHARD Sales And Production Manager: Skip Quispe, KYE, RVT CPT4: USPREGLTD Admitting MD: PROSPER RICHARD Ga st/Ind: S/P FALL SCAN 1 Cervical Length: 4.1 cm Heart Rate: 154 bpm MATERNAL ANATOMY --------- Ovaries LxHxW (cm) Right 3.0 x 2.0 x 3.2 Vol: 10.1cc Left 2.6 x 2. 2 x 2.2 Vol: 6.6cc --- CLINICAL SUMMARY Type of Gestation: Roach Intrauterine pregnanc y in breech presentation. motion and organs seen: heart mot ion seen Placental location: Anterior Right lateral Placental maturity : Grade 1 There is no evidence of placenta previa. NO RETROPLACEN TOBIN BLEED IS SEEN. Amniotic fluid volume is normal. Uterus and adnexa: No significant abnormality is seen. Thank you for allowing us to participa te in the care of this patient. Eitan Ovalle M.D. Electronic Signature 04/29/2019 07:01pm [facility] NAME: EDWARD ESPANA Radiology Department PHYS: SUKHDEV - Prosper Richard MD [address] : 1985 AGE: 33 SEX: F [place], [place] [address] ACCT N O: [id number] LOC: ROSA PHONE #: [phone] EXAM DATE: 04/29/2019 STATUS: [facility] FAX #: [phone] RAD NO: [id number] Page 1 Signed Report (CONTINUED) Samantha ent Name: EDWARD ESPANA Unit No: [id number] EXAMS: CPT CODE: [id number] [place] LTD [address] <Continued> at 1901 Reported and signed by: Eitan Ovalle MD CC: Nayeli Mijares MD; Prosper Richard MD Technologist: Jackelyn Quispe RDMS, RVT Probe: Trnscrbd D / (1900) [email or web address] Orig Print D/T: S: (1901) [facility] NAME: SARA ESPANAJOJO MURRY Radiology Department PHYS: Zonia Marie MD [address] : 1985 AGE: 33 SE X: [place] [address] LOC: LarryERS PHONE #: [phone] EXAM DATE: 04/29/2019 STATUS: DEP ER FAX #: [phone] RAD NO: [id number] Page 2 Signed Report Patient Name: EDWARD ESPANA Unit No: [id number] EXAMS: CPT CODE: [id number] [place] LTD [address] <Continued> [facility] NAME: MALORIEEDWARD Radiology Department PHYS: Prosper Marie MD [address] : 1985 AGE: 33 SEX: F [place] [address] LOC: LarryERS PHONE #: [phone] EXAM DATE: 04/29/2019 STATUS: DEP ER FAX #: [phone] RAD NO: [id number] Page 3 Signed Report - US [id number] 19:01:00 Patient Name: EDWARD ESPANA Unit No: [id number] EXAMS: CPT CODE: [id number] [place] LTD [address] [facility] [address], [place] [address] LIMITED OBSTETRICAL ULTRASOUND REPORT Alesia. Name: BJ ESPANALINE Pat. No: [id number] Study Date: 04/29/2019 6:25pm , Age: 11 1985, 33 Pregnancies: 6, Para 2 LMP: 11/21/2018 GA by LMP: 22w5d GA Selected: 22w5d (From Known E) FINA: 08/28/2019 Referring MD: PROSPER RICHARD Sales And Production Manager: Skip Quispe, KYE, RVT CPT4: USPREGLTD Admitting MD: PROSPER RICHARD Ga st/Ind: S/P FALL SCAN 1 Cervical Length: 4.1 cm Heart Rate: 154 bpm MATERNAL ANATOMY --------- Ovaries LxHxW (cm) Right 3.0 x 2.0 x 3.2 Vol: 10.1cc Left 2.6 x 2. 2 x 2.2 Vol: 6.6cc --- CLINICAL SUMMARY Type of Gestation: Roach Intrauterine pregnanc y in breech presentation. motion and organs seen: heart mot ion seen Placental location: Anterior Right lateral Placental maturity : Grade 1 There is no evidence of placenta previa. NO RETROPLACEN TOBIN BLEED IS SEEN. Amniotic fluid volume is normal. Uterus and adnexa: No significant abnormality is seen. Thank you for allowing us to participa loretta in the care of this patient. Eitan Ovalle M.D. Electronic Signature 04/29/2019 07:01pm [facility] NAME: EDWARD ESPANA Radiology Department PHYS: Prosper Marie MD [address] : 1985 AGE: 33 SEX: F [place] [address] ACCT N O: [id number] LOC: LarryERS PHONE #: [phone] EXAM DATE: 04/29/2019 STATUS: REG ER FAX #: [phone] RAD NO: Page 1 Signed Report (CONTINUED) Samantha ent Name: SARA ESPANAQUELINE Unit No: [id number] EXAMS: CPT CODE: [id number] [place] LTD [address] <Continued> at 1901 Reported and signed by: Eitan Ovalle MD CC: Nayeli Mijares MD; Prosper Richard MD Technologist: Jackelyn Quispe RDMS, RVT Probe: Trnscrbd D / (1900) [email or web address] Orig Print D/T: S: (1900) [facility] NAME: BJ ESPANA Radiology Department PHYS: Zonia Marie MD [address] : 1985 AGE: 33 SE X: F [place], [place] [address] LOC: LarryERS PHONE #: [phone] EXAM DATE: 04/29/2019 STATUS: REG ER FAX #: [phone] RAD NO: Page 2 Signed Report Patient Name: SARA ESPANAQUELINE Unit No: [id number] EXAMS: CPT CODE: [id number] [place] LTD [address] <Continued> [facility] NAME: BJ ESPANALINE Radiology Department PHYS: SUKHDEV - Prosper Richard MD [address] : 1985 AGE: 33 SEX: F [place], [place] [address] LOC: ROSA PHONE #: [phone] EXAM DATE: 04/29/2019 STATUS: REG ER FAX #: [phone] RAD NO: Page 3 Signed Report COMPREHENSIVE METABOLIC [id number] 18:52:00* Test Item Value Reference Range Interpretation Comments SODIUM (test code = NA) 135 mEq/L 135-145 N POTASSIUM (test code = K) 3.6 mEq/L 3.5-5.0 N CHLORIDE (test code = CL) 100 mEq/L 100-115 N CARBON DIOXIDE (test code = CO2) 24 mEq/L 22-31 N ANION GAP (test code = GAP) 14.40 10-20 N GLUCOSE (test code = GLU) 78 mg/dL 65-110 N BLOOD UREA NITROGEN (test code = BUN) 11 mg/dL 7-18 N GLOMERULAR FILTRATION RATE (test code = GFR) 205 ml/min >60 N CREATININE (test code = CREAT) 0.4 mg/dL 0.5-1.0 L TOTAL PROTEIN (test code = PROT) 7.5 gm/dL 6.3-8.2 N ALBUMIN (test code = ALB) 3.0 gm/dL 3.4-4.8 L CALCIUM (test code = CA) 9.2 mg/dL 8.4-10.2 N BILIRUBIN TOTAL (test code = BILT) 0.2 mg/dL 0.2-1.0 N SGOT/AST (test code = AST) 15 units/L 15-37 N SGPT/ALT (test code = ALT) 13 units/L 12-78 N ALKALINE PHOSPHATASE TOTAL (test code = ALKP) 96 units/L 46-116 N CBC W/AUTO [id number] 18:35:00* Test Item Value Reference Range Interpretation Comments WHITE BLOOD CELL (test code = WBC) 11.6 K/mm3 6.6-12.1 N RED BLOOD CELL (test code = RBC) 2.84 M/mm3 3.45-5.01 L HEMOGLOBIN (test code = HGB) 7.1 g/dL 10.7-13.9 L HEMATOCRIT (test code = HCT) 21.0 % 32.1-42.1 L MEAN CELL VOLUME (test code = MCV) 74 fL 84.1-94.8 L MEAN CELL HGB (test code = MCH) 25.0 pg 27-35 L MEAN CELL HGB CONCETRATION (test code = MCHC) 33.8 gm/dL 32.2-34. 1 N RED CELL DISTRIBUTION WIDTH (test code = RDW) 16.4 % 12.4-16. 5 N PLATELET COUNT (test code = PLT) 146 K/mm3 133-385 N IMMATURE PLATELET FRACTION (test code = IPF) 0.0 % 0.0-10.8 N MEAN PLATELET VOLUME (test code = MPV) 11.7 fl 9.1-12.7 N NEUTROPHIL % (test code = NT%) 71.7 % 56.5-79.4 N LYMPHOCYTE % (test code = LY%) 16.4 % 14.3-34.3 N MONOCYTE % (test code = MO%) 6.1 % 5.1-10.4 N EOSINOPHIL % (test code = EO%) 4.9 % 0.1-3.0 H BASOPHIL % (test code = BA%) 0.3 % 0.1-1.0 N NEUTROPHIL # (test code = NT#) 8.3 K/mm3 LYMPHOCYTE # (test code = LY#) 1.9 K/mm3 MONOCYTE # (test code = MO#) 0.7 K/mm3 EOSINOPHIL # (test code = EO#) 0.57 K/mm3 BASOPHIL # (test code = BA#) 0.0 K/mm3 RBC MORPHOLOGY REQUIRED (test code = RBCM) NORMAL NORMAL PLATELET MORPHOLOGY REQUIRED (test code = PLTMR) NORMAL MAHENDRA L UA RFLX MICR CULT IF [id number] 22:04:00* Test Item Value Reference Range Interpretation Comments UA COLOR (test code = COLU) YELLOW YELLOW UA APPEARANCE (test code = APPU) Slightly-Cloudy CLEAR UA GLUCOSE DIPSTICK (test code = DGLUU) NEGATIVE NEG UA BILIRUBIN DIPSTICK (test code = BILU) NEGATIVE NEG UA KETONE DIPSTICK (test code = KETU) NEGATIVE NEG UA SPECIFIC GRAVITY (test code = SGU) 1.029 1.001-1.035 N UA BLOOD DIPSTICK (test code = CALEB) NEG NEG UA PH DIPSTICK (test code = VARGAS) 6.0 5-9 UA PROTEIN DIPSTICK (test code = PROU) 1+ NEG A UA UROBILINIOGEN DIPSTICK (test code = URO) NEGATIVE mg/dL NEG UA NITRITE DIPSTICK (test code = MARBIN) NEG NEG UA LEUKOCYTE ESTERASE DIPSTICK (test code = LEUU) NEG NEG UA WBC (test code = WBCU) 0-2 #/hpf NONE SEEN UA RBC (test code = RBCU) NONE SEEN #/hpf NONE SEEN UA EPITHELIAL CELLS (test code = EPIU) MODERATE #/HPF RARE-FEW A UA BACTERIA (test code = BACU) FEW /HPF RARE-FEW Indication for culture: Suprapubic PainCOMPREHENSIVE METABOLIC PANEL 2019-04-06 18:41:00* Test Item Value Reference Range Interpretation Comments SODIUM (test code = NA) 135 mEq/L 135-145 N POTASSIUM (test code = K) 3.2 mEq/L 3.5-5.0 L CHLORIDE (test code = CL) 101 mEq/L 100-115 N CARBON DIOXIDE (test code = CO2) 24 mEq/L 22-31 N ANION GAP (test code = GAP) 12.80 10-20 N GLUCOSE (test code = GLU) 128 mg/dL 65-110 H BLOOD UREA NITROGEN (test code = BUN) 8 mg/dL 7-18 N GLOMERULAR FILTRATION RATE (test code = GFR) 158 ml/min >60 N CREATININE (test code = CREAT) 0.5 mg/dL 0.5-1.0 N TOTAL PROTEIN (test code = PROT) 7.2 gm/dL 6.3-8.2 N ALBUMIN (test code = ALB) 2.9 gm/dL 3.4-4.8 L CALCIUM (test code = CA) 8.5 mg/dL 8.4-10.2 N BILIRUBIN TOTAL (test code = BILT) 0.1 mg/dL 0.2-1.0 L SGOT/AST (test code = AST) 14 units/L 15-37 L SGPT/ALT (test code = ALT) 13 units/L 12-78 N ALKALINE PHOSPHATASE TOTAL (test code = ALKP) 95 units/L 46-116 N UA RFLX MICR CULT IF [id number] 18:31:00* Test Item Value Reference Range Interpretation Comments UA COLOR (test code = COLU) YELLOW YELLOW UA APPEARANCE (test code = APPU) Slightly-Cloudy CLEAR UA GLUCOSE DIPSTICK (test code = DGLUU) NEGATIVE NEG UA BILIRUBIN DIPSTICK (test code = BILU) NEGATIVE NEG UA KETONE DIPSTICK (test code = KETU) NEGATIVE NEG UA SPECIFIC GRAVITY (test code = SGU) 1.024 1.001-1.035 N UA BLOOD DIPSTICK (test code = CALEB) NEG NEG UA PH DIPSTICK (test code = VARGAS) 6.0 5-9 UA PROTEIN DIPSTICK (test code = PROU) NEGATIVE NEG UA UROBILINIOGEN DIPSTICK (test code = URO) NEGATIVE mg/dL NEG UA NITRITE DIPSTICK (test code = MARBIN) NEG NEG UA LEUKOCYTE ESTERASE DIPSTICK (test code = LEUU) NEG NEG UA WBC (test code = WBCU) 6-10 #/hpf NONE SEEN A UA RBC (test code = RBCU) 3-5 #/hpf NONE SEEN A UA EPITHELIAL CELLS (test code = EPIU) RARE #/HPF RARE-FEW UA BACTERIA (test code = BACU) MODERATE /HPF RARE-FEW A UA MUCUS (test code = MUCU) 2+ NONE SEEN Specimen Comment: 5Indication for culture: Suprapubic PainCBC W/AUTO DIFF 2019-04-06 18:19:00* Test Item Value Reference Range Interpretation Comments WHITE BLOOD CELL (test code = WBC) 11.7 K/mm3 6.6-12.1 N RED BLOOD CELL (test code = RBC) 3.32 M/mm3 3.45-5.01 L HEMOGLOBIN (test code = HGB) 8.4 g/dL 10.7-13.9 L HEMATOCRIT (test code = HCT) 25.2 % 32.1-42.1 L MEAN CELL VOLUME (test code = MCV) 76 fL 84.1-94.8 L MEAN CELL HGB (test code = MCH) 25.3 pg 27-35 L MEAN CELL HGB CONCETRATION (test code = MCHC) 33.3 gm/dL 32.2-34. 1 N RED CELL DISTRIBUTION WIDTH (test code = RDW) 16.3 % 12.4-16. 5 N PLATELET COUNT (test code = PLT) 273 K/mm3 133-385 N IMMATURE PLATELET FRACTION (test code = IPF) 0.0 % 0.0-10.8 N MEAN PLATELET VOLUME (test code = MPV) 12.8 fl 9.1-12.7 H NEUTROPHIL % (test code = NT%) 71.3 % 56.5-79.4 N LYMPHOCYTE % (test code = LY%) 16.9 % 14.3-34.3 N MONOCYTE % (test code = MO%) 4.1 % 5.1-10.4 L EOSINOPHIL % (test code = EO%) 6.9 % 0.1-3.0 H BASOPHIL % (test code = BA%) 0.3 % 0.1-1.0 N NEUTROPHIL # (test code = NT#) 8.4 K/mm3 LYMPHOCYTE # (test code = LY#) 2.0 K/mm3 MONOCYTE # (test code = MO#) 0.5 K/mm3 EOSINOPHIL # (test code = EO#) 0.81 K/mm3 BASOPHIL # (test code = BA#) 0.0 K/mm3 RBC MORPHOLOGY REQUIRED (test code = RBCM) NORMAL NORMAL PLATELET MORPHOLOGY REQUIRED (test code = PLTMR) NORMAL MAHENDRA L URINALYSIS [id number] 21:49:00* Test Item Value Reference Range Interpretation Comments UA COLOR (test code = COLU) YELLOW discript YEL/STRAW UA APPEARANCE (test code = APPU) HAZY discript CLEAR A UA GLUCOSE DIPSTICK (test code = DGLUU) NEGATIVE mg/dL NEG UA BILIRUBIN DIPSTICK (test code = BILU) NEGATIVE mg/DL (NEG) 0 UA KETONE DIPSTICK (test code = KETU) NEGATIVE mg/DL (NEG) 0 UA SPECIFIC GRAVITY (test code = SGU) 1.015 SG 1.005-1.030 UA BLOOD DIPSTICK (test code = CALEB) 10-25 Axel/mcL (NEG) 0 A UA PH DIPSTICK (test code = VARGAS) 6.0 pH UNITS 5.0-7.0 UA PROTEIN DIPSTICK (test code = PROU) NEGATIVE mg/DL <30 UA UROBILINIOGEN DIPSTICK (test code = URO) 0.2 mg/DL (NORM) <2. 0 UA NITRITE DIPSTICK (test code = MARBIN) NEGATIVE SCREEN NEG UA LEUKOCYTE ESTERASE DIPSTICK (test code = LEUU) NEGATIVE Leuk/mcL (NEG) 0 UA WBC (test code = WBCU) 1-3 #WBC/HPF 0-3 UA RBC (test code = RBCU) 3-5 #RBC/HPF 0-3 A UA BACTERIA (test code = BACU) TRACE /HPF NONE-TRACE UA SQUAMOUS CELLS (test code = SQU) 2+ /HPF NONE A - US PREG UT [id number] 20:40:00 Name: JOSE CARLOS ESPANA [facility] : 1985 Age/S: 33 / F [id number] [place] Unit #: [id number] Loc: [place] [address] Phys: Parker Causey MD Acct: [id number] Dis Date: Status: REG ER PHONE #: [phone] Exam Date: 01/05/20192001 FAX #: Reason: pelvic pain EXAMS: CPT: [id number] US PREG UT TRANSVAGINAL 97717 DICTATION LOCATION B2 PELVIC TRANSABDOMINAL AND TRANSVAGINAL ULTRASOUND CLINICAL HISTORY: at 6wks by lmp pelvic pain, nausea and vomiting TECHNIQUE: Multiple high resolution images were obtained through the pelvis, using a multifrequency curved transducer, followed by a transvaginal probe. COMPARISON: 01/01/2019 FINDINGS: The uterus is gravid, with a single intrauterine gestational sac. Mean sac diameter of 1.1 cm corresponds to 5 weeks and 5 days with FINA of . A yolk sac is identified but no embryo or heartbeat seen. Ther e is no hemorrhage. The cervix is closed. Both ovaries remain unr emarkable with right corpus luteum. No adnexal mass or free fluid seen. IMPRESSION: 1. Compared to 4 days prior, there is slight growth of early intrauterine with visualization of a yolk sac but no embryo. Continued follow-up recommended. 2. No high ri sk findings for ectopic . at 2039 Reported and signed by: Jose L Martinez M.D. CC: Technologist: Veronika aMc Trnscb Date/Time: 01/05/2019 (2039) [place] PAGE 1 Signed Report Name: LES ESPANA [facility] : 1985 Age/S: 33 / F [address] [address] [place] Unit #: [id number] Loc: [place] [address] Phys: Parker Causey MD Acct: [id number] Dis Date: Status: REG ER PHONE #: [phone] Exam Date: 01/05/20192001 FAX #: Reason: pe lvic pain EXAMS: CPT: [id number] US PREG UT TRANSVAGINAL 53864 <Continued> Orig Print D/T: S: 01/05/2019 (2042) Probe: [id number] PAGE 2 Signed Report - US PREG 1ST [id number] 20:40:00 Name: JOSE CARLOS ESPANA [facility] : 1985 Age/S: 33 / F [address] [address] [place] Unit #: [id number] Loc: [place] [address] Phys: Parker Causey MD Acct: [id number] Dis Date: Status: REG ER PHONE #: [phone] Exam Date: 01/05/20192001 FAX #: Reason: at 6wks by lmp pelvic pain EXAMS: CPT: [id number] US PREG 1ST TRIMTR 34193 DICTATION LOCATION B2 PELVIC TRANSABDOMINAL AND TRANSVAGINAL ULTRASOUND CLINICAL HISTORY: at 6wks by lmp pelvic pain, nausea and vomiting TECHNIQUE: Multiple high resolution images were obtained through the pelvis, using a multifrequency curved transducer, followed by a transvaginal probe. COMPARISON: 01/01/2019 FINDINGS: The uterus is gravid, with a single intrauterine gestational sac. Mean sac diameter of 1.1 cm corresponds to 5 weeks and 5 days with FINA of 09/02/2019. A yolk sac is identified but no embryo or heartbeat seen. There is no hemorrhage. The cervix is closed. Both ovaries remain unremarkable with right corpus luteum. No adnexal mass or free fluid seen. IMPRESSION: 1. Compared to 4 days prior, there is slight growth of early intrauterine with visualization of a yolk sac but no embryo. Continued follow-up recommended. 2. No high risk findings for ectopic . at 2039 Reported and signed by: Elina Martinez M.D. CC: Technologist: Veronika Mac Trnscb Date/Time: 01/05/2019 (2039) YelenaPX PAGE 1 Signed Report Name: LES ESPANA [facility] : 1985 Age/S: 33 / F [address] [address] [place] Unit #: [id number] Loc: [place] [address] Phys: Parker Causey MD Acct: [id number] Dis Date: Status: REG ER PHONE #: [phone] Exam Date: 01/05/20192001 FAX #: Reason: at 6wks by lmp pelvic pain EXAMS: CPT: [id number] US PREG 1ST TRIMTR 58974 <Continued> Orig Print D/T: S: 01/05/2019 (2042) Probe: PAGE 2 Signed Report HCG SERUM 2019-01-05 20:23:00* Test Item Value Reference Range Interpretation Comments HCG SERUM (test code = HCG) 36771 mi-IU/ML 0-6 H 0 - 6 NOT > 6 SUGGESTIVE OF EARLY RISES TWO FOLD EVERY 2 DAYS; SUGGEST RECONFIRMING AFTER 2 DAYS. 150,000-200,[address] TRIME[address] 10,000 - 50,000 2ND & 3RD TRIMESTER CBC W/AUTO [id number] 20:03:00* Test Item Value Reference Range Interpretation Comments WHITE BLOOD CELL (test code = WBC) 6.7 K/mm3 3.5-11.0 N RED BLOOD CELL (test code = RBC) 3.70 M/mm3 4.70-6.10 L HEMOGLOBIN (test code = HGB) 9.2 G/DL 10.4-14.9 L HEMATOCRIT (test code = HCT) 26.7 % 31.5-44.1 L MEAN CELL VOLUME (test code = MCV) 72.2 Fl 84.5-98.6 L MEAN CELL HGB (test code = MCH) 24.9 pg 27.0-34.2 L MEAN CELL HGB CONCETRATION (test code = MCHC) 34.5 G/DL 31.5-34. 0 H RED CELL DISTRIBUTION WIDTH (test code = RDW) 18.0 SD 11.5-14. 5 H PLATELET COUNT (test code = PLT) 120.0 K/mm3 150-450 L NEUTROPHIL % (test code = NT%) 47.8 % 40-76 N LYMPHOCYTE % (test code = LY%) 35.1 % 20.5-51.1 N MONOCYTE % (test code = MO%) 6.0 % 1.7-9.3 N EOSINOPHIL % (test code = EO%) 10.7 % 0.0-6.0 H BASOPHIL % (test code = BA%) 0.4 % 0.0-2.0 N NEUTROPHIL # (test code = NT#) 3.20 K/mm3 1.8-7.6 N LYMPHOCYTE # (test code = LY#) 2.4 K/mm3 0.6-3.2 N MONOCYTE # (test code = MO#) 0.4 K/mm3 0.3-1.1 N EOSINOPHIL # (test code = EO#) 0.7 K/mm3 0.0-0.4 H BASOPHIL # (test code = BA#) 0.0 K/mm3 0.0-0.1 N MANUAL DIFF REQUIRED (test code = MDIFF) NO DIFF/SCN CRITERIA RBC [id number] 20:03:00* Test Item Value Reference Range Interpretation Comments PLATELET ESTIMATE (test code = PLTEST) ADEQUATE THOUSAND ADEQUATE PLATELET MORPHOLOGY (test code = PLTMORPH) NORMAL COMPREHENSIVE METABOLIC [id number] 20:03:00* Test Item Value Reference Range Interpretation Comments SODIUM (test code = NA) 139 mmol/L 134-147 N POTASSIUM (test code = K) 3.9 mmol/L 3.4-5.0 N CHLORIDE (test code = CL) 107 mmol/L 100-108 N CARBON DIOXIDE (test code = CO2) 22 mmol/L 21-32 N ANION GAP (test code = GAP) 10.0 GAP calc 4.0-15.0 N GLUCOSE (test code = GLU) 85 MG/DL 70-110 N BLOOD UREA NITROGEN (test code = BUN) 9 MG/DL 7-18 N GLOMERULAR FILTRATION RATE (test code = GFR) >=60 max estimate estG FR >60 CREATININE (test code = CREAT) 0.5 MG/DL 0.6-1.0 L TOTAL PROTEIN (test code = PROT) 7.5 G/DL 6.4-8.2 N ALBUMIN (test code = ALB) 3.4 G/DL 3.4-5.0 N GLOBULIN (test code = GLOB) 4.1 GM/dL ALBUMIN/GLOBULIN RATIO (test code = A/G) 0.8 RATIO 1.2-2.2 L CALCIUM (test code = CA) 8.6 MG/DL 8.5-10.1 N BILIRUBIN TOTAL (test code = BILT) <0.10 MG/DL 0.2-1.2 L SGOT/AST (test code = AST) 18 Unit/L 15-37 N SGPT/ALT (test code = ALT) 17 Unit/L 12-78 N ALKALINE PHOSPHATASE TOTAL (test code = ALKP) 95 Unit/L 45-117 N [id number] 20:03:00* Test Item Value Reference Range Interpretation Comments LIPASE (test code = LIP) 237 Unit/L 114-286 N CBC W/AUTO [id number] 19:54:00* Test Item Value Reference Range Interpretation Comments WHITE BLOOD CELL (test code = WBC) 6.7 K/mm3 3.5-11.0 N RED BLOOD CELL (test code = RBC) 3.70 M/mm3 4.70-6.10 L HEMOGLOBIN (test code = HGB) 9.2 G/DL 10.4-14.9 L HEMATOCRIT (test code = HCT) 26.7 % 31.5-44.1 L MEAN CELL VOLUME (test code = MCV) 72.2 Fl 84.5-98.6 L MEAN CELL HGB (test code = MCH) 24.9 pg 27.0-34.2 L MEAN CELL HGB CONCETRATION (test code = MCHC) 34.5 G/DL 31.5-34. 0 H RED CELL DISTRIBUTION WIDTH (test code = RDW) 18.0 SD 11.5-14. 5 H PLATELET COUNT (test code = PLT) 120.0 K/mm3 150-450 L NEUTROPHIL % (test code = NT%) 47.8 % 40-76 N LYMPHOCYTE % (test code = LY%) 35.1 % 20.5-51.1 N MONOCYTE % (test code = MO%) 6.0 % 1.7-9.3 N EOSINOPHIL % (test code = EO%) 10.7 % 0.0-6.0 H BASOPHIL % (test code = BA%) 0.4 % 0.0-2.0 N NEUTROPHIL # (test code = NT#) 3.20 K/mm3 1.8-7.6 N LYMPHOCYTE # (test code = LY#) 2.4 K/mm3 0.6-3.2 N MONOCYTE # (test code = MO#) 0.4 K/mm3 0.3-1.1 N EOSINOPHIL # (test code = EO#) 0.7 K/mm3 0.0-0.4 H BASOPHIL # (test code = BA#) 0.0 K/mm3 0.0-0.1 N MANUAL DIFF REQUIRED (test code = MDIFF) NO DIFF/SCN CRITERIA CBC W/AUTO [id number] 19:54:00* Test Item Value Reference Range Interpretation Comments WHITE BLOOD CELL (test code = WBC) 6.7 K/mm3 3.5-11.0 N RED BLOOD CELL (test code = RBC) 3.70 M/mm3 4.70-6.10 L HEMOGLOBIN (test code = HGB) 9.2 G/DL 10.4-14.9 L HEMATOCRIT (test code = HCT) 26.7 % 31.5-44.1 L MEAN CELL VOLUME (test code = MCV) 72.2 Fl 84.5-98.6 L MEAN CELL HGB (test code = MCH) 24.9 pg 27.0-34.2 L MEAN CELL HGB CONCETRATION (test code = MCHC) 34.5 G/DL 31.5-34. 0 H RED CELL DISTRIBUTION WIDTH (test code = RDW) 18.0 SD 11.5-14. 5 H PLATELET COUNT (test code = PLT) 120.0 K/mm3 150-450 L NEUTROPHIL % (test code = NT%) 47.8 % 40-76 N LYMPHOCYTE % (test code = LY%) 35.1 % 20.5-51.1 N MONOCYTE % (test code = MO%) 6.0 % 1.7-9.3 N EOSINOPHIL % (test code = EO%) 10.7 % 0.0-6.0 H BASOPHIL % (test code = BA%) 0.4 % 0.0-2.0 N NEUTROPHIL # (test code = NT#) 3.20 K/mm3 1.8-7.6 N LYMPHOCYTE # (test code = LY#) 2.4 K/mm3 0.6-3.2 N MONOCYTE # (test code = MO#) 0.4 K/mm3 0.3-1.1 N EOSINOPHIL # (test code = EO#) 0.7 K/mm3 0.0-0.4 H BASOPHIL # (test code = BA#) 0.0 K/mm3 0.0-0.1 N MANUAL DIFF REQUIRED (test code = MDIFF) NO DIFF/SCN CRITERIA COMPREHENSIVE METABOLIC [id number] 19:52:00* Test Item Value Reference Range Interpretation Comments SODIUM (test code = NA) 139 mmol/L 134-147 N POTASSIUM (test code = K) 3.9 mmol/L 3.4-5.0 N CHLORIDE (test code = CL) 107 mmol/L 100-108 N CARBON DIOXIDE (test code = CO2) 22 mmol/L 21-32 N ANION GAP (test code = GAP) 10.0 GAP calc 4.0-15.0 N GLUCOSE (test code = GLU) 85 MG/DL 70-110 N BLOOD UREA NITROGEN (test code = BUN) 9 MG/DL 7-18 N GLOMERULAR FILTRATION RATE (test code = GFR) estGFR >60 CREATININE (test code = CREAT) MG/DL 0.6-1.0 TOTAL PROTEIN (test code = PROT) G/DL 6.4-8.2 ALBUMIN (test code = ALB) G/DL 3.4-5.0 GLOBULIN (test code = GLOB) GM/dL ALBUMIN/GLOBULIN RATIO (test code = A/G) RATIO 1.2-2.2 CALCIUM (test code = CA) 8.6 MG/DL 8.5-10.1 N BILIRUBIN TOTAL (test code = BILT) MG/DL 0.2-1.2 SGOT/AST (test code = AST) Unit/L 15-37 SGPT/ALT (test code = ALT) Unit/L 12-78 ALKALINE PHOSPHATASE TOTAL (test code = ALKP) Unit/L 45-117 [id number] 19:52:00* Test Item Value Reference Range Interpretation Comments LIPASE (test code = LIP) 237 Unit/L 114-286 N HCG [id number] 06:42:00* Test Item Value Reference Range Interpretation Comments HCG SERUM (test code = HCG) 3328 mi-IU/ML 0-6 H 0 - 6 NOT > 6 SUGGESTIVE OF EARLY RISES TWO FOLD EVERY 2 DAYS; SUGGEST RECONFIRMING AFTER 2 DAYS. 150,000-200,[address] TRIME[address] 10,000 - 50,000 2ND & 3RD TRIMESTER - US PREG 1ST [id number] 05:31:00 Name: JOSE CARLOS ESPANA [facility] : 1985 Age/S: 33 / F [address] [address] [place] Unit #: [id number] Loc: [place] [address] Phys: Kathy Caicedo MD Acct: [id number] Dis Date: Status: REG ER PHONE #: [phone] Exam Date: 01/01/2019526 FAX #: Reason: PELVIC PAIN EXAMS: CPT: [id number] US PREG 1ST TRIMTR 91869 EXAM: - US PREG UT TRANSVAGINAL, - US PREG 1ST TRIMTR HISTORY: , abdominal pain Location code:C3 COMPARISON: None TECHNIQUE: Transabdominal and endovaginal scans were performed. Spectral Doppler and color Doppler sonographic analysis of the adnexa was performed. FINDINGS: The uterus measures 9.6 x 6.9 x 7.1 cm. There is a gestational sac with estimated gestational age of 5 weeks and 3 days with estimated due date of 08/31/2019 in the endometrial canal. A questionable pole is seen however no cardiac activity is present. There is no subchorionic fluid collection. The right ovary measures 4.7 x 1.7 x 2.0cm. The left ovary measures 4.0 x 1.5 x 1.2cm. Bilateral ovarian blood flow is documented by pulse wave Doppler. Hypoechoic vascular structure in the right ovary measuring 1.9 x 1.5 x 1.9 cm is seen. IMPRESSION: 1. There is a 5 week 3 day intrauterine without cardiac activity. This could represent very early intrauterine versus blighted ovum. Serial quantitative beta hCG values and one week follow-up ultrasound is recommended. 2. Hypoechoic 1.9 cm structure in the right ovary may represent involuting corpus luteum cyst. at 0531 Reported and signed by: Ludwin Chang MD CC: Kathy Caicedo MD Technologist: Cielo Julian Trnscb Date/Time: 01/01/2019 (0531) [id number] PAGE 1 Signed R eport Name: MALORIEJOSE CARLOS KEMP [facility] : 1985 Age/S: 33 / F [address] [address] [place] Unit #: [id number] Loc: [place] [address] Phys: Kathy Caicedo MD Acct: [id number] Dis Date: Status: REG ER PHONE #: [phone] Exam Date: 01/01/2019526 FAX #: Reason: PELVIC PAIN EXAMS: CPT: [id number] US PREG 1ST TRIMTR 51315 <Continued> Orig Print D/T: S: 01/01/2019 (0535) Probe: PAGE 2 Signed Report - US PREG UT [id number] 05:31:00 Name: MALORIEJOSE CARLOS KEMP [facility] : 1985 Age/S: 33 / F [address] [address] [place] Unit #: [id number] Loc: [place] [address] Phys: Kathy Caicedo MD Acct: [id number] Dis Date: Status: REG ER PHONE #: [phone] Exam Date: 01/01/2019 05 FAX #: Reason: pelvic pain EXAMS: CPT: [id number] US PREG UT TRANSVAGINAL 86596 EXAM: - US PREG UT TRANSVAGINAL, - US PREG 1ST TRIMTR HISTORY: , abdominal pain Location code:C3 COMPARISON: None TECHNIQUE: Transabdominal and endovaginal scans were performed. Spectral Doppler and color Doppler sonographic analysis of the adnexa was performed. FINDINGS: The uterus measures 9.6 x 6.9 x 7.1 cm. There is a gestational sac with estimated gestational age of 5 weeks and 3 days with estimated due date of 08/31/2019 in the endometrial canal. A questionable pole is seen however no cardiac activity is present. There is no subchorionic fluid collection. The right ovary measures 4.7 x 1.7 x 2.0cm. The left ovary measures 4.0 x 1.5 x 1.2cm. Bilateral ovarian blood flow is documented by pulse wave Doppler. Hypoechoic vascular structure in the right ovary measuring 1.9 x 1.5 x 1.9 cm is seen. IMPRESSION: 1. There is a 5 week 3 day intrauterine without cardiac activity. This could represent very early intrauterine versus blighted ovum. Serial quantitative beta hCG values and one week follow-up ultrasound is recommended. 2. Hypoechoic 1.9 cm structure in the right ovary may represent involuting corpus luteum cyst. at 0531 Reported and signed by: Ludwin Chang MD CC: Kathy Caicedo MD Technologist: Cielo Julian Trnwib Date/Time: 01/01/2019 (0531) [id number] PAGE 1 Signed R eport Name: JOSE CARLOS ESPANA [facility] : 1985 Age/S: 33 / F [address] [address] [facility] Unit #: [id number] Loc: [place] [address] Phys: Kathy Caicedo MD Acct: [id number] Dis Date: Status: REG ER PHONE #: [phone] Exam Date: 01/01/2019525 FAX #: Reason: pelvic pain EXAMS: CPT: [id number] PREG UT TRANSVAGINAL 40628 <Continued> Orig Print D/T: S: 01/01/2019 (0535) Probe: [id number] PAGE 2 Signed Report BASIC METABOLIC [id number] 04:02:00* Test Item Value Reference Range Interpretation Comments SODIUM (test code = NA) 140 mmol/L 134-147 N POTASSIUM (test code = K) 3.2 mmol/L 3.4-5.0 L CHLORIDE (test code = CL) 108 mmol/L 100-108 N CARBON DIOXIDE (test code = CO2) 25 mmol/L 21-32 N ANION GAP (test code = GAP) 7.0 GAP calc 4.0-15.0 N GLUCOSE (test code = GLU) 97 MG/DL 70-110 N BLOOD UREA NITROGEN (test code = BUN) 8 MG/DL 7-18 N GLOMERULAR FILTRATION RATE (test code = GFR) >=60 max estimate estG FR >60 CREATININE (test code = CREAT) 0.6 MG/DL 0.6-1.0 N CALCIUM (test code = CA) 8.6 MG/DL 8.5-10.1 N BASIC METABOLIC [id number] 03:56:00* Test Item Value Reference Range Interpretation Comments SODIUM (test code = NA) 140 mmol/L 134-147 N POTASSIUM (test code = K) 3.2 mmol/L 3.4-5.0 L CHLORIDE (test code = CL) 108 mmol/L 100-108 N CARBON DIOXIDE (test code = CO2) 25 mmol/L 21-32 N ANION GAP (test code = GAP) 7.0 GAP calc 4.0-15.0 N GLUCOSE (test code = GLU) 97 MG/DL 70-110 N BLOOD UREA NITROGEN (test code = BUN) 8 MG/DL 7-18 N GLOMERULAR FILTRATION RATE (test code = GFR) estGFR >60 CREATININE (test code = CREAT) MG/DL 0.6-1.0 CALCIUM (test code = CA) 8.6 MG/DL 8.5-10.1 N CBC W/AUTO [id number] 03:43:00* Test Item Value Reference Range Interpretation Comments WHITE BLOOD CELL (test code = WBC) 8.7 K/mm3 3.5-11.0 N RED BLOOD CELL (test code = RBC) 3.43 M/mm3 4.70-6.10 L HEMOGLOBIN (test code = HGB) 8.5 G/DL 10.4-14.9 L HEMATOCRIT (test code = HCT) 24.8 % 31.5-44.1 L MEAN CELL VOLUME (test code = MCV) 72.3 Fl 84.5-98.6 L MEAN CELL HGB (test code = MCH) 24.8 pg 27.0-34.2 L MEAN CELL HGB CONCETRATION (test code = MCHC) 34.3 G/DL 31.5-34. 0 H RED CELL DISTRIBUTION WIDTH (test code = RDW) 18.2 SD 11.5-14. 5 H PLATELET COUNT (test code = PLT) 323.0 K/mm3 150-450 N MEAN PLATELET VOLUME (test code = MPV) 11.60 fL 7.0-10.5 H NEUTROPHIL % (test code = NT%) 51.1 % 40-76 N LYMPHOCYTE % (test code = LY%) 30.0 % 20.5-51.1 N MONOCYTE % (test code = MO%) 6.5 % 1.7-9.3 N EOSINOPHIL % (test code = EO%) 11.8 % 0.0-6.0 H BASOPHIL % (test code = BA%) 0.6 % 0.0-2.0 N NEUTROPHIL # (test code = NT#) 4.45 K/mm3 1.8-7.6 N LYMPHOCYTE # (test code = LY#) 2.6 K/mm3 0.6-3.2 N MONOCYTE # (test code = MO#) 0.6 K/mm3 0.3-1.1 N EOSINOPHIL # (test code = EO#) 1.0 K/mm3 0.0-0.4 H BASOPHIL # (test code = BA#) 0.1 K/mm3 0.0-0.1 N MANUAL DIFF REQUIRED (test code = MDIFF) NO DIFF/SCN CRITERIA URINALYSIS [id number] 03:37:00* Test Item Value Reference Range Interpretation Comments UA COLOR (test code = COLU) YELLOW discript YEL/STRAW UA APPEARANCE (test code = APPU) CLEAR discript CLEAR UA GLUCOSE DIPSTICK (test code = DGLUU) NORMAL mg/dL NEG UA BILIRUBIN DIPSTICK (test code = BILU) NEG mg/DL (NEG) 0 UA KETONE DIPSTICK (test code = KETU) NEGATIVE mg/DL (NEG) 0 UA SPECIFIC GRAVITY (test code = SGU) 1.010 SG 1.005-1.030 UA BLOOD DIPSTICK (test code = CALEB) NEGATIVE Axel/mcL (NEG) 0 UA PH DIPSTICK (test code = VARGAS) 7.0 pH UNITS 5.0-7.0 UA PROTEIN DIPSTICK (test code = PROU) NEG mg/DL <30 UA UROBILINIOGEN DIPSTICK (test code = URO) NORMAL mg/DL (NORM) <2. 0 UA NITRITE DIPSTICK (test code = MARBIN) NEGATIVE SCREEN NEG UA LEUKOCYTE ESTERASE DIPSTICK (test code = LEUU) NEGATIVE Leuk/mcL (NEG) 0 CPK-MB [id number] 17:43:00* Test Item Value Reference Range Interpretation Comments CREATINE KINASE (CK) (test code = CK) 81 Unit/L 26-192 N CKMB (test code = CKMBT) < 1.0 NG/ML 0.0-4.9 N RELATIVE % INDEX (test code = REL%) 1.2 % 0.0-2.5 N TROPONIN I [id number] 17:39:00* Test Item Value Reference Range Interpretation Comments TROPONIN I RAPID (test code = TROPIRAP) 0.00 ng/mL 0.00-0.08 N - The use of serial sampling and testing protocol is a recommended practice- An elevated troponin level alone is often not sufficient for diagnosis of myocardial infarction. CBC W/O [id number] 17:24:00* Test Item Value Reference Range Interpretation Comments WHITE BLOOD CELL (test code = WBC) 7.1 K/mm3 3.5-11.0 N RED BLOOD CELL (test code = RBC) 3.84 M/mm3 4.70-6.10 L HEMOGLOBIN (test code = HGB) 9.8 G/DL 10.4-14.9 L HEMATOCRIT (test code = HCT) 27.8 % 31.5-44.1 L MEAN CELL VOLUME (test code = MCV) 72.4 Fl 84.5-98.6 L MEAN CELL HGB (test code = MCH) 25.5 pg 27.0-34.2 L MEAN CELL HGB CONCETRATION (test code = MCHC) 35.3 G/DL 31.5-34. 0 H RED CELL DISTRIBUTION WIDTH (test code = RDW) 17.5 SD 11.5-14. 5 H PLATELET COUNT (test code = PLT) 284.0 K/mm3 150-450 N MEAN PLATELET VOLUME (test code = MPV) 12.20 fL 7.0-10.5 H - XR CHEST 1 [id number] 17:24:00 [facility] [place] : 1985 Age/S: 33 / F [address] [address] [place] Unit #: [id number] Loc: [place] [address] Phys: Philippe Worthy MD Acct: [id number] Dis Date: Status: DEP ER PHONE #: [phone] Exam Date: 10/29/2018 2865 FAX #: Reason: chest pain EXAMS: CPT: [id number] XR CHEST 1 V 54053 Fluoro Time: DAP (Gy m2): Air Kerma (mGy): Dictation location B2 Portable chest one view. HISTORY:chest pain COMMENT: Compared to 07/22/2018. The lungs are clear and normally expanded. The heart and pulmonary vasculature is normal. Visualized soft tissues and skeletal structures are unremarkable. IMPRESSION: No active disease in the chest. at 1724 Reported and signed by: Elina Martinez M.D. CC: Philippe Worthy MD PAGE 1 Signed Report Name: EDWARD ESPANA [facility] : 1985 Age/S: 33 / F [address] [address] [place] Unit #: [id number] Loc: [place] [address] Phys: Philippe Worthy MD Acct: [id number] Dis Date: Status: DEP ER PHONE #: [phone] Exam Date: 10/29/20181718 FAX #: Reason: chest pain EXAMS: CPT: [id number] XR CHEST 1 V 23637 Fluoro Time: DAP (Gy m2): Air Kerma (mGy): <Continued> Technologist: Cori Burch RDMS, RT(R); ... Trnscb Date/Time: 10/29/2018 (1724) [email or web address] Orig Print D/T: S: 10/29/2018 (1724) PAGE 2 Signed Report - XR CHEST 1 [id number] 17:24:00 Name: BJ ESPANALINE [facility] : 1985 Age/S: 33 / F [address] [address] [place] Unit #: [id number] Loc: [place] [address] Phys: Philippe Worthy MD Acct: [id number] Dis Date: Status: REG ER PHONE #: [phone] Exam Date: 10/29/20181718 FAX #: Reason: chest pain EXAMS: CPT: [id number] XR CHEST 1 V 05874 Fluoro Time: DAP (Gy m2): Air Kerma (mGy): Dictation location B2 Portable chest one view. HISTORY:chest pain COMMENT: Compared to 07/22/2018. The lungs are clear and normally expanded. The heart and pulmonary vasculature is normal. Visualized soft tissues and skeletal structures are unremarkable. IMPRESSION: No active disease in the chest. at 1724 Reported and signed by: Elina Martinez M.D. CC: Philippe Worthy MD PAGE 1 Signed Report Name: EDWARD ESPANA [facility] : 1985 Age/S: 33 / F [address] [address] [place] Unit #: [id number] Loc: [place] [address] Phys: Philippe Worthy MD Acct: [id number] Dis Date: Status: REG ER PHONE #: [phone] Exam Date: 10/29/2018 9552 FAX #: Reason: chest pain EXAMS: CPT: [id number] XR CHEST 1 V 54703 Fluoro Time: DAP (Gy m2): Air Kerma (mGy): <Continued> Technologist: Cori Burch; Yair Graves, RT(R)(CT)(MRI) Trnscb Date/Time: 10/29/2018 (1728) [email or web address] Orig Print D/T: S: 10/29/2018 (3330) PAGE 2 Signed Report CHEMISTRY 8 [id number] 17:14:00* Test Item Value Reference Range Interpretation Comments ISTAT-SODIUM (test code = NAP) mmol/L 135-146 ISTAT-POTASSIUM (test code = KP) mmol/L 3.5-4.9 ISTAT-CHLORIDE (test code = CLP) mmol/L 98-109 ISTAT-CARBON DIOXIDE (test code = ISTAT-CO2) mmol/L 24-29 N ISTAT CALCIUM IONIZED (test code = ISTAT-AYUSH) mmol/L 1.12-1.3 2 ISTAT-GLUCOSE (test code = GLUP) mg/dL 70-105 N ISTAT-BUN (test code = BUNP) mg/dL 8-26 L BEDSIDE CREATININE (test code = CREATBED) mg/dL 0.6-1.3 L GLOMERULAR FILTRATION RATE POC (test code = GFRBED) 182 64 -149 H CHEMISTRY 8 [id number] 17:14:00* Test Item Value Reference Range Interpretation Comments ISTAT-SODIUM (test code = NAP) 141 mmol/L 135-146 N ISTAT-POTASSIUM (test code = KP) 3.4 mmol/L 3.5-4.9 L ISTAT-CHLORIDE (test code = CLP) 104 mmol/L 98-109 N ISTAT-CARBON DIOXIDE (test code = ISTAT-CO2) 26 mmol/L 24-29 N ISTAT CALCIUM IONIZED (test code = ISTAT-AYUSH) 1.25 mmol/L 1.12-1.3 2 N ISTAT-GLUCOSE (test code = GLUP) 81 mg/dL 70-105 N ISTAT-BUN (test code = BUNP) 7 mg/dL 8-26 L BEDSIDE CREATININE (test code = CREATBED) 0.5 mg/dL 0.6-1.3 L GLOMERULAR FILTRATION RATE POC (test code = GFRBED) 182 64 -149 H - XR CHEST 2 [id number] 22:41:00 Name: SARA ESPANAQUELINE JOHNATHON [place] : 1985 Age/S: 32 / F [id number] [address] [place] [address] [place] Unit #: [id number] Loc: [place] [address] Phys: Parker Causey MD Acct: [id number] Dis Date: Status: DEP ER PHONE #: [phone] Exam Date: 07/22/2018 2223 FAX #: Reason: cough EXAMS: CPT: [id number] XR CHEST 2 V 00206 Fluoro Time: DAP (Gy m2): Air Kerma (mGy): - XR CHEST 2 V, 07/22/2018 10:12 PM Reason For Examination: cough Comparison: None available Location: R16 Findings LUNGS: No definite pulmonary edema or consolidation PLEURA: No pleural effusions CARDIOMEDIASTINAL SILHOUETTE Unremarkable IMPRESSION: No plain film evidence of acute cardiopulmonary abnormality at 6531 Reported and signed by: Poppy Rivera M.D. CC: PAGE 1 Signed Report Name: EDWARD ESPANA [place] : 1985 Age/S: 32 / F [id number] [address] [place] [address] [place] Unit #: [id number] Loc: [place] [address] Phys: Parker Causey MD Acct: [id number] Dis Date: Status: DEP ER PHONE #: [phone] Exam Date: 07/22/2018 2223 FAX #: Reason: cough EXAMS: CPT: [id number] XR CHEST 2 V 36117 Fluoro Time: DAP (Gy m2): Air Kerma (mGy): <Continued> Technologist: Miroslava Garcia RT(R)(CT) Trnscb Date/Time: 07/22/2018 (2240) [email or web address] Orig Print D/T: S: 07/22/2018 (2240) PAGE 2 Signed Report - CT ABD PELVIS W/O [id number] 23:55:00 Name: EDWARD ESPANA : 1985 Age/S: 32 / F [id number] [facility] Unit #: [id number] Loc: [place] [address] Phys: Neil Santana MD Acct: [id number] Dis Date: Status: [facility] ER PHONE #: [phone] Exam Date: 03/12/2018 2349 FAX #: Reason: periumbilical abdominal pain EXAMS: CPT: [id number] CT ABD PELVIS W/O CONT 25734 CT SCAN OF THE ABDOMEN AND PELVIS WITHOUT CONTRAST Location: N13 CLINICAL HISTORY: Abdominal pain periumbilical TECHNIQUE: Helical CT of the abdomen and pelvis was performed without IV or oral contrast without complication. Automatic exposure control and radiation dose reduction techniques were used. Coronal and sagittal reconstructions were obtained. DLP 451 mGy*cm FINDINGS: The visualized lung bases are clear. No evidence of pleural effusion. Liver is normal in size without intrahepatic biliary dilatation or focal mass. The gallbladder and biliary tree, pancreas, spleen, and adrenal glands are normal. There is no evidence of hydronephrosis, solid mass, pyelonephritis or obstructing kidney stone. Visualized ureters are unremarkable. There is no evidence of pancreatic mass, atrophy, calcification. There is no abdominal free fluid or adenopathy. There is no bowel wall thickening or dilatation. There is no evidence of appendicitis, diverticulitis, colitis or bowel obstruction. Normal air-filled appendix is seen on axial image 61 and coronal image 48.. There has been prior tummy tuck surgery and there is scarring of the subcutaneous adipose tissues of the abdomen. A focal fluid collection is not evident. There appears to have been extensive anterior abdominal wall liposuction up to the rib cage. In the pelvis, there is no free fluid or adenopathy present. The bladder is normal. A tampon is seen in the vagina. Uterus and adnexa are unremarkable. The vascular, bony and muscular structures are unremarkable. IMPRESSION: 1. Normal appendix. 2. Tampon noted in the vagina. 3. Extensive scarring in the subcutaneous adipose tissues from rib cage to the lower abdomen from tummy tuck and liposuction surgery. No focal fluid collection. Periumbilical soft tissues unremarkable. PAGE 1 Signed Report (CONTINUED) Name: EDWARD ESPANA : 1985 Age/S: 32 / F [address] [facility] Unit #: [id number] Loc: [place] [address] Phys: Neil Santana MD Acct: [id number] Dis Date: Status: DEP ER PHONE #: [phone] Exam Date: 03/12/2018 1185 FAX #: Reason: periumbilical abdominal pain EXAMS: CPT: [id number] CT ABD PELVIS W/O CONT 38301 <Continued> at 1026 Reported and signed by: Makeda Cao M.D. CC: Neil Santana MD Technologist:Nishant Singleton RT(R)(CT) CTDI: DLP: Trnscb Date/Time: 03/12/2018 (9947) [email or web address] Orig Print D/T: S: 03/12/2018 (4839) PAGE [address] ABDOMEN AND PELVIS WITHOUT CONTRAST *WW*2018-01-08 22:32:47EXAM: CT ABDOMEN AND PELVIS WITHOUT CONTRAST *WW*HISTORY: [id number]: Lower abdominal pain TECHNIQUE: Axial imaging of the abdomen and pelvis from the lung base to thepubic symphysis without administration of intravenous contrast. Sagittal and coronal reconstructions. ACR accredited facility. CT scanperformed using appropriate/available dose optimization/reductiontechniques.DLP not available COMPARISON: 11/09/2017FINDINGS:Lung base:The visualized lung base is clear. The heart size is normal. Nopericardial or pleural effusion is present. Limited asse ssment of the abdominal and pelvic viscera the absence ofintravenous contrast ad ministration. Liver/spleen: 10 mm focus of density along the falciform ligament of the liveris compatible with focal fatty infiltration. Liver and spleen are ot herwiseunremarkable. Biliary system: The gallbladder is unremarkably distended. No biliary ductdilatation.Pancreas: Unremarkable.Adrenal glands: Normal. Kidneys : Unremarkable. Vascular: Normal caliber abdominal aorta. Stable whirling of t he mesentericvein. Prominence of the left renal vein without evidence of obstruc ting lesionis also stable.Lymph nodes: Scattered nonpathologically enlarged mese nteric lymph nodes arestable.Pelvic structures: The urinary bladder is unremarka chiquita distended. No pelviclymphadenopathy. Trace pelvic free fluid considered phys iologic in a patient ofthis age. The uterus and adnexa are normal for age. Gastr ointestinal tract: Moderate formed fecal matter in the colon. No abnormalbowel d ilatation. Normal caliber appendix is identified. No focal fluidcollections, as cites or evidence of pneumoperitoneum. Bones and soft tissues: The osseous st ructures are intact. Stable postsurgicalchanges along the ventral abdominal wall . IMPRESSION:Stable examination, without evidence of acute intra-abdominal patho logy. URINE MONOCLONAL 2018-01-08 21:56:00* Test Item Value Reference Range Interpretation Comments PREG UR (test code = PGU) NEGATIVE NEGATIVE AMYLASE AND LIPASE 2018-01-08 21:27:00* Test Item Value Reference Range Interpretation Comments AMYLASE (test code = 10A) 53 U/L 28-100 LIPASE (test code = 60A) 225 IU/L 73-393 URINALYSIS 2018-01-08 21:21:00* Test Item Value Reference Range Interpretation Comments COLOR (test code = COLU) YELLOW YELLOW CLARITY (test code = CLA) CLEAR CLEAR GLUCOSE UR (test code = UA GLUCOSE) NEGATIVE NEGATIVE BILI UR (test code = BILE) NEGATIVE NEGATIVE KETONES UR (test code = ZELDA) NEGATIVE NEGATIVE SP GRAVITY (test code = SPGR) 1.015 1.005-1.030 PH UR (test code = PH) 6.5 4.5-8.0 PROTEIN UR (test code = PU) NEGATIVE NEGATIVE UROBIL UR (test code = UROQ) 0.2 EU/dL 0.2-1.0 NITRITE UR (test code = NITRITE) NEGATIVE NEGATIVE BLOOD UR (test code = UA BLOOD) NEGATIVE NEGATIVE LEUK ES UR (test code = LEUK) NEGATIVE NEGATIVE AUAM (test code = WAUAM) NO NO CBC (INCLUDES AUTOMATED DIFFERENTIAL)*[id number] 21:19:00* Test Item Value Reference Range Interpretation Comments WBC (test code = WBC) 9.2 10\\S\\3/uL 4.5-11.0 RBC (test code = RBC) 3.84 10\\S\\6/uL 4.30-5.70 L HGB (test code = HBG) 9.9 g/dL 12.0-15.5 L HCT (test code = HCT) 27.9 % 35.0-44.0 L MCV (test code = MCV) 72.7 fL 81.0-99.0 L MCH (test code = MCH) 25.8 pg 27.0-31.0 L MCHC (test code = MCHC) 35.5 g/dL 32.0-36.0 RDW (test code = RDW) 18.6 % 11.5-14.5 H PLT (test code = PLT) 290 10\\S\\3/uL 130-400 MPV (test code = MPV) 11.8 fL 9.4-12.4 NEUTROP # (test code = NE#) 5.2 10\\S\\3/uL 1.6-8.0 LYMPH # (test code = LY#) 2.3 10\\S\\3/uL 1.1-3.5 MONOCYTE # (test code = MO#) 0.7 10\\S\\3/uL 0.0-1.1 EOSINOPH # (test code = EO#) 0.9 10\\S\\3/uL 0.0-0.7 H BASOPHIL # (test code = BA#) 0.1 10\\S\\3/uL 0.0-0.3 IG # (test code = IG#) 0.02 10\\S\\3/uL 0.00-0.06 NRBC # (test code = NRBC#) 0.00 10\\S\\3/uL 0.00-0.01 NEUTROPH % (test code = NE%) 56.1 % 35.0-73.0 LYMPH % (test code = LY%) 25.0 % 20.0-55.0 MONO % (test code = MO%) 7.6 % 2.5-10.0 EOSINOPH % (test code = EO%) 10.2 % 0.0-5.0 H BASOPHIL % (test code = BA%) 0.9 % 0.0-2.0 IG % (test code = IG%) 0.2 % 0.0-0.8 NRBC% (test code = NRBC%) 0.0 % 0.0-0.2 MANDIFF (test code = WMDIFF) NO NO RBC MORPH (test code = WRBCMOR) NORMAL CT ABDOMEN AND PELVIS WITH CONTRAST*RADHA*2017-11-09 21:12:30Examination: Abdomen and pelvic CT with contrastLocation code: [id number]: Abdomen and pelvic CT July 02 8017Technique:Axial postcontrast contiguous images were obtained through the abdomen andpelvis followed by coronal and sagittal reformations. One or more of thefollowing dose reduction techniques were used: Automated exposure control,adjustment of the mA and or KV according to patient size, and/or utilization ofiterative reconstruction technique.100 cc Omnipaque 300 administeredDiscussion:Clinical history is remarkable for left upper quadrant p ain. Lung bases areclear. The heart is normal in size.Within the abdomen and pel vis, liver, gallbladder, spleen, pancreas, andadrenal glands are within normal l imits. Kidneys demonstrate uniformenhancement.Residual fluid is present within t he stomach. Caliber of the bowel is grosslynormal. Appendix is visualized and it is normal. No intra-abdominalinflammatory changes are present.Bladder, uterus, and adnexa are unremarkable.No lytic or blastic lesions are present within the o sseous structures.Postsurgical changes of the anterior abdominal and pelvic wall noted.Impression:1. No acute abdominopelvic abnormality.URINALYSIS WITH MICRO *RADHA*2017-11-09 20:50:00* Test Item Value Reference Range Interpretation Comments COLOR (test code = COLU) YELLOW YELLOW CLARITY (test code = CLA) CLEAR CLEAR GLUCOSE UR (test code = UA GLUCOSE) NEGATIVE NEGATIVE BILI UR (test code = BILE) NEGATIVE NEGATIVE KETONES UR (test code = ZELDA) NEGATIVE NEGATIVE SP GRAVITY (test code = SPGR) 1.020 1.005-1.030 PH UR (test code = PH) 7.0 4.5-8.0 PROTEIN UR (test code = PU) TRACE NEGATIVE A UROBIL UR (test code = UROQ) 0.2 EU/dL 0.2-1.0 NITRITE UR (test code = NITRITE) NEGATIVE NEGATIVE BLOOD UR (test code = UA BLOOD) NEGATIVE NEGATIVE LEUK ES UR (test code = LEUK) NEGATIVE NEGATIVE WBC UR (test code = UWBC) 0 /HPF 0-5 RBC UR (test code = URBC) 0 /HPF 0-2 EPITH UR (test code = UEPC) FEW /LPF FEW BACTERIA UR (test code = UBACT) MODERATE /HPF NONE A CAST UR (test code = CAST) /LPF NONE CRYSTAL UR (test code = CRYU) / LPF NONE MUCUS UR (test code = MUC) / HPF NONE AMORPH UR (test code = REINA) / HPF NONE TRICH UR (test code = UTRICH) /HPF NONE YEAST UR (test code = UY) /HPF NONE SPERM UR (test code = USPERM) /HPF NONE PRO TIME AND PTT 2017-11-09 20:48:00* Test Item Value Reference Range Interpretation Comments PT (test code = TT) 12.6 s 9.8-13.6 INR (test code = INR) 1.1 INRH (test code = INRH) SUGGESTED THERAPEU TIC RANGE FOR INR: 2.5 - 3.5 For Patients with Prosthetic Valves or Patients with recurrent Thromboembolic Events 2.0 - 3.0 For Most Other Applications PTT (test code = PTT) 19.1 s 20.2-38.0 L PTTH (test code = PTTH) To monitor the effectiv eness of heparin, we offer the Anti-Xa (Heparin Assay). It can be used for either unfractionated or LMW Heparin. Order Code is ANTI-XA COMPREHENSIVE METABOLIC CARLSON *WW*2017-11-09 20:41:00* Test Item Value Reference Range Interpretation Comments GLUCOSE (test code = 06D) 96 mg/dL 75-100 SODIUM (test code = 01A) 140 mmol/L 136-145 POTASSIUM (test code = 01B) 3.6 mmol/L 3.6-5.1 CHLORIDE (test code = 04A) 104 mmol/L 98-107 CO2 (test code = 02A) 25 mmol/L 22-32 ANION GAP (test code = ANG) 14.6 mmol/L BUN (test code = 05D) 8 mg/dL 7-18 CREATININE (test code = 03E) 0.7 mg/dL 0.4-1.1 BUN/CREA (test code = BCR) 12 12-20 CALCIUM (test code = 09D) 8.6 mg/dL 8.3-9.5 BILI TOTAL (test code = 11A) 0.2 mg/dL 0.2-1.0 PROTEIN (test code = 07D) 7.1 g/dL 6.4-8.2 ALBUMIN (test code = 08D) 3.4 g/dL 3.5-4.8 L GLOBULIN (test code = GLB) 3.7 g/dL 1.5-3.8 ALB/GLOB (test code = AGRR) 0.9 1.0-2.6 L ALK PHOS (test code = 35A) 86 IU/L 42-121 AST (test code = 30A) 20 IU/L <=42 ALT (test code = 31A) 15 IU/L <=78 AMYLASE AND LIPASE 2017-11-09 20:41:00* Test Item Value Reference Range Interpretation Comments AMYLASE (test code = 10A) 45 U/L 28-100 LIPASE (test code = 60A) 184 IU/L 73-393 CBC (INCLUDES AUTOMATED DIFFERENTIAL)*[id number] 20:40:00* Test Item Value Reference Range Interpretation Comments WBC (test code = WBC) 8.0 10\\S\\3/uL 4.5-11.0 RBC (test code = RBC) 3.92 10\\S\\6/uL 4.30-5.70 L HGB (test code = HBG) 9.5 g/dL 12.0-15.5 L HCT (test code = HCT) 27.3 % 35.0-44.0 L MCV (test code = MCV) 69.6 fL 81.0-99.0 L MCH (test code = MCH) 24.2 pg 27.0-31.0 L MCHC (test code = MCHC) 34.8 g/dL 32.0-36.0 RDW (test code = RDW) 19.0 % 11.5-14.5 H PLT (test code = PLT) 308 10\\S\\3/uL 130-400 MPV (test code = MPV) 12.1 fL 9.4-12.4 NEUTROP # (test code = NE#) 4.8 10\\S\\3/uL 1.6-8.0 LYMPH # (test code = LY#) 2.0 10\\S\\3/uL 1.1-3.5 MONOCYTE # (test code = MO#) 0.5 10\\S\\3/uL 0.0-1.1 EOSINOPH # (test code = EO#) 0.6 10\\S\\3/uL 0.0-0.7 BASOPHIL # (test code = BA#) 0.1 10\\S\\3/uL 0.0-0.3 IG # (test code = IG#) 0.01 10\\S\\3/uL 0.00-0.06 NRBC # (test code = NRBC#) 0.00 10\\S\\3/uL 0.00-0.01 NEUTROPH % (test code = NE%) 59.4 % 35.0-73.0 LYMPH % (test code = LY%) 25.3 % 20.0-55.0 MONO % (test code = MO%) 6.6 % 2.5-10.0 EOSINOPH % (test code = EO%) 8.0 % 0.0-5.0 H BASOPHIL % (test code = BA%) 0.6 % 0.0-2.0 IG % (test code = IG%) 0.1 % 0.0-0.8 NRBC% (test code = NRBC%) 0.0 % 0.0-0.2 MANDIFF (test code = WMDIFF) NO NO RBC MORPH (test code = WRBCMOR) NORMAL SERUM MONOCLONAL *WW*2017-11-09 20:40:00* Test Item Value Reference Range Interpretation Comments PREG SRM (test code = PGS) NEGATIVE NEGATIVE BASIC METABOLIC PANEL 2017-08-01 03:54:00* Test Item Value Reference Range Interpretation Comments GLUCOSE (test code = 06D) 127 mg/dL 75-100 H SODIUM (test code = 01A) 138 mmol/L 136-145 POTASSIUM (test code = 01B) 3.3 mmol/L 3.6-5.1 L CHLORIDE (test code = 04A) 104 mmol/L 98-107 CO2 (test code = 02A) 26 mmol/L 22-32 ANION GAP (test code = ANG) 11.3 mmol/L BUN (test code = 05D) 4 mg/dL 7-18 L CREATININE (test code = 03E) 0.6 mg/dL 0.4-1.1 BUN/CREA (test code = BCR) 6 12-20 L CALCIUM (test code = 09D) 8.4 mg/dL 8.3-9.5 CBC (INCLUDES AUTOMATED DIFFERENTIAL)*[id number] 03:47:00* Test Item Value Reference Range Interpretation Comments WBC (test code = WBC) 6.1 10\\S\\3/uL 4.5-11.0 RBC (test code = RBC) 3.35 10\\S\\6/uL 4.30-5.70 L HGB (test code = HBG) 8.2 g/dL 12.0-15.5 L HCT (test code = HCT) 24.1 % 35.0-44.0 LL MCV (test code = MCV) 71.9 fL 81.0-99.0 L MCH (test code = MCH) 24.5 pg 27.0-31.0 L MCHC (test code = MCHC) 34.0 g/dL 32.0-36.0 RDW (test code = RDW) 18.7 % 11.5-14.5 H PLT (test code = PLT) 317 10\\S\\3/uL 130-400 MPV (test code = MPV) 11.6 fL 9.4-12.4 NEUTROP # (test code = NE#) 2.6 10\\S\\3/uL 1.6-8.0 LYMPH # (test code = LY#) 2.0 10\\S\\3/uL 1.1-3.5 MONOCYTE # (test code = MO#) 0.5 10\\S\\3/uL 0.0-1.1 EOSINOPH # (test code = EO#) 0.9 10\\S\\3/uL 0.0-0.7 H BASOPHIL # (test code = BA#) 0.0 10\\S\\3/uL 0.0-0.3 IG # (test code = IG#) 0.00 10\\S\\3/uL 0.00-0.06 NRBC # (test code = NRBC#) 0.00 10\\S\\3/uL 0.00-0.01 NEUTROPH % (test code = NE%) 42.7 % 35.0-73.0 LYMPH % (test code = LY%) 33.3 % 20.0-55.0 MONO % (test code = MO%) 8.4 % 2.5-10.0 EOSINOPH % (test code = EO%) 14.9 % 0.0-5.0 H BASOPHIL % (test code = BA%) 0.7 % 0.0-2.0 IG % (test code = IG%) 0.0 % 0.0-0.8 NRBC% (test code = NRBC%) 0.0 % 0.0-0.2 MANDIFF (test code = WMDIFF) NO NO RBC MORPH (test code = WRBCMOR) NORMAL BASIC METABOLIC PANEL 2017-07-31 06:23:00* Test Item Value Reference Range Interpretation Comments GLUCOSE (test code = 06D) 74 mg/dL 75-100 L SODIUM (test code = 01A) 139 mmol/L 136-145 POTASSIUM (test code = 01B) 3.1 mmol/L 3.6-5.1 L CHLORIDE (test code = 04A) 103 mmol/L 98-107 CO2 (test code = 02A) 29 mmol/L 22-32 ANION GAP (test code = ANG) 10.1 mmol/L BUN (test code = 05D) 7 mg/dL 7-18 CREATININE (test code = 03E) 0.6 mg/dL 0.4-1.1 BUN/CREA (test code = BCR) 11 12-20 L CALCIUM (test code = 09D) 8.7 mg/dL 8.3-9.5 CBC (INCLUDES AUTOMATED DIFFERENTIAL)*[id number] 06:15:00* Test Item Value Reference Range Interpretation Comments WBC (test code = WBC) 8.1 10\\S\\3/uL 4.5-11.0 RBC (test code = RBC) 3.91 10\\S\\6/uL 4.30-5.70 L HGB (test code = HBG) 9.4 g/dL 12.0-15.5 L HCT (test code = HCT) 28.4 % 35.0-44.0 L MCV (test code = MCV) 72.6 fL 81.0-99.0 L MCH (test code = MCH) 24.0 pg 27.0-31.0 L MCHC (test code = MCHC) 33.1 g/dL 32.0-36.0 RDW (test code = RDW) 18.9 % 11.5-14.5 H PLT (test code = PLT) 216 10\\S\\3/uL 130-400 NEUTROP # (test code = NE#) 4.4 10\\S\\3/uL 1.6-8.0 LYMPH # (test code = LY#) 2.1 10\\S\\3/uL 1.1-3.5 MONOCYTE # (test code = MO#) 0.6 10\\S\\3/uL 0.0-1.1 EOSINOPH # (test code = EO#) 0.9 10\\S\\3/uL 0.0-0.7 H BASOPHIL # (test code = BA#) 0.1 10\\S\\3/uL 0.0-0.3 IG # (test code = IG#) 0.02 10\\S\\3/uL 0.00-0.06 NRBC # (test code = NRBC#) 0.00 10\\S\\3/uL 0.00-0.01 NEUTROPH % (test code = NE%) 54.7 % 35.0-73.0 LYMPH % (test code = LY%) 25.8 % 20.0-55.0 MONO % (test code = MO%) 7.3 % 2.5-10.0 EOSINOPH % (test code = EO%) 11.1 % 0.0-5.0 H BASOPHIL % (test code = BA%) 0.9 % 0.0-2.0 IG % (test code = IG%) 0.2 % 0.0-0.8 NRBC% (test code = NRBC%) 0.0 % 0.0-0.2 MANDIFF (test code = WMDIFF) NO NO RBC MORPH (test code = WRBCMOR) NORMAL CBC (INCLUDES AUTOMATED DIFFERENTIAL)*[id number] 06:52:00* Test Item Value Reference Range Interpretation Comments WBC (test code = WBC) 11.1 10\\S\\3/uL 4.5-11.0 H RBC (test code = RBC) 3.84 10\\S\\6/uL 4.30-5.70 L HGB (test code = HBG) 9.3 g/dL 12.0-15.5 L HCT (test code = HCT) 27.1 % 35.0-44.0 L MCV (test code = MCV) 70.6 fL 81.0-99.0 L MCH (test code = MCH) 24.2 pg 27.0-31.0 L MCHC (test code = MCHC) 34.3 g/dL 32.0-36.0 RDW (test code = RDW) 19.0 % 11.5-14.5 H PLT (test code = PLT) 325 10\\S\\3/uL 130-400 MPV (test code = MPV) 12.6 fL 9.4-12.4 H NEUTROP # (test code = NE#) 8.3 10\\S\\3/uL 1.6-8.0 H LYMPH # (test code = LY#) 1.8 10\\S\\3/uL 1.1-3.5 MONOCYTE # (test code = MO#) 0.4 10\\S\\3/uL 0.0-1.1 EOSINOPH # (test code = EO#) 0.5 10\\S\\3/uL 0.0-0.7 BASOPHIL # (test code = BA#) 0.1 10\\S\\3/uL 0.0-0.3 IG # (test code = IG#) 0.02 10\\S\\3/uL 0.00-0.06 NRBC # (test code = NRBC#) 0.00 10\\S\\3/uL 0.00-0.01 NEUTROPH % (test code = NE%) 75.0 % 35.0-73.0 H LYMPH % (test code = LY%) 16.1 % 20.0-55.0 L MONO % (test code = MO%) 3.9 % 2.5-10.0 EOSINOPH % (test code = EO%) 4.2 % 0.0-5.0 BASOPHIL % (test code = BA%) 0.6 % 0.0-2.0 IG % (test code = IG%) 0.2 % 0.0-0.8 NRBC% (test code = NRBC%) 0.0 % 0.0-0.2 MANDIFF (test code = WMDIFF) NO NO RBC MORPH (test code = WRBCMOR) NORMAL BASIC METABOLIC PANEL 2017-07-30 06:29:00* Test Item Value Reference Range Interpretation Comments GLUCOSE (test code = 06D) 92 mg/dL 75-100 SODIUM (test code = 01A) 139 mmol/L 136-145 POTASSIUM (test code = 01B) 3.3 mmol/L 3.6-5.1 L CHLORIDE (test code = 04A) 105 mmol/L 98-107 CO2 (test code = 02A) 25 mmol/L 22-32 ANION GAP (test code = ANG) 12.3 mmol/L BUN (test code = 05D) 8 mg/dL 7-18 CREATININE (test code = 03E) 0.6 mg/dL 0.4-1.1 BUN/CREA (test code = BCR) 14 12-20 CALCIUM (test code = 09D) 8.7 mg/dL 8.3-9.5 CBC (INCLUDES AUTOMATED DIFFERENTIAL)*[id number] 02:20:00* Test Item Value Reference Range Interpretation Comments WBC (test code = WBC) 9.1 10\\S\\3/uL 4.5-11.0 RBC (test code = RBC) 3.67 10\\S\\6/uL 4.30-5.70 L HGB (test code = HBG) 9.0 g/dL 12.0-15.5 L HCT (test code = HCT) 26.2 % 35.0-44.0 L MCV (test code = MCV) 71.4 fL 81.0-99.0 L MCH (test code = MCH) 24.5 pg 27.0-31.0 L MCHC (test code = MCHC) 34.4 g/dL 32.0-36.0 RDW (test code = RDW) 19.4 % 11.5-14.5 H NEUTROP # (test code = NE#) 4.2 10\\S\\3/uL 1.6-8.0 LYMPH # (test code = LY#) 3.2 10\\S\\3/uL 1.1-3.5 MONOCYTE # (test code = MO#) 0.5 10\\S\\3/uL 0.0-1.1 EOSINOPH # (test code = EO#) 0.9 10\\S\\3/uL 0.0-0.7 H BASOPHIL # (test code = BA#) 0.1 10\\S\\3/uL 0.0-0.3 IG # (test code = IG#) 0.02 10\\S\\3/uL 0.00-0.06 NRBC # (test code = NRBC#) 0.00 10\\S\\3/uL 0.00-0.01 NEUTROPH % (test code = NE%) 47.7 % 35.0-73.0 LYMPH % (test code = LY%) 35.5 % 20.0-55.0 MONO % (test code = MO%) 5.9 % 2.5-10.0 EOSINOPH % (test code = EO%) 9.8 % 0.0-5.0 H BASOPHIL % (test code = BA%) 0.9 % 0.0-2.0 IG % (test code = IG%) 0.2 % 0.0-0.8 NRBC% (test code = NRBC%) 0.0 % 0.0-0.2 MANDIFF (test code = WMDIFF) NO NO RBC MORPH (test code = WRBCMOR) NORMAL COMPREHENSIVE METABOLIC CARLSON *WW*2017-07-28 02:10:00* Test Item Value Reference Range Interpretation Comments GLUCOSE (test code = 06D) 91 mg/dL 75-100 SODIUM (test code = 01A) 140 mmol/L 136-145 POTASSIUM (test code = 01B) 3.7 mmol/L 3.6-5.1 CHLORIDE (test code = 04A) 106 mmol/L 98-107 CO2 (test code = 02A) 22 mmol/L 22-32 ANION GAP (test code = ANG) 15.7 mmol/L BUN (test code = 05D) 15 mg/dL 7-18 CREATININE (test code = 03E) 0.6 mg/dL 0.4-1.1 BUN/CREA (test code = BCR) 23 12-20 H CALCIUM (test code = 09D) 8.9 mg/dL 8.3-9.5 BILI TOTAL (test code = 11A) 0.2 mg/dL 0.2-1.0 PROTEIN (test code = 07D) 7.5 g/dL 6.4-8.2 ALBUMIN (test code = 08D) 3.5 g/dL 3.5-4.8 GLOBULIN (test code = GLB) 4.0 g/dL 1.5-3.8 H ALB/GLOB (test code = AGRR) 0.9 1.0-2.6 L ALK PHOS (test code = 35A) 90 IU/L 42-121 AST (test code = 30A) 17 IU/L <=42 ALT (test code = 31A) 15 IU/L <=78 BLOOD [id number] 09:42:00* Test Item Value Reference Range Interpretation Comments Culture Observations (test code = COB1) NO GROWTH AFTER 5 DAYS BLOOD [id number] 09:42:00* Test Item Value Reference Range Interpretation Comments Culture Observations (test code = COB1) NO GROWTH AFTER 5 DAYS BASIC METABOLIC PANEL *WW*2017-07-13 06:59:00* Test Item Value Reference Range Interpretation Comments GLUCOSE (test code = 06D) 98 mg/dL 75-100 SODIUM (test code = 01A) 139 mmol/L 136-145 POTASSIUM (test code = 01B) 3.7 mmol/L 3.6-5.1 CHLORIDE (test code = 04A) 107 mmol/L 98-107 CO2 (test code = 02A) 26 mmol/L 22-32 ANION GAP (test code = ANG) 9.7 mmol/L BUN (test code = 05D) 8 mg/dL 7-18 CREATININE (test code = 03E) 0.9 mg/dL 0.4-1.1 BUN/CREA (test code = BCR) 9 12-20 L CALCIUM (test code = 09D) 7.7 mg/dL 8.3-9.5 L CBC (INCLUDES AUTOMATED DIFFERENTIAL)*[id number] 06:49:00* Test Item Value Reference Range Interpretation Comments WBC (test code = WBC) 9.9 10\\S\\3/uL 4.5-11.0 RBC (test code = RBC) 3.53 10\\S\\6/uL 4.30-5.70 L HGB (test code = HBG) 8.3 g/dL 12.0-15.5 L HCT (test code = HCT) 24.9 % 35.0-44.0 LL MCV (test code = MCV) 70.0 fL 81.0-99.0 L MCH (test code = MCH) 23.5 pg 27.0-31.0 L MCHC (test code = MCHC) 33.6 g/dL 32.0-36.0 RDW (test code = RDW) 19.4 % 11.5-14.5 H PLT (test code = PLT) 343 10\\S\\3/uL 130-400 MPV (test code = MPV) 11.8 fL 9.4-12.4 NEUTROP # (test code = NE#) 3.9 10\\S\\3/uL 1.6-8.0 LYMPH # (test code = LY#) 4.4 10\\S\\3/uL 1.1-3.5 H MONOCYTE # (test code = MO#) 0.8 10\\S\\3/uL 0.0-1.1 EOSINOPH # (test code = EO#) 0.4 10\\S\\3/uL 0.0-0.7 BASOPHIL # (test code = BA#) 0.0 10\\S\\3/uL 0.0-0.3 IG # (test code = IG#) 0.02 10\\S\\3/uL 0.00-0.06 NRBC # (test code = NRBC#) 0.00 10\\S\\3/uL 0.00-0.01 NEUTROPH % (test code = NE%) 41.1 % 35.0-73.0 LYMPH % (test code = LY%) 45.9 % 20.0-55.0 MONO % (test code = MO%) 8.7 % 2.5-10.0 EOSINOPH % (test code = EO%) 3.7 % 0.0-5.0 BASOPHIL % (test code = BA%) 0.4 % 0.0-2.0 IG % (test code = IG%) 0.2 % 0.0-0.8 NRBC% (test code = NRBC%) 0.0 % 0.0-0.2 MANDIFF (test code = WMDIFF) NO NO RBC MORPH (test code = WRBCMOR) NORMAL CBC WITH MORPHOLOGY *WW*2017-07-12 08:01:00* Test Item Value Reference Range Interpretation Comments WBC (test code = WBC) 13.4 10\\S\\3/uL 4.5-11.0 H RBC (test code = RBC) 3.66 10\\S\\6/uL 4.30-5.70 L HGB (test code = HBG) 8.6 g/dL 12.0-15.5 L HCT (test code = HCT) 26.0 % 35.0-44.0 L MCV (test code = MCV) 71.0 fL 81.0-99.0 L MCH (test code = MCH) 23.5 pg 27.0-31.0 L MCHC (test code = MCHC) 33.1 g/dL 32.0-36.0 RDW (test code = RDW) 19.3 % 11.5-14.5 H PLT (test code = PLT) 285 10\\S\\3/uL 130-400 Delta checked; Slide reviewed, no platelet clumps seen. MPV (test code = MPV) 11.2 fL 9.4-12.4 NEUTROP # (test code = NE#) 8.0 10\\S\\3/uL 1.6-8.0 LYMPH # (test code = LY#) 4.4 10\\S\\3/uL 1.1-3.5 H MONOCYTE # (test code = MO#) 0.7 10\\S\\3/uL 0.0-1.1 EOSINOPH # (test code = EO#) 0.1 10\\S\\3/uL 0.0-0.7 BASOPHIL # (test code = BA#) 0.1 10\\S\\3/uL 0.0-0.3 IG # (test code = IG#) 0.04 10\\S\\3/uL 0.00-0.06 NRBC # (test code = NRBC#) 0.00 10\\S\\3/uL 0.00-0.01 NEUTROPH % (test code = NE%) 60.1 % 35.0-73.0 LYMPH % (test code = LY%) 33.1 % 20.0-55.0 MONO % (test code = MO%) 5.4 % 2.5-10.0 EOSINOPH % (test code = EO%) 0.7 % 0.0-5.0 BASOPHIL % (test code = BA%) 0.4 % 0.0-2.0 IG % (test code = IG%) 0.3 % 0.0-0.8 NRBC% (test code = NRBC%) 0.0 % 0.0-0.2 PLT EST (test code = PLTEST) ADEQUATE ADEQUATE PLT MORPH (test code = PLTMOR) NORMAL (1.5-3 um) NORMAL ANISO (test code = ANISO) 1+ NONE A POIK (test code = POIK) 1+ NONE A HYPOCHROM (test code = HYPOC) 2+ NONE A MICROCYTIC (test code = MICRO) 1+ NONE A TARGET (test code = TARG) 2+ NONE A VANCOMYCIN TROUGH 2017-07-12 07:17:00* Test Item Value Reference Range Interpretation Comments TALON PEREZ (test code = VANCT) 9.4 ug/dL 10.0-20.0 L BASIC METABOLIC PANEL 2017-07-12 07:14:00* Test Item Value Reference Range Interpretation Comments GLUCOSE (test code = 06D) 110 mg/dL 75-100 H SODIUM (test code = 01A) 138 mmol/L 136-145 POTASSIUM (test code = 01B) 3.7 mmol/L 3.6-5.1 CHLORIDE (test code = 04A) 105 mmol/L 98-107 CO2 (test code = 02A) 26 mmol/L 22-32 ANION GAP (test code = ANG) 10.7 mmol/L BUN (test code = 05D) 11 mg/dL 7-18 CREATININE (test code = 03E) 0.6 mg/dL 0.4-1.1 BUN/CREA (test code = BCR) 18 12-20 CALCIUM (test code = 09D) 8.2 mg/dL 8.3-9.5 L CBC (INCLUDES AUTOMATED DIFFERENTIAL)*[id number] 05:53:00* Test Item Value Reference Range Interpretation Comments WBC (test code = WBC) 13.7 10\\S\\3/uL 4.5-11.0 H RBC (test code = RBC) 4.14 10\\S\\6/uL 4.30-5.70 L HGB (test code = HBG) 9.8 g/dL 12.0-15.5 L HCT (test code = HCT) 29.0 % 35.0-44.0 L MCV (test code = MCV) 70.0 fL 81.0-99.0 L MCH (test code = MCH) 23.7 pg 27.0-31.0 L MCHC (test code = MCHC) 33.8 g/dL 32.0-36.0 RDW (test code = RDW) 19.0 % 11.5-14.5 H PLT (test code = PLT) 395 10\\S\\3/uL 130-400 MPV (test code = MPV) 11.8 fL 9.4-12.4 NEUTROP # (test code = NE#) 12.1 10\\S\\3/uL 1.6-8.0 H LYMPH # (test code = LY#) 1.4 10\\S\\3/uL 1.1-3.5 MONOCYTE # (test code = MO#) 0.1 10\\S\\3/uL 0.0-1.1 EOSINOPH # (test code = EO#) 0.0 10\\S\\3/uL 0.0-0.7 BASOPHIL # (test code = BA#) 0.0 10\\S\\3/uL 0.0-0.3 IG # (test code = IG#) 0.05 10\\S\\3/uL 0.00-0.06 NRBC # (test code = NRBC#) 0.00 10\\S\\3/uL 0.00-0.01 NEUTROPH % (test code = NE%) 88.6 % 35.0-73.0 H LYMPH % (test code = LY%) 10.5 % 20.0-55.0 L MONO % (test code = MO%) 0.4 % 2.5-10.0 L EOSINOPH % (test code = EO%) 0.0 % 0.0-5.0 BASOPHIL % (test code = BA%) 0.1 % 0.0-2.0 IG % (test code = IG%) 0.4 % 0.0-0.8 NRBC% (test code = NRBC%) 0.0 % 0.0-0.2 MANDIFF (test code = WMDIFF) NO NO RBC MORPH (test code = WRBCMOR) NORMAL CT ABDOMEN AND PELVIS WITH CONTRAST*RADHA*2017-07-10 22:39:22LOCATION: 215HISTORY: 31-year-old female who presents with abdominal pain. The patient has ahistory of cellulitis at the incision site following panniculectomy.COMMENT: After-hours service at 10:[address] imaging of this patient's abdomen and pelvis was obtained during andafter IV contrast injection. Coronal and sagittal soft tissue reconstructionswere included. An older examination of 05/11/17 is available for comparison.One or more of the following dose reduction techniques are used: Automatedexposure control, adjustment of the mA and/or kV according the patient size,and/or utilization of iterative reconstruction technique.DLP: 847.43 mGy- cmCONTRAST: 100 mL of Omnipaque 300 nonionic contrast was injected. Serumcreatinine level was 0.8.FINDINGS:The lung bases are clear. The cardiac silhouette is unremarkable.The liver, spleen, pancreas, adrenal glands, kidneys, and gallbladder areunremarkable. Bilateral renal function is present on the del ayed study.The upper intestinal tract and small intestine are unremarkable.Mahendra l-appearing appendix is seen. The colon is unremarkable.There is no ascites or a denopathy present in the abdomen or in the pelvis.In the pelvis the urinary blad dave is unremarkable. The uterus and ovaries areunremarkable.The vascular anatomy is unremarkable.Postsurgical changes are seen in the lower anterior abdominal w all. Increasedattenuation in the subcutaneous soft tissues in the lower anterior abdominalwall are less pronounced than what was present previously suggestive o finterval healing.IMPRESSION:There are no acute findings in this patient's abdom en or pelvis on thiscontrast-enhanced CT study. SERUM MONOCLONAL *RADHA* 2017-07-10 21:29:00* Test Item Value Reference Range Interpretation Comments PREG SRM (test code = PGS) NEGATIVE NEGATIVE COMPREHENSIVE METABOLIC CARLSON 2017-07-10 21:27:00* Test Item Value Reference Range Interpretation Comments GLUCOSE (test code = 06D) 102 mg/dL 75-100 H SODIUM (test code = 01A) 135 mmol/L 136-145 L POTASSIUM (test code = 01B) 3.1 mmol/L 3.6-5.1 L CHLORIDE (test code = 04A) 100 mmol/L 98-107 CO2 (test code = 02A) 25 mmol/L 22-32 ANION GAP (test code = ANG) 13.1 mmol/L BUN (test code = 05D) 13 mg/dL 7-18 CREATININE (test code = 03E) 0.8 mg/dL 0.4-1.1 BUN/CREA (test code = BCR) 17 12-20 CALCIUM (test code = 09D) 8.5 mg/dL 8.3-9.5 BILI TOTAL (test code = 11A) 0.1 mg/dL 0.2-1.0 L PROTEIN (test code = 07D) 7.5 g/dL 6.4-8.2 ALBUMIN (test code = 08D) 3.7 g/dL 3.5-4.8 GLOBULIN (test code = GLB) 3.8 g/dL 1.5-3.8 ALB/GLOB (test code = AGRR) 1.0 1.0-2.6 ALK PHOS (test code = 35A) 92 IU/L 42-121 AST (test code = 30A) 14 IU/L <=42 ALT (test code = 31A) 18 IU/L <=78 CBC (INCLUDES AUTOMATED DIFFERENTIAL)*[id number] 21:16:00* Test Item Value Reference Range Interpretation Comments WBC (test code = WBC) 16.2 10\\S\\3/uL 4.5-11.0 H RBC (test code = RBC) 3.95 10\\S\\6/uL 4.30-5.70 L HGB (test code = HBG) 9.3 g/dL 12.0-15.5 L HCT (test code = HCT) 27.6 % 35.0-44.0 L MCV (test code = MCV) 69.9 fL 81.0-99.0 L MCH (test code = MCH) 23.5 pg 27.0-31.0 L MCHC (test code = MCHC) 33.7 g/dL 32.0-36.0 RDW (test code = RDW) 18.7 % 11.5-14.5 H PLT (test code = PLT) 378 10\\S\\3/uL 130-400 MPV (test code = MPV) 11.6 fL 9.4-12.4 NEUTROP # (test code = NE#) 9.5 10\\S\\3/uL 1.6-8.0 H LYMPH # (test code = LY#) 5.4 10\\S\\3/uL 1.1-3.5 H MONOCYTE # (test code = MO#) 1.0 10\\S\\3/uL 0.0-1.1 EOSINOPH # (test code = EO#) 0.2 10\\S\\3/uL 0.0-0.7 BASOPHIL # (test code = BA#) 0.1 10\\S\\3/uL 0.0-0.3 IG # (test code = IG#) 0.10 10\\S\\3/uL 0.00-0.06 H NRBC # (test code = NRBC#) 0.02 10\\S\\3/uL 0.00-0.01 H NEUTROPH % (test code = NE%) 58.2 % 35.0-73.0 LYMPH % (test code = LY%) 33.5 % 20.0-55.0 MONO % (test code = MO%) 5.9 % 2.5-10.0 EOSINOPH % (test code = EO%) 1.2 % 0.0-5.0 BASOPHIL % (test code = BA%) 0.6 % 0.0-2.0 IG % (test code = IG%) 0.6 % 0.0-0.8 NRBC% (test code = NRBC%) 0.1 % 0.0-0.2 MANDIFF (test code = WMDIFF) NO NO RBC MORPH (test code = WRBCMOR) NORMAL CT ABDOMEN AND PELVIS WITH CONTRAST*WW*2017-05-11 08:39:25EXAM: CT abdomen and pelvis with contrastLocation: [id number]: Abdominal painCOMPARISON: CT abdomen and pelvis on 04/28/17TECHNIQUE: Axial images of the abdomen and pelvis were obtained after 100 ccOmnipaque 300 IV contrast. Coronal reformatted images were performed.DISCUSSION:Lower thorax: Unremarkable.Hepatobiliary: Unremarkable. No biliary ductal dilatation.Gallbladder: Unremarkable.Spleen: Unremarkable.Pancreas: Unremarkable.Kidneys: There are questionable patchy ar eas of slightly decreased corticalattenuation in the right kidney such as on axi al image 22 and coronal image 63.There is questionable mild urothelial thickenin g and enhancement of the rightrenal pelvis and proximal right ureter on axial im ages 31 through 45. Nourinary tract calculi or hydronephrosis is seen.Adrenals: Unremarkable.Lymph nodes: No lymphadenopathy.Peritoneum/retroperitoneum: No int raabdominal free air or free fluid.Vessels: The left gonadal vein is enlarged, w hich can be associated with pelviccongestion syndrome in the appropriate clinica l scenario. No atherosclerosis orabdominal aortic aneurysm.Pelvic organs/bladder : Unremarkable.Bowel: The appendix is normal. No abnormal bowel wall thickening or bowelobstruction is seen.Bones/soft tissues: No fracture or evidence of bony neoplastic process. Thereis mild lumbar spine levoscoliosis. No hernia is seen. Fat stranding andsubcutaneous fluid of the anterior and lateral abdominal wall is similar orslightly decreased compared to the previous exam. This is probablyp ostoperative, such as from prior liposuction; correlation with proceduralhistory is needed.IMPRESSION:1. Questionable patchy decreased cortical attenuation in t he right kidney.Questionable mild enhancement and urothelial thickening of the r ight renalpelvis and proximal ureter. These could be seen with a urinary tractin fection/pyelonephritis in the appropriate clinical scenario. Correlation withuri nalysis is recommended.2. Normal appendix.3. Left gonadal vein engorgement. This could be seen with pelvic congestionsyndrome in the appropriate clinical scenar io.4. Subcutaneous fluid and stranding changes in the anterior and lateralabdomi nal wall are similar or slightly decreased compared to the previous exam,and are probably postoperative in nature; correlation with procedural historyis needed. One or more of the following dose reduction techniques were used: Automatedexpos ure control, adjustment of the mA and/or kV according to patient size,and/or uti lization of iterative reconstruction technique.DRUGS OF ABUSE *WW*2017-05-11 08:13:00* Test Item Value Reference Range Interpretation Comments DRUG SCRN (test code = HDOA) URINE DRUG SCREEN This is an unconfirmed screening result and should not be used for non-medical purposes CANNABINOD (test code = 88C) Negative NEGATIVE AMPHETAMINE (test code = 84A) Negative NEGATIVE BENZODIAZP (test code = 86A) Negative NEGATIVE BARBITURAT (test code = 85A) Negative NEGATIVE OPIATES (test code = 92B) Negative NEGATIVE COCAINE (test code = 87A) Negative NEGATIVE PHENCYCLID (test code = 66A) Negative NEGATIVE METHADONE (test code = 64A) Negative NEGATIVE DOAH (test code = DOAH) URI NE DRUG SCREEN Cut-off values are as follows: Cannabinoids 50 ng/mL Cocaine 300 ng/mL Amphetamines 1000 ng/mL Phencyclidine 25 ng/mL Benzodiazepines 200 ng.mL Methadone 300 ng/mL Barbiturates 200 ng/mL Opiates 2000 ng/mL AMYLASE AND LIPASE *WW*2017-05-11 07:56:00* Test Item Value Reference Range Interpretation Comments AMYLASE (test code = 10A) 57 U/L 28-100 LIPASE (test code = 60A) 299 IU/L 73-393 COMPREHENSIVE METABOLIC CARLSON *WW*2017-05-11 07:56:00* Test Item Value Reference Range Interpretation Comments GLUCOSE (test code = 06D) 82 mg/dL 75-100 SODIUM (test code = 01A) 138 mmol/L 136-145 POTASSIUM (test code = 01B) 3.8 mmol/L 3.6-5.1 CHLORIDE (test code = 04A) 102 mmol/L 98-107 CO2 (test code = 02A) 27 mmol/L 22-32 ANION GAP (test code = ANG) 12.8 mmol/L BUN (test code = 05D) 14 mg/dL 7-18 CREATININE (test code = 03E) 1.0 mg/dL 0.4-1.1 BUN/CREA (test code = BCR) 14 12-20 CALCIUM (test code = 09D) 9.8 mg/dL 8.3-9.5 H BILI TOTAL (test code = 11A) 0.3 mg/dL 0.2-1.0 PROTEIN (test code = 07D) 8.7 g/dL 6.4-8.2 H ALBUMIN (test code = 08D) 4.0 g/dL 3.5-4.8 GLOBULIN (test code = GLB) 4.7 g/dL 1.5-3.8 H ALB/GLOB (test code = AGRR) 0.9 1.0-2.6 L ALK PHOS (test code = 35A) 119 IU/L 42-121 AST (test code = 30A) 28 IU/L <=42 ALT (test code = 31A) 21 IU/L <=78 URINALYSIS WITH MICRO *WW*2017-05-11 07:54:00* Test Item Value Reference Range Interpretation Comments COLOR (test code = COLU) YELLOW YELLOW CLARITY (test code = CLA) SLT HAZY CLEAR A GLUCOSE UR (test code = UA GLUCOSE) NEGATIVE NEGATIVE BILI UR (test code = BILE) NEGATIVE NEGATIVE KETONES UR (test code = ZELDA) NEGATIVE NEGATIVE SP GRAVITY (test code = SPGR) 1.025 1.005-1.030 PH UR (test code = PH) 6.0 4.5-8.0 PROTEIN UR (test code = PU) NEGATIVE NEGATIVE UROBIL UR (test code = UROQ) 0.2 EU/dL 0.2-1.0 NITRITE UR (test code = NITRITE) NEGATIVE NEGATIVE BLOOD UR (test code = UA BLOOD) TRACE-INTACT NEGATIVE A LEUK ES UR (test code = LEUK) NEGATIVE NEGATIVE WBC UR (test code = UWBC) 5 /HPF 0-5 RBC UR (test code = URBC) 3 /HPF 0-2 H EPITH UR (test code = UEPC) FEW /LPF FEW BACTERIA UR (test code = UBACT) FEW /HPF NONE A CAST UR (test code = CAST) /LPF NONE CRYSTAL UR (test code = CRYU) / LPF NONE MUCUS UR (test code = MUC) / HPF NONE AMORPH UR (test code = REINA) / HPF NONE TRICH UR (test code = UTRICH) /HPF NONE YEAST UR (test code = UY) /HPF NONE SPERM UR (test code = USPERM) /HPF NONE SERUM MONOCLONAL *WW*2017-05-11 07:47:00* Test Item Value Reference Range Interpretation Comments PREG SRM (test code = PGS) NEGATIVE NEGATIVE CBC (INCLUDES AUTOMATED DIFFERENTIAL)*[id number] 07:41:00* Test Item Value Reference Range Interpretation Comments WBC (test code = WBC) 9.4 10\\S\\3/uL 4.5-11.0 RBC (test code = RBC) 3.87 10\\S\\6/uL 4.30-5.70 L HGB (test code = HBG) 9.3 g/dL 12.0-15.5 L HCT (test code = HCT) 27.8 % 35.0-44.0 L MCV (test code = MCV) 71.8 fL 81.0-99.0 L MCH (test code = MCH) 24.0 pg 27.0-31.0 L MCHC (test code = MCHC) 33.5 g/dL 32.0-36.0 RDW (test code = RDW) 16.1 % 11.5-14.5 H PLT (test code = PLT) 318 10\\S\\3/uL 130-400 MPV (test code = MPV) 12.3 fL 9.4-12.4 NEUTROP # (test code = NE#) 4.2 10\\S\\3/uL 1.6-8.0 LYMPH # (test code = LY#) 3.4 10\\S\\3/uL 1.1-3.5 MONOCYTE # (test code = MO#) 0.7 10\\S\\3/uL 0.0-1.1 EOSINOPH # (test code = EO#) 0.9 10\\S\\3/uL 0.0-0.7 H BASOPHIL # (test code = BA#) 0.1 10\\S\\3/uL 0.0-0.3 IG # (test code = IG#) 0.02 10\\S\\3/uL 0.00-0.06 NRBC # (test code = NRBC#) 0.00 10\\S\\3/uL 0.00-0.01 NEUTROPH % (test code = NE%) 44.7 % 35.0-73.0 LYMPH % (test code = LY%) 36.5 % 20.0-55.0 MONO % (test code = MO%) 7.7 % 2.5-10.0 EOSINOPH % (test code = EO%) 9.9 % 0.0-5.0 H BASOPHIL % (test code = BA%) 1.0 % 0.0-2.0 IG % (test code = IG%) 0.2 % 0.0-0.8 NRBC% (test code = NRBC%) 0.0 % 0.0-0.2 MANDIFF (test code = WMDIFF) NO NO RBC MORPH (test code = WRBCMOR) NORMAL COMPREHENSIVE METABOLIC CARLSON 2017-05-01 05:35:00* Test Item Value Reference Range Interpretation Comments GLUCOSE (test code = 06D) 128 mg/dL 75-100 H SODIUM (test code = 01A) 140 mmol/L 136-145 POTASSIUM (test code = 01B) 3.3 mmol/L 3.6-5.1 L CHLORIDE (test code = 04A) 106 mmol/L 98-107 CO2 (test code = 02A) 25 mmol/L 22-32 ANION GAP (test code = ANG) 12.3 mmol/L BUN (test code = 05D) 5 mg/dL 7-18 L CREATININE (test code = 03E) 0.7 mg/dL 0.4-1.1 BUN/CREA (test code = BCR) 8 12-20 L CALCIUM (test code = 09D) 8.0 mg/dL 8.3-9.5 L BILI TOTAL (test code = 11A) 0.2 mg/dL 0.2-1.0 PROTEIN (test code = 07D) 6.6 g/dL 6.4-8.2 ALBUMIN (test code = 08D) 3.0 g/dL 3.5-4.8 L GLOBULIN (test code = GLB) 3.6 g/dL 1.5-3.8 ALB/GLOB (test code = AGRR) 0.8 1.0-2.6 L ALK PHOS (test code = 35A) 89 IU/L 42-121 AST (test code = 30A) 17 IU/L <=42 ALT (test code = 31A) 15 IU/L <=78 CBC (INCLUDES AUTOMATED DIFFERENTIAL)*[id number] 05:29:00* Test Item Value Reference Range Interpretation Comments WBC (test code = WBC) 8.6 10\\S\\3/uL 4.5-11.0 RBC (test code = RBC) 3.28 10\\S\\6/uL 4.30-5.70 L HGB (test code = HBG) 8.1 g/dL 12.0-15.5 L HCT (test code = HCT) 23.7 % 35.0-44.0 LL MCV (test code = MCV) 72.3 fL 81.0-99.0 L MCH (test code = MCH) 24.7 pg 27.0-31.0 L MCHC (test code = MCHC) 34.2 g/dL 32.0-36.0 RDW (test code = RDW) 16.2 % 11.5-14.5 H PLT (test code = PLT) 255 10\\S\\3/uL 130-400 MPV (test code = MPV) 12.8 fL 9.4-12.4 H NEUTROP # (test code = NE#) 3.9 10\\S\\3/uL 1.6-8.0 LYMPH # (test code = LY#) 3.0 10\\S\\3/uL 1.1-3.5 MONOCYTE # (test code = MO#) 0.6 10\\S\\3/uL 0.0-1.1 EOSINOPH # (test code = EO#) 1.0 10\\S\\3/uL 0.0-0.7 H BASOPHIL # (test code = BA#) 0.1 10\\S\\3/uL 0.0-0.3 IG # (test code = IG#) 0.02 10\\S\\3/uL 0.00-0.06 NRBC # (test code = NRBC#) 0.00 10\\S\\3/uL 0.00-0.01 NEUTROPH % (test code = NE%) 45.9 % 35.0-73.0 LYMPH % (test code = LY%) 35.4 % 20.0-55.0 MONO % (test code = MO%) 6.4 % 2.5-10.0 EOSINOPH % (test code = EO%) 11.4 % 0.0-5.0 H BASOPHIL % (test code = BA%) 0.7 % 0.0-2.0 IG % (test code = IG%) 0.2 % 0.0-0.8 NRBC% (test code = NRBC%) 0.0 % 0.0-0.2 MANDIFF (test code = WMDIFF) NO NO RBC MORPH (test code = WRBCMOR) NORMAL COMPREHENSIVE METABOLIC CARLSON *WW*2017-04-30 06:19:00* Test Item Value Reference Range Interpretation Comments GLUCOSE (test code = 06D) 86 mg/dL 75-100 SODIUM (test code = 01A) 140 mmol/L 136-145 POTASSIUM (test code = 01B) 3.7 mmol/L 3.6-5.1 CHLORIDE (test code = 04A) 106 mmol/L 98-107 CO2 (test code = 02A) 25 mmol/L 22-32 ANION GAP (test code = ANG) 12.7 mmol/L BUN (test code = 05D) 7 mg/dL 7-18 CREATININE (test code = 03E) 0.6 mg/dL 0.4-1.1 BUN/CREA (test code = BCR) 12 12-20 CALCIUM (test code = 09D) 8.5 mg/dL 8.3-9.5 BILI TOTAL (test code = 11A) 0.2 mg/dL 0.2-1.0 PROTEIN (test code = 07D) 7.1 g/dL 6.4-8.2 ALBUMIN (test code = 08D) 3.3 g/dL 3.5-4.8 L GLOBULIN (test code = GLB) 3.8 g/dL 1.5-3.8 ALB/GLOB (test code = AGRR) 0.9 1.0-2.6 L ALK PHOS (test code = 35A) 90 IU/L 42-121 AST (test code = 30A) 16 IU/L <=42 ALT (test code = 31A) 16 IU/L <=78 CBC (INCLUDES AUTOMATED DIFFERENTIAL)*[id number] 06:03:00* Test Item Value Reference Range Interpretation Comments WBC (test code = WBC) 8.9 10\\S\\3/uL 4.5-11.0 RBC (test code = RBC) 3.38 10\\S\\6/uL 4.30-5.70 L HGB (test code = HBG) 8.5 g/dL 12.0-15.5 L HCT (test code = HCT) 25.1 % 35.0-44.0 L MCV (test code = MCV) 72.8 fL 81.0-99.0 L MCH (test code = MCH) 25.1 pg 27.0-31.0 L MCHC (test code = MCHC) 34.6 g/dL 32.0-36.0 RDW (test code = RDW) 16.1 % 11.5-14.5 H PLT (test code = PLT) 251 10\\S\\3/uL 130-400 MPV (test code = MPV) 12.4 fL 9.4-12.4 NEUTROP # (test code = NE#) 3.8 10\\S\\3/uL 1.6-8.0 LYMPH # (test code = LY#) 3.1 10\\S\\3/uL 1.1-3.5 MONOCYTE # (test code = MO#) 0.8 10\\S\\3/uL 0.0-1.1 EOSINOPH # (test code = EO#) 1.1 10\\S\\3/uL 0.0-0.7 H BASOPHIL # (test code = BA#) 0.1 10\\S\\3/uL 0.0-0.3 IG # (test code = IG#) 0.01 10\\S\\3/uL 0.00-0.06 NRBC # (test code = NRBC#) 0.00 10\\S\\3/uL 0.00-0.01 NEUTROPH % (test code = NE%) 43.0 % 35.0-73.0 LYMPH % (test code = LY%) 34.5 % 20.0-55.0 MONO % (test code = MO%) 8.9 % 2.5-10.0 EOSINOPH % (test code = EO%) 12.8 % 0.0-5.0 H BASOPHIL % (test code = BA%) 0.7 % 0.0-2.0 IG % (test code = IG%) 0.1 % 0.0-0.8 NRBC% (test code = NRBC%) 0.0 % 0.0-0.2 MANDIFF (test code = WMDIFF) NO NO RBC MORPH (test code = WRBCMOR) NORMAL VANCOMYCIN TROUGH 2017-04-29 10:52:00* Test Item Value Reference Range Interpretation Comments VANC TROGH (test code = VANCT) 9.9 ug/dL 10.0-20.0 L CBC (INCLUDES AUTOMATED DIFFERENTIAL)*[id number] 06:28:00* Test Item Value Reference Range Interpretation Comments WBC (test code = WBC) 8.6 10\\S\\3/uL 4.5-11.0 RBC (test code = RBC) 3.51 10\\S\\6/uL 4.30-5.70 L HGB (test code = HBG) 8.6 g/dL 12.0-15.5 L HCT (test code = HCT) 25.5 % 35.0-44.0 L MCV (test code = MCV) 72.6 fL 81.0-99.0 L MCH (test code = MCH) 24.5 pg 27.0-31.0 L MCHC (test code = MCHC) 33.7 g/dL 32.0-36.0 RDW (test code = RDW) 16.1 % 11.5-14.5 H PLT (test code = PLT) 254 10\\S\\3/uL 130-400 MPV (test code = MPV) 12.0 fL 9.4-12.4 NEUTROP # (test code = NE#) 4.5 10\\S\\3/uL 1.6-8.0 LYMPH # (test code = LY#) 2.5 10\\S\\3/uL 1.1-3.5 MONOCYTE # (test code = MO#) 0.6 10\\S\\3/uL 0.0-1.1 EOSINOPH # (test code = EO#) 1.0 10\\S\\3/uL 0.0-0.7 H BASOPHIL # (test code = BA#) 0.1 10\\S\\3/uL 0.0-0.3 IG # (test code = IG#) 0.01 10\\S\\3/uL 0.00-0.06 NRBC # (test code = NRBC#) 0.00 10\\S\\3/uL 0.00-0.01 NEUTROPH % (test code = NE%) 52.0 % 35.0-73.0 LYMPH % (test code = LY%) 28.5 % 20.0-55.0 MONO % (test code = MO%) 7.2 % 2.5-10.0 EOSINOPH % (test code = EO%) 11.5 % 0.0-5.0 H BASOPHIL % (test code = BA%) 0.7 % 0.0-2.0 IG % (test code = IG%) 0.1 % 0.0-0.8 NRBC% (test code = NRBC%) 0.0 % 0.0-0.2 MANDIFF (test code = WMDIFF) NO NO RBC MORPH (test code = WRBCMOR) NORMAL COMPREHENSIVE METABOLIC CARLSON *WW*2017-04-29 06:20:00* Test Item Value Reference Range Interpretation Comments GLUCOSE (test code = 06D) 96 mg/dL 75-100 SODIUM (test code = 01A) 141 mmol/L 136-145 POTASSIUM (test code = 01B) 3.4 mmol/L 3.6-5.1 L CHLORIDE (test code = 04A) 107 mmol/L 98-107 CO2 (test code = 02A) 24 mmol/L 22-32 ANION GAP (test code = ANG) 13.4 mmol/L BUN (test code = 05D) 9 mg/dL 7-18 CREATININE (test code = 03E) 0.7 mg/dL 0.4-1.1 BUN/CREA (test code = BCR) 14 12-20 CALCIUM (test code = 09D) 7.9 mg/dL 8.3-9.5 L BILI TOTAL (test code = 11A) 0.2 mg/dL 0.2-1.0 PROTEIN (test code = 07D) 7.1 g/dL 6.4-8.2 ALBUMIN (test code = 08D) 3.2 g/dL 3.5-4.8 L GLOBULIN (test code = GLB) 3.9 g/dL 1.5-3.8 H ALB/GLOB (test code = AGRR) 0.8 1.0-2.6 L ALK PHOS (test code = 35A) 94 IU/L 42-121 AST (test code = 30A) 19 IU/L <=42 ALT (test code = 31A) 16 IU/L <=78 CT ABDOMEN AND PELVIS WITH CONTRAST2017-04-28 03:54:53CT ABDOMEN AND PELVIS WITH CONTRAST:After hours services performed at 0245 hours. LOCATION: [id number]: Postoperative pain after panniculectomy.COMPARISON: N one.TECHNIQUE: Volumetric CT acquisition of the abdomen and pelvis afterintraven ous administration of 99 mL Omnipaque 300. Axial images werereconstructed. One o r more of the following radiation dose reduction techniqueswas used: automated e xposure control, adjustment of the mA and/or kV accordingto patient size, and/or utilization of iterative reconstruction technique.FINDINGS:The lung bases are c lear. Visualized portions of the heart are normal. There mile moderate-sized hiat al hernia.The liver, gallbladder, pancreas, spleen, and adrenal glands are mahendra l.The kidneys, ureters, and bladder are normal. The uterus and ovaries arenormal . The small bowel and colon are normal. The appendix is not definitelyvisualized .There is no lymphadenopathy, vascular abnormality, free air, or focal osseousab normality in the abdomen or pelvis. Trace pelvic free fluid is present. Thereis fluid and fat stranding tracking superficially along the anterior abdominalwall. IMPRESSION:Fluid and fat stranding tracking superficially along the anterior ab dominalwall could be postoperative or infectious/inflammatory in nature. Correla teclinically for signs or symptoms of infection. URINE MONOCLONAL *WW* 2017-04-28 02:25:00* Test Item Value Reference Range Interpretation Comments PREG UR (test code = PGU) NEGATIVE NEGATIVE COMPREHENSIVE METABOLIC CARLSON *WW*2017-04-28 01:52:00* Test Item Value Reference Range Interpretation Comments GLUCOSE (test code = 06D) 94 mg/dL 75-100 SODIUM (test code = 01A) 139 mmol/L 136-145 POTASSIUM (test code = 01B) 3.7 mmol/L 3.6-5.1 CHLORIDE (test code = 04A) 104 mmol/L 98-107 CO2 (test code = 02A) 25 mmol/L 22-32 ANION GAP (test code = ANG) 13.7 mmol/L BUN (test code = 05D) 10 mg/dL 7-18 CREATININE (test code = 03E) 0.6 mg/dL 0.4-1.1 BUN/CREA (test code = BCR) 15 12-20 CALCIUM (test code = 09D) 8.9 mg/dL 8.3-9.5 BILI TOTAL (test code = 11A) 0.2 mg/dL 0.2-1.0 PROTEIN (test code = 07D) 8.0 g/dL 6.4-8.2 ALBUMIN (test code = 08D) 3.8 g/dL 3.5-4.8 GLOBULIN (test code = GLB) 4.2 g/dL 1.5-3.8 H ALB/GLOB (test code = AGRR) 0.9 1.0-2.6 L ALK PHOS (test code = 35A) 106 IU/L 42-121 AST (test code = 30A) 20 IU/L <=42 ALT (test code = 31A) 17 IU/L <=78 PRO TIME AND PTT *WW*2017-04-28 01:52:00* Test Item Value Reference Range Interpretation Comments PT (test code = TT) 11.9 s 9.8-13.6 INR (test code = INR) 1.1 INRH (test code = INRH) SUGGESTED THERAPEU TIC RANGE FOR INR: 2.5 - 3.5 For Patients with Prosthetic Valves or Patients with recurrent Thromboembolic Events 2.0 - 3.0 For Most Other Applications PTT (test code = PTT) 28.7 s 20.2-38.0 PTTH (test code = PTTH) To monitor the effectiv eness of heparin, we offer the Anti-Xa (Heparin Assay). It can be used for either unfractionated or LMW Heparin. Order Code is ANTI-XA URINALYSIS 2017-04-28 01:34:00* Test Item Value Reference Range Interpretation Comments COLOR (test code = COLU) YELLOW YELLOW CLARITY (test code = CLA) CLEAR CLEAR GLUCOSE UR (test code = UA GLUCOSE) NEGATIVE NEGATIVE BILI UR (test code = BILE) NEGATIVE NEGATIVE KETONES UR (test code = ZELDA) NEGATIVE NEGATIVE SP GRAVITY (test code = SPGR) 1.015 1.005-1.030 PH UR (test code = PH) 6.0 4.5-8.0 PROTEIN UR (test code = PU) NEGATIVE NEGATIVE UROBIL UR (test code = UROQ) 0.2 EU/dL 0.2-1.0 NITRITE UR (test code = NITRITE) NEGATIVE NEGATIVE BLOOD UR (test code = UA BLOOD) NEGATIVE NEGATIVE LEUK ES UR (test code = LEUK) NEGATIVE NEGATIVE AUAM (test code = WAUAM) NO NO CBC (INCLUDES AUTOMATED DIFFERENTIAL)*[id number] 01:34:00* Test Item Value Reference Range Interpretation Comments WBC (test code = WBC) 9.4 10\\S\\3/uL 4.5-11.0 RBC (test code = RBC) 3.91 10\\S\\6/uL 4.30-5.70 L HGB (test code = HBG) 9.8 g/dL 12.0-15.5 L HCT (test code = HCT) 28.5 % 35.0-44.0 L MCV (test code = MCV) 72.9 fL 81.0-99.0 L MCH (test code = MCH) 25.1 pg 27.0-31.0 L MCHC (test code = MCHC) 34.4 g/dL 32.0-36.0 RDW (test code = RDW) 16.1 % 11.5-14.5 H PLT (test code = PLT) 337 10\\S\\3/uL 130-400 MPV (test code = MPV) 11.8 fL 9.4-12.4 NEUTROP # (test code = NE#) 3.9 10\\S\\3/uL 1.6-8.0 LYMPH # (test code = LY#) 3.4 10\\S\\3/uL 1.1-3.5 MONOCYTE # (test code = MO#) 0.7 10\\S\\3/uL 0.0-1.1 EOSINOPH # (test code = EO#) 1.2 10\\S\\3/uL 0.0-0.7 H BASOPHIL # (test code = BA#) 0.1 10\\S\\3/uL 0.0-0.3 IG # (test code = IG#) 0.03 10\\S\\3/uL 0.00-0.06 NRBC # (test code = NRBC#) 0.00 10\\S\\3/uL 0.00-0.01 NEUTROPH % (test code = NE%) 41.9 % 35.0-73.0 LYMPH % (test code = LY%) 36.2 % 20.0-55.0 MONO % (test code = MO%) 7.9 % 2.5-10.0 EOSINOPH % (test code = EO%) 13.0 % 0.0-5.0 H BASOPHIL % (test code = BA%) 0.7 % 0.0-2.0 IG % (test code = IG%) 0.3 % 0.0-0.8 NRBC% (test code = NRBC%) 0.0 % 0.0-0.2 MANDIFF (test code = WMDIFF) NO NO RBC MORPH (test code = WRBCMOR) NORMAL NICOTINE/COTININE (URINE)2017-03-28 06:45:00* Test Item Value Reference Range Interpretation Comments NICOTINE (test code = WNICOTN) NEGATIVE NEGATIVE URINE MONOCLONAL *WW*2017-03-28 06:44:00* Test Item Value Reference Range Interpretation Comments PREG UR (test code = PGU) NEGATIVE NEGATIVE CREATINE KINASE (CK), TOTAL AND [id number] 17:12:00* Test Item Value Reference Range Interpretation Comments CREATINE KINASE TOTAL (BEAKER) (test code = 380) 70 U/L 25-23 5 CREATINE KINASE-MB (BEAKER) (test code = 750) 0.5 ng/mL 0.0-4.9 CREATINE KINASE-MB INDEX (BEAKER) (test code = 395) 0.7 % CK-MB Reference Range:<5 Normal5-10 Borderline>10 AbnormalTROPONIN I 2016-12-18 16:37:00* Test Item Value Reference Range Interpretation Comments TROPONIN I (BEAKER) (test code = 397) < ng/mL 0.00-0.15 Troponin I (TnI) levels must be interpreted in the context of the presenting sym ptoms and the clinical findings. Elevated TnI levels indicate myocardial damage, but are not specific for ischemic heart disease. Elevated TnI levels are seen in patients with other cardiac conditions (including myocarditis and congestive h eart failure), and slight TnI elevations occur in patients with other conditions , including sepsis, renal failure, acidosis, acute neurological disease, and per sistent tachyarrhythmia.BASIC METABOLIC [id number] 16:30:00* Test Item Value Reference Range Interpretation Comments SODIUM (BEAKER) (test code = 381) 140 meq/L 135-148 POTASSIUM (BEAKER) (test code = 379) 3.8 meq/L 3.6-5.5 Specimen slightly hemolyzed CHLORIDE (BEAKER) (test code = 382) 109 meq/L 98-106 H CO2 (BEAKER) (test code = 355) 21 meq/L 20-29 BLOOD UREA NITROGEN (BEAKER) (test code = 354) 8 mg/dL 10-26 L CREATININE (BEAKER) (test code = 358) 0.70 mg/dL 0.50-1.20 Specimen slightly hemolyzed GLUCOSE RANDOM (BEAKER) (test code = 652) 86 mg/dL 70-110 CALCIUM (BEAKER) (test code = 697) 8.5 mg/dL 8.5-10.5 EGFR (BEAKER) (test code = 1092) 118 mL/min/1.73 sq m ESTIMATED GFR IS NOT ACCURATE CREATININE CLEARANCE IN PREDICTING GLOMERULAR FILTRATION RATE. ESTIMATED GFR IS NOT APPLICABLE FOR DIALYSIS PATIENTS. PT/[id number] 16:27:00* Test Item Value Reference Range Interpretation Comments PROTIME (BEAKER) (test code = 759) 10.6 seconds 9.3-12.0 INR (BEAKER) (test code = 370) 1.0 <=5.9 PARTIAL THROMBOPLASTIN TIME (BEAKER) (test code = 760) 26.8 seconds 23.0-35.0 RECOMMENDED COUMADIN/WARFARIN INR THERAPY RANGESSTANDARD DOSE: 2.0 - 3.0 Inclu brandon: PROPHYLAXIS for venous thrombosis, systemic embolization; TREATMENT for elizabeth ous thrombosis and/or pulmonary embolus.HIGH RISK: Target INR is 2.5-3.5 for pat ients with mechanical heart valves.[id number] 16:24:00* Test Item Value Reference Range Interpretation Comments MAGNESIUM (BEAKER) (test code = 627) 2.2 mg/dL 1.5-3.0 Specimen slightly hemolyzed CBC W/PLT COUNT & AUTO [id number] 15:47:00* Test Item Value Reference Range Interpretation Comments WHITE BLOOD CELL COUNT (BEAKER) (test code = 775) 8.9 K/ L 4.0- 10.0 RED BLOOD CELL COUNT (BEAKER) (test code = 761) 4.03 M/ L 4.00-5 .00 HEMOGLOBIN (BEAKER) (test code = 410) 10.6 GM/DL 12.0-15.0 L HEMATOCRIT (BEAKER) (test code = 411) 32.3 % 36.0-45.0 L MEAN CORPUSCULAR VOLUME (BEAKER) (test code = 753) 80.3 fL 82. 0-99.0 L MEAN CORPUSCULAR HEMOGLOBIN (BEAKER) (test code = 751) 26.4 pg 27.0-33.0 L MEAN CORPUSCULAR HEMOGLOBIN CONC (BEAKER) (test code = 752) 32.9 GM/DL 32.0-36.0 RED CELL DISTRIBUTION WIDTH (BEAKER) (test code = 412) 16.6 % 10.3-14.2 H PLATELET COUNT (BEAKER) (test code = 756) 287 K/CU MM 150-430 MEAN PLATELET VOLUME (BEAKER) (test code = 754) 11.4 fL 6.5-10 .5 H NEUTROPHILS RELATIVE PERCENT (BEAKER) (test code = 429) 50 % LYMPHOCYTES RELATIVE PERCENT (BEAKER) (test code = 430) 28 % MONOCYTES RELATIVE PERCENT (BEAKER) (test code = 431) 6 % EOSINOPHILS RELATIVE PERCENT (BEAKER) (test code = 432) 15 % BASOPHILS RELATIVE PERCENT (BEAKER) (test code = 437) 1 % NEUTROPHILS ABSOLUTE COUNT (BEAKER) (test code = 670) 4.50 K/ L 1.80-8.00 LYMPHOCYTES ABSOLUTE COUNT (BEAKER) (test code = 414) 2.50 K/ L 1.48-4.50 MONOCYTES ABSOLUTE COUNT (BEAKER) (test code = 415) 0.50 K/ L 0. 00-1.30 EOSINOPHILS ABSOLUTE COUNT (BEAKER) (test code = 416) 1.30 K/ L 0.00-0.50 H BASOPHILS ABSOLUTE COUNT (BEAKER) (test code = 417) 0.10 K/ L 0. 00-0.20 RAPID TROPONIN [id number] 02:24:00* Test Item Value Reference Range Interpretation Comments RAPID TROPONIN I (BEAKER) (test code = 1483) < ng/mL <0.05 CBC W/PLT COUNT & AUTO [id number] 02:23:00* Test Item Value Reference Range Interpretation Comments WHITE BLOOD CELL COUNT (BEAKER) (test code = 775) 9.5 10e3/ L 4.0- 10.0 RED BLOOD CELL COUNT (BEAKER) (test code = 761) 4.18 10e6/ L 4.00-5 .00 HEMOGLOBIN (BEAKER) (test code = 410) 11.2 g/dL 12.0-15.0 L HEMATOCRIT (BEAKER) (test code = 411) 34.8 % 36.0-45.0 L MEAN CORPUSCULAR VOLUME (BEAKER) (test code = 753) 83.2 fL 82. 0-99.0 MEAN CORPUSCULAR HEMOGLOBIN (BEAKER) (test code = 751) 26.7 pg 27.0-33.0 L MEAN CORPUSCULAR HEMOGLOBIN CONC (BEAKER) (test code = 752) 32.1 g/dL 32.0-36.0 RED CELL DISTRIBUTION WIDTH (BEAKER) (test code = 412) 13.2 % 10.3-14.2 PLATELET COUNT (BEAKER) (test code = 756) 292 10e3/ L 150-430 MEAN PLATELET VOLUME (BEAKER) (test code = 754) 9.7 fL 6.5-10 .5 NEUTROPHILS RELATIVE PERCENT (BEAKER) (test code = 429) 41 % LYMPHOCYTES RELATIVE PERCENT (BEAKER) (test code = 430) 40 % MONOCYTES RELATIVE PERCENT (BEAKER) (test code = 431) 6 % EOSINOPHILS RELATIVE PERCENT (BEAKER) (test code = 432) 13 % BASOPHILS RELATIVE PERCENT (BEAKER) (test code = 437) 1 % NEUTROPHILS ABSOLUTE COUNT (BEAKER) (test code = 670) 3.89 10e3/ L 1.80-8.00 LYMPHOCYTES ABSOLUTE COUNT (BEAKER) (test code = 414) 3.77 10e3/ L 1.48-4.50 MONOCYTES ABSOLUTE COUNT (BEAKER) (test code = 415) 0.52 10e3/ L 0. 00-1.30 EOSINOPHILS ABSOLUTE COUNT (BEAKER) (test code = 416) 1.27 10e3/ L 0.00-0.50 H BASOPHILS ABSOLUTE COUNT (BEAKER) (test code = 417) 0.07 10e3/ L 0. 00-0.20 [id number] 02:23:00* Test Item Value Reference Range Interpretation Comments D-DIMER QUANTITATIVE (BEAKER) (test code = 671) < MG/L FEU <0.50 REGARDING D-DIMER RESULTS: Results of this D-Dimer test should always be interpr eted in conjunction with the patient's medical history, clinical presentation an d other findings. DVT clinical diagnosis should not be based on the results of I NNOVANCE D-Dimer alone.BASIC METABOLIC [id number] 02:14:00* Test Item Value Reference Range Interpretation Comments SODIUM (BEAKER) (test code = 381) 138 meq/L 135-148 POTASSIUM (BEAKER) (test code = 379) 4.0 meq/L 3.6-5.5 CHLORIDE (BEAKER) (test code = 382) 102 meq/L 98-106 CO2 (BEAKER) (test code = 355) 25 meq/L 24-32 BLOOD UREA NITROGEN (BEAKER) (test code = 354) 12 mg/dL 10-26 CREATININE (BEAKER) (test code = 358) 0.79 mg/dL 0.50-1.20 GLUCOSE RANDOM (BEAKER) (test code = 652) 93 mg/dL 70-110 CALCIUM (BEAKER) (test code = 697) 8.9 mg/dL 8.5-10.5 EGFR (BEAKER) (test code = 1092) 102 mL/min/1.73 sq m ESTIMATED GFR IS NOT ACCURATE CREATININE CLEARANCE IN PREDICTING GLOMERULAR FILTRATION RATE. ESTIMATED GFR IS NOT APPLICABLE FOR DIALYSIS PATIENTS. URINE AND [id number] 08:35:00* Test Item Value Reference Range Interpretation Comments UA Spec Grav (test code = UA Spec Grav) 1.020 1 [facility] AND [id number] 08:35:00* Test Item Value Reference Range Interpretation Comments UA pH (test code = UA pH) 6.0 1 5.0-8.0 [facility] [id number] 08:35:00Yellow *NA*(12/03/15 2:35 AM) [facility] [id number] 08:35:00Clear (12/03/15 2:35 AM) [facility] [id number] 08:35:00Negative *NA*(12/03/15 2:35 AM) [facility] [id number] 08:35:00Negative (12/03/15 2:35 AM) [facility] QBZWY7534-53-02 08:35:00Negative (12/03/15 2:35 AM) [facility] [id number] 08:35:00Negative (12/03/15 2:35 AM) [facility] [id number] 08:35:000.2[facility] 2015-12-03 08:35:00Negative (12/03/15 2:35 AM)[facility] STOOL 2015-12-03 08:35:00* Test Item Value Reference Range Interpretation Comments UA Spec Grav (test code = UA Spec Grav) 1.020 1 [facility] [id number] 08:35:00* Test Item Value Reference Range Interpretation Comments UA pH (test code = UA pH) 6.0 1 5.0-8.0 [facility] [id number] 08:35:00Yellow *NA*(12/03/15 2:35 AM) [facility] [id number] 08:35:00Clear (12/03/15 2:35 AM) [facility] [id number] 08:35:00Negative *NA*(12/03/15 2:35 AM) [facility] [id number] 08:35:00Negative (12/03/15 2:35 AM) [facility] [id number] 08:35:00Negative (12/03/15 2:35 AM) [facility] [id number] 08:35:00Negative (12/03/15 2:35 AM) [facility] GIGWH6011-52-50 08:35:000.2[facility] 2015-12-03 08:35:00Negative (12/03/15 2:35 AM)[facility] PAN[facility] 2015-12-03 08:31:60498Ocsxxwbw [facility]annCHE[facility] [id number] 08:31:0027[facility] SIOOJ5862-62-66 08:31:23877Ecflzzia [facility]annCHE[facility] ZJTAK5547-56-18 08:31:008.2[facility] GTFJP2877-58-26 08:31:006[facility] NSJTY2455-73-06 08:31:28434Qovhmvsf [facility]annCHE[facility] OIDAC9472-90-75 08:31:000.63 [facility] GWTTL6313-04-33 08:31:004.0[facility] PAN[facility] 2015-12-03 08:31:0083[facility] JXFHW1910-16-69 08:31:39352Qspetzjg [facility] KWNPD1795-39-51 08:31:000.2[facility] PDXLX6961-12-02 08:31:008.5[facility] ZBHFP0555-28-92 08:31:0027[facility] DCHSL9405-84-77 08:31:04559Iqehdvsq [facility] CJFEA7991-98-77 08:31:0021 [facility] GKWWV8057-38-75 08:31:004.0[facility]ann[facility] PANEL 2015-12-03 08:31:001.0[facility] QTSTY3809-49-65 08:31:004.2[facility] UWQHO3943-06-57 08:31:0010.0[facility] JEMJL7503-59-68 08:31:0010[facility] CgrglxeHGVRUGFZEH9076-00-17 08:31:0033.1[facility] SAOYYQWOJB2838-07-22 08:31:0080.2[facility] PzwagztDNOWIOMVZN7530-15-81 08:31:00 11.3[facility] RcfhjycEKVJWQTZAX6617-59-58 08:31:008.7[facility]ann[facility]OLOGY 2015-12-03 08:31:004.13[facility] BbiwtokMUAYWHZZTI1154-57-40 08:31:0010.0[facility] NeulqvnPXKDCAYJYH8464-63-15 08:31:74803Itzassgj HafvugzAOTFTLXABQ5306-00-05 08:31:00* Test Item Value Reference Range Interpretation Comments MCH (test code = MCH) 27.4 pg 27.0-31.0 [facility] FrbttgqOTUVDCKACD6853-37-30 08:31:0034.2[facility] 2015-12-03 08:31:0017.2[facility] OwamaqoKLXLRDPTWX3876-22-58 08:31:001.1[facility] VtwfvmbLGSOFNVITI1925-10-18 08:31:000.3[facility] EjhfpphKLBDIXVCSU6367-57-72 08:31:0040.0[facility] ZnixewuHLQTVDRILH9151-36-80 08:31:003.7[facility] RVGJJNNQLC5104-13-29 08:31:000.0[facility] LkmylhmHWNXFDEQXA3611-95-67 08:31:004.0 [facility] JmexxkzPZATRODEJD7905-61-21 08:31:0043.0[facility]ann[facility]OLOGY 2015-12-03 08:31:0013.0[facility] MwizibbIEAALFYHGT4426-88-17 08:31:000.0[facility] GllycbhUUWHAEAMKJ7308-31-24 08:31:003.5[facility]annCHE[facility] GHGWN3723-06-98 08:31:00145Ijqwhnwv [facility] XOQHQ9247-38-39 08:31:0027[facility]ann[facility] OVZFZ2867-89-65 08:31:43009Rtsxrcmi [facility] FBQCG4139-98-46 08:31:008.2 [facility] LNTGT3211-87-56 08:31:006[facility] PANEL 2015-12-03 08:31:99861Ohtrefoc [facility]CHE[facility] OGKCX0391-26-04 08:31:000.63[facility] PVNWZ9626-34-15 08:31:004.0[facility] UZBWB6123-89-62 08:31:0083[facility] PMJZD5885-47-39 08:31:46748Eernbhse [facility]annCHE[facility] MQDJF9539-83-22 08:31:000.2[facility] TBFLO2211-57-68 08:31:008.5 [facility] HUPMH4329-23-01 08:31:0027[facility]ann[facility] PANEL 2015-12-03 08:31:52022Rffnldny [facility]annCHEM YVNCF7466-27-83 08:31:0021[facility] WUEJR3354-23-26 08:31:004.0[facility] EISUS2466-30-73 08:31:001.0[facility] LSSDF2909-76-33 08:31:004.2[facility]annCHE[facility] ZLPZU5553-53-71 08:31:0010.0[facility]annCHE[facility] ESASC8074-66-47 08:31:0010 [facility] TovnlwlHNIXMAVXRX3050-45-65 08:31:0033.1[facility]annHEMATOLOGY 2015-12-03 08:31:0080.2[facility] HzrqswdGUDLPTFBXF0057-60-89 08:31:0011.3[facility] OatcdlsBJZZYGRPTC8897-30-50 08:31:008.7[facility] MjrbbzdVKDRIDMDDZ3712-90-25 08:31:004.13[facility] JzmgclcGQDDVTTYEO2441-47-12 08:31:0010.0[facility] MDWUKZCWEJ6262-90-56 08:31:44517Rxjowuiv ExxxfxoNBUSVCKNGL1925-19-52 08:31:00* Test Item Value Reference Range Interpretation Comments MCH (test code = MCH) 27.4 pg 27.0-31.0 [facility] HmwdyvhNCQGZKWBIB1341-04-96 08:31:0034.2[facility]ann[facility]OLOGY 2015-12-03 08:31:0017.2[facility] QgbxhedHKWOVMZJMO1003-13-06 08:31:001.1[facility] YhynskzHIPHPBKLCM6835-43-92 08:31:000.3[facility] CjlfkmuXWCMECLDTC4308-49-08 08:31:0040.0[facility] GjflqrjAXPUWLVBJF2002-12-64 08:31:003.7[facility] FRQTOTMMZH4235-54-91 08:31:000.0[facility] DgpnfjwJQFTXGSTTD9381-63-23 08:31:004.0 [facility] LdpqhksDCSEWEDVQR8916-46-20 08:31:0043.0[facility]annHEMATOLOGY 2015-12-03 08:31:0013.0[facility] AnibfxaVKYSUSHETG4386-93-28 08:31:000.0[facility] PifdzhdLSHQXQWTAW2810-35-24 08:31:003.5[facility]
[2020-05-23] MEDS ORDERED: SODIUM CHLORIDE 0.9% 1000ML 1,000 ML ONE (20:07)
[2020-05-23] MEDS ORDERED: TRAMADOL HCL 50 MG TAB PO ONE (20:15)
[2020-05-23] MEDS ORDERED: ACETAMINOPHEN 325 MG TAB PO ONE (20:15)
[2020-05-23] MEDS ORDERED: HYDROCODONE/APAP 5MG-325MG TAB PO ONE (20:15)
[2020-05-23] MEDS ORDERED: PROMETHAZINE 25MG/ NS 50ML (IV) IV ONE (20:15)
[2020-05-23] MEDS ORDERED: PROMETHAZINE HCL (IM) 25 MG/ML VIAL IM ONE (20:21)
[2020-05-23] MEDS ORDERED: HYDROCODONE/APAP 5MG-325MG TAB ONE (20:21)
--- NOTE | 2020-05-23 20:25 | NUR ---
PT REFUSED TRAMADOL STATING IT MAKES HER HALLUCINATE, DR UGARTE CHANGE DTO NORCO BUT BUT REFUSED THAT WELL STATING IT DOES NOT WORK FOR HER, INITIALLY DIDNT WANT ZOFRAN BC SHE SAID IT DOES NOT WORK BUT AGREED TO TAKING IN IV, LATER OFFERED PHENERGAN ( PT STATED THAT IS THE ONLY THING THAT HELPS WITH NAUSEA) AND SHE OK'D TO TAKE, GIVEN IN LITER BAG OF NS, DR. UGARTE AWARE OF PT REFUSAL TO TAKE ANY PAIN MEDS OFFERED, PT NOTED TO NOT BE IN ANY ACUTE DISTRESS AT ANY TIME UNTIL WALKING TO AND FROM THE XRAY DEPARTMENT AND STOPPED BOTH TIMES AT MD AND NURSE STATIONS TO SAY HER CHEST WAS HURTING AND SHE HAD TO LET THE PAIN PASS BEFORE BENG ABLE TO MOVE, WHEN ENTERED ROOM TO LAMINATOR TO IV FLUIDS, PT NOTED ONCE AGAIN TO BE IN NO ACUTE DISTRESS AND IS ON HER CELL PHONE
--- NOTE | 2020-05-23 21:24 | Diagnostic Imaging Report ---
EXAMINATION: CXR 1 W - HOP INDICATION: ^chest pain COMPARISON: None FINDINGS: AP view TUBES and LINES: None. LUNGS: Lungs are well inflated. There is no evidence of pneumonia or pulmonary edema. PLEURA: No pleural effusion or pneumothorax. HEART AND MEDIASTINUM: The cardiomediastinal silhouette is unremarkable. BONES AND SOFT TISSUES: No acute osseous lesion. Soft tissues are unremarkable. UPPER ABDOMEN: No free air under the diaphragm. IMPRESSION: No acute thoracic abnormality. Signed by: Dr. Arie Landin MD on 05/23/2020 9:21 PM
== END 2020-05-23 21:04 | disposition home or self-care (01) ==
LOC: FSED 19:58
DX: R07.89 Other chest pain (principal); D57.3 Sickle-cell trait; R94.31 Abnormal electrocardiogram [ECG] [EKG]
CPT/HCPCS: 71045; 93005; 99283; J2405; J2550; J7030